=== PATIENT | female | born 1990 | race Caucasian/White ===

== ENCOUNTER 2018-01-24 22:45 | Emergency (ER) | payer MEDICAID, OTHER ==
[2018-01-24 23:55] LABS: HCG UR QUAL NEGATIVE
--- NOTE | 2018-01-25 00:51 | XRAY Report ---
Procedure Date: 01/25/2018 Accession Number: [id number] / [id number] Procedure: XR - Ankle 3 View RT CPT Code: FULL RESULT: EXAM: RIGHT ANKLE RADIOGRAPHY EXAM DATE: 01/25/2018 12:37 AM. CLINICAL HISTORY: Right ankle injury. COMPARISON: None. TECHNIQUE: 3 views. FINDINGS: Bones: Unremarkable appearing surgical hardware in the distal tibia and fibula. Fracture lines visible but in anatomic alignment. No new fracture seen. Joints: Normal. No effusion. No subluxations. The ankle mortise is normally aligned. Soft Tissues: Normal. No soft tissue swelling. IMPRESSION: Unremarkable appearing surgical hardware in the distal tibia and fibula. Fracture lines visible but in anatomic alignment. No new fracture seen. RADIA
--- NOTE | 2018-01-25 00:52 | XRAY Report ---
Procedure Date: 01/25/2018 Accession Number: [id number] / [id number] Procedure: XR - Chest 2 View X-Ray CPT Code: 88671 FULL RESULT: EXAM: CHEST RADIOGRAPHY EXAM DATE: 01/25/2018 12:38 AM. CLINICAL HISTORY: Injury to right chest. COMPARISON: None. TECHNIQUE: 2 views. FINDINGS: Lungs/Pleura: No focal opacities evident. No pleural effusion. No pneumothorax. Normal volumes. Mediastinum: Heart and mediastinal contours are unremarkable. Other: No definite acute osseous abnormality. IMPRESSION: Negative 2-view chest radiography. RADIA
[2018-01-25 01:05] VITALS: BP 125/77
--- NOTE | 2018-01-25 01:11 | ED Physician Documentation ---
History of Present Illness - Stated complaint Stated Complaint: RIB PX - Chief complaint Chief Complaint: General - History obtained from History obtained from: Patient - History of Present Illness Timing: How many weeks ago (1) Pain level now: 7 Improved by: rest Worsened by: movement, weight-bearing, deep inspiration - Additonal information Additional information: c/o left anterolateral rib pain and right ankle pain x 1 week, sudden onset when rough-housing with s.o. Patient says this was accidental and denies feeling unsafe at home. presents tonight because pain no longer responding to OTC (tylenol, ibuprofen, aspirin). Review of Systems Cardiac: reports: Chest pain / pressure (left chest wall pain) Respiratory: reports: Reviewed and negative GI: reports: Reviewed and negative Musculoskeletal: reports: Joint pain (right ankle). denies: Neck pain, Back pain Neurologic: denies: Focal weakness, Numbness, Headache, Head injury PD PAST MEDICAL HISTORY - Past Medical History Past Medical History: Yes Endocrine/Autoimmune: HyPERthyroidism - Past Surgical History Past Surgical History: Yes Ortho: Other HEENT: Tonsil/Adenoidectomy - Present Medications Home Medications: Ambulatory Orders Medication Instructions Recorded Confirmed Atenolol 25 mg PO DAILY #30 tablet 03/26/15 Methimazole [Tapazole] 10 mg PO DAILY 03/26/15 03/26/15 Metoprolol Tartrate 25 mg PO 03/26/15 03/26/15 oxyCODONE/ACET 5/325 [Percocet 5 1 - 2 each PO Q6H PRN #10 tablet 01/25/18 mg/325 mg] - Allergies Allergies/Adverse Reactions: Allergies Allergy/AdvReac Type Severity Reaction Status Date / Time acetaminophen [From Vicodin] Allergy Unknown Unknown Verified 08/01/14 12:47 hydrocodone bitartrate * Allergy Unknown Unknown Verified 08/01/14 12:47 [From Vicodin] - Social History Does the pt smoke?: Yes Smoking Status: Current every day smoker Does the pt drink ETOH?: No Does the pt have substance abuse?: No - Immunizations Immunizations are current?: Yes Immunizations: TDAP >10years/unknown - POLST Patient has POLST: No PD ED PE NORMAL - Vitals Vital signs reviewed: Yes - General General: Alert and oriented X 3, No acute distress, Well developed/nourished - Neck Neck: Thyroid normal (nontender, symmetric anterior neck fullness) - Cardiac Cardiac: No murmur - Respiratory Respiratory: No respiratory distress, Clear bilaterally, Other (left anterolateral rib tenderness to palpation) - Abdomen Abdomen: Soft, Non tender - Back Back: No spinal TTP - Extremities Extremities: No edema, Other (mild swelling, tenderness medial aspect of right ankle) - Neuro Neuro: Alert and oriented X 3, No motor deficit, No sensory deficit PD ED PE EXPANDED - Cardiac Cardiac: Tachy, Regular Rhythm Results - Vitals Vitals: Oxygen O2 Source Room air - Labs Labs: Laboratory Tests 01/24/18 23:30 Ur Specific [place] 1.010 Urine HCG, Qual NEGATIVE - Rads (name of study) right ankle xrays Radiology: Prelim report reviewed, See rad report chest xray Radiology: Prelim report reviewed, See rad report PD MEDICAL DECISION MAKING - ED course Complexity details: reviewed results, re-evaluated patient, considered differential, d/w patient ED course: no acute findings on chest xray, ankle xrays. tachycardic during ED stay; pain might be contributing factor, although when I ask her about her medications, she says she has not been taking them for a couple of years. she says there were problems in continuing to see her previous doctor, and she has not established with a new one, and she thus eventually ran out of her medications. despite tachycardia, she does not have other overt signs of hyperthyroidism ( such as diaphoresis, proptosis, lid lag). she has fullness in anterior neck. I advised her to seek immediate follow-up through her insurance provider (to be assigned a PMD) or to contact [facility] or [facility] (if she had no insurance). - Sepsis Event Vital Signs: Oxygen O2 Source Room air Departure - Departure Disposition: Home, Self Care Clinical Impression: Chest wall contusion, Right ankle sprain Condition: Good Instructions: ED Sprain Ankle W X Ray, ED Contusion Rib Follow-Up: [facility] [Provider Group] [facility] [Provider Group] Prescriptions: oxyCODONE/ACET 5/325 [Percocet 5 mg/325 mg] 1 - 2 each PO Q6H PRN #10 tablet PRN Reason: Pain Forms: Activity restrictions Discharge Date/Time: 01/25/18 02:00
[2018-01-25] MEDS ORDERED: oxyCOD/ACETAMIN 5 MG/325 MG TABLET PO STA (01:23)
== END 2018-01-25 02:00 | disposition home or self-care (01) ==
LOC: ED 22:45
DX: S20.219A Contusion of unspecified front wall of thorax, initial encounter (principal); S93.401A Sprain of unspecified ligament of right ankle, initial encounter; Y93.83 Activity, rough housing and horseplay; E05.90 Thyrotoxicosis, unspecified without thyrotoxic crisis or storm; R00.0 Tachycardia, unspecified; T50.906A Underdosing of unspecified drugs, medicaments and biological substances, initial encounter; Z91.138 Patient's unintentional underdosing of medication regimen for other reason
CPT/HCPCS: 71046; 73610; 81025; 99283; A9270

== ENCOUNTER 2019-11-11 16:52 | Emergency (ER) | payer MEDICAID ==
[2019-11-11] MEDS: SODIUM CHLORIDE 0.9% 1,000 ML IV STA (17:27)
--- NOTE | 2019-11-11 17:48 | ED Physician Documentation ---
History of Present Illness - Stated complaint Stated Complaint: WEAKNESS, N/V - Chief complaint Chief Complaint: General - History obtained from History obtained from: Patient - History of Present Illness Timing: Yesterday Pain level max: 5 Pain level now: 4 - Additonal information Additional information: 29-year-old female states that she had teeth pulled yesterday. States has had nausea and vomiting since that time. Is supposed to be taking Augmentin, but cannot keep it down. Nothing makes it better or worse. No fevers. She does states she has a chronically elevated heart rate. She states she has hyperthyroidism, but does not take her medication. Review of Systems Constitutional: denies: Fever Respiratory: denies: Cough GI: reports: Nausea, Vomiting. denies: Abdominal Pain, Diarrhea : denies: Dysuria, Frequency, Hesitancy, Now EGA Skin: denies: Rash PD PAST MEDICAL HISTORY - Past Medical History Past Medical History: Yes Endocrine/Autoimmune: HyPERthyroidism - Past Surgical History Past Surgical History: Yes Ortho: Other HEENT: Tonsil/Adenoidectomy - Present Medications Home Medications: Ambulatory Orders Medication Instructions Recorded Confirmed Methimazole [Tapazole] 10 mg PO DAILY 03/26/15 03/26/15 Metoprolol Tartrate 25 mg PO 03/26/15 03/26/15 atenoloL [Atenolol] 25 mg PO DAILY #30 tablet 03/26/15 oxyCODONE/ACET 5/325 [Percocet 5 1 - 2 each PO Q6H PRN #10 tablet 01/25/18 mg/325 mg] Clindamycin HCl [Clindamycin 300MG 300 mg PO Q6H #40 capsule 11/11/19 CAP] Ondansetron Odt [Zofran] 4 mg TL Q6H PRN #10 tablet 11/11/19 - Allergies Allergies/Adverse Reactions: Allergies Allergy/AdvReac Type Severity Reaction Status Date / Time acetaminophen [From Vicodin] Allergy Unknown Unknown Verified 11/11/19 17:13 hydrocodone bitartrate * Allergy Unknown Unknown Verified 11/11/19 17:13 [From Vicodin] - Social History Does the pt smoke?: Yes Smoking Status: Current every day smoker Does the pt drink ETOH?: No Does the pt have substance abuse?: No - Immunizations Immunizations are current?: Yes Immunizations: TDAP >10years/unknown - POLST Patient has POLST: No PD ED PE NORMAL - Vitals Vital signs reviewed: Yes - General General: Alert and oriented X 3, No acute distress - HEENT HEENT: Moist mucous membranes, Other (Poor dentition throughout. No abscesses. No signs of infection.) - Neck Neck: Supple, no meningeal sign - Cardiac Cardiac: Other (Tachycardic) - Respiratory Respiratory: No respiratory distress, Clear bilaterally - Derm Derm: Warm and dry - Neuro Neuro: Alert and oriented X 3 - Psych Psych: Normal mood, Normal affect Results - Vitals Vitals: Vital Signs - 24 hr 11/11/19 11/11/19 11/11/19 17:10 17:28 18:30 Temperature 36.8 C Heart Rate 149 H 134 H 147 H Respiratory 20 17 20 Rate Blood Pressure 137/80 H 137/88 H 128/74 O2 Saturation 100 100 99 11/11/19 19:00 Temperature Heart Rate 146 H Respiratory 16 Rate Blood Pressure 126/77 O2 Saturation 100 Oxygen O2 Source Room air - Labs Labs: Laboratory Tests 11/11/19 11/11/19 11/11/19 17:38 17:38 17:57 WBC 6.7 RBC 4.82 Hgb 11.9 L Hct 37.0 MCV 76.8 L MCH 24.7 L MCHC 32.2 RDW 14.8 Plt Count TNP MPV TNP Neut # (Auto) 5.3 Lymph # (Auto) 1.1 L [place] # (Auto) 0.4 Eos # (Auto) 0.0 Baso # (Auto) 0.0 Absolute Nucleated RBC 0.00 Nucleated RBC % 0.0 Manual Slide Review Indicated Platelet Estimate NORMAL (130-450,000) Platelet Morphology PLATELET CLUMPING Sodium Potassium Chloride Carbon Dioxide Anion Gap BUN Creatinine Estimated GFR (MDRD) Glucose Calcium Total Bilirubin AST ALT Alkaline Phosphatase Total Protein Albumin Globulin Albumin/Globulin Ratio Lipase Urine Color YELLOW Urine Clarity CLEAR Urine pH 5.5 Ur Specific [place] >=1.030 H Urine Protein NEGATIVE Urine Glucose (UA) NEGATIVE Urine Ketones >=80 H Urine Occult Blood MODERATE H Urine Nitrite NEGATIVE Urine Bilirubin NEGATIVE Urine Urobilinogen 0.2 (NORMAL) Ur Leukocyte Esterase NEGATIVE Urine RBC 0-5 Urine WBC 0-3 Ur Squamous Epith Cells NONE SEEN Urine Bacteria None Seen Ur Microscopic Review INDICATED Urine Culture Comments NOT INDICATED Urine HCG, Qual NEGATIVE Urine Opiates Screen NEGATIVE Ur Oxycodone Screen NEGATIVE Urine Methadone Screen NEGATIVE Ur Propoxyphene Screen NEGATIVE Ur Barbiturates Screen NEGATIVE Ur Tricyclics Screen NEGATIVE Ur Phencyclidine Scrn NEGATIVE Ur Amphetamine Screen NEGATIVE U Methamphetamines Scrn NEGATIVE U Benzodiazepines Scrn NEGATIVE Urine Cocaine Screen NEGATIVE U Cannabinoids Screen POSITIVE H 11/11/19 17:57 WBC RBC Hgb Hct MCV MCH MCHC RDW Plt Count MPV Neut # (Auto) Lymph # (Auto) [place] # (Auto) Eos # (Auto) Baso # (Auto) Absolute Nucleated RBC Nucleated RBC % Manual Slide Review Platelet Estimate Platelet Morphology Sodium 135 Potassium 3.9 Chloride 104 Carbon Dioxide 15 L Anion Gap 16.0 H BUN 10 Creatinine 0.4 Estimated GFR (MDRD) 190 Glucose 73 Calcium 8.8 Total Bilirubin 1.0 AST 18 ALT 15 Alkaline Phosphatase 120 Total Protein 7.3 Albumin 3.9 Globulin 3.4 Albumin/Globulin Ratio 1.1 Lipase 26 Urine Color Urine Clarity Urine pH Ur Specific [place] Urine Protein Urine Glucose (UA) Urine Ketones Urine Occult Blood Urine Nitrite Urine Bilirubin Urine Urobilinogen Ur Leukocyte Esterase Urine RBC Urine WBC Ur Squamous Epith Cells Urine Bacteria Ur Microscopic Review Urine Culture Comments Urine HCG, Qual Urine Opiates Screen Ur Oxycodone Screen Urine Methadone Screen Ur Propoxyphene Screen Ur Barbiturates Screen Ur Tricyclics Screen Ur Phencyclidine Scrn Ur Amphetamine Screen U Methamphetamines Scrn U Benzodiazepines Scrn Urine Cocaine Screen U Cannabinoids Screen PD MEDICAL DECISION MAKING - ED course Complexity details: considered differential, d/w patient ED course: 29-year-old female feels much better after IV fluids and Zofran. Also given a dose of Rocephin. Will change her from Augmentin to clindamycin. She is tolerating p.o. without difficulty now. Her tachycardia is chronic and confirmed on prior visits. Patient is well-appearing, nontoxic. Afebrile. Patient counseled regarding signs and symptoms for which I believe and urgent re-evaluation would be necessary. Patient with good understanding of and agreement to plan and is comfortable going home at this time This document was made in part using voice recognition software. While efforts are made to proofread this document, sound alike and grammatical errors may occur. Departure - Departure Disposition: 01 Home, Self Care Clinical Impression: Vomiting Qualifiers: Vomiting type: unspecified Vomiting Intractability: non-intractable Nausea presence: with nausea Qualified Code(s): R11.2 - Nausea with vomiting, unspe cified Condition: Good Instructions: ED Nausea Vomiting Follow-Up: your,doctor in 3 days [Other] - Within 1 week Prescriptions: Clindamycin HCl [Clindamycin 300MG CAP] 300 mg PO Q6H #40 capsule Ondansetron Odt [Zofran] 4 mg TL Q6H PRN #10 tablet PRN Reason: Nausea / Vomiting Comments: Return if you worsen. Drink plenty of fluids and rest Follow up with your doctor for further care. We will change your antibiotics as well. Discharge Date/Time: 11/11/19 19:43
[2019-11-11 17:55] LABS: GLUCOSE, URINE (UA) NEGATIVE (NEGATIVE); KETONES,URINE (UA) >=80 mg/dL (NEGATIVE); LEUKOCYTE ESTERASE, URINE NEGATIVE (NEGATIVE); NITRITE,URINE NEGATIVE (NEGATIVE); OCCULT BLOOD,URINE MODERATE (NEGATIVE); PH,URINE 5.5 PH (5.0-7.5); PROTEIN,URINE NEGATIVE (NEGATIVE); UROBILINOGEN,URINE 0.2 (NORMAL) E.U./dL (NORMAL)
[2019-11-11] MEDS: MORPHINE 10 MG/ML VIAL IVP STA (17:55)
[2019-11-11] MEDS: ONDANSETRON 4 MG/2 ML VIAL IVP STA (17:55)
[2019-11-11 17:57] LABS: BILIRUBIN,URINE NEGATIVE (NEGATIVE); CLARITY,URINE CLEAR (CLEAR); HCG UR QUAL NEGATIVE; ICTOTEST,URINE NEGATIVE
[2019-11-11 18:03] LABS: BACTERIA,URINE None Seen /HPF (None Seen); RBC,URINE 0-5 /HPF (0-5); SQUAMOUS EPITHELIAL CELL,UR NONE SEEN (<= Few)
[2019-11-11 18:06] LABS: BASOPHILS % (AUTO) 0.1 %; EOSINOPHILS % (AUTO) 0.3 %; HGB - HEMOGLOBIN 11.9 g/dL (12.0-16.0); LYMPHOCYTES # (AUTO) 1.1 10^3/uL (1.5-3.5); LYMPHOCYTES % (AUTO) 15.6 %; MEAN CORPUSCULAR HEMOGLOBIN 24.7 pg (27.0-31.0); MEAN CORPUSCULAR HGB CONC 32.2 g/dL (32.0-36.0); MEAN CORPUSCULAR VOLUME 76.8 fL (81.0-99.0); MONOCYTES # (AUTO) 0.4 10^3/uL (0.0-1.0); MONOCYTES % (AUTO) 5.8 %; NEUTROPHILS # (AUTO) 5.3 10^3/uL (1.5-6.6); NEUTROPHILS % (AUTO) 77.9 %; RED BLOOD COUNT 4.82 10^6/uL (4.20-5.40); RED CELL DISTRIBUTION WIDTH 14.8 % (12.0-15.0); WHITE BLOOD COUNT 6.7 x10^3/uL (4.8-10.8)
[2019-11-11 18:14] LABS: ALBUMIN 3.9 g/dL (3.2-5.5); ALBUMIN/GLOBULIN RATIO 1.1 (1.0-2.2); CALCIUM 8.8 mg/dL (8.5-10.3); CREATININE 0.4 mg/dL (0.4-1.0); TOTAL PROTEIN 7.3 g/dL (6.7-8.2)
[2019-11-11] MEDS: cefTRIAXone 1 GM VIAL IVP STA (18:20)
[2019-11-11] MEDS: SODIUM CHLORIDE 0.9% 1,000 ML IV ONE (18:31)
[2019-11-11 18:47] LABS: PLATELET ESTIMATE, MANUAL NORMAL (130-450,000) (NORMAL); PLATELET MORPHOLOGY PLATELET CLUMPING (NORMAL)
[2019-11-11 18:53] LABS: MUDS CUTOFF CONCENTRATIONS CUTOFF CONC BELOW:
[2019-11-11 19:07] LABS: AMPHETAMINE SCREEN,URINE NEGATIVE (NEGATIVE); BENZODIAZEPINES SCREEN, URINE NEGATIVE (NEGATIVE); COCAINE SCREEN URINE NEGATIVE (NEGATIVE); METHADONE SCREEN, URINE NEGATIVE (NEGATIVE); METHAMPHETAMINES SCREEN, URINE NEGATIVE (NEGATIVE); OPIATE SCREEN, URINE NEGATIVE (NEGATIVE); OXYCODONE SCREEN, URINE NEGATIVE (NEGATIVE); PROPOXYPHENE SCREEN, URINE NEGATIVE (NEGATIVE); TRICYCLIC ANTIDEPRESSANT,URINE NEGATIVE (NEGATIVE)
[2019-11-11 19:22] VITALS: BP 126/77
== END 2019-11-11 19:43 | disposition home or self-care (01) ==
LOC: ED 16:52
DX: R11.2 Nausea with vomiting, unspecified (principal); F17.200 Nicotine dependence, unspecified, uncomplicated
CPT/HCPCS: 36415; 80053; 80306; 81001; 81003; 81025; 83690; 85025; 87086; 96361; 96374; 96375; 99284

== ENCOUNTER 2020-03-09 22:06 | Emergency (ER) | payer MEDICAID ==
--- NOTE | 2020-03-09 22:32 | ED Physician Documentation ---
PD HPI HEADACHE - Stated complaint Stated Complaint: HEADACHE - Chief complaint Chief Complaint: Neuro - History obtained from History obtained from: Patient - History of Present Illness Timing - onset: Today (this morning) Timing - onset during: Rest Timing - duration: Hours (all day since this morning) Timing - details: Gradual onset Pain level now: 6 Location: Front, Right, Left, Other (bifrontal radiating to neck (posterior aspect of neck)) Quality: Throbbing, Aching Associated symptoms: Nausea. No: Fever, Stiff neck, Vomiting, Weakness, Numbness, Vision changes Improved by: Rest, Dark room Worsened by: Light, Noise Similar symptoms before: Has not had sx before Recently seen: Not recently seen - Additional information Additional information: c/o headache. she woke this morning with this headache, mild at that time but gradually worsening all day. Worse with light, noise. Review of Systems Constitutional: denies: Fever, Chills, Sweats Eyes: reports: Photophobia. denies: Loss of vision, Decreased vision Nose: denies: Congestion, Sinus pressure / pain Cardiac: reports: Reviewed and negative Respiratory: reports: Reviewed and negative GI: reports: Nausea. denies: Abdominal Pain, Vomiting Skin: denies: Rash Neurologic: reports: Headache. denies: Generalized weakness, Focal weakness, Numbness, Head injury PD PAST MEDICAL HISTORY - Past Medical History Past Medical History: Yes Endocrine/Autoimmune: HyPERthyroidism - Past Surgical History Past Surgical History: Yes Ortho: Other HEENT: Tonsil/Adenoidectomy - Present Medications Home Medications: Ambulatory Orders Medication Instructions Recorded Confirmed Ondansetron Odt [Zofran] 4 mg TL Q6H PRN #10 tablet 03/10/20 oxyCODONE [Roxicodone] 5 - 10 mg PO Q6H PRN #14 tablet 03/10/20 - Allergies Allergies/Adverse Reactions: Allergies Allergy/AdvReac Type Severity Reaction Status Date / Time acetaminophen [From Vicodin] Allergy Unknown Unknown Verified 03/09/20 22:15 hydrocodone bitartrate * Allergy Unknown Unknown Verified 03/09/20 22:15 [From Vicodin] paper tape Allergy Rash Uncoded 03/09/20 22:15 - Social History Does the pt smoke?: Yes Smoking Status: Current every day smoker Does the pt drink ETOH?: No Does the pt have substance abuse?: No - Immunizations Immunizations are current?: Yes Immunizations: TDAP >10years/unknown - POLST Patient has POLST: No PD ED PE NORMAL - Vitals Vital signs reviewed: Yes - General General: Alert and oriented X 3, No acute distress, Well developed/nourished - HEENT HEENT: Atraumatic, PERRL, EOMI, Moist mucous membranes - Neck Neck: Supple, no meningeal sign - Cardiac Cardiac: No murmur - Respiratory Respiratory: No respiratory distress - Abdomen Abdomen: Soft, Non tender - Derm Derm: Normal color, Warm and dry - Neuro Neuro: Alert and oriented X 3, 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-12 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, No motor deficit, No sensory deficit, Normal speech Eye Opening: Spontaneous Motor: Obeys Commands Verbal: Oriented GCS Score: 15 PD ED PE EXPANDED - Cardiac Cardiac: Tachy, Regular Rhythm Results - Vitals Vitals: Vital Signs - 24 hr 03/09/20 03/10/20 22:12 00:43 Temperature 36.5 C Heart Rate 132 H 119 H Respiratory 18 16 Rate Blood Pressure 127/81 H 119/79 O2 Saturation 98 99 Oxygen O2 Source Room air PD MEDICAL DECISION MAKING - ED course Complexity details: reviewed old records, reviewed results, re-evaluated patient, considered differential, d/w patient ED course: patient reported improvement after IM toradol, SQ imitrex, and TL zofran, although she c/o feeling flushed after these meds; possibly due to side effect of imitrex and thus this was not prescribed. She has high heart rate which she has had on several previous visits. She tells me she has h/o hyperthyroidism but that the last time her PMD checked her blood tests for thyroid problems, the results were normal (off of medications). I instructed her to f/u with PMD, as her persistent tachycardia is not normal and might benefit from further testing (no emergent testing indicated at this time). Departure - Departure Disposition: 01 Home, Self Care Clinical Impression: Headache Condition: Good Instructions: ED Cephalgia Unspecified Prescriptions: oxyCODONE [Roxicodone] 5 - 10 mg PO Q6H PRN #14 tablet PRN Reason: Headache Ondansetron Odt [Zofran] 4 mg TL Q6H PRN #10 tablet PRN Reason: Nausea / Vomiting Discharge Date/Time: 03/10/20 00:45
[2020-03-09] MEDS ORDERED: KETOROLAC 60 MG/2 ML VIAL IM STA (22:51)
[2020-03-09] MEDS ORDERED: SUMAtriptan 6 MG/0.5 ML VIAL SUBQ STA (22:51)
[2020-03-09] MEDS ORDERED: ONDANSETRON ODT 4 MG TABLET TL STA (22:51)
[2020-03-10] MEDS ORDERED: oxyCODONE/ACET 5/325 Prepack 4 PO STA (00:18)
[2020-03-10 00:44] VITALS: BP 119/79
== END 2020-03-10 00:45 | disposition home or self-care (01) ==
LOC: ED 22:06
DX: R51 Headache (principal); R11.0 Nausea; R00.0 Tachycardia, unspecified; F17.200 Nicotine dependence, unspecified, uncomplicated
CPT/HCPCS: 96372; 99283; 99284; Q0162

== ENCOUNTER 2020-03-12 23:09 | Emergency (ER) | payer MEDICAID ==
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
[2020-03-13] MEDS ORDERED: BACITRACIN ZINC OINT 1 PACKET TOP STA (00:27)
[2020-03-13 01:30] LABS: BILIRUBIN,URINE NEGATIVE (NEGATIVE); GLUCOSE, URINE (UA) NEGATIVE (NEGATIVE); KETONES,URINE (UA) TRACE mg/dL (NEGATIVE); LEUKOCYTE ESTERASE, URINE NEGATIVE (NEGATIVE); MUDS CUTOFF CONCENTRATIONS CUTOFF CONC BELOW:; NITRITE,URINE NEGATIVE (NEGATIVE); OCCULT BLOOD,URINE NEGATIVE (NEGATIVE); PROTEIN,URINE NEGATIVE (NEGATIVE); UROBILINOGEN,URINE 0.2 (NORMAL) E.U./dL (NORMAL)
[2020-03-13] MEDS ORDERED: SODIUM CHLORIDE 0.9% 1,000 ML IV STA (01:31)
[2020-03-13 01:33] LABS: CLARITY,URINE CLEAR (CLEAR)
[2020-03-13 01:41] LABS: AMPHETAMINE SCREEN,URINE NEGATIVE (NEGATIVE); BENZODIAZEPINES SCREEN, URINE NEGATIVE (NEGATIVE); COCAINE SCREEN URINE NEGATIVE (NEGATIVE); METHADONE SCREEN, URINE NEGATIVE (NEGATIVE); METHAMPHETAMINES SCREEN, URINE NEGATIVE (NEGATIVE); OPIATE SCREEN, URINE NEGATIVE (NEGATIVE); OXYCODONE SCREEN, URINE NEGATIVE (NEGATIVE); PROPOXYPHENE SCREEN, URINE NEGATIVE (NEGATIVE); TRICYCLIC ANTIDEPRESSANT,URINE NEGATIVE (NEGATIVE)
[2020-03-13 01:42] LABS: BASOPHILS % (AUTO) 0.3 %; EOSINOPHILS # (AUTO) 0.2 10^3/uL (0.0-0.7); EOSINOPHILS % (AUTO) 2.6 %; HGB - HEMOGLOBIN 10.5 g/dL (12.0-16.0); LYMPHOCYTES # (AUTO) 2.5 10^3/uL (1.5-3.5); LYMPHOCYTES % (AUTO) 32.5 %; MEAN CORPUSCULAR HEMOGLOBIN 23.4 pg (27.0-31.0); MEAN CORPUSCULAR HGB CONC 31.3 g/dL (32.0-36.0); MEAN PLATELET VOLUME 9.9 fL (7.9-10.8); MONOCYTES # (AUTO) 0.5 10^3/uL (0.0-1.0); MONOCYTES % (AUTO) 6.3 %; NEUTROPHILS # (AUTO) 4.4 10^3/uL (1.5-6.6); PLT - PLATELET COUNT 303 10^3/uL (130-450); RED BLOOD COUNT 4.48 10^6/uL (4.20-5.40); RED CELL DISTRIBUTION WIDTH 15.1 % (12.0-15.0); WHITE BLOOD COUNT 7.6 x10^3/uL (4.8-10.8)
[2020-03-13] MEDS ORDERED: IOVERSOL 320 100 ML VIAL IVP ONE ×2 (01:48→03:19)
[2020-03-13 01:54] LABS: ALBUMIN 3.8 g/dL (3.2-5.5); ALBUMIN/GLOBULIN RATIO 1.3 (1.0-2.2); ALKALINE PHOSPHATASE 95 IU/L (42-121); ALT ALANINE AMINOTRANSFERASE 14 IU/L (10-60); AST ASPARTATE AMINOTRANSFERASE 17 IU/L (10-42); BILIRUBIN,TOTAL 0.3 mg/dL (0.2-1.0); BUN - BLOOD UREA NITROGEN 12 mg/dL (6-20); CALCIUM 9.2 mg/dL (8.5-10.3); CARBON DIOXIDE - CO2 24 mmol/L (21-32); CHLORIDE 104 mmol/L (101-111); CK- CREATINE KINASE 35 IU/L (22-269); CREATININE 0.3 mg/dL (0.4-1.0); GLUCOSE 108 mg/dL (70-100); LIPASE 48 U/L (22-51); SODIUM 136 mmol/L (135-145); TOTAL PROTEIN 6.8 g/dL (6.7-8.2)
[2020-03-13 02:08] LABS: HCG,QUALITATIVE BLOOD NEGATIVE
[2020-03-13 03:54] VITALS: BP 124/86
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
== END 2020-03-13 04:13 | disposition home or self-care (01) ==
LOC: ED 23:09
DX: S42.114A Nondisplaced fracture of body of scapula, right shoulder, initial encounter for closed fracture (principal); S06.0X9A Concussion with loss of consciousness of unspecified duration, initial encounter; S01.112A Laceration without foreign body of left eyelid and periocular area, initial encounter; S03.2XXA Dislocation of tooth, initial encounter; V40.5XXA Car driver injured in collision with pedestrian or animal in traffic accident, initial encounter; Y92.410 Unspecified street and highway as the place of occurrence of the external cause; F17.200 Nicotine dependence, unspecified, uncomplicated; F19.11 Other psychoactive substance abuse, in remission; R16.1 Splenomegaly, not elsewhere classified; R00.0 Tachycardia, unspecified
CPT/HCPCS: 36415; 70450; 70486; 71045; 71260; 72125; 74177; 80053; 80306; 80320; 81003; 82550; 83690; 84484; 84703; 85025; 93005; 96360; 99283; 99284; Q9967; 81001; 87086

== ENCOUNTER 2020-04-29 23:23 | Emergency (ER) | payer MEDICAID ==
[2020-04-29 23:49] VITALS: BP 133/83
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
[2020-04-30] MEDS ORDERED: predniSONE 20 MG TABLET PO STA (00:15)
[2020-04-30] MEDS ORDERED: diphenhydrAMINE 25 MG CAPSULE PO STA (00:15)
== END 2020-04-30 00:34 | disposition home or self-care (01) ==
LOC: ED 23:23
DX: T78.3XXA Angioneurotic edema, initial encounter (principal); F17.200 Nicotine dependence, unspecified, uncomplicated
CPT/HCPCS: 99282; 99283; A9270; J7512

== ENCOUNTER 2020-05-25 18:30 | Outpatient (CLI) | payer MEDICAID | END 2020-05-25 18:31 | disposition home or self-care (01) | LOC: COV 18:30 | PROVIDERS: ATTEND Family Medicine | DX: R05 Cough (principal); M79.10 Myalgia, unspecified site; R53.83 Other fatigue; R68.83 Chills (without fever); J02.9 Acute pharyngitis, unspecified; R19.7 Diarrhea, unspecified; R09.81 Nasal congestion; Z20.828 Contact with and (suspected) exposure to other viral communicable diseases ==

== ENCOUNTER 2020-07-29 01:01 | Emergency (ER) | payer MEDICAID ==
--- NOTE | 2020-07-29 02:13 | ED Physician Documentation ---
PD HPI HEADACHE - Stated complaint Stated Complaint: SWOLLEN LT EYE - Chief complaint Chief Complaint: Neuro - History obtained from History obtained from: Patient - History of Present Illness Timing - onset: How many hours ago (10), Today (about 2 this afternoon) Timing - onset during: Light activity Timing - details: Gradual onset, Still present Worst headache ever?: No: Worst headache ever? (similar to headache 3 months ago that was treated well with migriane meds. This is just second headache of similar character.) Quality: Throbbing, Aching Associated symptoms: Nausea, Eye pain (light sensitive left eye and feels that there is pressure feeling around the eye.). No: Fever, Stiff neck, Vomiting, Weakness Worsened by: Light, Noise Contributing factors: No: Anticoagulated, Recent illness, Trauma Similar symptoms before: Diagnosis (one prior similar headache Dx as likely migraine) Review of Systems Constitutional: denies: Fever, Chills Eyes: reports: Photophobia Nose: denies: Rhinorrhea / runny nose, Congestion Throat: denies: Sore throat Respiratory: denies: Cough GI: reports: Nausea. denies: Abdominal Pain, Vomiting, Diarrhea Skin: denies: Rash, Lesions Neurologic: reports: Headache. denies: Focal weakness, Numbness, Altered mental status PD PAST MEDICAL HISTORY - Past Medical History Cardiovascular: Other Endocrine/Autoimmune: HyPERthyroidism - Past Surgical History Past Surgical History: Yes Ortho: Other HEENT: Tonsil/Adenoidectomy - Present Medications Home Medications: Ambulatory Orders Medication Instructions Recorded Confirmed Ondansetron Odt [Zofran] 4 mg TL Q6H PRN #10 tablet 03/10/20 oxyCODONE [Roxicodone] 5 - 10 mg PO Q6H PRN #14 tablet 03/10/20 predniSONE [Prednisone] 40 mg PO DAILY 3 Days #6 tablet 04/30/20 Butalb/Acetaminophen/Caffeine 1 each PO Q6H PRN #10 capsule 07/29/20 [Fioricet 50-300-40 mg Capsule] Ondansetron Odt [Zofran] 4 mg TL Q6H PRN #10 tablet 07/29/20 - Allergies Allergies/Adverse Reactions: Allergies Allergy/AdvReac Type Severity Reaction Status Date / Time acetaminophen [From Vicodin] Allergy Unknown Unknown Verified 04/29/20 23:30 hydrocodone bitartrate * Allergy Unknown Unknown Verified 04/29/20 23:30 [From Vicodin] paper tape Allergy Rash Uncoded 04/29/20 23:30 - Social History Does the pt smoke?: Yes Smoking Status: Current every day smoker Does the pt drink ETOH?: No Does the pt have substance abuse?: No - Immunizations Immunizations are current?: Yes Immunizations: TDAP >10years/unknown - POLST Patient has POLST: No PD ED PE NORMAL - Vitals Vital signs reviewed: Yes - General General: Alert and oriented X 3, Well developed/nourished - HEENT HEENT: Moist mucous membranes, Pharynx benign - Neck Neck: Supple, no meningeal sign, No adenopathy - Cardiac Cardiac: No murmur. No: RRR (regular but tachycardic) - Respiratory Respiratory: Clear bilaterally - Abdomen Abdomen: Soft, Non tender - Derm Derm: Normal color, Warm and dry - Extremities Extremities: No tenderness to palpate, Normal ROM s pain - Neuro Neuro: Alert and oriented X 3, soap maker 2-12 intact, No motor deficit, No sensory deficit, Normal speech - Psych Psych: Normal mood, Normal affect Results - Vitals Vitals: Vital Signs - 24 hr 07/29/20 07/29/20 07/29/20 01:16 02:15 03:31 Temperature 36.8 C 36.8 C 36.8 C Heart Rate 127 H 120 H 115 H Respiratory 18 16 18 Rate Blood Pressure 130/79 131/79 H 130/75 O2 Saturation 98 99 99 Oxygen O2 Source Room air PD MEDICAL DECISION MAKING - ED course Complexity details: reviewed old records, re-evaluated patient (improved nearly completely with fluids, toradol and compazine. Has tachycardia from thyroid process, so will avoid Imitrex. ), considered differential (sounds likely migraine), d/w patient Departure - Departure Disposition: 01 Home, Self Care Clinical Impression: Migraine headache Qualifiers: Migraine type: without aura Status migrainosus presence: without status migrainosus Intractability: not intractable Qualified Code(s): G43.009 - Migraine without aura, not intractable, without status migrainosus Condition: Stable Record reviewed to determine appropriate education?: Yes Instructions: ED Headache Migraine Follow-Up: [facility] [Provider Group[facility] Prescriptions: Butalb/Acetaminophen/Caffeine [Fioricet 50-300-40 mg Capsule] 1 each PO Q6H PRN #10 capsule PRN Reason: Migraine Ondansetron Odt [Zofran] 4 mg TL Q6H PRN #10 tablet PRN Reason: Nausea / Vomiting Comments: This sounds likely to be a migraine headache similar to the one a few months ago. Your headache improved with medications targeted towards migraine. 4 future episodes, you could try combination of ondansetron for nausea and Fioricet for migraine along with an ibuprofen tablet. See if that combination would help with the headache. Return if significant headache again despite the above medicines. Obtain local primary care for further evaluation and treatments. Discharge Date/Time: 07/29/20 03:44
[2020-07-29] MEDS ORDERED: PROCHLORPERAZINE 10 MG/2 ML VIAL IVP STA (02:29)
[2020-07-29] MEDS ORDERED: KETOROLAC 30 MG/ML VIAL IVP STA (02:29)
[2020-07-29] MEDS ORDERED: SODIUM CHLORIDE 0.9% 1,000 ML IV STA (02:29)
[2020-07-29] MEDS ORDERED: DEXAMETHASONE 10 MG/ML VIAL IVP STA (03:25)
[2020-07-29 03:32] VITALS: BP 130/75
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
== END 2020-07-29 03:44 | disposition home or self-care (01) ==
LOC: ED 01:01
DX: G43.009 Migraine without aura, not intractable, without status migrainosus (principal); F17.200 Nicotine dependence, unspecified, uncomplicated
CPT/HCPCS: 96374; 96375; 99284

== ENCOUNTER 2021-03-28 12:46 | Emergency (ER) | payer MEDICAID ==
[2021-03-28 12:54] VITALS: BP 160/85
[2021-03-28] MEDS ORDERED: oxyCODONE 5 MG TABLET PO STA (13:58)
[2021-03-28] MEDS ORDERED: CLINDAMYCIN 150 MG CAPSULE PO STA (13:59)
--- NOTE | 2021-03-28 14:04 | ED Physician Documentation ---
History of Present Illness - Stated complaint Stated Complaint: MOUTH PX - Chief complaint Chief Complaint: Heent - History obtained from History obtained from: Patient - History of Present Illness Pain level max: 9 Pain level now: 9 - Additonal information Additional information: Patient is a 30-year-old female who presents to the emergency department left upper tooth pain. She states is been ongoing for several weeks, she did finish a course of Amoxicillin and states that it did improve but now has returned and there is swelling at her gingiva. No fevers. No chills. She is still trying to see her dentist without success. Denies any possibility of . no facial swelling. Review of Systems Constitutional: denies: Fever, Chills GI: denies: Vomiting, Diarrhea Skin: denies: Rash Musculoskeletal: denies: Neck pain, Back pain Neurologic: denies: Headache PD PAST MEDICAL HISTORY - Past Medical History Cardiovascular: Other Endocrine/Autoimmune: HyPERthyroidism - Past Surgical History Past Surgical History: Yes Ortho: Other HEENT: Tonsil/Adenoidectomy - Present Medications Home Medications: Ambulatory Orders Medication Instructions Recorded Confirmed Ondansetron Odt [Zofran] 4 mg TL Q6H PRN #10 tablet 03/10/20 oxyCODONE [Roxicodone] 5 - 10 mg PO Q6H PRN #14 tablet 03/10/20 predniSONE [Prednisone] 40 mg PO DAILY 3 Days #6 tablet 04/30/20 Butalb/Acetaminophen/Caffeine 1 each PO Q6H PRN #10 capsule 07/29/20 [Fioricet 50-300-40 mg Capsule] Ondansetron Odt [Zofran] 4 mg TL Q6H PRN #10 tablet 07/29/20 Oxycodone HCl/Acetaminophen 1 - 2 each PO Q6H PRN #14 tablet 03/28/21 [Percocet 5-325 mg Tablet] clindamycin HCL [Cleocin HCl] 300 mg PO Q6H #40 cap 03/28/21 - Allergies Allergies/Adverse Reactions: Allergies Allergy/AdvReac Type Severity Reaction Status Date / Time acetaminophen [From Vicodin] Allergy Unknown Unknown Verified 03/28/21 12:49 hydrocodone bitartrate * Allergy Unknown Unknown Verified 03/28/21 12:49 [From Vicodin] paper tape Allergy Rash Uncoded 03/28/21 12:49 - Social History Does the pt smoke?: Yes Smoking Status: Current every day smoker Does the pt drink ETOH?: No Does the pt have substance abuse?: No - Immunizations Immunizations are current?: Yes Immunizations: TDAP >10years/unknown - POLST Patient has POLST: No PD ED PE NORMAL - Vitals Vital signs reviewed: Yes - General General: Alert and oriented X 3, No acute distress - HEENT HEENT: Moist mucous membranes, Other (Very poor dentition throughout, many broken, rotting teeth. There is a visible gingival abscess near the L upper canine. No trismus. No facial swelling.) - Neck Neck: Supple, no meningeal sign - Cardiac Cardiac: Other (tachycardic) - Respiratory Respiratory: No respiratory distress, Clear bilaterally - Derm Derm: Warm and dry - Neuro Neuro: Alert and oriented X 3 Results - Vitals Vitals: Vital Signs - 24 hr 03/28/21 12:49 Temperature 36.5 C Heart Rate 190 H Respiratory 16 Rate Blood Pressure 160/85 H O2 Saturation 100 Oxygen O2 Source Room air Procedures - Abscess I&D (location) L upper molar Incision: Needle aspiration, Purulent drainage Other: Pt tolerated well, Antibiotic prescribed PD MEDICAL DECISION MAKING - ED course Complexity details: reviewed results, re-evaluated patient, considered differential, d/w patient ED course: Patient with a small gingival abscess. An 18-gauge needle was used to drain the abscess. Patient states that lidocaine and anesthetics do not work for her. We will place the patient on antibiotics and pain medication for home. We recommend very close follow-up this week with her dentist for further care. I am prescribing a short course of short-acting opioid pain medication for this patient. I have reviewed the patients DISTRIBUTION SUPERINTENDENT and no concerning findings were noted. I have discussed that the opioids are for short term therapy only, and will not be refilled from the ED. patient counseled regarding signs and symptoms for which I believe and urgent re-evaluation would be necessary. Patient with good understanding of and agreement to plan and is comfortable going home at this time This document was made in part using voice recognition software. While efforts are made to proofread this document, sound alike and grammatical errors may occur. Patient has chronic tachycardia as well, she states her normal heart rate is anywhere from 130-190. Heart rate recheck with me prior to discharge is 122. Departure - Departure Disposition: Home, Self Care Clinical Impression: Dental abscess Condition: Good Instructions: ED Abscess Dental Follow-Up: your,dentist this week [Other] Prescriptions: clindamycin HCL [Cleocin HCl] 300 mg PO Q6H #40 cap Oxycodone HCl/Acetaminophen [Percocet 5-325 mg Tablet] 1 - 2 each PO Q6H PRN #14 tablet PRN Reason: pain Comments: Take all antibiotics until gone. Your [facility] were sent to [facility] in [place]. Please make sure you follow-up with your dentist as soon as possible. Warm salt water rinses will also help. You can do this 4-5 times per day. I am prescribing a short course of narcotic pain medication for you. These are potentially dangerous and addictive medications that should be used carefully. These medications may constipate you. Take an lcyu-xab-hqnsnwq stool softener (docusate) twice daily with plenty of water while taking these medications. If you go 24 hours without a bowel movement, take [id number]-[id number] miralax, per package instructions. Do not drink or drive while taking these medications. If you received narcotic or sedating medications while in the emergency department, do not drive for 24 hours. Store this medication in a safe, secure place and out of reach of children. It is a violation of federal law to give or sell this medication to another person or to use in a manner other than prescribed. The ED will not refill narcotic prescriptions, including prescriptions lost or stolen. To dispose of unwanted medications: 1. [facility] at [address] in [place] has a medication drop box. They accept prescription medications (in pill form) Monday through Monday 9:00 a.m. to 5:00 p.m. 2. The [facility] [employer] accepts prescription medications (in pill form only) for disposal year round. Call for more information. 3. Contact the [facility] for the next [facility] sponsored prescription drug collection event. , [phone], or [phone]; Discharge Date/Time: 03/28/21 14:26
== END 2021-03-28 14:26 | disposition home or self-care (01) ==
LOC: ED 12:46
DX: K05.319 Chronic periodontitis, localized, unspecified severity (principal); F17.200 Nicotine dependence, unspecified, uncomplicated
CPT/HCPCS: 41800; 99282; 99283; A9270

== ENCOUNTER 2021-06-11 23:06 | Emergency (ER) | payer MEDICAID ==
--- NOTE | 2021-06-12 00:23 | ED Physician Documentation ---
PD HPI HEENT - Stated complaint Stated Complaint: MOUTH PX - Chief complaint Chief Complaint: Heent - History obtained from History obtained from: Patient - History of Present Illness Timing - onset: Yesterday Timing - details: Gradual onset Pain level now: 6 Location: Tooth, Other (gums) Associated symptoms: No: Fever Recently seen: Not recently seen - Additional information Additional information: c/o toothache since yesterday steadily worsening Review of Systems Constitutional: denies: Fever Throat: reports: Dental pain / toothache. denies: Sore throat PD PAST MEDICAL HISTORY - Past Medical History Cardiovascular: Other Endocrine/Autoimmune: HyPERthyroidism - Past Surgical History Past Surgical History: Yes Ortho: Other HEENT: Tonsil/Adenoidectomy - Present Medications Home Medications: Ambulatory Orders Medication Instructions Recorded Confirmed Ondansetron Odt [Zofran] 4 mg TL Q6H PRN #10 tablet 03/10/20 oxyCODONE [Roxicodone] 5 - 10 mg PO Q6H PRN #14 tablet 03/10/20 predniSONE [Prednisone] 40 mg PO DAILY 3 Days #6 tablet 04/30/20 Butalb/Acetaminophen/Caffeine 1 each PO Q6H PRN #10 capsule 07/29/20 [Fioricet 50-300-40 mg Capsule] Ondansetron Odt [Zofran] 4 mg TL Q6H PRN #10 tablet 07/29/20 Oxycodone HCl/Acetaminophen 1 - 2 each PO Q6H PRN #14 tablet 03/28/21 [Percocet 5-325 mg Tablet] clindamycin HCL [Cleocin HCl] 300 mg PO Q6H #40 cap 03/28/21 Metoprolol Tartrate [Lopressor] 25 mg PO DAILY #20 tablet 06/12/21 clindamycin HCL [Clindamycin HCl] 300 mg PO TID #20 cap 06/12/21 oxyCODONE [Roxicodone] 5 - 10 mg PO Q6H PRN #14 tablet 06/12/21 - Allergies Allergies/Adverse Reactions: Allergies Allergy/AdvReac Type Severity Reaction Status Date / Time acetaminophen [From Vicodin] Allergy Unknown Unknown Verified 06/11/21 23:14 hydrocodone bitartrate * Allergy Unknown Unknown Verified 06/11/21 23:14 [From Vicodin] paper tape Allergy Rash Uncoded 06/11/21 23:14 - Social History Does the pt smoke?: Yes Smoking Status: Current every day smoker Does the pt drink ETOH?: No Does the pt have substance abuse?: No - Immunizations Immunizations are current?: Yes Immunizations: TDAP >10years/unknown - POLST Patient has POLST: No PD ED PE NORMAL - Vitals Vital signs reviewed: Yes - General General: Alert and oriented X 3, No acute distress, Well developed/nourished - Neck Neck: Supple, no meningeal sign PD ED PE EXPANDED - HEENT HEENT: Other (extensive , severe dental wear and attrition. there is mild/moderate tenderness to palpation of the gingiva adjacent to lower mid/lateral incisors without fluctuance but mild erythema and swelling.) Results - Vitals Vitals: Oxygen O2 Source Room air PD MEDICAL DECISION MAKING - ED course Complexity details: considered differential, d/w patient ED course: toothache lower incisors with mild swelling and erythema of gingiva, very sensitive to any manipulation such as with cotton swab. Given her overall poor dentition and h/o gingival abscess requiring I+D, will rx antibiotic to treat early infection. also provided opioid analgesia. She is noted to be very tachycardic, which she typically has on previous visits. She says she has hyperthyroidism and she ran out of her metoprolol. She does not know dose , I offered to rx 25mg metoprolol xr QD which she agrees with (as a means of rate control, as her heart rate in ED is mostly 110s-120s) Departure - Departure Disposition: 01 Home, Self Care Clinical Impression: Pain due to dental caries, Tachycardia Condition: Good Instructions: ED Tooth Pain Prescriptions: clindamycin HCL [Clindamycin HCl] 300 mg PO TID #20 cap Metoprolol Tartrate [Lopressor] 25 mg PO DAILY #20 tablet oxyCODONE [Roxicodone] 5 - 10 mg PO Q6H PRN #14 tablet PRN Reason: Pain Comments: Follow up with your primary care provider regarding prescriptions for your thyroid medications. I have provided a limited prescription for metoprolol to help with your heart rate until you can follow up, as you have indicated you have been on this medication but run out. Prescriptions for metoprolol, an antibiotic (clindamycin) and pain medication (oxycodone) have been electronically submitted to [facility] pharmacy in [place]. Follow up with a dentist for your recurrent dental problems. I am prescribing a short course of narcotic pain medication for you. These are potentially dangerous and addictive medications that should be used carefully. These medications may constipate you. Take an lfgx-lrd-ryleabl stool softener (docusate) twice daily with plenty of water while taking these medications. If you go 24 hours without a bowel movement, take [id number] miralax, per package instructions. Do not drink or drive while taking these medications. If you received narcotic or sedating medications while in the emergency department, do not drive for 24 hours. Store this medication in a safe, secure place and out of reach of children. It is a violation of federal law to give or sell this medication to another person or to use in a manner other than prescribed. The ED will not refill narcotic prescriptions, including prescriptions lost or stolen. To dispose of unwanted medications: 1. [facility] [address] in [place] has a medication drop box. They accept prescription medications (in pill form) Monday through Monday 9:00 a.m. to 5:00 p.m. 2. The [facility] [employer] accepts prescription medications (in pill form only) for disposal year round. Call for more information. 3. Contact the [facility] for the next [facility] sponsored prescription drug collection event. , [phone], or [phone]; Discharge Date/Time: 06/12/21 01:18
[2021-06-12] MEDS ORDERED: CLINDAMYCIN 150 MG CAPSULE PO STA (00:41)
[2021-06-12] MEDS ORDERED: oxyCODONE 5 MG TABLET PO STA (00:42)
[2021-06-12 01:18] VITALS: BP 130/84
== END 2021-06-12 01:18 | disposition home or self-care (01) ==
LOC: ED 23:06
DX: K02.9 Dental caries, unspecified (principal); R00.0 Tachycardia, unspecified; F17.200 Nicotine dependence, unspecified, uncomplicated
CPT/HCPCS: 99283; A9270

== ENCOUNTER 2021-07-27 16:56 | Emergency (ER) | payer MEDICAID ==
[2021-07-27 18:22] LABS: BASOPHILS % (AUTO) 0.4 %; EOSINOPHILS # (AUTO) 0.1 10^3/uL (0.0-0.7); EOSINOPHILS % (AUTO) 1.9 %; HCT - HEMATOCRIT 38.9 % (37.0-47.0); HGB - HEMOGLOBIN 12.4 g/dL (12.0-16.0); LYMPHOCYTES # (AUTO) 0.6 10^3/uL (1.5-3.5); LYMPHOCYTES % (AUTO) 20.6 %; MEAN CORPUSCULAR HEMOGLOBIN 22.8 pg (27.0-31.0); MEAN CORPUSCULAR HGB CONC 31.9 g/dL (32.0-36.0); MEAN CORPUSCULAR VOLUME 71.6 fL (81.0-99.0); MEAN PLATELET VOLUME 9.9 fL (7.9-10.8); MONOCYTES # (AUTO) 0.4 10^3/uL (0.0-1.0); MONOCYTES % (AUTO) 14.6 %; NEUTROPHILS # (AUTO) 1.7 10^3/uL (1.5-6.6); NEUTROPHILS % (AUTO) 62.1 %; PLT - PLATELET COUNT 250 10^3/uL (130-450); RED BLOOD COUNT 5.43 10^6/uL (4.20-5.40); WHITE BLOOD COUNT 2.7 x10^3/uL (4.8-10.8)
[2021-07-27 18:32] LABS: ALBUMIN 4.2 g/dL (3.2-5.5); ALBUMIN/GLOBULIN RATIO 1.2 (1.0-2.2); BILIRUBIN,TOTAL 0.4 mg/dL (0.2-1.0); CALCIUM 9.1 mg/dL (8.5-10.3); CREATININE 0.4 mg/dL (0.4-1.0); TOTAL PROTEIN 7.7 g/dL (6.7-8.2)
[2021-07-27 18:33] LABS: SLIDE REVIEW? Indicated
[2021-07-27] MEDS ORDERED: SODIUM CHLORIDE 0.9% 1,000 ML IV STA (19:01)
--- NOTE | 2021-07-27 19:03 | ED Physician Documentation ---
History of Present Illness - Stated complaint Stated Complaint: DIZZY/SHAKY/VOM/CHILLS/FEVER - Chief complaint Chief Complaint: General - Additonal information Additional information: 30-year-old female who has a history of hyperthyroidism as well as tobacco use presents to the emergency department with 24 hours of myalgias subjective fevers, headaches and dizziness. She has not yet vaccinated for COVID-19 she does not trust the vaccine. She denies any abdominal pain but endorses vomiting and diarrhea. No dysuria urgency or frequency. States she has not taken her methimazole or propanalol for a few years as the prescription ran out as well as her insurance. Denies chest pain or shortness of air. No altered mentation. Review of Systems Constitutional: denies: Fever, Chills Eyes: reports: Reviewed and negative Ears: reports: Reviewed and negative Nose: reports: Reviewed and negative Throat: reports: Reviewed and negative Cardiac: reports: Reviewed and negative GI: reports: Nausea, Vomiting, Diarrhea : denies: Dysuria, Frequency, Hesitancy Skin: reports: Reviewed and negative Musculoskeletal: reports: Reviewed and negative PD PAST MEDICAL HISTORY - Past Medical History Cardiovascular: Other Endocrine/Autoimmune: HyPERthyroidism - Past Surgical History Past Surgical History: Yes Ortho: Other HEENT: Tonsil/Adenoidectomy - Present Medications Home Medications: Ambulatory Orders Medication Instructions Recorded Confirmed Propranolol HCl 60 mg PO TID #270 tablet 07/27/21 methIMAzole [Methimazole] 10 mg PO DAILY #30 tablet 07/27/21 - Allergies Allergies/Adverse Reactions: Allergies Allergy/AdvReac Type Severity Reaction Status Date / Time acetaminophen [From Vicodin] Allergy Unknown Unknown Verified 07/27/21 16:59 hydrocodone bitartrate * Allergy Unknown Unknown Verified 07/27/21 16:59 [From Vicodin] paper tape Allergy Rash Uncoded 07/27/21 16:59 - Social History Does the pt smoke?: Yes Smoking Status: Current every day smoker Does the pt drink ETOH?: No Does the pt have substance abuse?: No - Immunizations Immunizations are current?: Yes Immunizations: TDAP >10years/unknown - POLST Patient has POLST: No PD ED PE NORMAL - General General: Alert and oriented X 3, Well developed/nourished - HEENT HEENT: Atraumatic, Moist mucous membranes - Neck Neck: Supple, no meningeal sign, No adenopathy - Cardiac Cardiac: RRR (Tachycardic), No murmur, Strong equal pulses - Respiratory Respiratory: No respiratory distress, Clear bilaterally - Abdomen Abdomen: Normal bowel sounds, Soft, Non tender - Back Back: No CVA TTP, No spinal TTP - Derm Derm: Normal color, Warm and dry, No rash - Extremities Extremities: No deformity - Neuro Neuro: Alert and oriented X 3, leverman 2-12 intact Eye Opening: Spontaneous Motor: Obeys Commands Verbal: Oriented GCS Score: 15 Results - Vitals Vitals: Vital Signs - 24 hr 07/27/21 07/27/21 07/27/21 16:59 19:13 20:15 Temperature 37.5 C 36.6 C 38.1 C H Heart Rate 142 H 128 H Respiratory 16 18 Rate Blood Pressure 140/91 H 138/87 H O2 Saturation 97 100 Oxygen O2 Source Room air - Labs Labs: Laboratory Tests 07/27/21 07/27/21 07/27/21 18:17 18:17 18:17 WBC 2.7 L RBC 5.43 H Hgb 12.4 Hct 38.9 MCV 71.6 L MCH 22.8 L MCHC 31.9 L RDW 15.0 Plt Count 250 MPV 9.9 Neut # (Auto) 1.7 Lymph # (Auto) 0.6 L [place] # (Auto) 0.4 Eos # (Auto) 0.1 Baso # (Auto) 0.0 Absolute Nucleated RBC 0.00 Nucleated RBC % 0.0 Manual Slide Review Indicated WBC Morphology NORMAL APPEARANCE Platelet Estimate NORMAL (130-450,000) Platelet Morphology NORMAL APPEARANCE RBC Morph Micro Appear NORMAL APPEARANCE Sodium 134 L Potassium 4.0 Chloride 102 Carbon Dioxide 23 Anion Gap 9.0 BUN 7 Creatinine 0.4 Estimated GFR (MDRD) 189 Glucose 103 H Calcium 9.1 Total Bilirubin 0.4 AST 18 ALT 14 Alkaline Phosphatase 86 Total Protein 7.7 Albumin 4.2 Globulin 3.5 Albumin/Globulin Ratio 1.2 Lipase 33 TSH < 0.08 L Thyroxine (T4) 22.39 H* Urine Color Urine Clarity Urine pH Ur Specific [place] Urine Protein Urine Glucose (UA) Urine Ketones Urine Occult Blood Urine Nitrite Urine Bilirubin Urine Urobilinogen Ur Leukocyte Esterase Ur Microscopic Review Urine Culture Comments Urine HCG, Qual Nasal Adenovirus (PCR) Nasal B. parapertussis DNA (PCR) Nasal Coronavir 229E PCR Nasal Coronavir HKU1 PCR Nasal Coronavir NL63 PCR Nasal Coronavir OC43 PCR Nasal Enterovir/Rhinovir PCR Nasal Influenza B PCR Nasal Influenza A PCR Nasal Parainfluen 1 PCR Nasal Parainfluen 2 PCR Nasal Parainfluen 3 PCR Nasal Parainfluen 4 PCR Nasal RSV (PCR) Nasal B.pertussis DNA PCR Nasal C.pneumoniae (PCR) Vinay Human Metapneumo PCR Nasal M.pneumoniae (PCR) Nasal SARS-CoV-2 (PCR) 07/27/21 07/27/21 19:00 19:10 WBC RBC Hgb Hct MCV MCH MCHC RDW Plt Count MPV Neut # (Auto) Lymph # (Auto) [place] # (Auto) Eos # (Auto) Baso # (Auto) Absolute Nucleated RBC Nucleated RBC % Manual Slide Review WBC Morphology Platelet Estimate Platelet Morphology RBC Morph Micro Appear Sodium Potassium Chloride Carbon Dioxide Anion Gap BUN Creatinine Estimated GFR (MDRD) Glucose Calcium Total Bilirubin AST ALT Alkaline Phosphatase Total Protein Albumin Globulin Albumin/Globulin Ratio Lipase TSH Thyroxine (T4) Urine Color YELLOW Urine Clarity CLEAR Urine pH 5.5 Ur Specific [place] >=1.030 H Urine Protein NEGATIVE Urine Glucose (UA) NEGATIVE Urine Ketones TRACE Urine Occult Blood NEGATIVE Urine Nitrite NEGATIVE Urine Bilirubin NEGATIVE Urine Urobilinogen 0.2 (NORMAL) Ur Leukocyte Esterase NEGATIVE Ur Microscopic Review NOT INDICATED Urine Culture Comments NOT INDICATED Urine HCG, Qual NEGATIVE Nasal Adenovirus (PCR) NOT DETECTED Nasal B. parapertussis DNA (PCR) NOT DETECTED Nasal Coronavir 229E PCR NOT DETECTED Nasal Coronavir HKU1 PCR NOT DETECTED Nasal Coronavir NL63 PCR NOT DETECTED Nasal Coronavir OC43 PCR NOT DETECTED Nasal Enterovir/Rhinovir PCR NOT DETECTED Nasal Influenza B PCR NOT DETECTED Nasal Influenza A PCR NOT DETECTED Nasal Parainfluen 1 PCR NOT DETECTED Nasal Parainfluen 2 PCR NOT DETECTED Nasal Parainfluen 3 PCR NOT DETECTED Nasal Parainfluen 4 PCR NOT DETECTED Nasal RSV (PCR) NOT DETECTED Nasal B.pertussis DNA PCR NOT DETECTED Nasal C.pneumoniae (PCR) NOT DETECTED Vinay Human Metapneumo PCR NOT DETECTED Nasal M.pneumoniae (PCR) NOT DETECTED Nasal SARS-CoV-2 (PCR) DETECTED A - Rads (name of study) CXR Radiology: Final report received (no acute cardiopulmonary pathology) PD MEDICAL DECISION MAKING - ED course Complexity details: reviewed results, re-evaluated patient, considered differential, d/w patient ED course: 30-year-old female who reports a history of unmedicated hyperthyroidism presents to the emergency department with about 24 hours of headaches body aches myalgias and reported fevers at home. She is afebrile here. She does present with an initial tachycardia heart rate in the 140s. It is sinus without ectopy. She does not have any altered mentation. She is not vaccinated for COVID-19. Unfortunately respiratory PCR is positive. However she has no findings of pneumonia on chest x-ray or hypoxia. She is unlabored with respirations. We did obtain screening labs that showed a mild leukocytosis which is often seen with COVID infection. No worrisome electrolyte abnormalities. Given the history of untreated hyperthyroidism her TSH and T4 were checked. TSH is subclinical and nondetectable however her T4 is 22. Just shy of 2 times the upper limits of normal. Patient does not require admission to the hospital for treatment of her COVID-19 infection. Given her hyperthyroidism and tachycardia it merits discussion of whether this could be early thyroid storm. However in review of her vital signs including previous ER visits she is noted to always be fairly tachycardic even with heart rates as high as 190. She is afebrile here and has no altered mentation. Clinically I do not think that she is in thyroid storm. I did discuss this case briefly with our hospitalist Dr. Shaver. Patient appears clinically stable. Therefore I will initiate outpatient treatment of her hyperthyroidism with 60 mg of propranolol 3 times daily. She will also be started on methimazole 10 mg once daily. Patient is encouraged to follow-up closely with her primary care doctor and establish care. Advised that if unable to schedule with a primary care for 1 to 2 months she may benefit from being seen at an outpatient walk-in clinic for reevaluation of her labs. Emergent return precautions were discussed for concerns of symptoms that might mimic thyroid storm and/or concerns of respiratory distress getting COVID-19 infection. Departure - Departure Disposition: 01 Home, Self Care Clinical Impression: Hyperthyroidism, Tachycardia, COVID-19 Condition: Stable Record reviewed to determine appropriate education?: Yes Instructions: Hyperthyroidism Dc Follow-Up: [facility] [Provider Group] Prescriptions: methIMAzole [Methimazole] 10 mg PO DAILY #30 tablet Propranolol HCl 60 mg PO TID #270 tablet Comments: Lashaun you are seen in the emergency department today for subjective fevers, chills headache and dizziness. You are found to be COVID-19 positive. I do strongly recommend that you obtain a COVID-19 vaccine which can occur about 90 days after an initial infection. You do need to remain in quarantine for approximately the next 10 days. Anybody you live with should also consider themselves infected and quarantine with you as well. In general there is no specific treatment for patients that have COVID-19 unless they require hospitalization. Your chest x-ray is normal. There is no pneumonia. We do recommend that you take Tylenol or ibuprofen for body aches. It is important that you stay very well-hydrated. If at any point you develop d ifficulty breathing or have oxygen levels less than 92% return immediately to the ER for a second evaluation. The second finding of concern today is that your hyperthyroidism is not controlled at all. This would be the reason you have persistently elevated heart rates when you come to the ER. We do need to start you on treatment for that today. I would like you to fill the prescription for the methimazole and begin taking once daily. This is the antithyroid medicine. I would also like you to begin taking the propanolol 60 mg 3 times daily with food. This is a medication that will help reduce your heart rate over the long-term. Control of thyroid does not occur overnight and typically takes months to improve. It is important that you establish with a primary care doctor as soon as possible. I have given you the phone number for [facility]. Please call them to schedule follow-up. If you are not able to establish with a primary care doctor in the next few weeks I do recommend that you go to one of our outpatient walk-in clinics to have your labs reevaluated in about 2 to 3 weeks time and determine if a dose adjustment is necessary for the methimazole and/or the propanolol. You do have 1 refill of each of these medications left. Long-term untreated hyperthyroidism can cause serious and disability. In addition to that long-term untreated severe high heart rates can result in heart failure so it is important that you treat this moving forward. If at any point you have fainting episodes, develop chest pain, have severe shortness of breath, are not acting normally then you are to return immediately to the ER for second evaluation. Your prescriptions have been sent electronically to the [facility] in [place].
[2021-07-27 19:11] LABS: BILIRUBIN,URINE NEGATIVE (NEGATIVE); GLUCOSE, URINE (UA) NEGATIVE (NEGATIVE); KETONES,URINE (UA) TRACE mg/dL (NEGATIVE); LEUKOCYTE ESTERASE, URINE NEGATIVE (NEGATIVE); NITRITE,URINE NEGATIVE (NEGATIVE); OCCULT BLOOD,URINE NEGATIVE (NEGATIVE); PH,URINE 5.5 PH (5.0-7.5); PROTEIN,URINE NEGATIVE (NEGATIVE); UROBILINOGEN,URINE 0.2 (NORMAL) E.U./dL (NORMAL)
[2021-07-27 19:15] LABS: CLARITY,URINE CLEAR (CLEAR); HCG UR QUAL NEGATIVE
[2021-07-27 19:40] LABS: THYROID STIMULATING HORMONE < 0.08 uIU/mL (0.34-5.60)
[2021-07-27 19:43] LABS: T4 (THYROXINE) 22.39 ug/dL (6.09-12.23)
[2021-07-27 19:46] LABS: PLATELET ESTIMATE, MANUAL NORMAL (130-450,000) (NORMAL); PLATELET MORPHOLOGY NORMAL APPEARANCE (NORMAL); RBC MORPHOLOGY (MULTIPLE) NORMAL APPEARANCE (NORMAL)
[2021-07-27 19:47] LABS: WBC MORPHOLOGY (MULTIPLE) NORMAL APPEARANCE (NORMAL)
[2021-07-27] MEDS ORDERED: methIMAzole 5 MG TABLET PO STA (19:52)
--- NOTE | 2021-07-27 19:55 | XRAY Report ---
PROCEDURE: Chest 1 View X-Ray INDICATIONS: chest pain TECHNIQUE: One view of the chest was acquired. COMPARISON: Chest x-ray 03/05/2020 FINDINGS: Surgical changes and devices: None. Lungs and pleura: No pleural effusions or pneumothorax. Lungs are clear. Mediastinum: Mediastinal contours appear normal. Heart size is normal. Bones and chest wall: No suspicious bony lesions. Overlying soft tissues appear unremarkable. IMPRESSION: No acute pulmonary process. Reviewed by: Esther Chance MD on 07/27/2021 7:54 PM PST Approved by: Esther Chance MD on 07/27/2021 7:54 PM [facility] Station ID: [id number]
[2021-07-27 20:15] LABS: CORONAVIRUS 229E-RESP PCR NOT DETECTED; CORONAVIRUS HKU1-RESP PCR NOT DETECTED; CORONAVIRUS NL63-RESP PCR NOT DETECTED; CORONAVIRUS OC43-RESP PCR NOT DETECTED
[2021-07-27 20:16] LABS: SARS-CoV-2 -RESP PCR PANEL DETECTED
[2021-07-27 20:17] LABS: B. PARAPERTUSSIS- RESP PCR PAN NOT DETECTED; B. PERTUSSIS- RESP PCR PANEL NOT DETECTED; C. PNEUMONIAE- RESP PCR PANEL NOT DETECTED; HUMAN METAPNEUMOVIRUS NOT DETECTED; INFLUENZA A- RESP PCR PANEL NOT DETECTED; INFLUENZA B - RESP PCR PANEL NOT DETECTED; M. PNEUMONIAE- RESP PCR PANEL NOT DETECTED; PARAINFLUENZA VIRUS 1 NOT DETECTED; PARAINFLUENZA VIRUS 2 NOT DETECTED; PARAINFLUENZA VIRUS 3 NOT DETECTED; PARAINFLUENZA VIRUS 4 NOT DETECTED; RHINOVIRUS/ENTEROVIRUS NOT DETECTED; RSV- RESP PCR PANEL NOT DETECTED
[2021-07-27 20:55] VITALS: BP 127/87
[2021-07-27] MEDS ORDERED: PROPRANOLOL 10 MG TABLET PO SCH ×2 (21:00)
== END 2021-07-27 21:13 | disposition home or self-care (01) ==
LOC: ED 16:56
DX: U07.1 COVID-19 (principal); E05.90 Thyrotoxicosis, unspecified without thyrotoxic crisis or storm; R00.0 Tachycardia, unspecified; Z72.0 Tobacco use; R07.89 Other chest pain
CPT/HCPCS: 0202U; 36415; 71045; 80053; 81003; 81025; 83690; 84436; 84443; 85025; 96360; 99283; 99284; A9270; 81001; 87086

== ENCOUNTER 2021-08-29 16:15 | Emergency (ER) | payer MEDICAID ==
[2021-08-29] MEDS ORDERED: KETOROLAC 15 MG/ML VIAL IVP STA (16:32)
[2021-08-29] MEDS ORDERED: SODIUM CHLORIDE 0.9% 1,000 ML IV STA (16:32)
[2021-08-29] MEDS ORDERED: ONDANSETRON 4 MG/2 ML VIAL IVP STA (16:34)
--- NOTE | 2021-08-29 16:34 | ED Physician Documentation ---
History of Present Illness - Stated complaint Stated Complaint: VOMIT/SORE THROAT/WEAK - Chief complaint Chief Complaint: Cardiac - History obtained from History obtained from: Patient - Additonal information Additional information: 30-year-old woman with history of hyperthyroidism, tonsillectomy and tobacco abuse ran out of her hypothyroid medications which include methimazole and propranolol about 3 days ago. She was drinking on Monday night which is atypical for her but since yesterday has had a severe sore throat and vomiting. She thought she might just be hung over yesterday but when symptoms persisted to today they started to become worried about it. Pain is basically in the mid anterior neck and much worse with swallowing. She does have a cough but states it is not any worse than her usual smoker's cough. She denies chest pain or trouble breathing. No fevers. No sick contacts. She had COVID a little over a month ago and recovered. 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 : None HEENT: None Psych: None Musculoskeletal: None Derm: None - Past Surgical History Past Surgical History: Yes Ortho: Other HEENT: Tonsil/Adenoidectomy - Present Medications Home Medications: Ambulatory Orders Medication Instructions Recorded Confirmed Propranolol HCl 60 mg PO TID #270 tablet 07/27/21 methIMAzole [Methimazole] 10 mg PO DAILY #30 tablet 07/27/21 Propranolol [Inderal] 20 mg PO BID #120 tablet 08/29/21 methIMAzole [Methimazole] 2 tab PO BID #120 tablet 08/29/21 - Allergies Allergies/Adverse Reactions: Allergies Allergy/AdvReac Type Severity Reaction Status Date / Time acetaminophen [From Vicodin] Allergy Unknown Unknown Verified 08/29/21 16:25 hydrocodone bitartrate * Allergy Unknown Unknown Verified 08/29/21 16:25 [From Vicodin] paper tape Allergy Rash Uncoded 08/29/21 16:25 - Social History Does the pt smoke?: Yes Smoking Status: Current every day smoker Does the pt drink ETOH?: No Does the pt have substance abuse?: No - Immunizations Immunizations are current?: Yes Immunizations: TDAP >10years/unknown - POLST Patient has POLST: No PD ED PE NORMAL - Vitals Vital signs reviewed: Yes - General General: Alert and oriented X 3, No acute distress - HEENT HEENT: PERRL, EOMI - Neck Neck: Other (Visualized portions of the oropharynx show cobblestoning on the retropharynx, but otherwise wide open oropharynx without swelling. She does have pain with manipulation of the thyroid and palpation of the anterior neck without adenopathy. Neck is supple. No obvious swelling.) - Cardiac Cardiac: Other (Tachycardic but regular without murmur) - Respiratory Respiratory: No respiratory distress, Clear bilaterally - Abdomen Abdomen: Non tender - Back Back: No CVA TTP, No spinal TTP - Derm Derm: Normal color, Warm and dry - Extremities Extremities: No edema, No calf tenderness / cord - Neuro Neuro: Alert and oriented X 3, Normal speech Eye Opening: Spontaneous Motor: Obeys Commands Verbal: Oriented GCS Score: 15 Results - Vitals Vitals: Vital Signs - 24 hr 08/29/21 08/29/21 16:19 16:25 Temperature 36.6 C 36.6 C Heart Rate 129 H 129 H Respiratory 16 16 Rate Blood Pressure 133/94 H 133/94 H O2 Saturation 99 99 Oxygen O2 Source Room air - EKG (time done) 1635 Rate: Rate (enter#) (121) Rhythm: Sinus tachycardia [place]: Normal Intervals: Normal AL QRS: Normal Ischemia: Non specific changes Computer interpretation: Agree with computer - Labs Labs: Laboratory Tests 08/29/21 08/29/21 08/29/21 16:59 16:59 16:59 WBC 8.3 RBC 5.13 Hgb 11.6 L Hct 36.6 L MCV 71.3 L MCH 22.6 L MCHC 31.7 L RDW 16.1 H Plt Count 356 MPV 9.5 Neut # (Auto) 5.4 Lymph # (Auto) 2.2 [place] # (Auto) 0.4 Eos # (Auto) 0.2 Baso # (Auto) 0.0 Absolute Nucleated RBC 0.00 Nucleated RBC % 0.0 Sodium 132 L Potassium 3.9 Chloride 100 L Carbon Dioxide 22 Anion Gap 10.0 BUN 7 Creatinine 0.3 L Estimated GFR (MDRD) 263 Glucose 113 H Calcium 9.0 TSH < 0.08 L Free T4 4.81 H Free T3 pg/mL 20.93 H PD MEDICAL DECISION MAKING - ED course ED course: 30-year-old woman presents with severe sore throat of a couple days duration with unremarkable oropharyngeal examination except for cobblestoning and status post tonsillectomy. She is quite tachycardic and differential diagnosis at this point would include referred pain although that is less likely without chest pain or trouble breathing, retropharyngeal infection or or abscess, or thyroid pain. 30-year-old woman with recent diagnosis of hypothyroidism presents with vomiting, sore throat and neck pain. Visualized portion of the oropharynx is unremarkable but the exam is concerning for anterior neck infection versus thyroiditis and given the work-up with CT imaging and labs she has thyroiditis. Methimazole was started at the dose suggested for a free T4 greater than 3 times the upper limit of normal. She has not followed up since her primary diagnosis and the importance of this was discussed. Departure - Departure Disposition: 01 Home, Self Care Clinical Impression: Hyperthyroidism, Tachycardia, Neck pain Condition: Good Record reviewed to determine appropriate education?: Yes Instructions: Hyperthyroidism Dc Follow-Up: Leigh Brumfield ARNP [Credentialed Staff Provider] - Prescriptions: Propranolol [Inderal] 20 mg PO BID #120 tablet methIMAzole [Methimazole] 2 tab PO BID #120 tablet Comments: You were seen today for the vomiting and sore throat, and your thyroid levels again are quite overactive which is causing you to feel anxious and your thyroid is inflamed causing the sore throat. I sent the prescription electronically to [facility] pharmacy in [place] It is imperative to follow-up with a primary care physician, you will need to get ongoing medications and a referral to an executive kitchen manager for consideration of thyroid ablation. The primary care physician oncology navigator for ED follow-up today is nurse practitioner Sherice Brumfield, her phone number is on this form, call her office tomorrow morning for an appointment.
[2021-08-29] MEDS ORDERED: IOVERSOL 320 100 ML VIAL IVP ONE ×2 (16:46→19:00)
[2021-08-29 17:01] LABS: BASOPHILS % (AUTO) 0.4 %; EOSINOPHILS # (AUTO) 0.2 10^3/uL (0.0-0.7); EOSINOPHILS % (AUTO) 2.4 %; HCT - HEMATOCRIT 36.6 % (37.0-47.0); HGB - HEMOGLOBIN 11.6 g/dL (12.0-16.0); LYMPHOCYTES # (AUTO) 2.2 10^3/uL (1.5-3.5); LYMPHOCYTES % (AUTO) 26.7 %; MEAN CORPUSCULAR HEMOGLOBIN 22.6 pg (27.0-31.0); MEAN CORPUSCULAR HGB CONC 31.7 g/dL (32.0-36.0); MEAN CORPUSCULAR VOLUME 71.3 fL (81.0-99.0); MEAN PLATELET VOLUME 9.5 fL (7.9-10.8); MONOCYTES # (AUTO) 0.4 10^3/uL (0.0-1.0); MONOCYTES % (AUTO) 5.2 %; NEUTROPHILS # (AUTO) 5.4 10^3/uL (1.5-6.6); NEUTROPHILS % (AUTO) 65.1 %; PLT - PLATELET COUNT 356 10^3/uL (130-450); RED BLOOD COUNT 5.13 10^6/uL (4.20-5.40); RED CELL DISTRIBUTION WIDTH 16.1 % (12.0-15.0); WHITE BLOOD COUNT 8.3 x10^3/uL (4.8-10.8)
[2021-08-29 17:11] LABS: CREATININE 0.3 mg/dL (0.4-1.0); POTASSIUM 3.9 mmol/L (3.5-5.0)
[2021-08-29 17:32] LABS: THYROID STIMULATING HORMONE < 0.08 uIU/mL (0.34-5.60)
[2021-08-29 17:33] LABS: FREE T3 20.93 pg/mL (2.5-3.9)
[2021-08-29 17:34] LABS: FREE T4 (FREE THYROXINE) 4.81 ng/dL (0.58-1.64)
--- NOTE | 2021-08-29 18:38 | CT Report ---
PROCEDURE: SOFT TISSUE NECK W INDICATIONS: neck pain CONTRAST: IV CONTRAST: Optiray 320 ml: 100 PO CONTRAST: *NO PO CONTRAST TECHNIQUE: After the administration of intravenous contrast, 3.0 mm axial sections acquired from the sella to th e aortic arch. Additional oblique axial 3.0 mm sections acquired through the pharynx. 3 mm thick co daylin reformats were generated. For radiation dose reduction, the following was used: automated exp osure control, adjustment of mA and/or kV according to patient size. COMPARISON: None. FINDINGS: Image quality: Excellent. Lymph nodes: No enlarged lymph nodes seen throughout the neck. Vessels: Visualized vasculature appears patent. Neck spaces: The oropharynx, nasopharynx, and pharynx demonstrate no mucosal lesions. The vocal cor ds, false vocal cords, pyriform sinuses, epiglottis, vallecula, and tongue base all appear normal. E xtramucosal spaces appear unremarkable. Glands: The parotid and submandibular glands appear normal. The thyroid is enlarged diffusely. No f ocal mass. Miscellaneous: Visualized brain and orbits appear normal. Lung apices appear clear. Sup erficial soft tissues appear normal. Bones: No suspicious bony lesions. Visualized sinuses and mastoids appear unremarkable. IMPRESSION: 1. Diffuse thyroid enlargement. 2. No evidence of abscess. CLINICAL RECOMMENDATION STATEMENTS: In patients <35 years with an ITN detected on CT, MRI, or extrathyroidal ultrasound, the Committee re commends further evaluation with dedicated thyroid ultrasound if the nodule is "e1 cm and has no susp icious imaging features, and if the patient has normal life expectancy. In patients "e35 years with an ITN detected on CT, MRI, or extrathyroidal ultrasound, the Committee r ecommends further evaluation with dedicated thyroid ultrasound if the nodule is "e1.5 cm and has no s uspicious imaging features, and if the patient has normal life expectancy. (ACR, 2014) Reviewed by: Ana Laura Montenegro MD on 08/29/2021 6:37 PM PST Approved by: Ana Laura Montenegro MD on 08/29/2021 6:37 PM PST Station ID: [id number]
[2021-08-29] MEDS ORDERED: DEXAMETHASONE 10 MG/ML VIAL IVP STA (18:49)
[2021-08-29] MEDS ORDERED: methIMAzole 5 MG TABLET PO STA (18:50)
[2021-08-29] MEDS ORDERED: PROPRANOLOL 10 MG TABLET PO STA ×2 (18:51→18:54)
[2021-08-29] MEDS ORDERED: CHERRY SYRUP 10 ML UDC PO ONE (19:42)
[2021-08-29 19:53] VITALS: BP 127/80
== END 2021-08-29 19:53 | disposition home or self-care (01) ==
LOC: ED 16:15
DX: E05.90 Thyrotoxicosis, unspecified without thyrotoxic crisis or storm (principal); R00.0 Tachycardia, unspecified; M54.2 Cervicalgia; F17.200 Nicotine dependence, unspecified, uncomplicated
CPT/HCPCS: 36415; 70491; 80048; 84439; 84443; 84481; 85025; 93005; 96374; 96375; 99284; A9270; Q9967

== ENCOUNTER 2022-10-13 06:44 | Emergency (ER) | payer MEDICAID ==
[2022-10-13 06:53] VITALS: BP 124/80
--- NOTE | 2022-10-13 07:11 | ED Physician Documentation ---
PD HPI OPHTHO - Stated complaint Stated Complaint: BOTH EYE PX - Chief complaint Chief Complaint: Heent - History obtained from History obtained from: Patient - History of Present Illness Timing - onset: Last night (awoke few hours ago with feeling of "sand in her eyes" type pain diffusely. Some redness around eyes too. Tried to flush eyes with water to no avail. Continues with bilateral eye pain and light sensitive. Some runny nose but no recent URI. No noted environmental irritants (smoke, FB, chemicals, etc)) Timing - duration: Hours Timing - details: Abrupt onset, Still present, Other (she states her awoke with similar symptoms during the night as well. No noted smoke, odor, etc in the trailer. Pt states her father developed same symptoms during the night, and he lives 2 trailers away. They had been together for dinner in evening, but not use grill/BBQ nor peppered foods.) Location: Both Quality / character: Burning, Throbbing Associated symptoms: Redness, Tearing, Photophobia. No: Discharge, Matting, Decreased vision Contributing factors: No: Exposed to conjunctivitis, Recent URI, FB, Wears contacts Similar symptoms before: Has not had sx before Review of Systems Constitutional: denies: Fever Eyes: reports: Photophobia, Irritation. denies: Loss of vision, Discharge Nose: reports: Rhinorrhea / runny nose (just with the eye irritation during night.). denies: Congestion, Sinus pressure / pain Throat: denies: Sore throat Respiratory: denies: Cough Skin: denies: Rash, Lesions PD PAST MEDICAL HISTORY - Past Medical History Cardiovascular: Other Respiratory: None Neuro: None Endocrine/Autoimmune: HyPERthyroidism GI: None CLINICAL IMPLEMENTATION SPECIALIST: None : None HEENT: None Psych: None Musculoskeletal: None Derm: None - Past Surgical History Past Surgical History: Yes Ortho: Other HEENT: Tonsil/Adenoidectomy - Present Medications Home Medications: Ambulatory Orders Medication Instructions Recorded Confirmed methIMAzole [Methimazole] 10 mg PO DAILY #30 tablet 07/27/21 10/13/22 Ketorolac Tromethamine 2 drops EACHEYE TID PRN #10 ml 10/13/22 Ketotifen Fumarate [Eye Itch 2 drops EACHEYE QID PRN #5 ml 10/13/22 Relief] Sertraline [Zoloft] 25 mg PO DAILY 10/13/22 10/13/22 Tetracaine 0.5% Ophth Drops 1 drops EACHEYE Q2H PRN 1 Days #4 10/13/22 [Tetracaine] ml atenoloL [Tenormin] 25 mg PO DAILY 10/13/22 10/13/22 - Allergies Allergies/Adverse Reactions: Allergies Allergy/AdvReac Type Severity Reaction Status Date / Time acetaminophen [From Vicodin] Allergy Unknown Unknown Verified 10/13/22 06:53 hydrocodone bitartrate * Allergy Unknown Unknown Verified 10/13/22 06:53 [From Vicodin] paper tape Allergy Rash Uncoded 10/13/22 06:53 - Social History Does the pt smoke?: Yes Smoking Status: Current every day smoker Does the pt drink ETOH?: No Does the pt have substance abuse?: No - Immunizations Immunizations are current?: Yes Immunizations: TDAP >10years/unknown - POLST Patient has POLST: No PD ED PE NORMAL - Vitals Vital signs reviewed: Yes - General General: Alert and oriented X 3, Well developed/nourished, Other (appears very uncomfortable. Improved a lot with Alcaine eye drops. Fluorescein dye without uptake. ) - HEENT HEENT: PERRL, EOMI, Other (redness of conjunctivae. No discharge. Some redness and swelling of tissue periorbital bilaterally. No oral swelling/redness. ) - Neck Neck: Supple, no meningeal sign, No adenopathy - Respiratory Respiratory: Clear bilaterally Results - Vitals Vitals: Vital Signs - 24 hr 10/13/22 06:50 Temperature 37.0 C Heart Rate 102 H Respiratory 15 Rate Blood Pressure 124/80 O2 Saturation 98 Oxygen O2 Source Room air PD Medical Decision Making - ED course Complexity details: re-evaluated patient (feels much better with Alcaine drops in eyes. ), considered differential (abrupt bilateral eye irritation with redness and eve feeling. Flourescien without uptake. Pupils reactive without pain to light. Consider allergic/contact conjunctivitis vs viral. No URI symptoms generally. However and father also with onset during night as noted above.), d/w patient Departure - Departure Disposition: 01 Home, Self Care Clinical Impression: Acute conjunctivitis, bilateral Qualifiers: Acute conjunctivitis type: atopic Qualified Code(s): H10.13 - Acute atopic conjunctivitis, bilateral Condition: Stable Record reviewed to determine appropriate education?: Yes Instructions: ED Conjunctivitis Nonspecific Follow-Up: BRYN QUIÑONEZ DO [Primary Care Provider] - Prescriptions: Ketotifen Fumarate [Eye Itch Relief] 2 drops EACHEYE QID PRN #5 ml PRN Reason: Itching Ketorolac Tromethamine 2 drops EACHEYE TID PRN #10 ml PRN Reason: Pain 1-4 Tetracaine 0.5% Ophth Drops [Tetracaine] 1 drops EACHEYE Q2H PRN 1 Days #4 ml PRN Reason: Pain 5-7 Comments: Given the abrupt irritation of both eyes with some redness around them and in combination with your and father having the same symptoms, but some most likely an environmental irritant or other consideration would be a viral conjunctivitis. At this point it does not have the look of bacterial pinkeye so I do not believe an antibiotic is warranted at this point. I would treat this with antihistamine and anti-inflammatory eyedrops 4 times daily for the next couple of days. This would be appropriate for both allergic conjunctivitis as well as viral conjunctivitis. I wrote prescriptions for the ketotifen and ketorolac eyedrops. You can also use the numbing medication tetracaine eyedrops periodically if needed for pain in the short-term. You should not need it beyond the first day. Recheck if not improving well over the next 1 to 2 days and return if increasing symptoms or developing purulent discharge etc. If this is a viral cause, then your kids may end up with that in a couple of days as well. Similar treatment for them. I sent your prescriptions to the [facility] pharmacy. Discharge Date/Time: 10/13/22 08:02
[2022-10-13] MEDS: PROPARACAINE 0.5% OPHTH DROPS 15 ML EACHEYE STA (07:30)
--- OUTSIDE RECORDS SUMMARY | 2022-10-13 07:36 | EXTERNAL MEDICAL SUMMARY RPT | Continuity of Care Document ---
:1990 Author Organization [place] Address [address] [place] [address] Phone Care Team Providers Name Role Phone Lizz Cannon Unavailable Unavailable Allergies and Intolerances date description facility type (no date) adhesive tape [facility] (unknown) (no date) hydrocodone [facility] (unknown) Encounters No information. Functional Status No information. Immunizations No information. Medications date description facility 2022-08-10 00:00 [facility] 2022-08-16 00:00 [facility] 2022-09-01 00[facility]00 [facility] 2022-08-10 00:00 [facility] 2022-08-16 00:00 [facility] 2022-09-19 00:00 [facility] 2022-09-06 00:00 [facility] 2022-10-07 00:00 [facility] Problems date description facility 2022-07-20 00:00 Hyperthyroidism [facility] 2022-07-20 00:00 [facility] 2022-07-21 07:03 Thyrotoxicosis, unspecified without thy rotoxic [facility] crisis or sto 2022-07-21 07:03 Ulcerative blepharitis left upper eyeli d [facility] 2022-09-04 00:00 Depression [facility] 2022-09-04 00:00 Anxiety [facility] 2022-09-04 00:00 Ankle pain [facility] 2022-09-04 00:00 Menorrhagia [facility] 2022-09-04 00:00 Irregular menstrual cycle [facility] 2022-09-04 00:00 Dysmenorrhea [facility] 2022-09-04 00:00 Chronic cough [facility] 2022-09-04 00:00 Absence of sensation [facility] 2022-09-04 00:00 Allergy [facility] 2022-09-14 08:17 Thyrotoxicosis, unspecified without thy rotoxic [facility] 2022-09-14 08:31 Thyrotoxicosis, unspecified without thy rotoxic [facility] sto 2022-10-10 17:13 Thyrotoxicosis, unspecified without thy rotoxic [facility] Procedures date description facility 2022-09-14 00:00 Thyroid [facility] with [facility] Results/Labs test date author facility value unit interpret ation Result panel 1 (unknown) (no date[facility]) Result panel 2 (unknown) (no date) ([facility] Result panel 3 (unknown) (no date) (unknown[facility] Result panel 4 (unknown) (no date) (unknown[facility] Result panel 5 (unknown) (no date) (unknown[facility] Result panel 6 (unknown) (no date) (unknown[facility]) Result panel 7 (unknown) (no date) (unknown[facility]) Result panel 8 (unknown) (no date) (unknown[facility] Result panel 9 (unknown) (no date) (unknown[facility]) Result panel 10 (unknown) (no date) (unknown[facility] Result panel 11 (unknown) (no date) (unknown[facility]) Result panel 12 (unknown) (no date) (unknown[facility]) Result panel 13 (unknown) (no date) (unknown[facility]) Result panel 14 (unknown) (no date) (unknown[facility]) Result panel 15 (unknown) (no date) (unknown[facility]) Result panel 16 (unknown) (no date) (unknown[facility]) Result panel 17 (unknown) (no date) (unknown[facility]) Result panel 18 (unknown) (no date) (unknown[facility]) Result panel 19 (unknown) (no date) (unknown[facility]) Result panel 20 (unknown) (no date) (unknown[facility]) Result panel 21 (unknown) (no date) (unknown[facility]) Result panel 22 (unknown) (no date) (unknown[facility]) Result panel 23 (unknown) (no date) (unknown[facility]) Result panel 24 (unknown) (no date) (unknown[facility]) Result panel 25 (unknown) (no date) (unknown[facility]) Result panel 26 (unknown) (no date) (unknown[facility]) Result panel 27 (unknown) (no date) (unknown[facility]) Result panel 28 (unknown) (no date) (unknown[facility]) Result panel 29 (unknown) (no date) (unknown[facility]) Result panel 30 (unknown) (no date) (unknown[facility]) Result panel 31 (unknown) (no date) (unknown[facility]) Result panel 32 (unknown) (no date) (unknown[facility]) Result panel 33 (unknown) (no date) (unknown[facility]) Result panel 34 (unknown) (no date) (unknown[facility]) Result panel 35 (unknown) (no date) (unknown[facility]) Result panel 36 (unknown) (no date) (unknown[facility]) Result panel 37 (unknown) (no date) (unknown[facility]) Result panel 38 (unknown) (no date) (unknown[facility]) Result panel 39 (unknown) (no date) (unknown[facility]) Result panel 40 (unknown) (no date) (unknown[facility]) Result panel 41 (unknown) (no date) (unknown[facility]) Result panel 42 (unknown) (no date) (unknown[facility]) Result panel 43 (unknown) (no date) (unknown[facility]) Result panel 44 (unknown) (no date) (unknown[facility]) Result panel 45 (unknown) (no date) (unknown[facility]) Result panel 46 (unknown) (no date) (unknown[facility]) Result panel 47 (unknown) (no date) (unknown[facility]) Result panel 48 (unknown) (no date) (unknown[facility]) Result panel 49 (unknown) (no date) (unknown[facility]) Result panel 50 (unknown) (no date) (unknown[facility] Result panel 51 (unknown) (no date) (unknown[facility]) Result panel 52 (unknown) (no date) (unknown[facility]) Result panel 53 (unknown) (no date) (unknown[facility]) Result panel 54 (unknown) (no date) (unknown[facility]) Result panel 55 (unknown) (no date) (unknown[facility]) Result panel 56 (unknown) (no date) (unknown[facility]) Result panel 57 (unknown) (no date) (unknown[facility]) Result panel 58 (unknown) (no date) (unknown[facility]) Result panel 59 (unknown) (no date) (unknown[facility]) Result panel 60 (unknown) (no date) (unknown[facility]) Result panel 61 (unknown) (no date) (unknown[facility]) Result panel 62 (unknown) (no date) (unknown[facility]) Result panel 63 (unknown) (no date) (unknown[facility]) Result panel 64 (unknown) (no date) (unknown[facility]) Result panel 65 (unknown) (no date) (unknown[facility]) Result panel 66 (unknown) (no date) (unknown[facility]) Result panel 67 (unknown) (no date) (unknown[facility]) Result panel 68 (unknown) (no date) (unknown[facility]) Result panel 69 (unknown) (no date) (unknown[facility]) Result panel 70 (unknown) (no date) (unknown[facility]) Result panel 71 (unknown) (no date) (unknown[facility]) Result panel 72 (unknown) (no date) (unknown[facility]) Result panel 73 (unknown) (no date) (unknown[facility]) Result panel 74 (unknown) (no date) (unknown[facility]) Result panel 75 (unknown) (no date) (unknown[facility]) Result panel 76 (unknown) (no date) (unknown[facility]) Result panel 77 (unknown) (no date) (unknown[facility]) Result panel 78 (unknown) (no date) (unknown[facility]) Result panel 79 (unknown) (no date) (unknown[facility]) Result panel 80 (unknown) (no date) (unknown[facility]) Result panel 81 (unknown) (no date) (unknown[facility]) Result panel 82 (unknown) (no date) (unknown[facility]) Result panel 83 (unknown) (no date) (unknown[facility]) Result panel 84 (unknown) (no date) (unknown[facility]) Result panel 85 (unknown) (no date) (unknown[facility]) Result panel 86 (unknown) (no date) (unknown[facility]) Result panel 87 (unknown) (no date) (unknown[facility]) Result panel 88 (unknown) (no date) (unknown[facility]) Result panel 89 (unknown) (no date) (unknown[facility]) Result panel 90 (unknown) (no date) (unknown[facility]) Result panel 91 (unknown) (no date) (unknown[facility]) Result panel 92 (unknown) (no date) (unknown[facility]) Result panel 93 (unknown) (no date) (unknown[facility]) Result panel 94 (unknown) (no date) (unknown[facility]) Result panel 95 (unknown) (no date) (unknown[facility]) Result panel 96 (unknown) (no date) (unknown[facility]) Result panel 97 (unknown) (no date) (unknown[facility]) Result panel 98 (unknown) (no date) (unknown[facility]) Result panel 99 (unknown) (no date) (unknown[facility]) Result panel 100 (unknown) (no date) (unknown[facility]) Result panel 101 (unknown) (no date) (unknown[facility]) Result panel 102 (unknown) (no date) (unknown[facility]) Result panel 103 (unknown) (no date) (unknown[facility]) Result panel 104 (unknown) (no date) (unknown[facility]) Result panel 105 (unknown) (no date) (unknown[facility]) Result panel 106 (unknown) (no date) (unknown[facility]) Result panel 107 (unknown) (no date) (unknown[facility]) Result panel 108 (unknown) (no date) (unknown[facility]) Result panel 109 (unknown) (no date) (unknown[facility]) Result panel 110 (unknown) (no date) (unknown[facility]) Result panel 111 (unknown) (no date) (unknown[facility]) Result panel 112 (unknown) (no date) (unknown[facility]) Result panel 113 (unknown) (no date) (unknown[facility]) Result panel 114 (unknown) (no date) (unknown[facility]) Result panel 115 (unknown) (no date) (unknown[facility]) Result panel 116 (unknown) (no date) (unknown[facility]) Result panel 117 (unknown) (no date) (unknown[facility]) Result panel 118 (unknown) (no date) (unknown[facility]) Result panel 119 (unknown) (no date) (unknown[facility]) Result panel 120 (unknown) (no date) (unknown[facility]) Result panel 121 (unknown) (no date) (unknown[facility]) Result panel 122 (unknown) (no date) (unknown[facility]) Result panel 123 (unknown) (no date) (unknown[facility]) Result panel 124 (unknown) (no date) (unknown[facility]) Result panel 125 (unknown) (no date) (unknown[facility]) Result panel 126 (unknown) (no date) (unknown[facility]) Result panel 127 (unknown) (no date) (unknown[facility]) Result panel 128 (unknown) (no date) (unknown[facility]) Result panel 129 (unknown) (no date) (unknown[facility]) Result panel 130 (unknown) (no date) (unknown[facility]) Result panel 131 (unknown) (no date) (unknown[facility]) Result panel 132 (unknown) (no date) (unknown[facility]) Result panel 133 (unknown) (no date) (unknown[facility]) Result panel 134 (unknown) (no date) (unknown[facility]) Result panel 135 (unknown) (no date) (unknown[facility]) Result panel 136 (unknown) (no date) (unknown[facility]) Result panel 137 (unknown) (no date) (unknown[facility]) Result panel 138 (unknown) (no date) (unknown[facility]) Result panel 139 (unknown) (no date) (unknown[facility]) Result panel 140 (unknown) (no date) (unknown[facility]) Result panel 141 (unknown) (no date) (unknown[facility]) Result panel 142 (unknown) (no date) (unknown[facility]) Result panel 143 (unknown) (no date) (unknown[facility]) Result panel 144 (unknown) (no date) (unknown[facility]) Result panel 145 (unknown) (no date) (unknown[facility]) Result panel 146 (unknown) (no date) (unknown[facility]) Result panel 147 (unknown) (no date) (unknown) [facility]) Result panel 148 (unknown) (no date) (unknown) [facility]) Result panel 149 (unknown) (no date) (unknown) [facility]) Result panel 150 (unknown) (no date) (unknown) [facility]) Result panel 151 (unknown) (no date) (unknown) [facility]) Result panel 152 (unknown) (no date) (unknown) [facility]) Result panel 153 (unknown) (no date) (unknown) [facility]) Result panel 154 (unknown) (no date) (unknown) [facility]) Result panel 155 (unknown) (no date) (unknown) [facility]) Result panel 156 (unknown) (no date) (unknown) [facility]) Result panel 157 (unknown) (no date) (unknown) [facility]) Result panel 158 (unknown) (no date) (unknown) [facility]) Result panel 159 (unknown) (no date) (unknown) [facility]) Result panel 160 (unknown) (no date) (unknown) [facility]) Result panel 161 (unknown) (no date) (unknown) [facility]) Result panel 162 (unknown) (no date) (unknown) [facility]) Result panel 163 (unknown) (no date) (unknown) [facility]) Result panel 164 (unknown) (no date) (unknown) [facility]) Result panel 165 (unknown) (no date) (unknown) [facility]) Result panel 166 (unknown) (no date) (unknown) [facility]) Result panel 167 (unknown) (no date) (unknown) [facility]) Result panel 168 (unknown) (no date) (unknown) [facility]) Result panel 169 (unknown) (no date) (unknown) [facility]) Result panel 170 (unknown) (no date) (unknown) [facility]) Result panel 171 (unknown) (no date) (unknown) [facility]) Result panel 172 (unknown) (no date) (unknown) [facility]) Result panel 173 (unknown) (no date) (unknown) [facility]) Result panel 174 (unknown) (no date) (unknown) [facility]) Result panel 175 (unknown) (no date) (unknown) [facility]) Result panel 176 (unknown) (no date) (unknown) [facility]) Result panel 177 (unknown) (no date) (unknown) [facility]) Result panel 178 (unknown) (no date) (unknown) [facility]) Result panel 179 (unknown) (no date) (unknown) [facility]) Result panel 180 (unknown) (no (unknown) (unknown) (no value) (units (unk nown) date) unknown) (unknown) (no (unknown) (unknown) 07/20/22 (units (unkno wn) date) unknown) (unknown) (no (unknown) (unknown) 07/20/22] (units (unkn own) date) unknown) (unknown) (no (unknown) (unknown) [id number] (units (unkno wn) date) unknown) (unknown) (no (unknown) (unknown) 16:30 (units (unkno wn) date) unknown) (unknown) (no (unknown) (unknown) 630 (units (unkno wn) date) unknown) (unknown) (no (unknown) (unknown) Age/Sex: 31 / F (units (unknown) date) Date of Service: unknown) (unknown) (no (unknown) (unknown) Allergies (units (unkn own) date) unknown) (unknown) (no (unknown) (unknown) [facility] (units (unknown) date) Medicine unknown) (unknown) (no (unknown) (unknown) [place], [place] (units ( unknown) date) [id number] unknown) (unknown) (no (unknown) (unknown) Attending Dr: (units ( unknown) date) Lizz Cannon unknown) [facility] (unknown) (no (unknown) (unknown) BP 102/70 (units (unkn own) date) unknown) (unknown) (no (unknown) (unknown) Blood Pressure (units (unknown) date) Location Lt radial unknown) (unknown) (no (unknown) (unknown) Confirmed (units (unkn own) date) 07/20/22] unknown) (unknown) (no (unknown) (unknown) : 1990 (units (unknown) date) Acct:[id number] unknown) (unknown) (no (unknown) (unknown) Dept at (units (unkno wn) date) . unknown) (unknown) (no (unknown) (unknown) Documented By: (units (unknown) date) Lizz Cannon unknown) [facility] 07/20/22 1 (unknown) (no (unknown) (unknown) Draft (units (unkno wn) date) unknown) (unknown) (no (unknown) (unknown) Family [facility] (units (unknown) date) Office Visit unknown) (unknown) (no (unknown) (unknown) Hyperthyroidism (units (unknown) date) affecting unknown) in second trimester (08/04/15) (unknown) (no (unknown) (unknown) Intake Note: (units (u nknown) date) unknown) (unknown) (no (unknown) (unknown) Intake performed (units (unknown) date) by: Nadia Talamantes unknown) (unknown) (no (unknown) (unknown) Intake (units (unkno wn) date) unknown) (unknown) (no (unknown) (unknown) Intake- Clincial (units (unknown) date) Staff unknown) (unknown) (no (unknown) (unknown) Karyotype 45, X (units (unknown) date) (09/10/15) unknown) (unknown) (no (unknown) (unknown) Loc: [facility] (units (unkno wn) date) unknown) (unknown) (no (unknown) (unknown) Medical History (units (unknown) date) (Updated 01/03/21 unknown) @ 00:00 by ) (unknown) (no (unknown) (unknown) Medications (units (un known) date) unknown) (unknown) (no (unknown) (unknown) No home tx. (units (un known) date) Patient is unknown) tachycardic at intake. She reports she has a dx of hyper (unknown) (no (unknown) (unknown) Oxygen Delivery (units (unknown) date) Method room air unknown) (unknown) (no (unknown) (unknown) PFSH (units (unkno wn) date) unknown) (unknown) (no (unknown) (unknown) Patient presents (units (unknown) date) to [facility] with unknown) concerns for left eye irritation x several weeks. (unknown) (no (unknown) (unknown) Patient: (units (unkno wn) date) Lashaun Hooker M unknown) MR#: [id number] (unknown) (no (unknown) (unknown) Position Sitting (units (unknown) date) unknown) (unknown) (no (unknown) (unknown) Pulse 148 H (units (un known) date) unknown) (unknown) (no (unknown) (unknown) Pulse Oximetry (units (unknown) date) (%) 98 unknown) (unknown) (no (unknown) (unknown) Pulse Source (units (u nknown) date) Monitor unknown) (unknown) (no (unknown) (unknown) Rash (units (unkno wn) date) unknown) (unknown) (no (unknown) (unknown) Rash/nausea (units (un known) date) unknown) (unknown) (no (unknown) (unknown) Reason For Visit (units (unknown) date) unknown) (unknown) (no (unknown) (unknown) Respiration 16 (units (unknown) date) unknown) (unknown) (no (unknown) (unknown) Signed By: (units (unk nown) date) unknown) (unknown) (no (unknown) (unknown) Smoking Status: (units (unknown) date) Current every day unknown) smoker (unknown) (no (unknown) (unknown) Spontaneous (units (un known) date) vaginal delivery unknown) (unknown) (no (unknown) (unknown) Status post (units (un known) date) tonsillectomy and unknown) adenoidectomy (unknown) (no (unknown) (unknown) Surgical History (units (unknown) date) (Updated 11/14/17 unknown) @ 06:09 by Conversion Provider) (unknown) (no (unknown) (unknown) Temp 97.8 F (units (un known) date) unknown) (unknown) (no (unknown) (unknown) Temp Source (units (un known) date) Temporal Artery unknown) Scan (unknown) (no (unknown) (unknown) This note may (units ( unknown) date) have been all or unknown) partially generated using voice recognition (unknown) (no (unknown) (unknown) Tobacco + (units (unkn own) date) Substance Use unknown) (unknown) (no (unknown) (unknown) Tobacco Status (units (unknown) date) unknown) (unknown) (no (unknown) (unknown) Visit Reasons: (units (unknown) date) feels like unknown) somthing is moving in L eye (unknown) (no (unknown) (unknown) Vitals (units (unkno wn) date) unknown) (unknown) (no (unknown) (unknown) adhesive tape (units ( unknown) date) [ADHESIVE TAPE] unknown) Allergy (Unknown, Verified 07/20/22 16:38) (unknown) (no (unknown) (unknown) atenolol 25 mg (units (unknown) date) tablet 25 mg PO unknown) DAILY #30 tabs 12/19/20 [Rx Confirmed 07/20/22] (unknown) (no (unknown) (unknown) azithromycin 250 (units (unknown) date) mg tablet See Rx unknown) Instructions PO .COMPLEX #6 tabs 12/19/20 [Rx (unknown) (no (unknown) (unknown) have occurred. If (units (unknown) date) there are any unknown) questions, please contact the Medical Records (unknown) (no (unknown) (unknown) hydrocodone [From (units (unknown) date) VICODIN] Allergy unknown) (Unknown, Verified 07/20/22 16:38) (unknown) (no (unknown) (unknown) may occur. (units (unk nown) date) Occasional unknown) wrong-word or 'sound-alike' substitutions may have (unknown) (no (unknown) (unknown) methimazole 10 mg (units (unknown) date) tablet 10 mg PO unknown) DAILY #30 tabs 12/19/20 [Rx Confirmed (unknown) (no (unknown) (unknown) occurred due to (units (unknown) date) the inherent unknown) limitations of voice recognition software. Please (unknown) (no (unknown) (unknown) read the note (units ( unknown) date) carefully and unknown) recognize, using context, where these substitutions (unknown) (no (unknown) (unknown) software. 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 Provider notified. Result panel 181 (unknown) (no (unknown) (unknown) (no value) (units (unk nown) date) unknown) (unknown) (no (unknown) (unknown) (1) Ulcerative (units (unknown) date) blepharitis left unknown) eye, unspecified eyelid: (unknown) (no (unknown) (unknown) (2) (units (unkno wn) date) Hyperthyroidism: unknown) (unknown) (no (unknown) (unknown) 07/20/22 1647 (units ( unknown) date) unknown) (unknown) (no (unknown) (unknown) 07/20/22 (units (unkno wn) date) unknown) (unknown) (no (unknown) (unknown) 07/20/22] (units (unkn own) date) unknown) (unknown) (no (unknown) (unknown) [id number] (units (unkno wn) date) unknown) (unknown) (no (unknown) (unknown) 16:30 (units (unkno wn) date) unknown) (unknown) (no (unknown) (unknown) 630 (units (unkno wn) date) unknown) (unknown) (no (unknown) (unknown) Advised to (units (unk nown) date) abstain from unknown) irritating left eye. Concerning her hyperthyroidism, (unknown) (no (unknown) (unknown) Age/Sex: 31 / F (units (unknown) date) Date of Service: unknown) (unknown) (no (unknown) (unknown) All systems (units (un known) date) reviewed + are unknown) unremarkable except as noted in HPI and below (unknown) (no (unknown) (unknown) Allergies (units (unkn own) date) unknown) (unknown) (no (unknown) (unknown) [facility] (units (unknown) date) Medicine unknown) (unknown) (no (unknown) (unknown) [place] (units ( unknown) date) [id number] unknown) (unknown) (no (unknown) (unknown) Assessment + Plan (units (unknown) date) unknown) (unknown) (no (unknown) (unknown) Attending Dr: (units ( unknown) date) Lizz Cannon unknown) P.A-C (unknown) (no (unknown) (unknown) BACK: Nontender (units (unknown) date) without deformity unknown) or crepitance. No flank tenderness. (unknown) (no (unknown) (unknown) BP 102/70 (units (unkn own) date) unknown) (unknown) (no (unknown) (unknown) Blood Pressure (units (unknown) date) Location Lt radial unknown) (unknown) (no (unknown) (unknown) CARDIOVASCULAR: (units (unknown) date) Rapid rate and unknown) regular rhythm without murmurs, gallops, or (unknown) (no (unknown) (unknown) Chief Complaint (units (unknown) date) unknown) (unknown) (no (unknown) (unknown) Chief Complaint: (units (unknown) date) Sensation of unknown) foreign body left eye (unknown) (no (unknown) (unknown) Confirmed (units (unkn own) date) 07/20/22] unknown) (unknown) (no (unknown) (unknown) Const (units (unkno wn) date) unknown) (unknown) (no (unknown) (unknown) : 1990 (units (unknown) date) Acct:[id number] unknown) (unknown) (no (unknown) (unknown) Dept at (units (unkno wn) date) . unknown) (unknown) (no (unknown) (unknown) Details: (units (unkno wn) date) unknown) (unknown) (no (unknown) (unknown) Discussed with (units (unknown) date) patient diagnosis unknown) and treatment. Advised on using eyedrops. (unknown) (no (unknown) (unknown) Documented By: (units (unknown) date) Lizz Cannon unknown) Emanuel 07/20/22 1 (unknown) (no (unknown) (unknown) Duration: 5 day (units (unknown) date) unknown) (unknown) (no (unknown) (unknown) ENT: Nose without (units (unknown) date) bleeding, purulent unknown) drainage. Throat without erythema, (unknown) (no (unknown) (unknown) EXTREMITIES: No (units (unknown) date) edema or joint unknown) tenderness. (unknown) (no (unknown) (unknown) EYES: Pupils (units (u nknown) date) equal round and unknown) reactive. Extraocular motions intact. 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 (unknown) (no (unknown) (unknown) GENERAL: 31 year (units (unknown) date) old patient unknown) appears stated age. Well-developed patient, in (unknown) (no (unknown) (unknown) HEAD: Atraumatic. (units (unknown) date) Normocephalic. unknown) (unknown) (no (unknown) (unknown) HPI (units (unkno wn) date) unknown) (unknown) (no (unknown) (unknown) Hyperthyroidism (units (unknown) date) affecting unknown) in second trimester (08/04/15) (unknown) (no (unknown) (unknown) Intake Note: (units (u nknown) date) unknown) (unknown) (no (unknown) (unknown) Intake performed (units (unknown) date) by: Nadia Talamantes unknown) (unknown) (no (unknown) (unknown) Intake (units (unkno wn) date) unknown) (unknown) (no (unknown) (unknown) Intake- Clincial (units (unknown) date) Staff unknown) (unknown) (no (unknown) (unknown) Karyotype 45, X (units (unknown) date) (09/10/15) unknown) (unknown) (no (unknown) (unknown) LEFT BID 7 days (units (unknown) date) #5 mL 07/20/22 [Rx unknown) Confirmed 07/20/22] (unknown) (no (unknown) (unknown) Loc: [facility] (units (unkno wn) date) unknown) (unknown) (no (unknown) (unknown) Location: Left (units (unknown) date) eye unknown) (unknown) (no (unknown) (unknown) Medical History (units (unknown) date) (Reviewed 07/20/22 unknown) @ 16:40 by Lizz Cannon PA-C) (unknown) (no (unknown) (unknown) Medications (units (un known) date) unknown) (unknown) (no (unknown) (unknown) Medications: (units (u nknown) date) unknown) (unknown) (no (unknown) (unknown) NECK: Trachea (units ( unknown) date) midline. Prominent unknown) enlarged thyroid no hoarseness (unknown) (no (unknown) (unknown) NEURO: AOx3. (units (u nknown) date) unknown) (unknown) (no (unknown) (unknown) New (units (unkno wn) date) unknown) (unknown) (no (unknown) (unknown) No home tx. (units (un known) date) Patient is unknown) tachycardic at intake. She reports she has a dx of hyper (unknown) (no (unknown) (unknown) Onset: 07/15/22 (units (unknown) date) unknown) (unknown) (no (unknown) (unknown) Oxygen Delivery (units (unknown) date) Method room air unknown) (unknown) (no (unknown) (unknown) PFSH (units (unkno wn) date) unknown) (unknown) (no (unknown) (unknown) Patient is (units (unk nown) date) pleasant 31 years unknown) old female, which by her own account ?not taking (unknown) (no (unknown) (unknown) Patient presents (units (unknown) date) to [facility] with unknown) concerns for left eye irritation x several weeks. (unknown) (no (unknown) (unknown) Patient: (units (unkno wn) date) Lashaun Hooker M unknown) MR#: [id number] (unknown) (no (unknown) (unknown) Plan (units (unkno wn) date) unknown) (unknown) (no (unknown) (unknown) Position Sitting (units (unknown) date) unknown) (unknown) (no (unknown) (unknown) Pulse 148 H (units (un known) date) unknown) (unknown) (no (unknown) (unknown) Pulse Oximetry (units (unknown) date) (%) 98 unknown) (unknown) (no (unknown) (unknown) Pulse Source (units (u nknown) date) Monitor unknown) (unknown) (no (unknown) (unknown) Qualifiers: (units (un known) date) unknown) (unknown) (no (unknown) (unknown) RESPIRATORY: Clear (units (unknown) date) to auscultation. unknown) Breath sounds equal bilaterally. No wheezes, (unknown) (no (unknown) (unknown) ROS (units (unkno wn) date) unknown) (unknown) (no (unknown) (unknown) Rash (units (unkno wn) date) unknown) (unknown) (no (unknown) (unknown) Rash/nausea (units (un known) date) unknown) (unknown) (no (unknown) (unknown) Reason For Visit (units (unknown) date) unknown) (unknown) (no (unknown) (unknown) Respiration 16 (units (unknown) date) unknown) (unknown) (no (unknown) (unknown) SKIN: No rash or (units (unknown) date) erythema of unknown) visible areas (unknown) (no (unknown) (unknown) Signed By: (units (unk nown) date) <Electronically unknown) signed by Lizz Cannon> (unknown) (no (unknown) (unknown) Signed (units (unkno wn) date) unknown) (unknown) (no (unknown) (unknown) Smoking Status: (units (unknown) date) Current every day unknown) smoker (unknown) (no (unknown) (unknown) Spontaneous (units (un known) date) vaginal delivery unknown) (unknown) (no (unknown) (unknown) Status post (units (un known) date) tonsillectomy and unknown) adenoidectomy (unknown) (no (unknown) (unknown) Status: Acute (units ( unknown) date) unknown) (unknown) (no (unknown) (unknown) Surgical History (units (unknown) date) (Reviewed 07/20/22 unknown) @ 16:40 by Lizz Cannon PA-C) (unknown) (no (unknown) (unknown) Temp 97.8 F (units (un known) date) unknown) (unknown) (no (unknown) (unknown) Temp Source (units (un known) date) Temporal Artery unknown) Scan (unknown) (no (unknown) (unknown) This note may (units ( unknown) date) have been all or unknown) partially generated using voice recognition (unknown) (no (unknown) (unknown) Tobacco + (units (unkn own) date) Substance Use unknown) (unknown) (no (unknown) (unknown) Tobacco Status (units (unknown) date) unknown) (unknown) (no (unknown) (unknown) Visit Reasons: (units (unknown) date) feels like unknown) somthing is moving in L eye (unknown) (no (unknown) (unknown) Vitals (units (unkno wn) date) unknown) (unknown) (no (unknown) (unknown) adhesive tape (units ( unknown) date) [ADHESIVE TAPE] unknown) Allergy (Unknown, Verified 07/20/22 16:38) (unknown) (no (unknown) (unknown) advised to (units (unkn own) date) obtained PCP, or unknown) seek attention in ER, urgent care or obtain referral (unknown) (no (unknown) (unknown) atenolol 25 mg (units (unknown) date) tablet 25 mg PO unknown) DAILY #30 tabs 12/19/20 [Rx Confirmed 07/20/22] (unknown) (no (unknown) (unknown) azithromycin 250 (units (unknown) date) mg tablet See Rx unknown) Instructions PO .COMPLEX #6 tabs 12/19/20 [Rx (unknown) (no (unknown) (unknown) care of myself?, (units (unknown) date) with history of unknown) hyperthyroid, not currently taking her (unknown) (no (unknown) (unknown) days (units (unkno wn) date) unknown) (unknown) (no (unknown) (unknown) have occurred. If (units (unknown) date) there are any unknown) questions, please contact the Medical Records (unknown) (no (unknown) (unknown) hydrocodone [From (units (unknown) date) VICODIN] Allergy unknown) (Unknown, Verified 07/20/22 16:38) (unknown) (no (unknown) (unknown) hyperthyroid, (units ( unknown) date) presents today unknown) with complaint of sensation of something crawling (unknown) (no (unknown) (unknown) icterus. Left eye (units (unknown) date) inspection unknown) revealed inner upper lid with minor abrasion which (unknown) (no (unknown) (unknown) irritation to the (units (unknown) date) left eye. These unknown) symptoms persist for almost 5 days (unknown) (no (unknown) (unknown) may occur. (units (unk nown) date) Occasional unknown) wrong-word or 'sound-alike' substitutions may have (unknown) (no (unknown) (unknown) medication (PTU, (units (unknown) date) atenolol) does not unknown) have primary care physician to monitor her (unknown) (no (unknown) (unknown) methimazole 10 mg (units (unknown) date) tablet 10 mg PO unknown) DAILY #30 tabs 12/19/20 [Rx Confirmed (unknown) (no (unknown) (unknown) mild emotional (units (unknown) date) distress. Appears unknown) nervous (unknown) (no (unknown) (unknown) occurred due to (units (unknown) date) the inherent unknown) limitations of voice recognition software. Please (unknown) (no (unknown) (unknown) on the top my (units ( unknown) date) left eye. She unknown) denies any purulent discharge, does not recall (unknown) (no (unknown) (unknown) perhaps (units (unkno wn) date) responsible for unknown) patient's symptoms. No injection or drainage. (unknown) (no (unknown) (unknown) rales, or (units (unkn own) date) rhonchi. unknown) (unknown) (no (unknown) (unknown) read the note (units ( unknown) date) carefully and unknown) recognize, using context, where these substitutions (unknown) (no (unknown) (unknown) rubs. (units (unkno wn) date) unknown) (unknown) (no (unknown) (unknown) software. 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 Provider notified. 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 unknown) (unknown) (no (unknown) (unknown) tobramycin 0.3 (units (unknown) date) %-dexamethasone unknown) 0.1 % eye drops,suspension (TobraDex) 2 drp EYE (unknown) (no (unknown) (unknown) tobramycin-dexame (units (unknown) date) thasone 0.3-0.1 % unknown) (TobraDex) 2 drps EYE-LEFT BID 5 mL 0RF 7 (unknown) (no (unknown) (unknown) tonsillar (units (unkn own) date) hypertrophy or unknown) exudate. Airway patent. (unknown) (no (unknown) (unknown) upper eyelid (units (u nknown) date) unknown) Result panel 182 (unknown) (no date) (unknown) (unknown) 0 /ul (unkn own) (unknown) (no date) (unknown) (unknown) 0.5 % (unkn own) (unknown) (no date) (unknown) (unknown) 11.6 g/dl (unkn own) (unknown) (no date) (unknown) (unknown) 15.7 % (unkn own) (unknown) (no date) (unknown) (unknown) 2200 /ul (unkn own) (unknown) (no date) (unknown) (unknown) 23.2 pg (unkn own) (unknown) (no date) (unknown) (unknown) 2600 /ul (unkn own) (unknown) (no date) (unknown) (unknown) 293 x10 3/ul (unkn own) (unknown) (no date) (unknown) (unknown) 33.1 % (unkn own) (unknown) (no date) (unknown) (unknown) 34.9 % (unkn own) (unknown) (no date) (unknown) (unknown) 38.8 % (unkn own) (unknown) (no date) (unknown) (unknown) 4.98 x10 6/ul (unkn own) (unknown) (no date) (unknown) (unknown) 400 /ul (unkn own) (unknown) (no date) (unknown) (unknown) 400 /ul (unkn own) (unknown) (no date) (unknown) (unknown) 45.4 % (unkn own) (unknown) (no date) (unknown) (unknown) 5.6 x10 3/ul (unkn own) (unknown) (no date) (unknown) (unknown) 7.4 % (unkn own) (unknown) (no date) (unknown) (unknown) 7.9 % (unkn own) (unknown) (no date) (unknown) (unknown) 70.0 fl (unkn own) Result panel 183 (unknown) (no date) (unknown) (unknown) > 60 ml/min (unkn own) (unknown) (no date) (unknown) (unknown) > 60 ml/min (unkn own) (unknown) (no date) (unknown) (unknown) 0.28 mg/dl (unkn own) (unknown) (no date) (unknown) (unknown) 0.4 mg/dl (unkn own) (unknown) (no date) (unknown) (unknown) 0.8 mmol/l (unkn own) (unknown) (no date) (unknown) (unknown) 1.2 (units unknown) (unknown) (unknown) (no date) (unknown) (unknown) 1.7 mg/dl (unkn own) (unknown) (no date) (unknown) (unknown) 105 mg/dl (unkn own) (unknown) (no date) (unknown) (unknown) 105 mg/dl (unkn own) (unknown) (no date) (unknown) (unknown) 106 mmol/l (unkn own) (unknown) (no date) (unknown) (unknown) 109 u/l (unkn own) (unknown) (no date) (unknown) (unknown) 138 mmol/l (unkn own) (unknown) (no date) (unknown) (unknown) 19 iu/l (unkn own) (unknown) (no date) (unknown) (unknown) 22 iu/l (unkn own) (unknown) (no date) (unknown) (unknown) 23 mmol/l (unkn own) (unknown) (no date) (unknown) (unknown) 3.3 g/dl (unkn own) (unknown) (no date) (unknown) (unknown) 3.9 mmol/l (unkn own) (unknown) (no date) (unknown) (unknown) 32.1 (units unknown) (unknown) (unknown) (no date) (unknown) (unknown) 4.0 g/dl (unkn own) (unknown) (no date) (unknown) (unknown) 7.3 g/dl (unkn own) (unknown) (no date) (unknown) (unknown) 8.7 mg/dl (unkn own) (unknown) (no date) (unknown) (unknown) 9 mg/dl (unkn own) Result panel 184 (unknown) (no date) (unknown) (unknown) > 22.80 pg/ml (unkn own) (unknown) (no date) (unknown) (unknown) 6.37 ng/dl (unkn own) Result panel 185 (unknown) (no date) (unknown) (unknown) > 22.80 pg/ml (unkn own) (unknown) (no date) (unknown) (unknown) < 0.015 uiu/ml (unkn own) (unknown) (no date) (unknown) (unknown) 6.37 ng/dl (unkn own) Result panel 186 (unknown) (no (unknown) (unknown) (no value) (units (unk nown) date) unknown) (unknown) (no (unknown) (unknown) 08/10/22 08/10/22 (units (unknown) date) 08/10/22 unknown) Range/Units (unknown) (no (unknown) (unknown) 08/10/22 17:51 (units (unknown) date) unknown) (unknown) (no (unknown) (unknown) 08/10/22 18:05 (units (unknown) date) unknown) (unknown) (no (unknown) (unknown) 08/10/22 19:14 (units (unknown) date) unknown) (unknown) (no (unknown) (unknown) 08/10/22 (units (unkno wn) date) Range/Units unknown) (unknown) (no (unknown) (unknown) 08/10/22 (units (unkno wn) date) unknown) (unknown) (no (unknown) (unknown) [id number] (units (unkno wn) date) unknown) (unknown) (no (unknown) (unknown) 10 mg PO DAILY (units (unknown) date) Qty: 30 2RF unknown) (unknown) (no (unknown) (unknown) 17:39 08/10/22 (units (unknown) date) unknown) (unknown) (no (unknown) (unknown) 18:05 18:05 18:05 (units (unknown) date) unknown) (unknown) (no (unknown) (unknown) 18:05 (units (unkno wn) date) unknown) (unknown) (no (unknown) (unknown) 18:27 08/10/22 (units (unknown) date) unknown) (unknown) (no (unknown) (unknown) 18:27 (units (unkno wn) date) unknown) (unknown) (no (unknown) (unknown) 18:30 08/10/22 (units (unknown) date) unknown) (unknown) (no (unknown) (unknown) 18:30 (units (unkno wn) date) unknown) (unknown) (no (unknown) (unknown) 25 mg PO DAILY (units (unknown) date) Qty: 30 2RF unknown) (unknown) (no (unknown) (unknown) ALT (<35) IU/L (units (unknown) date) unknown) (unknown) (no (unknown) (unknown) ALT 19 (<35) IU/L (units (unknown) date) unknown) (unknown) (no (unknown) (unknown) AST (14-36) IU/L (units (unknown) date) unknown) (unknown) (no (unknown) (unknown) AST 22 (14-36) (units (unknown) date) IU/L unknown) (unknown) (no (unknown) (unknown) Admin: 08/10/22 (units (unknown) date) 18:42 Dose: 1,000 unknown) mls/hr (unknown) (no (unknown) (unknown) Age/Sex: 31 / F (units (unknown) date) unknown) (unknown) (no (unknown) (unknown) Albumin (3.5-5.0) (units (unknown) date) g/dL unknown) (unknown) (no (unknown) (unknown) Albumin 4.0 (units (un known) date) (3.5-5.0) g/dL unknown) (unknown) (no (unknown) (unknown) Albumin/Globulin (units (unknown) date) Ratio (1.0-2.8) unknown) (unknown) (no (unknown) (unknown) Albumin/Globulin (units (unknown) date) Ratio 1.2 (1.0-2.8) unknown) (unknown) (no (unknown) (unknown) Alkaline (units (unkno wn) date) Phosphatase unknown) (38-126) U/L (unknown) (no (unknown) (unknown) Alkaline (units (unkno wn) date) Phosphatase 109 unknown) (38-126) U/L (unknown) (no (unknown) (unknown) Allergies (units (unkn own) date) unknown) (unknown) (no (unknown) (unknown) Allergy/AdvReac (units (unknown) date) Type Severity unknown) Reaction Status Date / Time (unknown) (no (unknown) (unknown) BUN (7-17) mg/dL (units (unknown) date) unknown) (unknown) (no (unknown) (unknown) BUN 9 (7-17) mg/dL (units (unknown) date) unknown) (unknown) (no (unknown) (unknown) BUN/Creatinine (units (unknown) date) Ratio (6-22) unknown) (unknown) (no (unknown) (unknown) BUN/Creatinine (units (unknown) date) Ratio 32.1 H (6-22) unknown) (unknown) (no (unknown) (unknown) Baso # (Auto) (units ( unknown) date) (0-100) /uL unknown) (unknown) (no (unknown) (unknown) Baso # (Auto) 0 (units (unknown) date) (0-100) /uL unknown) (unknown) (no (unknown) (unknown) Baso % (Auto) (units ( unknown) date) (0-2) % unknown) (unknown) (no (unknown) (unknown) Baso % (Auto) 0.5 (units (unknown) date) (0-2) % unknown) (unknown) (no (unknown) (unknown) Blood Pressure (units (unknown) date) 122/82 unknown) (unknown) (no (unknown) (unknown) Blood Pressure (units (unknown) date) 134/99 H 08/10/22 unknown) 17:39 (unknown) (no (unknown) (unknown) Blood Pressure (units (unknown) date) 134/99 H 139/77 unknown) (unknown) (no (unknown) (unknown) Calcium (8.4-10.2) (units (unknown) date) mg/dL unknown) (unknown) (no (unknown) (unknown) Calcium 8.7 (units (un known) date) (8.4-10.2) mg/dL unknown) (unknown) (no (unknown) (unknown) Carbon Dioxide (units (unknown) date) (22-32) mmol/L unknown) (unknown) (no (unknown) (unknown) Carbon Dioxide 23 (units (unknown) date) (22-32) mmol/L unknown) (unknown) (no (unknown) (unknown) Chief Complaint: (units (unknown) date) Arrhythmia/Palpitat unknown) ions (unknown) (no (unknown) (unknown) Chloride (98-107) (units (unknown) date) mmol/L unknown) (unknown) (no (unknown) (unknown) Chloride 106 (units (u nknown) date) (98-107) mmol/L unknown) (unknown) (no (unknown) (unknown) Complete Blood (units (unknown) date) Count AUTO DIFF unknown) Stat (unknown) (no (unknown) (unknown) Comprehensive (units ( unknown) date) Metabolic Panel unknown) Stat (unknown) (no (unknown) (unknown) Consult to [facility] [place] (units (unknown) date) Lead Atg Developer unknown) Stat (unknown) (no (unknown) (unknown) Course (units (unkno wn) date) unknown) (unknown) (no (unknown) (unknown) Creatinine (units (unk nown) date) (0.52-1.04) mg/dL unknown) (unknown) (no (unknown) (unknown) Creatinine 0.28 L (units (unknown) date) (0.52-1.04) mg/dL unknown) (unknown) (no (unknown) (unknown) : 1990 (units (unknown) date) Acct:[id number] unknown) (unknown) (no (unknown) (unknown) Date of Service: (units (unknown) date) 08/10/22 unknown) (unknown) (no (unknown) (unknown) Departure (units (unkn own) date) unknown) (unknown) (no (unknown) (unknown) Discharge Plan (units (unknown) date) unknown) (unknown) (no (unknown) (unknown) Discontinued (units (u nknown) date) Medications unknown) (unknown) (no (unknown) (unknown) Documented By: HNG (units (unknown) date) unknown) (unknown) (no (unknown) (unknown) Documented By: KB (units (unknown) date) unknown) (unknown) (no (unknown) (unknown) Documented By: (units (unknown) date) KB(2) unknown) (unknown) (no (unknown) (unknown) ED Orders (units (unkn own) date) unknown) (unknown) (no (unknown) (unknown) EKG-12 Lead Stat (units (unknown) date) unknown) (unknown) (no (unknown) (unknown) ER Physician: (units ( unknown) date) Paris Burrell D.O. unknown) (unknown) (no (unknown) (unknown) Emergency Report (units (unknown) date) unknown) (unknown) (no (unknown) (unknown) Eos # (Auto) (units (u nknown) date) (0-450) /uL unknown) (unknown) (no (unknown) (unknown) Eos # (Auto) 400 (units (unknown) date) (0-450) /uL unknown) (unknown) (no (unknown) (unknown) Eos % (Auto) (2-4) (units (unknown) date) % unknown) (unknown) (no (unknown) (unknown) Eos % (Auto) 7.9 H (units (unknown) date) (2-4) % unknown) (unknown) (no (unknown) (unknown) Estimated GFR > 60 (units (unknown) date) (>60) mL/min unknown) (unknown) (no (unknown) (unknown) Estimated GFR (units ( unknown) date) (>60) mL/min unknown) (unknown) (no (unknown) (unknown) Exam (units (unkno wn) date) unknown) (unknown) (no (unknown) (unknown) Free T3 > 22.80 H (units (unknown) date) (2.77-5.27) pg/mL unknown) (unknown) (no (unknown) (unknown) Free T3 (units (unkno wn) date) (2.77-5.27) pg/mL unknown) (unknown) (no (unknown) (unknown) Free T3, (units (o wn) date) Triiodothyronine unknown) Free Stat (unknown) (no (unknown) (unknown) Free T4 (units (o wn) date) (0.78-2.19) ng/dL unknown) (unknown) (no (unknown) (unknown) Free T4 6.37 H (units (unknown) date) (0.78-2.19) ng/dL unknown) (unknown) (no (unknown) (unknown) Free T4, Direct (units (unknown) date) Thyroxine Stat unknown) (unknown) (no (unknown) (unknown) General (units (unkno wn) date) unknown) (unknown) (no (unknown) (unknown) Globulin (1.7-4.1) (units (unknown) date) g/dL unknown) (unknown) (no (unknown) (unknown) Globulin 3.3 (units (u nknown) date) (1.7-4.1) g/dL unknown) (unknown) (no (unknown) (unknown) Glucose (70-100) (units (unknown) date) mg/dL unknown) (unknown) (no (unknown) (unknown) Glucose 105 H (units ( unknown) date) (70-100) mg/dL unknown) (unknown) (no (unknown) (unknown) HPI - (units (unkno wn) date) Arrhythmia/Palpitat unknown) ions (unknown) (no (unknown) (unknown) Hct (36-46) % (units ( unknown) date) unknown) (unknown) (no (unknown) (unknown) Hct 34.9 L (36-46) (units (unknown) date) % unknown) (unknown) (no (unknown) (unknown) Hgb (12.0-16.0) (units (unknown) date) g/dL unknown) (unknown) (no (unknown) (unknown) Hgb 11.6 L (units (unk nown) date) (12.0-16.0) g/dL unknown) (unknown) (no (unknown) (unknown) Hyperthyroidism (units (unknown) date) affecting unknown) in second trimester (08/04/15) (unknown) (no (unknown) (unknown) Initial Vital (units ( unknown) date) Signs unknown) (unknown) (no (unknown) (unknown) Initial Vital (units ( unknown) date) Signs: unknown) (unknown) (no (unknown) (unknown) [facility] (units (unknown) date) [address] unknown) [place] [address] (unknown) (no (unknown) (unknown) Karyotype 45, X (units (unknown) date) (09/10/15) unknown) (unknown) (no (unknown) (unknown) Lab Data (units (unkno wn) date) unknown) (unknown) (no (unknown) (unknown) Lab Results (units (un known) date) unknown) (unknown) (no (unknown) (unknown) Labs: (units (unkno wn) date) unknown) (unknown) (no (unknown) (unknown) Lactate (0.7-2.1) (units (unknown) date) mmol/L unknown) (unknown) (no (unknown) (unknown) Lactate (Lactic (units (unknown) date) Acid) Stat unknown) (unknown) (no (unknown) (unknown) Lactate 0.8 (units (un known) date) (0.7-2.1) mmol/L unknown) (unknown) (no (unknown) (unknown) Last Admin: (units (un known) date) 08/10/22 20:34 unknown) Dose: 15 mg (unknown) (no (unknown) (unknown) Last Admin: (units (un known) date) 08/10/22 20:34 unknown) Dose: 150 mls/hr (unknown) (no (unknown) (unknown) Last Admin: (units (un known) date) 08/10/22 20:34 unknown) Dose: 40 mg (unknown) (no (unknown) (unknown) Last Admin: (units (un known) date) 08/10/22 20:35 unknown) Dose: Not Given (unknown) (no (unknown) (unknown) Last Infusion: (units (unknown) date) 08/10/22 19:54 unknown) Dose: 0 mls/hr (unknown) (no (unknown) (unknown) Lymph # (Auto) (units (unknown) date) (2226-2964) /uL unknown) (unknown) (no (unknown) (unknown) Lymph # (Auto) (units (unknown) date) 2200 (0374-6503) unknown) /uL (unknown) (no (unknown) (unknown) Lymph % (Auto) (units (unknown) date) (25-40) % unknown) (unknown) (no (unknown) (unknown) Lymph % (Auto) (units (unknown) date) 38.8 (25-40) % unknown) (unknown) (no (unknown) (unknown) MAG [Magnesium] (units (unknown) date) Stat unknown) (unknown) (no (unknown) (unknown) MCH (26-34) PG (units (unknown) date) unknown) (unknown) (no (unknown) (unknown) MCH 23.2 L (26-34) (units (unknown) date) PG unknown) (unknown) (no (unknown) (unknown) MCHC (30-36) % (units (unknown) date) unknown) (unknown) (no (unknown) (unknown) MCHC 33.1 (30-36) (units (unknown) date) % unknown) (unknown) (no (unknown) (unknown) MCV (80-100) fL (units (unknown) date) unknown) (unknown) (no (unknown) (unknown) MCV 70.0 L (units (unk nown) date) (80-100) fL unknown) (unknown) (no (unknown) (unknown) MDM - (units (unkno wn) date) Arrhythmia/Palpitat unknown) ions (unknown) (no (unknown) (unknown) Magnesium (units (unkn own) date) (1.6-2.3) mg/dL unknown) (unknown) (no (unknown) (unknown) Magnesium 1.7 (units ( unknown) date) (1.6-2.3) mg/dL unknown) (unknown) (no (unknown) (unknown) Medical History (units (unknown) date) (Reviewed 07/20/22 unknown) @ 16:40 by Lizz Cannon PA-C) (unknown) (no (unknown) (unknown) Medication (units (unk nown) date) Instructions unknown) Recorded (unknown) (no (unknown) (unknown) Methimazole (units (un known) date) (Methimazole 5 Mg unknown) Tablet) 15 mg PO NOW ONE (unknown) (no (unknown) (unknown) Mode of arrival: (units (unknown) date) Ambulatory unknown) (unknown) (no (unknown) (unknown) Crisp # (Auto) (units ( unknown) date) (0-900) /uL unknown) (unknown) (no (unknown) (unknown) Crisp # (Auto) 400 (units (unknown) date) (0-900) /uL unknown) (unknown) (no (unknown) (unknown) Crisp % (Auto) (units ( unknown) date) (3-14) % unknown) (unknown) (no (unknown) (unknown) Crisp % (Auto) 7.4 (units (unknown) date) (3-14) % unknown) (unknown) (no (unknown) (unknown) Neut # (Auto) (units ( unknown) date) (1606-2857) /uL unknown) (unknown) (no (unknown) (unknown) Neut # (Auto) 2600 (units (unknown) date) (6799-1741) /uL unknown) (unknown) (no (unknown) (unknown) Neut % (Auto) (units ( unknown) date) (50-75) % unknown) (unknown) (no (unknown) (unknown) Neut % (Auto) 45.4 (units (unknown) date) L (50-75) % unknown) (unknown) (no (unknown) (unknown) No Action (units (unkn own) date) unknown) (unknown) (no (unknown) (unknown) Ordered: (units (unkno wn) date) unknown) (unknown) (no (unknown) (unknown) Orders (units (unkno wn) date) unknown) (unknown) (no (unknown) (unknown) Oxygen Delivery (units (unknown) date) Method 08/10/22 unknown) 17:39 (unknown) (no (unknown) (unknown) Oxygen Delivery (units (unknown) date) Method Room Air unknown) (unknown) (no (unknown) (unknown) Oxygen Delivery (units (unknown) date) Method unknown) (unknown) (no (unknown) (unknown) Patient History (units (unknown) date) unknown) (unknown) (no (unknown) (unknown) Patient: (units (unkno wn) date) Lashaun Hooker M unknown) MR#: [id number] (unknown) (no (unknown) (unknown) Plt Count (units (unkn own) date) (150-400) X103/uL unknown) (unknown) (no (unknown) (unknown) Plt Count 293 (units ( unknown) date) (150-400) X103/uL unknown) (unknown) (no (unknown) (unknown) Potassium (units (unkn own) date) (3.4-5.1) mmol/L unknown) (unknown) (no (unknown) (unknown) Potassium 3.9 (units ( unknown) date) (3.4-5.1) mmol/L unknown) (unknown) (no (unknown) (unknown) Prescriptions: (units (unknown) date) unknown) (unknown) (no (unknown) (unknown) Previous Rx's (units ( unknown) date) unknown) (unknown) (no (unknown) (unknown) Propranolol HCl (units (unknown) date) (Propranolol 10 Mg unknown) Tablet) 40 mg PO NOW ONE (unknown) (no (unknown) (unknown) Propranolol HCl (units (unknown) date) (Propranolol 40 Mg unknown) Tablet) 40 mg PO NOW ONE (unknown) (no (unknown) (unknown) Pulse Oximetry 100 (units (unknown) date) 08/10/22 17:39 unknown) (unknown) (no (unknown) (unknown) Pulse Oximetry 100 (units (unknown) date) 99 unknown) (unknown) (no (unknown) (unknown) Pulse Oximetry 98 (units (unknown) date) unknown) (unknown) (no (unknown) (unknown) Pulse Rate 124 H (units (unknown) date) unknown) (unknown) (no (unknown) (unknown) Pulse Rate 145 H (units (unknown) date) 08/10/22 17:39 unknown) (unknown) (no (unknown) (unknown) Pulse Rate 145 H (units (unknown) date) 127 H unknown) (unknown) (no (unknown) (unknown) RBC (4.0-5.2) (units ( unknown) date) X106/uL unknown) (unknown) (no (unknown) (unknown) RBC 4.98 (4.0-5.2) (units (unknown) date) X106/uL unknown) (unknown) (no (unknown) (unknown) RDW (11.6-14.8) % (units (unknown) date) unknown) (unknown) (no (unknown) (unknown) RDW 15.7 H (units (unk nown) date) (11.6-14.8) % unknown) (unknown) (no (unknown) (unknown) Related Data (units (u nknown) date) unknown) (unknown) (no (unknown) (unknown) Respiratory Rate (units (unknown) date) 20 unknown) (unknown) (no (unknown) (unknown) Respiratory Rate (units (unknown) date) 22 08/10/22 17:39 unknown) (unknown) (no (unknown) (unknown) Respiratory Rate (units (unknown) date) 22 unknown) (unknown) (no (unknown) (unknown) Result diagrams: (units (unknown) date) unknown) (unknown) (no (unknown) (unknown) Rx Instructions: (units (unknown) date) unknown) (unknown) (no (unknown) (unknown) See Rx (units (unkno wn) date) Instructions .ROUTE unknown) .COMPLEX Qty: 6 0RF (unknown) (no (unknown) (unknown) Signed By: (units (unk nown) date) unknown) (unknown) (no (unknown) (unknown) Smoking Status: (units (unknown) date) Current every day unknown) smoker (unknown) (no (unknown) (unknown) Social History (units (unknown) date) unknown) (unknown) (no (unknown) (unknown) Sodium (137-145) (units (unknown) date) mmol/L unknown) (unknown) (no (unknown) (unknown) Sodium 138 (units (unk nown) date) (137-145) mmol/L unknown) (unknown) (no (unknown) (unknown) Sodium Chloride (units (unknown) date) (Normal Saline unknown) 0.9%) 1,000 mls @ 1,000 mls/hr IV BOLUS ONE (unknown) (no (unknown) (unknown) Sodium Chloride (units (unknown) date) (Normal Saline unknown) 0.9%) 1,000 mls @ 150 mls/hr IV CONT JENNIFER (unknown) (no (unknown) (unknown) Source: patient (units (unknown) date) unknown) (unknown) (no (unknown) (unknown) Spontaneous (units (un known) date) vaginal delivery unknown) (unknown) (no (unknown) (unknown) Stated Complaint: (units (unknown) date) racing heart, unknown) shakey (unknown) (no (unknown) (unknown) Status post (units (un known) date) tonsillectomy and unknown) adenoidectomy (unknown) (no (unknown) (unknown) Stop: 08/10/22 (units (unknown) date) 19:03 unknown) (unknown) (no (unknown) (unknown) Stop: 08/10/22 (units (unknown) date) 19:12 unknown) (unknown) (no (unknown) (unknown) Stop: 08/10/22 (units (unknown) date) 19:15 unknown) (unknown) (no (unknown) (unknown) Stop: 08/10/22 (units (unknown) date) 20:31 unknown) (unknown) (no (unknown) (unknown) Substance Use (units ( unknown) date) Type: marijuana unknown) (unknown) (no (unknown) (unknown) Surgical History (units (unknown) date) (Reviewed 07/20/22 unknown) @ 16:40 by Lizz Cannon PA-C) (unknown) (no (unknown) (unknown) TSH < 0.015 L (units ( unknown) date) (0.47-4.68) uIU/mL unknown) (unknown) (no (unknown) (unknown) TSH (0.47-4.68) (units (unknown) date) uIU/mL unknown) (unknown) (no (unknown) (unknown) Temperature 98.3 F (units (unknown) date) 08/10/22 17:39 unknown) (unknown) (no (unknown) (unknown) Temperature 98.3 F (units (unknown) date) unknown) (unknown) (no (unknown) (unknown) Temperature (units (un known) date) unknown) (unknown) (no (unknown) (unknown) Thyroid (units (unkno wn) date) Stimulating Hormone unknown) Stat (unknown) (no (unknown) (unknown) Time Seen by (units (u nknown) date) Provider: 08/10/22 unknown) 17:55 (unknown) (no (unknown) (unknown) Total Bilirubin (units (unknown) date) (0.2-1.3) mg/dL unknown) (unknown) (no (unknown) (unknown) Total Bilirubin (units (unknown) date) 0.4 (0.2-1.3) mg/dL unknown) (unknown) (no (unknown) (unknown) Total Protein (units ( unknown) date) (6.3-8.2) g/dL unknown) (unknown) (no (unknown) (unknown) Total Protein 7.3 (units (unknown) date) (6.3-8.2) g/dL unknown) (unknown) (no (unknown) (unknown) Vital Signs - 8 hr (units (unknown) date) unknown) (unknown) (no (unknown) (unknown) Vital Signs (units (un known) date) unknown) (unknown) (no (unknown) (unknown) Vital signs: (units (u nknown) date) unknown) (unknown) (no (unknown) (unknown) WBC (4.5-11.0) (units (unknown) date) X103/uL unknown) (unknown) (no (unknown) (unknown) WBC 5.6 (4.5-11.0) (units (unknown) date) X103/uL unknown) (unknown) (no (unknown) (unknown) [Embedded Image (units (unknown) date) Not Available] unknown) (unknown) (no (unknown) (unknown) adhesive tape (units ( unknown) date) [ADHESIVE TAPE] unknown) Allergy Unknown Rash Verified 07/20/22 16:38 (unknown) (no (unknown) (unknown) alcohol intake (units (unknown) date) frequency: unknown) holidays/special occasions only (unknown) (no (unknown) (unknown) atenolol 25 mg (units (unknown) date) tablet 25 mg PO unknown) DAILY #30 tabs 12/19/20 (unknown) (no (unknown) (unknown) atenolol 25 mg (units (unknown) date) tablet unknown) (unknown) (no (unknown) (unknown) azithromycin 250 (units (unknown) date) mg tablet See Rx unknown) Instructions PO .COMPLEX #6 12/19/20 (unknown) (no (unknown) (unknown) azithromycin 250 (units (unknown) date) mg tablet unknown) (unknown) (no (unknown) (unknown) hydrocodone [From (units (unknown) date) VICODIN] Allergy unknown) Unknown Rash/nausea Verified 07/20/22 16:38 (unknown) (no (unknown) (unknown) methimazole 10 mg (units (unknown) date) tablet 10 mg PO unknown) DAILY #30 tabs 12/19/20 (unknown) (no (unknown) (unknown) methimazole 10 mg (units (unknown) date) tablet unknown) (unknown) (no (unknown) (unknown) tabs (units (unkno wn) date) unknown) (unknown) (no (unknown) (unknown) take 500 mg today (units (unknown) date) (day 1), then 250 unknown) mg for 4 days (days 2-5) (unknown) (no (unknown) (unknown) tobacco type: (units ( unknown) date) cigarettes unknown) Result panel 187 (unknown) (no (unknown) (unknown) (no value) (units (unk nown) date) unknown) (unknown) (no (unknown) (unknown) *Continue to take (units (unknown) date) medications as unknown) directed (unknown) (no (unknown) (unknown) *Follow up with (units (unknown) date) your primary care unknown) provider in 2-3 days or call [phone] (unknown) (no (unknown) (unknown) *Return to ER if (units (unknown) date) you should have unknown) increasing neck pain inability to swallow fever (unknown) (no (unknown) (unknown) *What to do: At (units (unknown) date) this time you must unknown) take her medications. Social work should (unknown) (no (unknown) (unknown) *You have been (units (unknown) date) diagnosed with unknown) hyperthyroid (unknown) (no (unknown) (unknown) 08/10/22 08/10/22 (units (unknown) date) 08/10/22 unknown) Range/Units (unknown) (no (unknown) (unknown) 08/10/22 17:51 (units (unknown) date) unknown) (unknown) (no (unknown) (unknown) 08/10/22 18:05 (units (unknown) date) unknown) (unknown) (no (unknown) (unknown) 08/10/22 19:14 (units (unknown) date) unknown) (unknown) (no (unknown) (unknown) 08/10/22 (units (unkno wn) date) Range/Units unknown) (unknown) (no (unknown) (unknown) 08/10/22 (units (unkno wn) date) unknown) (unknown) (no (unknown) (unknown) [id number] (units (unkno wn) date) unknown) (unknown) (no (unknown) (unknown) 10 mg PO DAILY (units (unknown) date) Qty: 30 2RF unknown) (unknown) (no (unknown) (unknown) 17:39 08/10/22 (units (unknown) date) unknown) (unknown) (no (unknown) (unknown) 18:05 18:05 18:05 (units (unknown) date) unknown) (unknown) (no (unknown) (unknown) 18:05 (units (unkno wn) date) unknown) (unknown) (no (unknown) (unknown) 18:27 08/10/22 (units (unknown) date) unknown) (unknown) (no (unknown) (unknown) 18:27 (units (unkno wn) date) unknown) (unknown) (no (unknown) (unknown) 18:30 08/10/22 (units (unknown) date) unknown) (unknown) (no (unknown) (unknown) 18:30 (units (unkno wn) date) unknown) (unknown) (no (unknown) (unknown) 25 mg PO DAILY (units (unknown) date) Qty: 30 2RF unknown) (unknown) (no (unknown) (unknown) ABDOMEN: Soft, (units (unknown) date) nontender. unknown) Normoactive bowel sounds all 4 quadrants. No (unknown) (no (unknown) (unknown) ALT (<35) IU/L (units (unknown) date) unknown) (unknown) (no (unknown) (unknown) ALT 19 (<35) IU/L (units (unknown) date) unknown) (unknown) (no (unknown) (unknown) AST (14-36) IU/L (units (unknown) date) unknown) (unknown) (no (unknown) (unknown) AST 22 (14-36) (units (unknown) date) IU/L unknown) (unknown) (no (unknown) (unknown) Activity (units (unkno wn) date) Restrictions/Additi unknown) onal Instructions: (unknown) (no (unknown) (unknown) Admin: 08/10/22 (units (unknown) date) 18:42 Dose: 1,000 unknown) mls/hr (unknown) (no (unknown) (unknown) Age/Sex: 31 / F (units (unknown) date) unknown) (unknown) (no (unknown) (unknown) Albumin (3.5-5.0) (units (unknown) date) g/dL unknown) (unknown) (no (unknown) (unknown) Albumin 4.0 (units (un known) date) (3.5-5.0) g/dL unknown) (unknown) (no (unknown) (unknown) Albumin/Globulin (units (unknown) date) Ratio (1.0-2.8) unknown) (unknown) (no (unknown) (unknown) Albumin/Globulin (units (unknown) date) Ratio 1.2 (1.0-2.8) unknown) (unknown) (no (unknown) (unknown) Alkaline (units (unkno wn) date) Phosphatase unknown) (38-126) U/L (unknown) (no (unknown) (unknown) Alkaline (units (unkno wn) date) Phosphatase 109 unknown) (38-126) U/L (unknown) (no (unknown) (unknown) Allergies (units (unkn own) date) unknown) (unknown) (no (unknown) (unknown) Allergy/AdvReac (units (unknown) date) Type Severity unknown) Reaction Status Date / Time (unknown) (no (unknown) (unknown) Atenolol 25 mg (units (unknown) date) once daily unknown) (unknown) (no (unknown) (unknown) BUN (7-17) mg/dL (units (unknown) date) unknown) (unknown) (no (unknown) (unknown) BUN 9 (7-17) mg/dL (units (unknown) date) unknown) (unknown) (no (unknown) (unknown) BUN/Creatinine (units (unknown) date) Ratio (6-22) unknown) (unknown) (no (unknown) (unknown) BUN/Creatinine (units (unknown) date) Ratio 32.1 H (6-22) unknown) (unknown) (no (unknown) (unknown) Baso # (Auto) (units ( unknown) date) (0-100) /uL unknown) (unknown) (no (unknown) (unknown) Baso # (Auto) 0 (units (unknown) date) (0-100) /uL unknown) (unknown) (no (unknown) (unknown) Baso % (Auto) (units ( unknown) date) (0-2) % unknown) (unknown) (no (unknown) (unknown) Baso % (Auto) 0.5 (units (unknown) date) (0-2) % unknown) (unknown) (no (unknown) (unknown) Blood Pressure (units (unknown) date) 122/82 unknown) (unknown) (no (unknown) (unknown) Blood Pressure (units (unknown) date) 134/99 H 08/10/22 unknown) 17:39 (unknown) (no (unknown) (unknown) Blood Pressure (units (unknown) date) 134/99 H 139/77 unknown) (unknown) (no (unknown) (unknown) CARDIOVASCULAR: (units (unknown) date) Tachycardic regular unknown) no murmurs (unknown) (no (unknown) (unknown) Calcium (8.4-10.2) (units (unknown) date) mg/dL unknown) (unknown) (no (unknown) (unknown) Calcium 8.7 (units (un known) date) (8.4-10.2) mg/dL unknown) (unknown) (no (unknown) (unknown) Carbon Dioxide (units (unknown) date) (22-32) mmol/L unknown) (unknown) (no (unknown) (unknown) Carbon Dioxide 23 (units (unknown) date) (22-32) mmol/L unknown) (unknown) (no (unknown) (unknown) Chief Complaint: (units (unknown) date) Arrhythmia/Palpitat unknown) ions (unknown) (no (unknown) (unknown) Chloride (98-107) (units (unknown) date) mmol/L unknown) (unknown) (no (unknown) (unknown) Chloride 106 (units (u nknown) date) (98-107) mmol/L unknown) (unknown) (no (unknown) (unknown) Clinical (units (unkno wn) date) Impression: unknown) (unknown) (no (unknown) (unknown) Complete Blood (units (unknown) date) Count AUTO DIFF unknown) Stat (unknown) (no (unknown) (unknown) Comprehensive (units ( unknown) date) Metabolic Panel unknown) Stat (unknown) (no (unknown) (unknown) Consult to [employer] - (units (unknown) date) Lead Atg Developer unknown) Stat (unknown) (no (unknown) (unknown) Course (units (unkno wn) date) unknown) (unknown) (no (unknown) (unknown) Creatinine (units (unk nown) date) (0.52-1.04) mg/dL unknown) (unknown) (no (unknown) (unknown) Creatinine 0.28 L (units (unknown) date) (0.52-1.04) mg/dL unknown) (unknown) (no (unknown) (unknown) : 1990 (units (unknown) date) Acct:[id number] unknown) (unknown) (no (unknown) (unknown) Date of Service: (units (unknown) date) 08/10/22 unknown) (unknown) (no (unknown) (unknown) Departure (units (unkn own) date) unknown) (unknown) (no (unknown) (unknown) Discharge Plan (units (unknown) date) unknown) (unknown) (no (unknown) (unknown) Discontinued (units (u nknown) date) Medications unknown) (unknown) (no (unknown) (unknown) Documented By: HNG (units (unknown) date) unknown) (unknown) (no (unknown) (unknown) Documented By: KB (units (unknown) date) unknown) (unknown) (no (unknown) (unknown) Documented By: (units (unknown) date) KB(2) unknown) (unknown) (no (unknown) (unknown) ECG Data (units (unkno wn) date) unknown) (unknown) (no (unknown) (unknown) ED Orders (units (unkn own) date) unknown) (unknown) (no (unknown) (unknown) EKG-12 Lead Stat (units (unknown) date) unknown) (unknown) (no (unknown) (unknown) ER Physician: (units ( unknown) date) Paris Burrell D.O. unknown) (unknown) (no (unknown) (unknown) EXTREMITIES: (units (u nknown) date) Normal range of unknown) motion, no clubbing or edema. Neurovascularly (unknown) (no (unknown) (unknown) Emergency Report (units (unknown) date) unknown) (unknown) (no (unknown) (unknown) Eos # (Auto) (units (u nknown) date) (0-450) /uL unknown) (unknown) (no (unknown) (unknown) Eos # (Auto) 400 (units (unknown) date) (0-450) /uL unknown) (unknown) (no (unknown) (unknown) Eos % (Auto) (2-4) (units (unknown) date) % unknown) (unknown) (no (unknown) (unknown) Eos % (Auto) 7.9 H (units (unknown) date) (2-4) % unknown) (unknown) (no (unknown) (unknown) Estimated GFR > 60 (units (unknown) date) (>60) mL/min unknown) (unknown) (no (unknown) (unknown) Estimated GFR (units ( unknown) date) (>60) mL/min unknown) (unknown) (no (unknown) (unknown) Exam (units (unkno wn) date) unknown) (unknown) (no (unknown) (unknown) Free T3 > 22.80 H (units (unknown) date) (2.77-5.27) pg/mL unknown) (unknown) (no (unknown) (unknown) Free T3 (units (unkno wn) date) (2.77-5.27) pg/mL unknown) (unknown) (no (unknown) (unknown) Free T3, (units (unkno wn) date) Triiodothyronine unknown) Free Stat (unknown) (no (unknown) (unknown) Free T4 (units (unkno wn) date) (0.78-2.19) ng/dL unknown) (unknown) (no (unknown) (unknown) Free T4 6.37 H (units (unknown) date) (0.78-2.19) ng/dL unknown) (unknown) (no (unknown) (unknown) Free T4, Direct (units (unknown) date) Thyroxine Stat unknown) (unknown) (no (unknown) (unknown) GENERAL: Alert (units (unknown) date) well-appearing unknown) 31-year-old female (unknown) (no (unknown) (unknown) General (units (unkno wn) date) unknown) (unknown) (no (unknown) (unknown) Globulin (1.7-4.1) (units (unknown) date) g/dL unknown) (unknown) (no (unknown) (unknown) Globulin 3.3 (units (u nknown) date) (1.7-4.1) g/dL unknown) (unknown) (no (unknown) (unknown) Glucose (70-100) (units (unknown) date) mg/dL unknown) (unknown) (no (unknown) (unknown) Glucose 105 H (units ( unknown) date) (70-100) mg/dL unknown) (unknown) (no (unknown) (unknown) HEENT: Head (units (un known) date) atraumatic,EOMI, unknown) pupils reactive, face symmetric, moist mucous (unknown) (no (unknown) (unknown) HPI - (units (unkno wn) date) Arrhythmia/Palpitat unknown) ions (unknown) (no (unknown) (unknown) HPI narrative: (units (unknown) date) unknown) (unknown) (no (unknown) (unknown) Hct (36-46) % (units ( unknown) date) unknown) (unknown) (no (unknown) (unknown) Hct 34.9 L (36-46) (units (unknown) date) % unknown) (unknown) (no (unknown) (unknown) Hgb (12.0-16.0) (units (unknown) date) g/dL unknown) (unknown) (no (unknown) (unknown) Hgb 11.6 L (units (unk nown) date) (12.0-16.0) g/dL unknown) (unknown) (no (unknown) (unknown) History of Present (units (unknown) date) Illness unknown) (unknown) (no (unknown) (unknown) Hyperthyroidism (units (unknown) date) affecting unknown) in second trimester (08/04/15) (unknown) (no (unknown) (unknown) Hyperthyroidism (units (unknown) date) unknown) (unknown) (no (unknown) (unknown) Initial Vital (units ( unknown) date) Signs unknown) (unknown) (no (unknown) (unknown) Initial Vital (units ( unknown) date) Signs: unknown) (unknown) (no (unknown) (unknown) Instructions: (units ( unknown) date) Hyperthyroidism unknown) (unknown) (no (unknown) (unknown) Interpretation: (units (unknown) date) unknown) (unknown) (no (unknown) (unknown) [facility] (units (unknown) date) [address] unknown) [place] [address] (unknown) (no (unknown) (unknown) Karyotype 45, X (units (unknown) date) (09/10/15) unknown) (unknown) (no (unknown) (unknown) Lab Data (units (unkno wn) date) unknown) (unknown) (no (unknown) (unknown) Lab Results (units (un known) date) unknown) (unknown) (no (unknown) (unknown) Labs: (units (unkno wn) date) unknown) (unknown) (no (unknown) (unknown) Lactate (0.7-2.1) (units (unknown) date) mmol/L unknown) (unknown) (no (unknown) (unknown) Lactate (Lactic (units (unknown) date) Acid) Stat unknown) (unknown) (no (unknown) (unknown) Lactate 0.8 (units (un known) date) (0.7-2.1) mmol/L unknown) (unknown) (no (unknown) (unknown) Last Admin: (units (un known) date) 08/10/22 20:34 unknown) Dose: 15 mg (unknown) (no (unknown) (unknown) Last Admin: (units (un known) date) 08/10/22 20:34 unknown) Dose: 150 mls/hr (unknown) (no (unknown) (unknown) Last Admin: (units (un known) date) 08/10/22 20:34 unknown) Dose: 40 mg (unknown) (no (unknown) (unknown) Last Admin: (units (un known) date) 08/10/22 20:35 unknown) Dose: Not Given (unknown) (no (unknown) (unknown) Last Infusion: (units (unknown) date) 08/10/22 19:54 unknown) Dose: 0 mls/hr (unknown) (no (unknown) (unknown) Lymph # (Auto) (units (unknown) date) (4577-1451) /uL unknown) (unknown) (no (unknown) (unknown) Lymph # (Auto) (units (unknown) date) 2200 (4838-9568) unknown) /uL (unknown) (no (unknown) (unknown) Lymph % (Auto) (units (unknown) date) (25-40) % unknown) (unknown) (no (unknown) (unknown) Lymph % (Auto) (units (unknown) date) 38.8 (25-40) % unknown) (unknown) (no (unknown) (unknown) MAG [Magnesium] (units (unknown) date) Stat unknown) (unknown) (no (unknown) (unknown) MCH (26-34) PG (units (unknown) date) unknown) (unknown) (no (unknown) (unknown) MCH 23.2 L (26-34) (units (unknown) date) PG unknown) (unknown) (no (unknown) (unknown) MCHC (30-36) % (units (unknown) date) unknown) (unknown) (no (unknown) (unknown) MCHC 33.1 (30-36) (units (unknown) date) % unknown) (unknown) (no (unknown) (unknown) MCV (80-100) fL (units (unknown) date) unknown) (unknown) (no (unknown) (unknown) MCV 70.0 L (units (unk nown) date) (80-100) fL unknown) (unknown) (no (unknown) (unknown) MDM - (units (unkno wn) date) Arrhythmia/Palpitat unknown) ions (unknown) (no (unknown) (unknown) MDM Narrative (units ( unknown) date) unknown) (unknown) (no (unknown) (unknown) Magnesium (units (unkn own) date) (1.6-2.3) mg/dL unknown) (unknown) (no (unknown) (unknown) Magnesium 1.7 (units ( unknown) date) (1.6-2.3) mg/dL unknown) (unknown) (no (unknown) (unknown) Medical History (units (unknown) date) (Reviewed 08/10/22 unknown) @ 22:00 by Paris Burrell DO) (unknown) (no (unknown) (unknown) Medical decision (units (unknown) date) making narrative: unknown) (unknown) (no (unknown) (unknown) Medication (units (unk nown) date) Instructions unknown) Recorded (unknown) (no (unknown) (unknown) Methimazole (units (un known) date) (Methimazole 5 Mg unknown) Tablet) 15 mg PO NOW ONE (unknown) (no (unknown) (unknown) Methimazole 10 mg (units (unknown) date) twice a day unknown) (unknown) (no (unknown) (unknown) Mode of arrival: (units (unknown) date) Ambulatory unknown) (unknown) (no (unknown) (unknown) Crisp # (Auto) (units ( unknown) date) (0-900) /uL unknown) (unknown) (no (unknown) (unknown) Crisp # (Auto) 400 (units (unknown) date) (0-900) /uL unknown) (unknown) (no (unknown) (unknown) Crisp % (Auto) (units ( unknown) date) (3-14) % unknown) (unknown) (no (unknown) (unknown) Crisp % (Auto) 7.4 (units (unknown) date) (3-14) % unknown) (unknown) (no (unknown) (unknown) NECK: Goiter noted (units (unknown) date) unknown) (unknown) (no (unknown) (unknown) NEUROLOGICAL: (units ( unknown) date) Alert and oriented unknown) x4 (unknown) (no (unknown) (unknown) Neut # (Auto) (units ( unknown) date) (0740-1785) /uL unknown) (unknown) (no (unknown) (unknown) Neut # (Auto) 2600 (units (unknown) date) (8336-5858) /uL unknown) (unknown) (no (unknown) (unknown) Neut % (Auto) (units ( unknown) date) (50-75) % unknown) (unknown) (no (unknown) (unknown) Neut % (Auto) 45.4 (units (unknown) date) L (50-75) % unknown) (unknown) (no (unknown) (unknown) No Action (units (unkn own) date) unknown) (unknown) (no (unknown) (unknown) Normal sinus (units (u nknown) date) rhythm rate 137 MT unknown) interval 130 QRS 70 QTC 4 [address] (unknown) (no (unknown) (unknown) Ordered: (units (unkno wn) date) unknown) (unknown) (no (unknown) (unknown) Orders (units (unkno wn) date) unknown) (unknown) (no (unknown) (unknown) Oxygen Delivery (units (unknown) date) Method 08/10/22 unknown) 17:39 (unknown) (no (unknown) (unknown) Oxygen Delivery (units (unknown) date) Method Room Air unknown) (unknown) (no (unknown) (unknown) Oxygen Delivery (units (unknown) date) Method unknown) (unknown) (no (unknown) (unknown) Patient (units (unkno wn) date) 31-year-old female unknown) history of hyperthyroidism noncompliant with (unknown) (no (unknown) (unknown) Patient (units (unkno wn) date) Disposition: Home unknown) (unknown) (no (unknown) (unknown) Patient History (units (unknown) date) unknown) (unknown) (no (unknown) (unknown) Patient is a (units (u nknown) date) 31-year-old female unknown) who has a history of hyperthyroidism presents (unknown) (no (unknown) (unknown) Patient: (units (unkno wn) date) Lashaun Hooker M unknown) MR#: [id number] (unknown) (no (unknown) (unknown) Plt Count (units (unkn own) date) (150-400) X103/uL unknown) (unknown) (no (unknown) (unknown) Plt Count 293 (units ( unknown) date) (150-400) X103/uL unknown) (unknown) (no (unknown) (unknown) Potassium (units (unkn own) date) (3.4-5.1) mmol/L unknown) (unknown) (no (unknown) (unknown) Potassium 3.9 (units ( unknown) date) (3.4-5.1) mmol/L unknown) (unknown) (no (unknown) (unknown) Prescriptions: (units (unknown) date) unknown) (unknown) (no (unknown) (unknown) Previous Rx's (units ( unknown) date) unknown) (unknown) (no (unknown) (unknown) Propranolol HCl (units (unknown) date) (Propranolol 10 Mg unknown) Tablet) 40 mg PO NOW ONE (unknown) (no (unknown) (unknown) Propranolol HCl (units (unknown) date) (Propranolol 40 Mg unknown) Tablet) 40 mg PO NOW ONE (unknown) (no (unknown) (unknown) Pulse Oximetry 100 (units (unknown) date) 08/10/22 17:39 unknown) (unknown) (no (unknown) (unknown) Pulse Oximetry 100 (units (unknown) date) 99 unknown) (unknown) (no (unknown) (unknown) Pulse Oximetry 98 (units (unknown) date) unknown) (unknown) (no (unknown) (unknown) Pulse Rate 124 H (units (unknown) date) unknown) (unknown) (no (unknown) (unknown) Pulse Rate 145 H (units (unknown) date) 08/10/22 17:39 unknown) (unknown) (no (unknown) (unknown) Pulse Rate 145 H (units (unknown) date) 127 H unknown) (unknown) (no (unknown) (unknown) RBC (4.0-5.2) (units ( unknown) date) X106/uL unknown) (unknown) (no (unknown) (unknown) RBC 4.98 (4.0-5.2) (units (unknown) date) X106/uL unknown) (unknown) (no (unknown) (unknown) RDW (11.6-14.8) % (units (unknown) date) unknown) (unknown) (no (unknown) (unknown) RDW 15.7 H (units (unk nown) date) (11.6-14.8) % unknown) (unknown) (no (unknown) (unknown) RESPIRATORY: (units (u nknown) date) Breath sounds equal unknown) bilaterally, no wheezes rales or rhonchi. (unknown) (no (unknown) (unknown) ROS Unobtainable: (units (unknown) date) All systems unknown) reviewed + are unremarkable except as noted in HPI (unknown) (no (unknown) (unknown) Related Data (units (u nknown) date) unknown) (unknown) (no (unknown) (unknown) Respiratory Rate (units (unknown) date) 20 unknown) (unknown) (no (unknown) (unknown) Respiratory Rate (units (unknown) date) 22 08/10/22 17:39 unknown) (unknown) (no (unknown) (unknown) Respiratory Rate (units (unknown) date) 22 unknown) (unknown) (no (unknown) (unknown) Result diagrams: (units (unknown) date) unknown) (unknown) (no (unknown) (unknown) Review of Systems (units (unknown) date) unknown) (unknown) (no (unknown) (unknown) Rx Instructions: (units (unknown) date) unknown) (unknown) (no (unknown) (unknown) SKIN: Warm, dry, (units (unknown) date) no laceration, no unknown) petechiae, no rashes or lesions. (unknown) (no (unknown) (unknown) See Rx (units (unkno wn) date) Instructions .ROUTE unknown) .COMPLEX Qty: 6 0RF (unknown) (no (unknown) (unknown) Signed By: (units (unk nown) date) unknown) (unknown) (no (unknown) (unknown) Smoking Status: (units (unknown) date) Current every day unknown) smoker (unknown) (no (unknown) (unknown) Social History (units (unknown) date) (Reviewed 08/10/22 unknown) @ 22:00 by Paris Burrell DO) (unknown) (no (unknown) (unknown) Sodium (137-145) (units (unknown) date) mmol/L unknown) (unknown) (no (unknown) (unknown) Sodium 138 (units (unk nown) date) (137-145) mmol/L unknown) (unknown) (no (unknown) (unknown) Sodium Chloride (units (unknown) date) (Normal Saline unknown) 0.9%) 1,000 mls @ 1,000 mls/hr IV BOLUS ONE (unknown) (no (unknown) (unknown) Sodium Chloride (units (unknown) date) (Normal Saline unknown) 0.9%) 1,000 mls @ 150 mls/hr IV CONT JENNIFER (unknown) (no (unknown) (unknown) Source: patient (units (unknown) date) unknown) (unknown) (no (unknown) (unknown) Spontaneous (units (un known) date) vaginal delivery unknown) (unknown) (no (unknown) (unknown) Stand Alone Forms: (units (unknown) date) Patient Portal/API unknown) (unknown) (no (unknown) (unknown) Stated Complaint: (units (unknown) date) racing heart, unknown) shakey (unknown) (no (unknown) (unknown) Status post (units (un known) date) tonsillectomy and unknown) adenoidectomy (unknown) (no (unknown) (unknown) Stop: 08/10/22 (units (unknown) date) 19:03 unknown) (unknown) (no (unknown) (unknown) Stop: 08/10/22 (units (unknown) date) 19:12 unknown) (unknown) (no (unknown) (unknown) Stop: 08/10/22 (units (unknown) date) 19:15 unknown) (unknown) (no (unknown) (unknown) Stop: 08/10/22 (units (unknown) date) 20:31 unknown) (unknown) (no (unknown) (unknown) Substance Use (units ( unknown) date) Type: marijuana unknown) (unknown) (no (unknown) (unknown) Surgical History (units (unknown) date) (Reviewed 08/10/22 unknown) @ 22:00 by Paris Burrell DO) (unknown) (no (unknown) (unknown) TSH < 0.015 L (units ( unknown) date) (0.47-4.68) uIU/mL unknown) (unknown) (no (unknown) (unknown) TSH (0.47-4.68) (units (unknown) date) uIU/mL unknown) (unknown) (no (unknown) (unknown) Temperature 98.3 F (units (unknown) date) 08/10/22 17:39 unknown) (unknown) (no (unknown) (unknown) Temperature 98.3 F (units (unknown) date) unknown) (unknown) (no (unknown) (unknown) Temperature (units (un known) date) unknown) (unknown) (no (unknown) (unknown) Thyroid (units (unkno wn) date) Stimulating Hormone unknown) Stat (unknown) (no (unknown) (unknown) Time Seen by (units (u nknown) date) Provider: 08/10/22 unknown) 17:55 (unknown) (no (unknown) (unknown) Total Bilirubin (units (unknown) date) (0.2-1.3) mg/dL unknown) (unknown) (no (unknown) (unknown) Total Bilirubin (units (unknown) date) 0.4 (0.2-1.3) mg/dL unknown) (unknown) (no (unknown) (unknown) Total Protein (units ( unknown) date) (6.3-8.2) g/dL unknown) (unknown) (no (unknown) (unknown) Total Protein 7.3 (units (unknown) date) (6.3-8.2) g/dL unknown) (unknown) (no (unknown) (unknown) Vital Signs - 8 hr (units (unknown) date) unknown) (unknown) (no (unknown) (unknown) Vital Signs (units (un known) date) unknown) (unknown) (no (unknown) (unknown) Vital signs: (units (u nknown) date) unknown) (unknown) (no (unknown) (unknown) WBC (4.5-11.0) (units (unknown) date) X103/uL unknown) (unknown) (no (unknown) (unknown) WBC 5.6 (4.5-11.0) (units (unknown) date) X103/uL unknown) (unknown) (no (unknown) (unknown) [Embedded Image (units (unknown) date) Not Available] unknown) (unknown) (no (unknown) (unknown) adhesive tape (units ( unknown) date) [ADHESIVE TAPE] unknown) Allergy Unknown Rash Verified 07/20/22 16:38 (unknown) (no (unknown) (unknown) alcohol intake (units (unknown) date) frequency: unknown) holidays/special occasions only (unknown) (no (unknown) (unknown) along with (units (unk nown) date) methimazole. Her unknown) heart rate improves to 110. At this time I do not (unknown) (no (unknown) (unknown) and below (units (unkn own) date) unknown) (unknown) (no (unknown) (unknown) and follow-up with (units (unknown) date) PCP. She is unknown) previously had transportation issues. I have (unknown) (no (unknown) (unknown) atenolol 25 mg (units (unknown) date) tablet 25 mg PO unknown) DAILY #30 tabs 12/19/20 (unknown) (no (unknown) (unknown) atenolol 25 mg (units (unknown) date) tablet unknown) (unknown) (no (unknown) (unknown) azithromycin 250 (units (unknown) date) mg tablet See Rx unknown) Instructions PO .COMPLEX #6 12/19/20 (unknown) (no (unknown) (unknown) azithromycin 250 (units (unknown) date) mg tablet unknown) (unknown) (no (unknown) (unknown) call you tomorrow (units (unknown) date) to help set up a unknown) primary care provider. (unknown) (no (unknown) (unknown) changes no T-wave (units (unknown) date) inversions mild unknown) artifact noted (unknown) (no (unknown) (unknown) consulted social (units (unknown) date) work who help her unknown) get a primary tomorrow, seeing as though it (unknown) (no (unknown) (unknown) doctor's (units (unkno wn) date) appointments. She unknown) denies abdominal pain nausea vomiting or other (unknown) (no (unknown) (unknown) greater than 100.4 (units (unknown) date) increasing heart unknown) rate greater than 115 or any new, worsening (unknown) (no (unknown) (unknown) guarding or (units (un known) date) rebound. unknown) (unknown) (no (unknown) (unknown) hydrocodone [From (units (unknown) date) VICODIN] Allergy unknown) Unknown Rash/nausea Verified 07/20/22 16:38 (unknown) (no (unknown) (unknown) hyperthyroid. She (units (unknown) date) does have some unknown) hyperthyroid storm. She is afebrile normal (unknown) (no (unknown) (unknown) intact (units (unkno wn) date) unknown) (unknown) (no (unknown) (unknown) is too late. (units (u nknown) date) unknown) (unknown) (no (unknown) (unknown) lactate. Unlikely (units (unknown) date) to be thyroiditis. unknown) She is given propranolol here in the ED (unknown) (no (unknown) (unknown) liquids and eat a (units (unknown) date) little. unknown) (unknown) (no (unknown) (unknown) medication (units (unk nown) date) longstanding unknown) presents today with tachycardia and symptoms of (unknown) (no (unknown) (unknown) membranes (units (unkn own) date) unknown) (unknown) (no (unknown) (unknown) methimazole 10 mg (units (unknown) date) tablet 10 mg PO unknown) DAILY #30 tabs 12/19/20 (unknown) (no (unknown) (unknown) methimazole 10 mg (units (unknown) date) tablet unknown) (unknown) (no (unknown) (unknown) noted to be quite (units (unknown) date) tachycardic with a unknown) heart rate in the 140s. She is not passed (unknown) (no (unknown) (unknown) or concerning (units ( unknown) date) symptoms unknown) (unknown) (no (unknown) (unknown) out. She says that (units (unknown) date) she is had unknown) transportation issues and hard time getting to (unknown) (no (unknown) (unknown) see need for (units (u nknown) date) admitting her to unknown) the hospital. She needs to restart her medication (unknown) (no (unknown) (unknown) symptoms. She (units ( unknown) date) reports it is unknown) difficult to swallow but she is able to swallow (unknown) (no (unknown) (unknown) tabs (units (unkno wn) date) unknown) (unknown) (no (unknown) (unknown) take 500 mg today (units (unknown) date) (day 1), then 250 unknown) mg for 4 days (days 2-5) (unknown) (no (unknown) (unknown) taken medication (units (unknown) date) in years. She unknown) denies any dizziness or lightheadedness she is (unknown) (no (unknown) (unknown) tobacco type: (units ( unknown) date) cigarettes unknown) (unknown) (no (unknown) (unknown) today with hot (units (unknown) date) flashes and heart unknown) palpitations. She reports that she is not Result panel 188 (unknown) (no (unknown) (unknown) (no value) (units (unk nown) date) unknown) (unknown) (no (unknown) (unknown) *Continue to take (units (unknown) date) medications as unknown) directed--> sent to [facility] in [place] (unknown) (no (unknown) (unknown) *Follow up with (units (unknown) date) your primary care unknown) provider in 2-3 days or call [phone] (unknown) (no (unknown) (unknown) *Return to ER if (units (unknown) date) you should have unknown) increasing neck pain inability to swallow fever (unknown) (no (unknown) (unknown) *What to do: At (units (unknown) date) this time you must unknown) take her medications. Social work should (unknown) (no (unknown) (unknown) *You have been (units (unknown) date) diagnosed with unknown) hyperthyroid (unknown) (no (unknown) (unknown) 08/10/22 08/10/22 (units (unknown) date) 08/10/22 unknown) Range/Units (unknown) (no (unknown) (unknown) 08/10/22 17:51 (units (unknown) date) unknown) (unknown) (no (unknown) (unknown) 08/10/22 18:05 (units (unknown) date) unknown) (unknown) (no (unknown) (unknown) 08/10/22 19:14 (units (unknown) date) unknown) (unknown) (no (unknown) (unknown) 08/10/22 (units (unkno wn) date) Range/Units unknown) (unknown) (no (unknown) (unknown) 08/10/22 (units (unkno wn) date) unknown) (unknown) (no (unknown) (unknown) [id number] (units (unkno wn) date) unknown) (unknown) (no (unknown) (unknown) 10 mg PO BID Qty: (units (unknown) date) 60 0RF unknown) (unknown) (no (unknown) (unknown) 10 mg PO DAILY (units (unknown) date) Qty: 30 2RF unknown) (unknown) (no (unknown) (unknown) 17:39 08/10/22 (units (unknown) date) unknown) (unknown) (no (unknown) (unknown) 18:05 18:05 18:05 (units (unknown) date) unknown) (unknown) (no (unknown) (unknown) 18:05 (units (unkno wn) date) unknown) (unknown) (no (unknown) (unknown) 18:27 08/10/22 (units (unknown) date) unknown) (unknown) (no (unknown) (unknown) 18:27 (units (unkno wn) date) unknown) (unknown) (no (unknown) (unknown) 18:30 08/10/22 (units (unknown) date) unknown) (unknown) (no (unknown) (unknown) 18:30 (units (unkno wn) date) unknown) (unknown) (no (unknown) (unknown) 25 mg PO DAILY (units (unknown) date) Qty: 30 2RF unknown) (unknown) (no (unknown) (unknown) 25 mg PO DAILY (units (unknown) date) Qty: 60 0RF unknown) (unknown) (no (unknown) (unknown) ABDOMEN: Soft, (units (unknown) date) nontender. unknown) Normoactive bowel sounds all 4 quadrants. No (unknown) (no (unknown) (unknown) ALT (<35) IU/L (units (unknown) date) unknown) (unknown) (no (unknown) (unknown) ALT 19 (<35) IU/L (units (unknown) date) unknown) (unknown) (no (unknown) (unknown) AST (14-36) IU/L (units (unknown) date) unknown) (unknown) (no (unknown) (unknown) AST 22 (14-36) (units (unknown) date) IU/L unknown) (unknown) (no (unknown) (unknown) Activity (units (unkno wn) date) Restrictions/Additi unknown) onal Instructions: (unknown) (no (unknown) (unknown) Admin: 08/10/22 (units (unknown) date) 18:42 Dose: 1,000 unknown) mls/hr (unknown) (no (unknown) (unknown) Age/Sex: 31 / F (units (unknown) date) unknown) (unknown) (no (unknown) (unknown) Albumin (3.5-5.0) (units (unknown) date) g/dL unknown) (unknown) (no (unknown) (unknown) Albumin 4.0 (units (un known) date) (3.5-5.0) g/dL unknown) (unknown) (no (unknown) (unknown) Albumin/Globulin (units (unknown) date) Ratio (1.0-2.8) unknown) (unknown) (no (unknown) (unknown) Albumin/Globulin (units (unknown) date) Ratio 1.2 (1.0-2.8) unknown) (unknown) (no (unknown) (unknown) Alkaline (units (unkno wn) date) Phosphatase unknown) (38-126) U/L (unknown) (no (unknown) (unknown) Alkaline (units (unkno wn) date) Phosphatase 109 unknown) (38-126) U/L (unknown) (no (unknown) (unknown) Allergies (units (unkn own) date) unknown) (unknown) (no (unknown) (unknown) Allergy/AdvReac (units (unknown) date) Type Severity unknown) Reaction Status Date / Time (unknown) (no (unknown) (unknown) Atenolol 25 mg (units (unknown) date) once daily unknown) (unknown) (no (unknown) (unknown) BUN (7-17) mg/dL (units (unknown) date) unknown) (unknown) (no (unknown) (unknown) BUN 9 (7-17) mg/dL (units (unknown) date) unknown) (unknown) (no (unknown) (unknown) BUN/Creatinine (units (unknown) date) Ratio (6-22) unknown) (unknown) (no (unknown) (unknown) BUN/Creatinine (units (unknown) date) Ratio 32.1 H (6-22) unknown) (unknown) (no (unknown) (unknown) Baso # (Auto) (units ( unknown) date) (0-100) /uL unknown) (unknown) (no (unknown) (unknown) Baso # (Auto) 0 (units (unknown) date) (0-100) /uL unknown) (unknown) (no (unknown) (unknown) Baso % (Auto) (units ( unknown) date) (0-2) % unknown) (unknown) (no (unknown) (unknown) Baso % (Auto) 0.5 (units (unknown) date) (0-2) % unknown) (unknown) (no (unknown) (unknown) Blood Pressure (units (unknown) date) 122/82 unknown) (unknown) (no (unknown) (unknown) Blood Pressure (units (unknown) date) 134/99 H 08/10/22 unknown) 17:39 (unknown) (no (unknown) (unknown) Blood Pressure (units (unknown) date) 134/99 H 139/77 unknown) (unknown) (no (unknown) (unknown) CARDIOVASCULAR: (units (unknown) date) Tachycardic regular unknown) no murmurs (unknown) (no (unknown) (unknown) Calcium (8.4-10.2) (units (unknown) date) mg/dL unknown) (unknown) (no (unknown) (unknown) Calcium 8.7 (units (un known) date) (8.4-10.2) mg/dL unknown) (unknown) (no (unknown) (unknown) Carbon Dioxide (units (unknown) date) (22-32) mmol/L unknown) (unknown) (no (unknown) (unknown) Carbon Dioxide 23 (units (unknown) date) (22-32) mmol/L unknown) (unknown) (no (unknown) (unknown) Chief Complaint: (units (unknown) date) Arrhythmia/Palpitat unknown) ions (unknown) (no (unknown) (unknown) Chloride (98-107) (units (unknown) date) mmol/L unknown) (unknown) (no (unknown) (unknown) Chloride 106 (units (u nknown) date) (98-107) mmol/L unknown) (unknown) (no (unknown) (unknown) Clinical (units (unkno wn) date) Impression: unknown) (unknown) (no (unknown) (unknown) Complete Blood (units (unknown) date) Count AUTO DIFF unknown) Stat (unknown) (no (unknown) (unknown) Comprehensive (units ( unknown) date) Metabolic Panel unknown) Stat (unknown) (no (unknown) (unknown) Consult to [employer] - (units (unknown) date) Lead Atg Developer unknown) Stat (unknown) (no (unknown) (unknown) Course (units (unkno wn) date) unknown) (unknown) (no (unknown) (unknown) Creatinine (units (unk nown) date) (0.52-1.04) mg/dL unknown) (unknown) (no (unknown) (unknown) Creatinine 0.28 L (units (unknown) date) (0.52-1.04) mg/dL unknown) (unknown) (no (unknown) (unknown) : 1990 (units (unknown) date) Acct:[id number] unknown) (unknown) (no (unknown) (unknown) Date of Service: (units (unknown) date) 08/10/22 unknown) (unknown) (no (unknown) (unknown) Departure (units (unkn own) date) unknown) (unknown) (no (unknown) (unknown) Discharge Plan (units (unknown) date) unknown) (unknown) (no (unknown) (unknown) Discontinued (units (u nknown) date) Medications unknown) (unknown) (no (unknown) (unknown) Documented By: HNG (units (unknown) date) unknown) (unknown) (no (unknown) (unknown) Documented By: KB (units (unknown) date) unknown) (unknown) (no (unknown) (unknown) Documented By: (units (unknown) date) KB(2) unknown) (unknown) (no (unknown) (unknown) ECG Data (units (unkno wn) date) unknown) (unknown) (no (unknown) (unknown) ED Orders (units (unkn own) date) unknown) (unknown) (no (unknown) (unknown) EKG-12 Lead Stat (units (unknown) date) unknown) (unknown) (no (unknown) (unknown) ER Physician: (units ( unknown) date) Paris Burrell D.O. unknown) (unknown) (no (unknown) (unknown) EXTREMITIES: (units (u nknown) date) Normal range of unknown) motion, no clubbing or edema. Neurovascularly (unknown) (no (unknown) (unknown) Emergency Report (units (unknown) date) unknown) (unknown) (no (unknown) (unknown) Eos # (Auto) (units (u nknown) date) (0-450) /uL unknown) (unknown) (no (unknown) (unknown) Eos # (Auto) 400 (units (unknown) date) (0-450) /uL unknown) (unknown) (no (unknown) (unknown) Eos % (Auto) (2-4) (units (unknown) date) % unknown) (unknown) (no (unknown) (unknown) Eos % (Auto) 7.9 H (units (unknown) date) (2-4) % unknown) (unknown) (no (unknown) (unknown) Estimated GFR > 60 (units (unknown) date) (>60) mL/min unknown) (unknown) (no (unknown) (unknown) Estimated GFR (units ( unknown) date) (>60) mL/min unknown) (unknown) (no (unknown) (unknown) Exam (units (unkno wn) date) unknown) (unknown) (no (unknown) (unknown) Free T3 > 22.80 H (units (unknown) date) (2.77-5.27) pg/mL unknown) (unknown) (no (unknown) (unknown) Free T3 (units (unkno wn) date) (2.77-5.27) pg/mL unknown) (unknown) (no (unknown) (unknown) Free T3, (units (unkno wn) date) Triiodothyronine unknown) Free Stat (unknown) (no (unknown) (unknown) Free T4 (units (unkno wn) date) (0.78-2.19) ng/dL unknown) (unknown) (no (unknown) (unknown) Free T4 6.37 H (units (unknown) date) (0.78-2.19) ng/dL unknown) (unknown) (no (unknown) (unknown) Free T4, Direct (units (unknown) date) Thyroxine Stat unknown) (unknown) (no (unknown) (unknown) GENERAL: Alert (units (unknown) date) well-appearing unknown) 31-year-old female (unknown) (no (unknown) (unknown) General (units (unkno wn) date) unknown) (unknown) (no (unknown) (unknown) Globulin (1.7-4.1) (units (unknown) date) g/dL unknown) (unknown) (no (unknown) (unknown) Globulin 3.3 (units (u nknown) date) (1.7-4.1) g/dL unknown) (unknown) (no (unknown) (unknown) Glucose (70-100) (units (unknown) date) mg/dL unknown) (unknown) (no (unknown) (unknown) Glucose 105 H (units ( unknown) date) (70-100) mg/dL unknown) (unknown) (no (unknown) (unknown) HEENT: Head (units (un known) date) atraumatic,EOMI, unknown) pupils reactive, face symmetric, moist mucous (unknown) (no (unknown) (unknown) HPI - (units (unkno wn) date) Arrhythmia/Palpitat unknown) ions (unknown) (no (unknown) (unknown) HPI narrative: (units (unknown) date) unknown) (unknown) (no (unknown) (unknown) Hct (36-46) % (units ( unknown) date) unknown) (unknown) (no (unknown) (unknown) Hct 34.9 L (36-46) (units (unknown) date) % unknown) (unknown) (no (unknown) (unknown) Hgb (12.0-16.0) (units (unknown) date) g/dL unknown) (unknown) (no (unknown) (unknown) Hgb 11.6 L (units (unk nown) date) (12.0-16.0) g/dL unknown) (unknown) (no (unknown) (unknown) History of Present (units (unknown) date) Illness unknown) (unknown) (no (unknown) (unknown) Hyperthyroidism (units (unknown) date) affecting unknown) in second trimester (08/04/15) (unknown) (no (unknown) (unknown) Hyperthyroidism (units (unknown) date) unknown) (unknown) (no (unknown) (unknown) Initial Vital (units ( unknown) date) Signs unknown) (unknown) (no (unknown) (unknown) Initial Vital (units ( unknown) date) Signs: unknown) (unknown) (no (unknown) (unknown) Instructions: (units ( unknown) date) Hyperthyroidism unknown) (unknown) (no (unknown) (unknown) Interpretation: (units (unknown) date) unknown) (unknown) (no (unknown) (unknown) [facility] (units (unknown) date) [address] unknown) [place] [address] (unknown) (no (unknown) (unknown) Karyotype 45, X (units (unknown) date) (09/10/15) unknown) (unknown) (no (unknown) (unknown) Lab Data (units (unkno wn) date) unknown) (unknown) (no (unknown) (unknown) Lab Results (units (un known) date) unknown) (unknown) (no (unknown) (unknown) Labs: (units (unkno wn) date) unknown) (unknown) (no (unknown) (unknown) Lactate (0.7-2.1) (units (unknown) date) mmol/L unknown) (unknown) (no (unknown) (unknown) Lactate (Lactic (units (unknown) date) Acid) Stat unknown) (unknown) (no (unknown) (unknown) Lactate 0.8 (units (un known) date) (0.7-2.1) mmol/L unknown) (unknown) (no (unknown) (unknown) Last Admin: (units (un known) date) 08/10/22 20:34 unknown) Dose: 15 mg (unknown) (no (unknown) (unknown) Last Admin: (units (un known) date) 08/10/22 20:34 unknown) Dose: 150 mls/hr (unknown) (no (unknown) (unknown) Last Admin: (units (un known) date) 08/10/22 20:34 unknown) Dose: 40 mg (unknown) (no (unknown) (unknown) Last Admin: (units (un known) date) 08/10/22 20:35 unknown) Dose: Not Given (unknown) (no (unknown) (unknown) Last Infusion: (units (unknown) date) 08/10/22 19:54 unknown) Dose: 0 mls/hr (unknown) (no (unknown) (unknown) Lymph # (Auto) (units (unknown) date) (3751-8478) /uL unknown) (unknown) (no (unknown) (unknown) Lymph # (Auto) (units (unknown) date) 2200 ([id number]) unknown) /uL (unknown) (no (unknown) (unknown) Lymph % (Auto) (units (unknown) date) (25-40) % unknown) (unknown) (no (unknown) (unknown) Lymph % (Auto) (units (unknown) date) 38.8 (25-40) % unknown) (unknown) (no (unknown) (unknown) MAG [Magnesium] (units (unknown) date) Stat unknown) (unknown) (no (unknown) (unknown) MCH (26-34) PG (units (unknown) date) unknown) (unknown) (no (unknown) (unknown) MCH 23.2 L (26-34) (units (unknown) date) PG unknown) (unknown) (no (unknown) (unknown) MCHC (30-36) % (units (unknown) date) unknown) (unknown) (no (unknown) (unknown) MCHC 33.1 (30-36) (units (unknown) date) % unknown) (unknown) (no (unknown) (unknown) MCV (80-100) fL (units (unknown) date) unknown) (unknown) (no (unknown) (unknown) MCV 70.0 L (units (unk nown) date) (80-100) fL unknown) (unknown) (no (unknown) (unknown) MDM - (units (unkno wn) date) Arrhythmia/Palpitat unknown) ions (unknown) (no (unknown) (unknown) MDM Narrative (units ( unknown) date) unknown) (unknown) (no (unknown) (unknown) Magnesium (units (unkn own) date) (1.6-2.3) mg/dL unknown) (unknown) (no (unknown) (unknown) Magnesium 1.7 (units ( unknown) date) (1.6-2.3) mg/dL unknown) (unknown) (no (unknown) (unknown) Medical History (units (unknown) date) (Reviewed 08/10/22 unknown) @ 22:00 by Paris Burrell DO) (unknown) (no (unknown) (unknown) Medical decision (units (unknown) date) making narrative: unknown) (unknown) (no (unknown) (unknown) Medication (units (unk nown) date) Instructions unknown) Recorded (unknown) (no (unknown) (unknown) Methimazole (units (un known) date) (Methimazole 5 Mg unknown) Tablet) 15 mg PO NOW ONE (unknown) (no (unknown) (unknown) Methimazole 10 mg (units (unknown) date) twice a day unknown) (unknown) (no (unknown) (unknown) Mode of arrival: (units (unknown) date) Ambulatory unknown) (unknown) (no (unknown) (unknown) Crisp # (Auto) (units ( unknown) date) (0-900) /uL unknown) (unknown) (no (unknown) (unknown) Crisp # (Auto) 400 (units (unknown) date) (0-900) /uL unknown) (unknown) (no (unknown) (unknown) Crisp % (Auto) (units ( unknown) date) (3-14) % unknown) (unknown) (no (unknown) (unknown) Crisp % (Auto) 7.4 (units (unknown) date) (3-14) % unknown) (unknown) (no (unknown) (unknown) NECK: Goiter noted (units (unknown) date) unknown) (unknown) (no (unknown) (unknown) NEUROLOGICAL: (units ( unknown) date) Alert and oriented unknown) x4 (unknown) (no (unknown) (unknown) Neut # (Auto) (units ( unknown) date) (1991-0450) /uL unknown) (unknown) (no (unknown) (unknown) Neut # (Auto) 2600 (units (unknown) date) (0079-1865) /uL unknown) (unknown) (no (unknown) (unknown) Neut % (Auto) (units ( unknown) date) (50-75) % unknown) (unknown) (no (unknown) (unknown) Neut % (Auto) 45.4 (units (unknown) date) L (50-75) % unknown) (unknown) (no (unknown) (unknown) New (units (unkno wn) date) unknown) (unknown) (no (unknown) (unknown) No Action (units (unkn own) date) unknown) (unknown) (no (unknown) (unknown) Normal sinus (units (u nknown) date) rhythm rate 137 MT unknown) interval 130 QRS 70 QTC 4 heard [address] (unknown) (no (unknown) (unknown) Ordered: (units (unkno wn) date) unknown) (unknown) (no (unknown) (unknown) Orders (units (unkno wn) date) unknown) (unknown) (no (unknown) (unknown) Oxygen Delivery (units (unknown) date) Method 08/10/22 unknown) 17:39 (unknown) (no (unknown) (unknown) Oxygen Delivery (units (unknown) date) Method Room Air unknown) (unknown) (no (unknown) (unknown) Oxygen Delivery (units (unknown) date) Method unknown) (unknown) (no (unknown) (unknown) Patient (units (unkno wn) date) 31-year-old female unknown) history of hyperthyroidism noncompliant with (unknown) (no (unknown) (unknown) Patient (units (unkno wn) date) Disposition: Home unknown) (unknown) (no (unknown) (unknown) Patient History (units (unknown) date) unknown) (unknown) (no (unknown) (unknown) Patient is a (units (u nknown) date) 31-year-old female unknown) who has a history of hyperthyroidism presents (unknown) (no (unknown) (unknown) Patient: (units (unkno wn) date) Lashaun Hooker unknown) MR#: [id number] (unknown) (no (unknown) (unknown) Plt Count (units (unkn own) date) (150-400) X103/uL unknown) (unknown) (no (unknown) (unknown) Plt Count 293 (units ( unknown) date) (150-400) X103/uL unknown) (unknown) (no (unknown) (unknown) Potassium (units (unkn own) date) (3.4-5.1) mmol/L unknown) (unknown) (no (unknown) (unknown) Potassium 3.9 (units ( unknown) date) (3.4-5.1) mmol/L unknown) (unknown) (no (unknown) (unknown) Prescriptions: (units (unknown) date) unknown) (unknown) (no (unknown) (unknown) Previous Rx's (units ( unknown) date) unknown) (unknown) (no (unknown) (unknown) Propranolol HCl (units (unknown) date) (Propranolol 10 Mg unknown) Tablet) 40 mg PO NOW ONE (unknown) (no (unknown) (unknown) Propranolol HCl (units (unknown) date) (Propranolol 40 Mg unknown) Tablet) 40 mg PO NOW ONE (unknown) (no (unknown) (unknown) Pulse Oximetry 100 (units (unknown) date) 08/10/22 17:39 unknown) (unknown) (no (unknown) (unknown) Pulse Oximetry 100 (units (unknown) date) 99 unknown) (unknown) (no (unknown) (unknown) Pulse Oximetry 98 (units (unknown) date) unknown) (unknown) (no (unknown) (unknown) Pulse Rate 124 H (units (unknown) date) unknown) (unknown) (no (unknown) (unknown) Pulse Rate 145 H (units (unknown) date) 08/10/22 17:39 unknown) (unknown) (no (unknown) (unknown) Pulse Rate 145 H (units (unknown) date) 127 H unknown) (unknown) (no (unknown) (unknown) RBC (4.0-5.2) (units ( unknown) date) X106/uL unknown) (unknown) (no (unknown) (unknown) RBC 4.98 (4.0-5.2) (units (unknown) date) X106/uL unknown) (unknown) (no (unknown) (unknown) RDW (11.6-14.8) % (units (unknown) date) unknown) (unknown) (no (unknown) (unknown) RDW 15.7 H (units (unk nown) date) (11.6-14.8) % unknown) (unknown) (no (unknown) (unknown) RESPIRATORY: (units (u nknown) date) Breath sounds equal unknown) bilaterally, no wheezes rales or rhonchi. (unknown) (no (unknown) (unknown) ROS Unobtainable: (units (unknown) date) All systems unknown) reviewed + are unremarkable except as noted in HPI (unknown) (no (unknown) (unknown) Related Data (units (u nknown) date) unknown) (unknown) (no (unknown) (unknown) Respiratory Rate (units (unknown) date) 20 unknown) (unknown) (no (unknown) (unknown) Respiratory Rate (units (unknown) date) 22 08/10/22 17:39 unknown) (unknown) (no (unknown) (unknown) Respiratory Rate (units (unknown) date) 22 unknown) (unknown) (no (unknown) (unknown) Result diagrams: (units (unknown) date) unknown) (unknown) (no (unknown) (unknown) Review of Systems (units (unknown) date) unknown) (unknown) (no (unknown) (unknown) Rx Instructions: (units (unknown) date) unknown) (unknown) (no (unknown) (unknown) SKIN: Warm, dry, (units (unknown) date) no laceration, no unknown) petechiae, no rashes or lesions. (unknown) (no (unknown) (unknown) See Rx (units (unkno wn) date) Instructions .ROUTE unknown) .COMPLEX Qty: 6 0RF (unknown) (no (unknown) (unknown) Signed By: (units (unk nown) date) unknown) (unknown) (no (unknown) (unknown) Smoking Status: (units (unknown) date) Current every day unknown) smoker (unknown) (no (unknown) (unknown) Social History (units (unknown) date) (Reviewed 08/10/22 unknown) @ 22:00 by Paris Burrell DO) (unknown) (no (unknown) (unknown) Sodium (137-145) (units (unknown) date) mmol/L unknown) (unknown) (no (unknown) (unknown) Sodium 138 (units (unk nown) date) (137-145) mmol/L unknown) (unknown) (no (unknown) (unknown) Sodium Chloride (units (unknown) date) (Normal Saline unknown) 0.9%) 1,000 mls @ 1,000 mls/hr IV BOLUS ONE (unknown) (no (unknown) (unknown) Sodium Chloride (units (unknown) date) (Normal Saline unknown) 0.9%) 1,000 mls @ 150 mls/hr IV CONT JENNIFER (unknown) (no (unknown) (unknown) Source: patient (units (unknown) date) unknown) (unknown) (no (unknown) (unknown) Spontaneous (units (un known) date) vaginal delivery unknown) (unknown) (no (unknown) (unknown) Stand Alone Forms: (units (unknown) date) Patient Portal/API unknown) (unknown) (no (unknown) (unknown) Stated Complaint: (units (unknown) date) racing heart, unknown) shakey (unknown) (no (unknown) (unknown) Status post (units (un known) date) tonsillectomy and unknown) adenoidectomy (unknown) (no (unknown) (unknown) Stop: 08/10/22 (units (unknown) date) 19:03 unknown) (unknown) (no (unknown) (unknown) Stop: 08/10/22 (units (unknown) date) 19:12 unknown) (unknown) (no (unknown) (unknown) Stop: 08/10/22 (units (unknown) date) 19:15 unknown) (unknown) (no (unknown) (unknown) Stop: 08/10/22 (units (unknown) date) 20:31 unknown) (unknown) (no (unknown) (unknown) Substance Use (units ( unknown) date) Type: marijuana unknown) (unknown) (no (unknown) (unknown) Surgical History (units (unknown) date) (Reviewed 08/10/22 unknown) @ 22:00 by Paris Burrell DO) (unknown) (no (unknown) (unknown) TSH < 0.015 L (units ( unknown) date) (0.47-4.68) uIU/mL unknown) (unknown) (no (unknown) (unknown) TSH (0.47-4.68) (units (unknown) date) uIU/mL unknown) (unknown) (no (unknown) (unknown) Temperature 98.3 F (units (unknown) date) 08/10/22 17:39 unknown) (unknown) (no (unknown) (unknown) Temperature 98.3 F (units (unknown) date) unknown) (unknown) (no (unknown) (unknown) Temperature (units (un known) date) unknown) (unknown) (no (unknown) (unknown) Thyroid (units (unkno wn) date) Stimulating Hormone unknown) Stat (unknown) (no (unknown) (unknown) Time Seen by (units (u nknown) date) Provider: 08/10/22 unknown) 17:55 (unknown) (no (unknown) (unknown) Total Bilirubin (units (unknown) date) (0.2-1.3) mg/dL unknown) (unknown) (no (unknown) (unknown) Total Bilirubin (units (unknown) date) 0.4 (0.2-1.3) mg/dL unknown) (unknown) (no (unknown) (unknown) Total Protein (units ( unknown) date) (6.3-8.2) g/dL unknown) (unknown) (no (unknown) (unknown) Total Protein 7.3 (units (unknown) date) (6.3-8.2) g/dL unknown) (unknown) (no (unknown) (unknown) Vital Signs - 8 hr (units (unknown) date) unknown) (unknown) (no (unknown) (unknown) Vital Signs (units (un known) date) unknown) (unknown) (no (unknown) (unknown) Vital signs: (units (u nknown) date) unknown) (unknown) (no (unknown) (unknown) WBC (4.5-11.0) (units (unknown) date) X103/uL unknown) (unknown) (no (unknown) (unknown) WBC 5.6 (4.5-11.0) (units (unknown) date) X103/uL unknown) (unknown) (no (unknown) (unknown) [Embedded Image (units (unknown) date) Not Available] unknown) (unknown) (no (unknown) (unknown) adhesive tape (units ( unknown) date) [ADHESIVE TAPE] unknown) Allergy Unknown Rash Verified 07/20/22 16:38 (unknown) (no (unknown) (unknown) alcohol intake (units (unknown) date) frequency: unknown) holidays/special occasions only (unknown) (no (unknown) (unknown) along with (units (unk nown) date) methimazole. Her unknown) heart rate improves to 110. At this time I do not (unknown) (no (unknown) (unknown) and below (units (unkn own) date) unknown) (unknown) (no (unknown) (unknown) and follow-up with (units (unknown) date) PCP. She is unknown) previously had transportation issues. I have (unknown) (no (unknown) (unknown) atenolol 25 mg (units (unknown) date) tablet 25 mg PO unknown) DAILY #30 tabs 12/19/20 (unknown) (no (unknown) (unknown) atenolol 25 mg (units (unknown) date) tablet 25 mg PO unknown) DAILY #60 tabs 08/10/22 (unknown) (no (unknown) (unknown) atenolol 25 mg (units (unknown) date) tablet unknown) (unknown) (no (unknown) (unknown) azithromycin 250 (units (unknown) date) mg tablet See Rx unknown) Instructions PO .COMPLEX #6 12/19/20 (unknown) (no (unknown) (unknown) azithromycin 250 (units (unknown) date) mg tablet unknown) (unknown) (no (unknown) (unknown) call you tomorrow (units (unknown) date) to help set up a unknown) primary care provider. (unknown) (no (unknown) (unknown) changes no T-wave (units (unknown) date) inversions mild unknown) artifact noted (unknown) (no (unknown) (unknown) consulted social (units (unknown) date) work who help her unknown) get a primary tomorrow, seeing as though it (unknown) (no (unknown) (unknown) doctor's (units (unkno wn) date) appointments. She unknown) denies abdominal pain nausea vomiting or other (unknown) (no (unknown) (unknown) greater than 100.4 (units (unknown) date) increasing heart unknown) rate greater than 115 or any new, worsening (unknown) (no (unknown) (unknown) guarding or (units (un known) date) rebound. unknown) (unknown) (no (unknown) (unknown) hydrocodone [From (units (unknown) date) VICODIN] Allergy unknown) Unknown Rash/nausea Verified 07/20/22 16:38 (unknown) (no (unknown) (unknown) hyperthyroid. She (units (unknown) date) does have some unknown) hyperthyroid storm. She is afebrile normal (unknown) (no (unknown) (unknown) intact (units (unkno wn) date) unknown) (unknown) (no (unknown) (unknown) is too late. (units (u nknown) date) unknown) (unknown) (no (unknown) (unknown) lactate. Unlikely (units (unknown) date) to be thyroiditis. unknown) She is given propranolol here in the ED (unknown) (no (unknown) (unknown) liquids and eat a (units (unknown) date) little. unknown) (unknown) (no (unknown) (unknown) medication (units (unk nown) date) longstanding unknown) presents today with tachycardia and symptoms of (unknown) (no (unknown) (unknown) membranes (units (unkn own) date) unknown) (unknown) (no (unknown) (unknown) methimazole 10 mg (units (unknown) date) tablet 10 mg PO BID unknown) #60 tabs 08/10/22 (unknown) (no (unknown) (unknown) methimazole 10 mg (units (unknown) date) tablet 10 mg PO unknown) DAILY #30 tabs 12/19/20 (unknown) (no (unknown) (unknown) methimazole 10 mg (units (unknown) date) tablet unknown) (unknown) (no (unknown) (unknown) noted to be quite (units (unknown) date) tachycardic with a unknown) heart rate in the 140s. She is not passed (unknown) (no (unknown) (unknown) or concerning (units ( unknown) date) symptoms unknown) (unknown) (no (unknown) (unknown) out. She says that (units (unknown) date) she is had unknown) transportation issues and hard time getting to (unknown) (no (unknown) (unknown) see need for (units (u nknown) date) admitting her to unknown) the hospital. She needs to restart her medication (unknown) (no (unknown) (unknown) symptoms. She (units ( unknown) date) reports it is unknown) difficult to swallow but she is able to swallow (unknown) (no (unknown) (unknown) tabs (units (unkno wn) date) unknown) (unknown) (no (unknown) (unknown) take 500 mg today (units (unknown) date) (day 1), then 250 unknown) mg for 4 days (days 2-5) (unknown) (no (unknown) (unknown) taken medication (units (unknown) date) in years. She unknown) denies any dizziness or lightheadedness she is (unknown) (no (unknown) (unknown) tobacco type: (units ( unknown) date) cigarettes unknown) (unknown) (no (unknown) (unknown) today with hot (units (unknown) date) flashes and heart unknown) palpitations. She reports that she is not Result panel 189 (unknown) (no (unknown) (unknown) (no value) (units (unk nown) date) unknown) (unknown) (no (unknown) (unknown) <Electronically (units (unknown) date) signed by Paris Burrell D.O.> (unknown) (no (unknown) (unknown) *Continue to take (units (unknown) date) medications as unknown) directed--> sent to [facility] in [place] (unknown) (no (unknown) (unknown) *Follow up with (units (unknown) date) your primary care unknown) provider in 2-3 days or call [phone] (unknown) (no (unknown) (unknown) *Return to ER if (units (unknown) date) you should have unknown) increasing neck pain inability to swallow fever (unknown) (no (unknown) (unknown) *What to do: At (units (unknown) date) this time you must unknown) take her medications. Social work should (unknown) (no (unknown) (unknown) *You have been (units (unknown) date) diagnosed with unknown) hyperthyroid (unknown) (no (unknown) (unknown) 08/10/22 08/10/22 (units (unknown) date) 08/10/22 unknown) Range/Units (unknown) (no (unknown) (unknown) 08/10/22 18:05 (units (unknown) date) unknown) (unknown) (no (unknown) (unknown) 08/10/22 19:14 (units (unknown) date) unknown) (unknown) (no (unknown) (unknown) 08/10/22 (units (unkno wn) date) Range/Units unknown) (unknown) (no (unknown) (unknown) 08/10/22 (units (unkno wn) date) unknown) (unknown) (no (unknown) (unknown) 08/11/22 0359 (units ( unknown) date) unknown) (unknown) (no (unknown) (unknown) [id number] (units (unkno wn) date) unknown) (unknown) (no (unknown) (unknown) 10 mg PO BID Qty: (units (unknown) date) 60 0RF unknown) (unknown) (no (unknown) (unknown) 10 mg PO DAILY (units (unknown) date) Qty: 30 2RF unknown) (unknown) (no (unknown) (unknown) 18:05 18:05 18:05 (units (unknown) date) unknown) (unknown) (no (unknown) (unknown) 18:05 (units (unkno wn) date) unknown) (unknown) (no (unknown) (unknown) 22:25 (units (unkno wn) date) unknown) (unknown) (no (unknown) (unknown) 25 mg PO DAILY (units (unknown) date) Qty: 30 2RF unknown) (unknown) (no (unknown) (unknown) 25 mg PO DAILY (units (unknown) date) Qty: 60 0RF unknown) (unknown) (no (unknown) (unknown) ABDOMEN: Soft, (units (unknown) date) nontender. unknown) Normoactive bowel sounds all 4 quadrants. No (unknown) (no (unknown) (unknown) ALT (<35) IU/L (units (unknown) date) unknown) (unknown) (no (unknown) (unknown) ALT 19 (<35) IU/L (units (unknown) date) unknown) (unknown) (no (unknown) (unknown) AST (14-36) IU/L (units (unknown) date) unknown) (unknown) (no (unknown) (unknown) AST 22 (14-36) (units (unknown) date) IU/L unknown) (unknown) (no (unknown) (unknown) Activity (units (unkno wn) date) Restrictions/Addit unknown) ional Instructions: (unknown) (no (unknown) (unknown) Admin: 08/10/22 (units (unknown) date) 18:42 Dose: 1,000 unknown) mls/hr (unknown) (no (unknown) (unknown) Age/Sex: 31 / F (units (unknown) date) unknown) (unknown) (no (unknown) (unknown) Albumin (3.5-5.0) (units (unknown) date) g/dL unknown) (unknown) (no (unknown) (unknown) Albumin 4.0 (units (un known) date) (3.5-5.0) g/dL unknown) (unknown) (no (unknown) (unknown) Albumin/Globulin (units (unknown) date) Ratio (1.0-2.8) unknown) (unknown) (no (unknown) (unknown) Albumin/Globulin (units (unknown) date) Ratio 1.2 unknown) (1.0-2.8) (unknown) (no (unknown) (unknown) Alkaline (units (unkno wn) date) Phosphatase unknown) (38-126) U/L (unknown) (no (unknown) (unknown) Alkaline (units (unkno wn) date) Phosphatase 109 unknown) (38-126) U/L (unknown) (no (unknown) (unknown) Allergies (units (unkn own) date) unknown) (unknown) (no (unknown) (unknown) Allergy/AdvReac (units (unknown) date) Type Severity unknown) Reaction Status Date / Time (unknown) (no (unknown) (unknown) Atenolol 25 mg (units (unknown) date) once daily unknown) (unknown) (no (unknown) (unknown) BUN (7-17) mg/dL (units (unknown) date) unknown) (unknown) (no (unknown) (unknown) BUN 9 (7-17) (units (u nknown) date) mg/dL unknown) (unknown) (no (unknown) (unknown) BUN/Creatinine (units (unknown) date) Ratio (6-22) unknown) (unknown) (no (unknown) (unknown) BUN/Creatinine (units (unknown) date) Ratio 32.1 H unknown) (6-22) (unknown) (no (unknown) (unknown) Baso # (Auto) (units ( unknown) date) (0-100) /uL unknown) (unknown) (no (unknown) (unknown) Baso # (Auto) 0 (units (unknown) date) (0-100) /uL unknown) (unknown) (no (unknown) (unknown) Baso % (Auto) (units ( unknown) date) (0-2) % unknown) (unknown) (no (unknown) (unknown) Baso % (Auto) 0.5 (units (unknown) date) (0-2) % unknown) (unknown) (no (unknown) (unknown) Blood Pressure (units (unknown) date) 122/83 unknown) (unknown) (no (unknown) (unknown) Blood Pressure (units (unknown) date) 134/99 H 08/10/22 unknown) 17:39 (unknown) (no (unknown) (unknown) CARDIOVASCULAR: (units (unknown) date) Tachycardic unknown) regular no murmurs (unknown) (no (unknown) (unknown) Calcium (units (unkno wn) date) (8.4-10.2) mg/dL unknown) (unknown) (no (unknown) (unknown) Calcium 8.7 (units (un known) date) (8.4-10.2) mg/dL unknown) (unknown) (no (unknown) (unknown) Carbon Dioxide (units (unknown) date) (22-32) mmol/L unknown) (unknown) (no (unknown) (unknown) Carbon Dioxide 23 (units (unknown) date) (22-32) mmol/L unknown) (unknown) (no (unknown) (unknown) Chief Complaint: (units (unknown) date) Arrhythmia/Palpita unknown) tions (unknown) (no (unknown) (unknown) Chloride (98-107) (units (unknown) date) mmol/L unknown) (unknown) (no (unknown) (unknown) Chloride 106 (units (u nknown) date) (98-107) mmol/L unknown) (unknown) (no (unknown) (unknown) Clinical (units (unkno wn) date) Impression: unknown) (unknown) (no (unknown) (unknown) Consult to [facility] [place] (units (unknown) date) Lead Atg Developer unknown) Stat (unknown) (no (unknown) (unknown) Course (units (unkno wn) date) unknown) (unknown) (no (unknown) (unknown) Creatinine (units (unk nown) date) (0.52-1.04) mg/dL unknown) (unknown) (no (unknown) (unknown) Creatinine 0.28 L (units (unknown) date) (0.52-1.04) mg/dL unknown) (unknown) (no (unknown) (unknown) : 1990 (units (unknown) date) Acct:[id number] unknown) (unknown) (no (unknown) (unknown) Date of Service: (units (unknown) date) 08/10/22 unknown) (unknown) (no (unknown) (unknown) Departure (units (unkn own) date) unknown) (unknown) (no (unknown) (unknown) Discharge Plan (units (unknown) date) unknown) (unknown) (no (unknown) (unknown) Discontinued (units (u nknown) date) Medications unknown) (unknown) (no (unknown) (unknown) Documented By: (units (unknown) date) HNG unknown) (unknown) (no (unknown) (unknown) Documented By: KB (units (unknown) date) unknown) (unknown) (no (unknown) (unknown) Documented By: (units (unknown) date) KB(2) unknown) (unknown) (no (unknown) (unknown) ECG Data (units (unkno wn) date) unknown) (unknown) (no (unknown) (unknown) ED Orders (units (unkn own) date) unknown) (unknown) (no (unknown) (unknown) ER Physician: (units ( unknown) date) Paris Burrell unknown) D.O. (unknown) (no (unknown) (unknown) EXTREMITIES: (units (u nknown) date) Normal range of unknown) motion, no clubbing or edema. Neurovascularly (unknown) (no (unknown) (unknown) Emergency Report (units (unknown) date) unknown) (unknown) (no (unknown) (unknown) Eos # (Auto) (units (u nknown) date) (0-450) /uL unknown) (unknown) (no (unknown) (unknown) Eos # (Auto) 400 (units (unknown) date) (0-450) /uL unknown) (unknown) (no (unknown) (unknown) Eos % (Auto) (units (u nknown) date) (2-4) % unknown) (unknown) (no (unknown) (unknown) Eos % (Auto) 7.9 (units (unknown) date) H (2-4) % unknown) (unknown) (no (unknown) (unknown) Estimated GFR > (units (unknown) date) 60 (>60) mL/min unknown) (unknown) (no (unknown) (unknown) Estimated GFR (units ( unknown) date) (>60) mL/min unknown) (unknown) (no (unknown) (unknown) Exam (units (unkno wn) date) unknown) (unknown) (no (unknown) (unknown) Free T3 > 22.80 H (units (unknown) date) (2.77-5.27) pg/mL unknown) (unknown) (no (unknown) (unknown) Free T3 (units (unkno wn) date) (2.77-5.27) pg/mL unknown) (unknown) (no (unknown) (unknown) Free T4 (units (unkno wn) date) (0.78-2.19) ng/dL unknown) (unknown) (no (unknown) (unknown) Free T4 6.37 H (units (unknown) date) (0.78-2.19) ng/dL unknown) (unknown) (no (unknown) (unknown) GENERAL: Alert (units (unknown) date) well-appearing unknown) 31-year-old female (unknown) (no (unknown) (unknown) General (units (unkno wn) date) unknown) (unknown) (no (unknown) (unknown) Globulin (units (unkno wn) date) (1.7-4.1) g/dL unknown) (unknown) (no (unknown) (unknown) Globulin 3.3 (units (u nknown) date) (1.7-4.1) g/dL unknown) (unknown) (no (unknown) (unknown) Glucose (70-100) (units (unknown) date) mg/dL unknown) (unknown) (no (unknown) (unknown) Glucose 105 H (units ( unknown) date) (70-100) mg/dL unknown) (unknown) (no (unknown) (unknown) HEENT: Head (units (un known) date) atraumatic,EOMI, unknown) pupils reactive, face symmetric, moist mucous (unknown) (no (unknown) (unknown) HPI - (units (unkno wn) date) Arrhythmia/Palpita unknown) tions (unknown) (no (unknown) (unknown) HPI narrative: (units (unknown) date) unknown) (unknown) (no (unknown) (unknown) Hct (36-46) % (units ( unknown) date) unknown) (unknown) (no (unknown) (unknown) Hct 34.9 L (units (unk nown) date) (36-46) % unknown) (unknown) (no (unknown) (unknown) Hgb (12.0-16.0) (units (unknown) date) g/dL unknown) (unknown) (no (unknown) (unknown) Hgb 11.6 L (units (unk nown) date) (12.0-16.0) g/dL unknown) (unknown) (no (unknown) (unknown) History of (units (unk nown) date) Present Illness unknown) (unknown) (no (unknown) (unknown) Hyperthyroidism (units (unknown) date) affecting unknown) in second trimester (08/04/15) (unknown) (no (unknown) (unknown) Hyperthyroidism (units (unknown) date) unknown) (unknown) (no (unknown) (unknown) Initial Vital (units ( unknown) date) Signs unknown) (unknown) (no (unknown) (unknown) Initial Vital (units ( unknown) date) Signs: unknown) (unknown) (no (unknown) (unknown) Interpretation: (units (unknown) date) unknown) (unknown) (no (unknown) (unknown) [facility] (units (unknown) date) [address] unknown) [place] [address] (unknown) (no (unknown) (unknown) Karyotype 45, X (units (unknown) date) (09/10/15) unknown) (unknown) (no (unknown) (unknown) Lab Data (units (unkno wn) date) unknown) (unknown) (no (unknown) (unknown) Lab Results (units (un known) date) unknown) (unknown) (no (unknown) (unknown) Labs: (units (unkno wn) date) unknown) (unknown) (no (unknown) (unknown) Lactate (0.7-2.1) (units (unknown) date) mmol/L unknown) (unknown) (no (unknown) (unknown) Lactate 0.8 (units (un known) date) (0.7-2.1) mmol/L unknown) (unknown) (no (unknown) (unknown) Last Admin: (units (un known) date) 08/10/22 20:34 unknown) Dose: 15 mg (unknown) (no (unknown) (unknown) Last Admin: (units (un known) date) 08/10/22 20:34 unknown) Dose: 150 mls/hr (unknown) (no (unknown) (unknown) Last Admin: (units (un known) date) 08/10/22 20:34 unknown) Dose: 40 mg (unknown) (no (unknown) (unknown) Last Admin: (units (un known) date) 08/10/22 20:35 unknown) Dose: Not Given (unknown) (no (unknown) (unknown) Last Infusion: (units (unknown) date) 08/10/22 19:54 unknown) Dose: 0 mls/hr (unknown) (no (unknown) (unknown) Lymph # (Auto) (units (unknown) date) (6346-9280) /uL unknown) (unknown) (no (unknown) (unknown) Lymph # (Auto) (units (unknown) date) 2200 (6419-0201) unknown) /uL (unknown) (no (unknown) (unknown) Lymph % (Auto) (units (unknown) date) (25-40) % unknown) (unknown) (no (unknown) (unknown) Lymph % (Auto) (units (unknown) date) 38.8 (25-40) % unknown) (unknown) (no (unknown) (unknown) MCH (26-34) PG (units (unknown) date) unknown) (unknown) (no (unknown) (unknown) MCH 23.2 L (units (unk nown) date) (26-34) PG unknown) (unknown) (no (unknown) (unknown) MCHC (30-36) % (units (unknown) date) unknown) (unknown) (no (unknown) (unknown) MCHC 33.1 (30-36) (units (unknown) date) % unknown) (unknown) (no (unknown) (unknown) MCV (80-100) fL (units (unknown) date) unknown) (unknown) (no (unknown) (unknown) MCV 70.0 L (units (unk nown) date) (80-100) fL unknown) (unknown) (no (unknown) (unknown) MDM - (units (unkno wn) date) Arrhythmia/Palpita unknown) tions (unknown) (no (unknown) (unknown) MDM Narrative (units ( unknown) date) unknown) (unknown) (no (unknown) (unknown) Magnesium (units (unkn own) date) (1.6-2.3) mg/dL unknown) (unknown) (no (unknown) (unknown) Magnesium 1.7 (units ( unknown) date) (1.6-2.3) mg/dL unknown) (unknown) (no (unknown) (unknown) Medical History (units (unknown) date) (Reviewed 08/10/22 unknown) @ 22:00 by Paris Burrell DO) (unknown) (no (unknown) (unknown) Medical decision (units (unknown) date) making narrative: unknown) (unknown) (no (unknown) (unknown) Medication (units (unk nown) date) Instructions unknown) Recorded (unknown) (no (unknown) (unknown) Methimazole (units (un known) date) (Methimazole 5 Mg unknown) Tablet) 15 mg PO NOW ONE (unknown) (no (unknown) (unknown) Methimazole 10 mg (units (unknown) date) twice a day unknown) (unknown) (no (unknown) (unknown) Mode of arrival: (units (unknown) date) Ambulatory unknown) (unknown) (no (unknown) (unknown) Crisp # (Auto) (units ( unknown) date) (0-900) /uL unknown) (unknown) (no (unknown) (unknown) Crisp # (Auto) 400 (units (unknown) date) (0-900) /uL unknown) (unknown) (no (unknown) (unknown) Crisp % (Auto) (units ( unknown) date) (3-14) % unknown) (unknown) (no (unknown) (unknown) Crisp % (Auto) 7.4 (units (unknown) date) (3-14) % unknown) (unknown) (no (unknown) (unknown) NECK: Goiter (units (u nknown) date) noted unknown) (unknown) (no (unknown) (unknown) NEUROLOGICAL: (units ( unknown) date) Alert and oriented unknown) x4 (unknown) (no (unknown) (unknown) Neut # (Auto) (units ( unknown) date) (2912-3539) /uL unknown) (unknown) (no (unknown) (unknown) Neut # (Auto) (units ( unknown) date) 2600 (9229-5905) unknown) /uL (unknown) (no (unknown) (unknown) Neut % (Auto) (units ( unknown) date) (50-75) % unknown) (unknown) (no (unknown) (unknown) Neut % (Auto) (units ( unknown) date) 45.4 L (50-75) % unknown) (unknown) (no (unknown) (unknown) New (units (unkno wn) date) unknown) (unknown) (no (unknown) (unknown) No Action (units (unkn own) date) unknown) (unknown) (no (unknown) (unknown) Normal sinus (units (u nknown) date) rhythm rate 137 MT unknown) interval 130 QRS 70 QTC 4 heard [address] (unknown) (no (unknown) (unknown) Ordered: (units (unkno wn) date) unknown) (unknown) (no (unknown) (unknown) Orders (units (unkno wn) date) unknown) (unknown) (no (unknown) (unknown) Oxygen Delivery (units (unknown) date) Method 08/10/22 unknown) 17:39 (unknown) (no (unknown) (unknown) Oxygen Delivery (units (unknown) date) Method Room Air unknown) (unknown) (no (unknown) (unknown) Patient (units (unkno wn) date) 31-year-old female unknown) history of hyperthyroidism noncompliant with (unknown) (no (unknown) (unknown) Patient (units (unkno wn) date) Disposition: Home unknown) (unknown) (no (unknown) (unknown) Patient History (units (unknown) date) unknown) (unknown) (no (unknown) (unknown) Patient is a (units (u nknown) date) 31-year-old female unknown) who has a history of hyperthyroidism presents (unknown) (no (unknown) (unknown) Patient: (units (unkno wn) date) Lashaun Hooker unknown) MR#: [id number] (unknown) (no (unknown) (unknown) Plt Count (units (unkn own) date) (150-400) X103/uL unknown) (unknown) (no (unknown) (unknown) Plt Count 293 (units ( unknown) date) (150-400) X103/uL unknown) (unknown) (no (unknown) (unknown) Potassium (units (unkn own) date) (3.4-5.1) mmol/L unknown) (unknown) (no (unknown) (unknown) Potassium 3.9 (units ( unknown) date) (3.4-5.1) mmol/L unknown) (unknown) (no (unknown) (unknown) Prescriptions: (units (unknown) date) unknown) (unknown) (no (unknown) (unknown) Previous Rx's (units ( unknown) date) unknown) (unknown) (no (unknown) (unknown) Propranolol HCl (units (unknown) date) (Propranolol 10 Mg unknown) Tablet) 40 mg PO NOW ONE (unknown) (no (unknown) (unknown) Propranolol HCl (units (unknown) date) (Propranolol 40 Mg unknown) Tablet) 40 mg PO NOW ONE (unknown) (no (unknown) (unknown) Pulse Oximetry (units (unknown) date) 100 08/10/22 17:39 unknown) (unknown) (no (unknown) (unknown) Pulse Oximetry 99 (units (unknown) date) unknown) (unknown) (no (unknown) (unknown) Pulse Rate 117 H (units (unknown) date) unknown) (unknown) (no (unknown) (unknown) Pulse Rate 145 H (units (unknown) date) 08/10/22 17:39 unknown) (unknown) (no (unknown) (unknown) RBC (4.0-5.2) (units ( unknown) date) X106/uL unknown) (unknown) (no (unknown) (unknown) RBC 4.98 (units (unkno wn) date) (4.0-5.2) X106/uL unknown) (unknown) (no (unknown) (unknown) RDW (11.6-14.8) % (units (unknown) date) unknown) (unknown) (no (unknown) (unknown) RDW 15.7 H (units (unk nown) date) (11.6-14.8) % unknown) (unknown) (no (unknown) (unknown) RESPIRATORY: (units (u nknown) date) Breath sounds unknown) equal bilaterally, no wheezes rales or rhonchi. (unknown) (no (unknown) (unknown) ROS Unobtainable: (units (unknown) date) All systems unknown) reviewed + are unremarkable except as noted in HPI (unknown) (no (unknown) (unknown) Related Data (units (u nknown) date) unknown) (unknown) (no (unknown) (unknown) Respiratory Rate (units (unknown) date) 20 unknown) (unknown) (no (unknown) (unknown) Respiratory Rate (units (unknown) date) 22 08/10/22 17:39 unknown) (unknown) (no (unknown) (unknown) Review of Systems (units (unknown) date) unknown) (unknown) (no (unknown) (unknown) Rx Instructions: (units (unknown) date) unknown) (unknown) (no (unknown) (unknown) SKIN: Warm, dry, (units (unknown) date) no laceration, no unknown) petechiae, no rashes or lesions. (unknown) (no (unknown) (unknown) See Rx (units (unkno wn) date) Instructions unknown) .ROUTE .COMPLEX Qty: 6 0RF (unknown) (no (unknown) (unknown) Signed By: (units (unk nown) date) unknown) (unknown) (no (unknown) (unknown) Smoking Status: (units (unknown) date) Current every day unknown) smoker (unknown) (no (unknown) (unknown) Social History (units (unknown) date) (Reviewed 08/10/22 unknown) @ 22:00 by Paris Burrell DO) (unknown) (no (unknown) (unknown) Sodium (137-145) (units (unknown) date) mmol/L unknown) (unknown) (no (unknown) (unknown) Sodium 138 (units (unk nown) date) (137-145) mmol/L unknown) (unknown) (no (unknown) (unknown) Sodium Chloride (units (unknown) date) (Normal Saline unknown) 0.9%) 1,000 mls @ 1,000 mls/hr IV BOLUS ONE (unknown) (no (unknown) (unknown) Sodium Chloride (units (unknown) date) (Normal Saline unknown) 0.9%) 1,000 mls @ 150 mls/hr IV CONT JENNIFER (unknown) (no (unknown) (unknown) Source: patient (units (unknown) date) unknown) (unknown) (no (unknown) (unknown) Spontaneous (units (un known) date) vaginal delivery unknown) (unknown) (no (unknown) (unknown) Stand Alone (units (un known) date) Forms: Patient unknown) Portal/API (unknown) (no (unknown) (unknown) Stated Complaint: (units (unknown) date) racing heart, unknown) shakey (unknown) (no (unknown) (unknown) Status post (units (un known) date) tonsillectomy and unknown) adenoidectomy (unknown) (no (unknown) (unknown) Stop: 08/10/22 (units (unknown) date) 19:03 unknown) (unknown) (no (unknown) (unknown) Stop: 08/10/22 (units (unknown) date) 19:12 unknown) (unknown) (no (unknown) (unknown) Stop: 08/10/22 (units (unknown) date) 19:15 unknown) (unknown) (no (unknown) (unknown) Stop: 08/10/22 (units (unknown) date) 20:31 unknown) (unknown) (no (unknown) (unknown) Substance Use (units ( unknown) date) Type: marijuana unknown) (unknown) (no (unknown) (unknown) Surgical History (units (unknown) date) (Reviewed 08/10/22 unknown) @ 22:00 by Paris Burrell DO) (unknown) (no (unknown) (unknown) TSH < 0.015 L (units ( unknown) date) (0.47-4.68) uIU/mL unknown) (unknown) (no (unknown) (unknown) TSH (0.47-4.68) (units (unknown) date) uIU/mL unknown) (unknown) (no (unknown) (unknown) Temperature 98.3 (units (unknown) date) F 08/10/22 17:39 unknown) (unknown) (no (unknown) (unknown) Time Seen by (units (u nknown) date) Provider: 08/10/22 unknown) 17:55 (unknown) (no (unknown) (unknown) Total Bilirubin (units (unknown) date) (0.2-1.3) mg/dL unknown) (unknown) (no (unknown) (unknown) Total Bilirubin (units (unknown) date) 0.4 (0.2-1.3) unknown) mg/dL (unknown) (no (unknown) (unknown) Total Protein (units ( unknown) date) (6.3-8.2) g/dL unknown) (unknown) (no (unknown) (unknown) Total Protein 7.3 (units (unknown) date) (6.3-8.2) g/dL unknown) (unknown) (no (unknown) (unknown) Vital Signs - 8 (units (unknown) date) hr unknown) (unknown) (no (unknown) (unknown) Vital Signs (units (un known) date) unknown) (unknown) (no (unknown) (unknown) Vital signs: (units (u nknown) date) unknown) (unknown) (no (unknown) (unknown) WBC (4.5-11.0) (units (unknown) date) X103/uL unknown) (unknown) (no (unknown) (unknown) WBC 5.6 (units (unkno wn) date) (4.5-11.0) X103/uL unknown) (unknown) (no (unknown) (unknown) [Embedded Image (units (unknown) date) Not Available] unknown) (unknown) (no (unknown) (unknown) adhesive tape (units ( unknown) date) [ADHESIVE TAPE] unknown) Allergy Unknown Rash Verified 07/20/22 16:38 (unknown) (no (unknown) (unknown) alcohol intake (units (unknown) date) frequency: unknown) holidays/special occasions only (unknown) (no (unknown) (unknown) along with (units (unk nown) date) methimazole. Her unknown) heart rate improves to 117. At this time I do not (unknown) (no (unknown) (unknown) and below (units (unkn own) date) unknown) (unknown) (no (unknown) (unknown) and follow-up (units ( unknown) date) with PCP. She is unknown) previously had transportation issues. I have (unknown) (no (unknown) (unknown) atenolol 25 mg (units (unknown) date) tablet 25 mg PO unknown) DAILY #30 tabs 12/19/20 (unknown) (no (unknown) (unknown) atenolol 25 mg (units (unknown) date) tablet 25 mg PO unknown) DAILY #60 tabs 08/10/22 (unknown) (no (unknown) (unknown) atenolol 25 mg (units (unknown) date) tablet unknown) (unknown) (no (unknown) (unknown) azithromycin 250 (units (unknown) date) mg tablet See Rx unknown) Instructions PO .COMPLEX #6 12/19/20 (unknown) (no (unknown) (unknown) azithromycin 250 (units (unknown) date) mg tablet unknown) (unknown) (no (unknown) (unknown) call you tomorrow (units (unknown) date) to help set up a unknown) primary care provider. (unknown) (no (unknown) (unknown) changes no T-wave (units (unknown) date) inversions mild unknown) artifact noted (unknown) (no (unknown) (unknown) consulted social (units (unknown) date) work who help her unknown) get a primary tomorrow, seeing as though it (unknown) (no (unknown) (unknown) doctor's (units (unkno wn) date) appointments. She unknown) denies abdominal pain nausea vomiting or other (unknown) (no (unknown) (unknown) greater than (units (u nknown) date) 100.4 increasing unknown) heart rate greater than 115 or any new, worsening (unknown) (no (unknown) (unknown) guarding or (units (un known) date) rebound. unknown) (unknown) (no (unknown) (unknown) hydrocodone [From (units (unknown) date) VICODIN] Allergy unknown) Unknown Rash/nausea Verified 07/20/22 16:38 (unknown) (no (unknown) (unknown) hyperthyroid. She (units (unknown) date) does have some unknown) hyperthyroid storm. She is afebrile normal (unknown) (no (unknown) (unknown) intact (units (unkno wn) date) unknown) (unknown) (no (unknown) (unknown) is too late. (units (u nknown) date) unknown) (unknown) (no (unknown) (unknown) lactate. Unlikely (units (unknown) date) to be thyroiditis. unknown) She is given propranolol here in the ED (unknown) (no (unknown) (unknown) liquids and eat a (units (unknown) date) little. She also unknown) reports that she is lost weight and hair (unknown) (no (unknown) (unknown) medication (units (unk nown) date) longstanding unknown) presents today with tachycardia and symptoms of (unknown) (no (unknown) (unknown) membranes (units (unkn own) date) unknown) (unknown) (no (unknown) (unknown) methimazole 10 mg (units (unknown) date) tablet 10 mg PO unknown) BID #60 tabs 08/10/22 (unknown) (no (unknown) (unknown) methimazole 10 mg (units (unknown) date) tablet 10 mg PO unknown) DAILY #30 tabs 12/19/20 (unknown) (no (unknown) (unknown) methimazole 10 mg (units (unknown) date) tablet unknown) (unknown) (no (unknown) (unknown) noted to be quite (units (unknown) date) tachycardic with a unknown) heart rate in the 140s. She is not passed (unknown) (no (unknown) (unknown) or concerning (units ( unknown) date) symptoms unknown) (unknown) (no (unknown) (unknown) out. She says (units ( unknown) date) that she is had unknown) transportation issues and hard time getting to (unknown) (no (unknown) (unknown) see need for (units (u nknown) date) admitting her to unknown) the hospital. She needs to restart her medication (unknown) (no (unknown) (unknown) symptoms. She (units ( unknown) date) reports it is unknown) difficult to swallow but she is able to swallow (unknown) (no (unknown) (unknown) tabs (units (unkno wn) date) unknown) (unknown) (no (unknown) (unknown) take 500 mg today (units (unknown) date) (day 1), then 250 unknown) mg for 4 days (days 2-5) (unknown) (no (unknown) (unknown) taken medication (units (unknown) date) in years. She unknown) denies any dizziness or lightheadedness she is (unknown) (no (unknown) (unknown) tobacco type: (units ( unknown) date) cigarettes unknown) (unknown) (no (unknown) (unknown) today with hot (units (unknown) date) flashes and heart unknown) palpitations. She reports that she is not Result panel 190 (unknown) (no (unknown) (unknown) (no value) (units (unk nown) date) unknown) (unknown) (no (unknown) (unknown) 08/16/22 (units (unkno wn) date) unknown) (unknown) (no (unknown) (unknown) [id number] (units (unkno wn) date) unknown) (unknown) (no (unknown) (unknown) Age/Sex: 31 / F (units (unknown) date) Date of Service: unknown) (unknown) (no (unknown) (unknown) Allergies (units (unkn own) date) unknown) (unknown) (no (unknown) (unknown) [place] (units ( unknown) date) [id number] unknown) (unknown) (no (unknown) (unknown) Attending Dr: (units ( unknown) date) Meng NEGRON unknown) (unknown) (no (unknown) (unknown) : 1990 (units (unknown) date) Acct:[id number] unknown) (unknown) (no (unknown) (unknown) Dept at (units (unkno wn) date) . unknown) (unknown) (no (unknown) (unknown) Documented By: (units (unknown) date) Meng Rendon unknown) 08/16/22 0957 (unknown) (no (unknown) (unknown) Draft (units (unkno wn) date) unknown) (unknown) (no (unknown) (unknown) [facility] (units (unknown) date) Office Visit unknown) (unknown) (no (unknown) (unknown) [facility]) (unknown) (no (unknown) (unknown) Hyperthyroidism (units (unknown) date) affecting unknown) in second trimester (08/04/15) (unknown) (no (unknown) (unknown) Intake Note: (units (u nknown) date) unknown) (unknown) (no (unknown) (unknown) Intake (units (unkno wn) date) unknown) (unknown) (no (unknown) (unknown) Karyotype 45, X (units (unknown) date) (09/10/15) unknown) (unknown) (no (unknown) (unknown) Loc: [facility] (units (unkno wn) date) unknown) (unknown) (no (unknown) (unknown) Medical History (units (unknown) date) (Reviewed 08/10/22 unknown) @ 22:00 by Paris Burrell DO) (unknown) (no (unknown) (unknown) PFSH (units (unkno wn) date) unknown) (unknown) (no (unknown) (unknown) Patient: (units (unkno wn) date) Lashaun Hooker unknown) MR#: [id number] (unknown) (no (unknown) (unknown) Rash (units (unkno wn) date) unknown) (unknown) (no (unknown) (unknown) Rash/nausea (units (un known) date) unknown) (unknown) (no (unknown) (unknown) Reason For Visit (units (unknown) date) unknown) (unknown) (no (unknown) (unknown) Signed By: (units (unk nown) date) unknown) (unknown) (no (unknown) (unknown) Smoking Status: (units (unknown) date) Current every day unknown) smoker (unknown) (no (unknown) (unknown) Spontaneous (units (un known) date) vaginal delivery unknown) (unknown) (no (unknown) (unknown) Status post (units (un known) date) tonsillectomy and unknown) adenoidectomy (unknown) (no (unknown) (unknown) Surgical History (units (unknown) date) (Reviewed 08/10/22 unknown) @ 22:00 by Paris Burrell DO) (unknown) (no (unknown) (unknown) This note may (units ( unknown) date) have been all or unknown) partially generated using voice recognition (unknown) (no (unknown) (unknown) Tobacco + (units (unkn own) date) Substance Use unknown) (unknown) (no (unknown) (unknown) Tobacco Status (units (unknown) date) unknown) (unknown) (no (unknown) (unknown) Visit Reasons: (units (unknown) date) establish care-d/c unknown) from admit*comment (unknown) (no (unknown) (unknown) adhesive tape (units ( unknown) date) [ADHESIVE TAPE] unknown) Allergy (Unknown, Verified 07/20/22 16:38) (unknown) (no (unknown) (unknown) have occurred. If (units (unknown) date) there are any unknown) questions, please contact the Medical Records (unknown) (no (unknown) (unknown) hydrocodone [From (units (unknown) date) VICODIN] Allergy unknown) (Unknown, Verified 07/20/22 16:38) (unknown) (no (unknown) (unknown) may occur. (units (unk nown) date) Occasional unknown) wrong-word or 'sound-alike' substitutions may have (unknown) (no (unknown) (unknown) occurred due to (units (unknown) date) the inherent unknown) limitations of voice recognition software. Please (unknown) (no (unknown) (unknown) read the note (units ( unknown) date) carefully and unknown) recognize, using context, where these substitutions (unknown) (no (unknown) (unknown) software. 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 with (units (unk nown) date) Nyasia* 31 Y F, unknown) patient here today to f/u on ED visit. (unknown) (no (unknown) (unknown) 08/16/22 (units (unkno wn) date) unknown) (unknown) (no (unknown) (unknown) [id number] (units (unkno wn) date) unknown) (unknown) (no (unknown) (unknown) 10:01 (units (unkno wn) date) unknown) (unknown) (no (unknown) (unknown) Age/Sex: 31 / F (units (unknown) date) Date of Service: unknown) (unknown) (no (unknown) (unknown) Allergies (units (unkn own) date) unknown) (unknown) (no (unknown) (unknown) [place] (units ( unknown) date) [id number] unknown) (unknown) (no (unknown) (unknown) Attending Dr: (units ( unknown) date) Meng NEGRON unknown) (unknown) (no (unknown) (unknown) BMI 19.8 (units (unkno wn) date) unknown) (unknown) (no (unknown) (unknown) BP 120/62 (units (unkn own) date) unknown) (unknown) (no (unknown) (unknown) Blood Pressure (units (unknown) date) Location Lt unknown) brachial (unknown) (no (unknown) (unknown) : 1990 (units (unknown) date) Acct:[id number] unknown) (unknown) (no (unknown) (unknown) Dept at (units (unkno wn) date) . unknown) (unknown) (no (unknown) (unknown) Documented By: (units (unknown) date) Meng Rendon unknown) 08/16/22 0957 (unknown) (no (unknown) (unknown) Draft (units (unkno wn) date) unknown) (unknown) (no (unknown) (unknown) Family Practice (units (unknown) date) Office Visit unknown) (unknown) (no (unknown) (unknown) [facility] ([facility] unknown) (unknown) (no (unknown) (unknown) Health Management (units (unknown) date) reviewed with unknown) patient: No (unknown) (no (unknown) (unknown) Health Management (units (unknown) date) unknown) (unknown) (no (unknown) (unknown) Height 5 ft 2 in (units (unknown) date) unknown) (unknown) (no (unknown) (unknown) Hyperthyroidism (units (unknown) date) affecting unknown) in second trimester (08/04/15) (unknown) (no (unknown) (unknown) Intake Note: (units (u nknown) date) unknown) (unknown) (no (unknown) (unknown) Intake (units (unkno wn) date) unknown) (unknown) (no (unknown) (unknown) Is last menstrual (units (unknown) date) period known: No unknown) (unknown) (no (unknown) (unknown) Karyotype 45, X (units (unknown) date) (09/10/15) unknown) (unknown) (no (unknown) (unknown) Last Menstural (units (unknown) date) Cycle + Details unknown) (unknown) (no (unknown) (unknown) Loc: [facility] (units (unkno wn) date) unknown) (unknown) (no (unknown) (unknown) Medical History (units (unknown) date) (Reviewed 08/10/22 unknown) @ 22:00 by Paris Burrell DO) (unknown) (no (unknown) (unknown) Medications (units (un known) date) unknown) (unknown) (no (unknown) (unknown) Other Menstrual (units (unknown) date) Period: Uncertain unknown) (unknown) (no (unknown) (unknown) Oxygen Delivery (units (unknown) date) Method room air unknown) (unknown) (no (unknown) (unknown) PFSH (units (unkno wn) date) unknown) (unknown) (no (unknown) (unknown) Patient: (units (unkno wn) date) Lashaun Hooker M unknown) MR#: [id number] (unknown) (no (unknown) (unknown) Position Sitting (units (unknown) date) unknown) (unknown) (no (unknown) (unknown) Pulse 116 H (units (un known) date) unknown) (unknown) (no (unknown) (unknown) Pulse Oximetry (units (unknown) date) (%) 97 unknown) (unknown) (no (unknown) (unknown) Pulse Source (units (u nknown) date) Monitor unknown) (unknown) (no (unknown) (unknown) Rash (units (unkno wn) date) unknown) (unknown) (no (unknown) (unknown) Rash/nausea (units (un known) date) unknown) (unknown) (no (unknown) (unknown) Reason For Visit (units (unknown) date) unknown) (unknown) (no (unknown) (unknown) Respiration 16 (units (unknown) date) unknown) (unknown) (no (unknown) (unknown) Signed By: (units (unk nown) date) unknown) (unknown) (no (unknown) (unknown) Smoking Status: (units (unknown) date) Current every day unknown) smoker (unknown) (no (unknown) (unknown) Spontaneous (units (un known) date) vaginal delivery unknown) (unknown) (no (unknown) (unknown) Status post (units (un known) date) tonsillectomy and unknown) adenoidectomy (unknown) (no (unknown) (unknown) Surgical History (units (unknown) date) (Reviewed 08/10/22 unknown) @ 22:00 by Paris Burrell DO) (unknown) (no (unknown) (unknown) Temp 98.2 F (units (un known) date) unknown) (unknown) (no (unknown) (unknown) Temp Source (units (un known) date) Temporal Artery unknown) Scan (unknown) (no (unknown) (unknown) This note may (units ( unknown) date) have been all or unknown) partially generated using voice recognition (unknown) (no (unknown) (unknown) Tobacco + (units (unkn own) date) Substance Use unknown) (unknown) (no (unknown) (unknown) Tobacco Status (units (unknown) date) unknown) (unknown) (no (unknown) (unknown) Visit Reasons: (units (unknown) date) establish care-d/c unknown) from admit*comment (unknown) (no (unknown) (unknown) Vitals (units (unkno wn) date) unknown) (unknown) (no (unknown) (unknown) Weight 108 lb 4 (units (unknown) date) oz unknown) (unknown) (no (unknown) (unknown) adhesive tape (units ( unknown) date) [ADHESIVE TAPE] unknown) Allergy (Unknown, Verified 08/16/22 09:59) (unknown) (no (unknown) (unknown) atenolol 25 mg (units (unknown) date) tablet 25 mg PO unknown) DAILY #60 tabs 08/10/22 [Rx Confirmed 08/16/22] (unknown) (no (unknown) (unknown) have occurred. If (units (unknown) date) there are any unknown) questions, please contact the Medical Records (unknown) (no (unknown) (unknown) hydrocodone [From (units (unknown) date) VICODIN] Allergy unknown) (Unknown, Verified 08/16/22 09:59) (unknown) (no (unknown) (unknown) may occur. (units (unk nown) date) Occasional unknown) wrong-word or 'sound-alike' substitutions may have (unknown) (no (unknown) (unknown) methimazole 10 mg (units (unknown) date) tablet 10 mg PO unknown) BID #60 tabs 08/10/22 [Rx Confirmed 08/16/22] (unknown) (no (unknown) (unknown) occurred due to (units (unknown) date) the inherent unknown) limitations of voice recognition software. Please (unknown) (no (unknown) (unknown) read the note (units ( unknown) date) carefully and unknown) recognize, using context, where these substitutions (unknown) (no (unknown) (unknown) software. 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 with (units (unk nown) date) Nyasia* 31 Y F, unknown) patient here today to f/u on ED visit. (unknown) (no (unknown) (unknown) 08/16/22 (units (unkno wn) date) unknown) (unknown) (no (unknown) (unknown) [id number] (units (unkno wn) date) unknown) (unknown) (no (unknown) (unknown) 10:01 (units (unkno wn) date) unknown) (unknown) (no (unknown) (unknown) Age/Sex: 31 / F (units (unknown) date) Date of Service: unknown) (unknown) (no (unknown) (unknown) Allergies (units (unkn own) date) unknown) (unknown) (no (unknown) (unknown) [place], [place] (units ( unknown) date) [id number] unknown) (unknown) (no (unknown) (unknown) Assessment + Plan (units (unknown) date) unknown) (unknown) (no (unknown) (unknown) Attending Dr: (units ( unknown) date) Meng NEGRON unknown) (unknown) (no (unknown) (unknown) BMI 19.8 (units (unkno wn) date) unknown) (unknown) (no (unknown) (unknown) BP 120/62 (units (unkn own) date) unknown) (unknown) (no (unknown) (unknown) Basic Metabolic (units (unknown) date) Panel 4 Weeks unknown) E05.90 - Thyrotoxicosis, unspecified without (unknown) (no (unknown) (unknown) Blood Pressure (units (unknown) date) Location Lt unknown) brachial (unknown) (no (unknown) (unknown) Complete Blood (units (unknown) date) Count NO DIFF 4 unknown) Weeks E05.90 - Thyrotoxicosis, unspecified (unknown) (no (unknown) (unknown) : 1990 (units (unknown) date) Acct:[id number] unknown) (unknown) (no (unknown) (unknown) Dept at (units (unkno wn) date) . unknown) (unknown) (no (unknown) (unknown) Documented By: (units (unknown) date) Meng Rendon unknown) 08/16/22 0957 (unknown) (no (unknown) (unknown) Draft (units (unkno wn) date) unknown) (unknown) (no (unknown) (unknown) Family Practice (units (unknown) date) Office Visit unknown) (unknown) (no (unknown) (unknown) [facility] ([facility] unknown) (unknown) (no (unknown) (unknown) Free T4, Direct (units (unknown) date) Thyroxine 4 Weeks unknown) E05.90 - Thyrotoxicosis, unspecified without (unknown) (no (unknown) (unknown) Health Management (units (unknown) date) reviewed with unknown) patient: No (unknown) (no (unknown) (unknown) Health Management (units (unknown) date) unknown) (unknown) (no (unknown) (unknown) Height 5 ft 2 in (units (unknown) date) unknown) (unknown) (no (unknown) (unknown) Hyperthyroidism (units (unknown) date) affecting unknown) in second trimester (08/04/15) (unknown) (no (unknown) (unknown) Intake Note: (units (u nknown) date) unknown) (unknown) (no (unknown) (unknown) Intake (units (unkno wn) date) unknown) (unknown) (no (unknown) (unknown) Is last menstrual (units (unknown) date) period known: No unknown) (unknown) (no (unknown) (unknown) Karyotype 45, X (units (unknown) date) (09/10/15) unknown) (unknown) (no (unknown) (unknown) Last Menstural (units (unknown) date) Cycle + Details unknown) (unknown) (no (unknown) (unknown) Loc: [facility] (units (unkno wn) date) unknown) (unknown) (no (unknown) (unknown) Medical History (units (unknown) date) (Reviewed 08/10/22 unknown) @ 22:00 by Paris Burrell DO) (unknown) (no (unknown) (unknown) Medications (units (un known) date) unknown) (unknown) (no (unknown) (unknown) Orders (units (unkno wn) date) unknown) (unknown) (no (unknown) (unknown) Orders: (units (unkno wn) date) unknown) (unknown) (no (unknown) (unknown) Other Menstrual (units (unknown) date) Period: Uncertain unknown) (unknown) (no (unknown) (unknown) Oxygen Delivery (units (unknown) date) Method room air unknown) (unknown) (no (unknown) (unknown) PFSH (units (unkno wn) date) unknown) (unknown) (no (unknown) (unknown) POC Urine (units (unkn own) date) Test unknown) Today E05.90 - Thyrotoxicosis, unspecified without (unknown) (no (unknown) (unknown) Patient: (units (unkno wn) date) Lashaun Hooker M unknown) MR#: [id number] (unknown) (no (unknown) (unknown) Position Sitting (units (unknown) date) unknown) (unknown) (no (unknown) (unknown) Pulse 116 H (units (un known) date) unknown) (unknown) (no (unknown) (unknown) Pulse Oximetry (units (unknown) date) (%) 97 unknown) (unknown) (no (unknown) (unknown) Pulse Source (units (u nknown) date) Monitor unknown) (unknown) (no (unknown) (unknown) Rash (units (unkno wn) date) unknown) (unknown) (no (unknown) (unknown) Rash/nausea (units (un known) date) unknown) (unknown) (no (unknown) (unknown) Reason For Visit (units (unknown) date) unknown) (unknown) (no (unknown) (unknown) Respiration 16 (units (unknown) date) unknown) (unknown) (no (unknown) (unknown) Signed By: (units (unk nown) date) unknown) (unknown) (no (unknown) (unknown) Smoking Status: (units (unknown) date) Current every day unknown) smoker (unknown) (no (unknown) (unknown) Spontaneous (units (un known) date) vaginal delivery unknown) (unknown) (no (unknown) (unknown) Status post (units (un known) date) tonsillectomy and unknown) adenoidectomy (unknown) (no (unknown) (unknown) Status: Acute (units ( unknown) date) unknown) (unknown) (no (unknown) (unknown) Surgical History (units (unknown) date) (Reviewed 08/10/22 unknown) @ 22:00 by Paris Burrell DO) (unknown) (no (unknown) (unknown) Temp 98.2 F (units (un known) date) unknown) (unknown) (no (unknown) (unknown) Temp Source (units (un known) date) Temporal Artery unknown) Scan (unknown) (no (unknown) (unknown) This note may (units ( unknown) date) have been all or unknown) partially generated using voice recognition (unknown) (no (unknown) (unknown) Thyroid (units (unkno wn) date) Stimulating unknown) Hormone 4 Weeks E05.90 - Thyrotoxicosis, unspecified without (unknown) (no (unknown) (unknown) Tobacco + (units (unkn own) date) Substance Use unknown) (unknown) (no (unknown) (unknown) Tobacco Status (units (unknown) date) unknown) (unknown) (no (unknown) (unknown) Visit Reasons: (units (unknown) date) establish care-d/c unknown) from admit*comment (unknown) (no (unknown) (unknown) Vitals (units (unkno wn) date) unknown) (unknown) (no (unknown) (unknown) Weight 108 lb 4 (units (unknown) date) oz unknown) (unknown) (no (unknown) (unknown) adhesive tape (units ( unknown) date) [ADHESIVE TAPE] unknown) Allergy (Unknown, Verified 08/16/22 09:59) (unknown) (no (unknown) (unknown) atenolol 25 mg (units (unknown) date) tablet 25 mg PO unknown) DAILY #60 tabs 08/10/22 [Rx Confirmed 08/16/22] (unknown) (no (unknown) (unknown) have occurred. If (units (unknown) date) there are any unknown) questions, please contact the Medical Records (unknown) (no (unknown) (unknown) hydrocodone [From (units (unknown) date) VICODIN] Allergy unknown) (Unknown, Verified 08/16/22 09:59) (unknown) (no (unknown) (unknown) may occur. (units (unk nown) date) Occasional unknown) wrong-word or 'sound-alike' substitutions may have (unknown) (no (unknown) (unknown) methimazole 10 mg (units (unknown) date) tablet 10 mg PO unknown) BID #60 tabs 08/10/22 [Rx Confirmed 08/16/22] (unknown) (no (unknown) (unknown) occurred due to (units (unknown) date) the inherent unknown) limitations of voice recognition software. Please (unknown) (no (unknown) (unknown) read the note (units ( unknown) date) carefully and unknown) recognize, using context, where these substitutions (unknown) (no (unknown) (unknown) software. 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 with (units (unk nown) date) Salari* 31 Y F, unknown) patient here today to f/u on ED visit. (unknown) (no (unknown) (unknown) 08/16/22 (units (unkno wn) date) unknown) (unknown) (no (unknown) (unknown) [id number] (units (unkno wn) date) unknown) (unknown) (no (unknown) (unknown) 1 (units (unkno wn) date) unknown) (unknown) (no (unknown) (unknown) 10:01 (units (unkno wn) date) unknown) (unknown) (no (unknown) (unknown) 10:21 (units (unkno wn) date) unknown) (unknown) (no (unknown) (unknown) Age/Sex: 31 / F (units (unknown) date) Date of Service: unknown) (unknown) (no (unknown) (unknown) Allergies (units (unkn own) date) unknown) (unknown) (no (unknown) (unknown) [place], [place] (units ( unknown) date) [id number] unknown) (unknown) (no (unknown) (unknown) Assessment + Plan (units (unknown) date) unknown) (unknown) (no (unknown) (unknown) Attending Dr: (units ( unknown) date) Meng NEGRON unknown) (unknown) (no (unknown) (unknown) BMI 19.8 (units (unkno wn) date) unknown) (unknown) (no (unknown) (unknown) BP 120/62 (units (unkn own) date) unknown) (unknown) (no (unknown) (unknown) Basic Metabolic (units (unknown) date) Panel 4 Weeks unknown) E05.90 - Thyrotoxicosis, unspecified without (unknown) (no (unknown) (unknown) Blood Pressure (units (unknown) date) Location Lt unknown) brachial (unknown) (no (unknown) (unknown) Chief Complaint (units (unknown) date) unknown) (unknown) (no (unknown) (unknown) Chief Complaint: (units (unknown) date) ED f/u unknown) hyperthyroidism (unknown) (no (unknown) (unknown) Complete Blood (units (unknown) date) Count NO DIFF 4 unknown) Weeks E05.90 - Thyrotoxicosis, unspecified (unknown) (no (unknown) (unknown) : 1990 (units (unknown) date) Acct:[id number] unknown) (unknown) (no (unknown) (unknown) Dept at (units (unkno wn) date) . unknown) (unknown) (no (unknown) (unknown) Details: (units (unkno wn) date) unknown) (unknown) (no (unknown) (unknown) Documented By: (units (unknown) date) Meng Rendon unknown) 08/16/22 0957 (unknown) (no (unknown) (unknown) Draft (units (unkno wn) date) unknown) (unknown) (no (unknown) (unknown) Family Practice (units (unknown) date) Office Visit unknown) (unknown) (no (unknown) (unknown) [facility] ([facility] unknown) (unknown) (no (unknown) (unknown) Free T4, Direct (units (unknown) date) Thyroxine 4 Weeks unknown) E05.90 - Thyrotoxicosis, unspecified without (unknown) (no (unknown) (unknown) HPI (units (unkno wn) date) unknown) (unknown) (no (unknown) (unknown) Health Management (units (unknown) date) reviewed with unknown) patient: No (unknown) (no (unknown) (unknown) Health Management (units (unknown) date) unknown) (unknown) (no (unknown) (unknown) Height 5 ft 2 in (units (unknown) date) unknown) (unknown) (no (unknown) (unknown) Hyperthyroidism (units (unknown) date) affecting unknown) in second trimester (08/04/15) (unknown) (no (unknown) (unknown) Intake Note: (units (u nknown) date) unknown) (unknown) (no (unknown) (unknown) Intake (units (unkno wn) date) unknown) (unknown) (no (unknown) (unknown) Is last menstrual (units (unknown) date) period known: No unknown) (unknown) (no (unknown) (unknown) July 2014, (units ( unknown) date) only took unknown) medication for a couple of months at most. Heart was (unknown) (no (unknown) (unknown) Karyotype 45, X (units (unknown) date) (09/10/15) unknown) (unknown) (no (unknown) (unknown) Last Menstural (units (unknown) date) Cycle + Details unknown) (unknown) (no (unknown) (unknown) Loc: [facility] (units (unkno wn) date) unknown) (unknown) (no (unknown) (unknown) Medical History (units (unknown) date) (Reviewed 08/10/22 unknown) @ 22:00 by Paris Burrell DO) (unknown) (no (unknown) (unknown) Medications (units (un known) date) unknown) (unknown) (no (unknown) (unknown) Orders (units (unkno wn) date) unknown) (unknown) (no (unknown) (unknown) Orders: (units (unkno wn) date) unknown) (unknown) (no (unknown) (unknown) Other Menstrual (units (unknown) date) Period: Uncertain unknown) (unknown) (no (unknown) (unknown) Oxygen Delivery (units (unknown) date) Method room air unknown) (unknown) (no (unknown) (unknown) PFSH (units (unkno wn) date) unknown) (unknown) (no (unknown) (unknown) POC PREG (units (unkno wn) date) unknown) (unknown) (no (unknown) (unknown) POC Preg Test (units ( unknown) date) Negative Last Edit unknown) by Richelle Rodriguez LPN on 08/16/22 10:21 (unknown) (no (unknown) (unknown) POC Urine (units (unkn own) date) Test unknown) Today E05.90 - Thyrotoxicosis, unspecified without (unknown) (no (unknown) (unknown) Patient: (units (unkno wn) date) Lashaun Hooker unknown) MR#: [id number] (unknown) (no (unknown) (unknown) Position Sitting (units (unknown) date) unknown) (unknown) (no (unknown) (unknown) Preg Expiration (units (unknown) date) 07-16-2023 Last unknown) Edit by Richelle Rodriguez LPN on 08/16/22 (unknown) (no (unknown) (unknown) Preg Lot # (units (unk nown) date) [id number] Last unknown) Edit by Richelle Rodriguez LPN on 08/16/22 10:21 (unknown) (no (unknown) (unknown) Preg QC (units (unkno wn) date) Acceptable? Yes unknown) Last Edit by Richelle Rodriguez LPN on 08/16/22 10:2 (unknown) (no (unknown) (unknown) Pulse 116 H (units (un known) date) unknown) (unknown) (no (unknown) (unknown) Pulse Oximetry (units (unknown) date) (%) 97 unknown) (unknown) (no (unknown) (unknown) Pulse Source (units (u nknown) date) Monitor unknown) (unknown) (no (unknown) (unknown) Rash (units (unkno wn) date) unknown) (unknown) (no (unknown) (unknown) Rash/nausea (units (un known) date) unknown) (unknown) (no (unknown) (unknown) Reason For Visit (units (unknown) date) unknown) (unknown) (no (unknown) (unknown) Referral (units (unkno wn) date) Endocrinology unknown) E05.90 - Thyrotoxicosis, unspecified without thyrotoxic (unknown) (no (unknown) (unknown) Referrals (units (unkn own) date) unknown) (unknown) (no (unknown) (unknown) Respiration 16 (units (unknown) date) unknown) (unknown) (no (unknown) (unknown) Results (units (unkno wn) date) unknown) (unknown) (no (unknown) (unknown) Signed By: (units (unk nown) date) unknown) (unknown) (no (unknown) (unknown) Smoking Status: (units (unknown) date) Current every day unknown) smoker (unknown) (no (unknown) (unknown) Spontaneous (units (un known) date) vaginal delivery unknown) (unknown) (no (unknown) (unknown) Status post (units (un known) date) tonsillectomy and unknown) adenoidectomy (unknown) (no (unknown) (unknown) Status: Acute (units ( unknown) date) unknown) (unknown) (no (unknown) (unknown) Surgical History (units (unknown) date) (Reviewed 08/10/22 unknown) @ 22:00 by Paris Burrell DO) (unknown) (no (unknown) (unknown) Temp 98.2 F (units (un known) date) unknown) (unknown) (no (unknown) (unknown) Temp Source (units (un known) date) Temporal Artery unknown) Scan (unknown) (no (unknown) (unknown) This note may (units ( unknown) date) have been all or unknown) partially generated using voice recognition (unknown) (no (unknown) (unknown) Thyroid (units (unkno wn) date) Stimulating unknown) Hormone 4 Weeks E05.90 - Thyrotoxicosis, unspecified without (unknown) (no (unknown) (unknown) Tobacco + (units (unkn own) date) Substance Use unknown) (unknown) (no (unknown) (unknown) Tobacco Status (units (unknown) date) unknown) (unknown) (no (unknown) (unknown) Visit Reasons: (units (unknown) date) establish care-d/c unknown) from admit*comment (unknown) (no (unknown) (unknown) Vitals (units (unkno wn) date) unknown) (unknown) (no (unknown) (unknown) Weight 108 lb 4 (units (unknown) date) oz unknown) (unknown) (no (unknown) (unknown) adhesive tape (units ( unknown) date) [ADHESIVE TAPE] unknown) Allergy (Unknown, Verified 08/16/22 09:59) (unknown) (no (unknown) (unknown) atenolol 25 mg (units (unknown) date) tablet 25 mg PO unknown) DAILY #60 tabs 08/10/22 [Rx Confirmed 08/16/22] (unknown) (no (unknown) (unknown) crisis or storm (units (unknown) date) unknown) (unknown) (no (unknown) (unknown) have occurred. If (units (unknown) date) there are any unknown) questions, please contact the Medical Records (unknown) (no (unknown) (unknown) hydrocodone [From (units (unknown) date) VICODIN] Allergy unknown) (Unknown, Verified 08/16/22 09:59) (unknown) (no (unknown) (unknown) may occur. (units (unk nown) date) Occasional unknown) wrong-word or 'sound-alike' substitutions may have (unknown) (no (unknown) (unknown) methimazole 10 mg (units (unknown) date) tablet 10 mg PO unknown) BID #60 tabs 08/10/22 [Rx Confirmed 08/16/22] (unknown) (no (unknown) (unknown) occurred due to (units (unknown) date) the inherent unknown) limitations of voice recognition software. Please (unknown) (no (unknown) (unknown) racing, throat (units (unknown) date) seemed more unknown) swollen than usual. Went to the ED (unknown) (no (unknown) (unknown) read the note (units ( unknown) date) carefully and unknown) recognize, using context, where these substitutions (unknown) (no (unknown) (unknown) software. 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 with (units (unk nown) date) Nyasia* 31 Y F, unknown) patient here today to f/u on ED visit. (unknown) (no (unknown) (unknown) 08/16/22 (units (unkno wn) date) unknown) (unknown) (no (unknown) (unknown) [id number] (units (unkno wn) date) unknown) (unknown) (no (unknown) (unknown) 1 (units (unkno wn) date) unknown) (unknown) (no (unknown) (unknown) 10:01 (units (unkno wn) date) unknown) (unknown) (no (unknown) (unknown) 10:21 (units (unkno wn) date) unknown) (unknown) (no (unknown) (unknown) Age/Sex: 31 / F (units (unknown) date) Date of Service: unknown) (unknown) (no (unknown) (unknown) Allergies (units (unkn own) date) unknown) (unknown) (no (unknown) (unknown) [place], [place] (units ( unknown) date) [id number] unknown) (unknown) (no (unknown) (unknown) Appointment to (units (unknown) date) establish care unknown) with Dr. Murrell 09/05/2022 (unknown) (no (unknown) (unknown) Assessment + Plan (units (unknown) date) unknown) (unknown) (no (unknown) (unknown) Attending Dr: (units ( unknown) date) Meng NEGRON unknown) (unknown) (no (unknown) (unknown) BMI 19.8 (units (unkno wn) date) unknown) (unknown) (no (unknown) (unknown) BP 120/62 (units (unkn own) date) unknown) (unknown) (no (unknown) (unknown) Basic Metabolic (units (unknown) date) Panel 4 Weeks unknown) E05.90 - Thyrotoxicosis, unspecified without (unknown) (no (unknown) (unknown) Blood Pressure (units (unknown) date) Location Lt unknown) brachial (unknown) (no (unknown) (unknown) Chief Complaint (units (unknown) date) unknown) (unknown) (no (unknown) (unknown) Chief Complaint: (units (unknown) date) ED f/u unknown) hyperthyroidism (unknown) (no (unknown) (unknown) Complete Blood (units (unknown) date) Count NO DIFF 4 unknown) Weeks E05.90 - Thyrotoxicosis, unspecified (unknown) (no (unknown) (unknown) : 1990 (units (unknown) date) Acct:[id number] unknown) (unknown) (no (unknown) (unknown) Dept at (units (unkno wn) date) . unknown) (unknown) (no (unknown) (unknown) Details: (units (unkno wn) date) unknown) (unknown) (no (unknown) (unknown) Documented By: (units (unknown) date) Meng Rendon unknown) 08/16/22 0957 (unknown) (no (unknown) (unknown) Draft (units (unkno wn) date) unknown) (unknown) (no (unknown) (unknown) Family Practice (units (unknown) date) Office Visit unknown) (unknown) (no (unknown) (unknown) [facility] ([facility]) (unknown) (no (unknown) (unknown) Free T4, Direct (units (unknown) date) Thyroxine 4 Weeks unknown) E05.90 - Thyrotoxicosis, unspecified without (unknown) (no (unknown) (unknown) HPI (units (unkno wn) date) unknown) (unknown) (no (unknown) (unknown) Health Management (units (unknown) date) reviewed with unknown) patient: No (unknown) (no (unknown) (unknown) Health Management (units (unknown) date) unknown) (unknown) (no (unknown) (unknown) Height 5 ft 2 in (units (unknown) date) unknown) (unknown) (no (unknown) (unknown) Hyperthyroidism (units (unknown) date) affecting unknown) in second trimester (08/04/15) (unknown) (no (unknown) (unknown) Intake Note: (units (u nknown) date) unknown) (unknown) (no (unknown) (unknown) Intake (units (unkno wn) date) unknown) (unknown) (no (unknown) (unknown) Is last menstrual (units (unknown) date) period known: No unknown) (unknown) (no (unknown) (unknown) July 2014, (units ( unknown) date) only took unknown) medication for a couple of months at most. Heart was (unknown) (no (unknown) (unknown) Karyotype 45, X (units (unknown) date) (09/10/15) unknown) (unknown) (no (unknown) (unknown) Last Menstural (units (unknown) date) Cycle + Details unknown) (unknown) (no (unknown) (unknown) Loc: [facility] (units (unkno wn) date) unknown) (unknown) (no (unknown) (unknown) Medical History (units (unknown) date) (Reviewed 08/10/22 unknown) @ 22:00 by Paris Burrell DO) (unknown) (no (unknown) (unknown) Medications (units (un known) date) unknown) (unknown) (no (unknown) (unknown) Orders (units (unkno wn) date) unknown) (unknown) (no (unknown) (unknown) Orders: (units (unkno wn) date) unknown) (unknown) (no (unknown) (unknown) Other Menstrual (units (unknown) date) Period: Uncertain unknown) (unknown) (no (unknown) (unknown) Oxygen Delivery (units (unknown) date) Method room air unknown) (unknown) (no (unknown) (unknown) PFSH (units (unkno wn) date) unknown) (unknown) (no (unknown) (unknown) POC PREG (units (unkno wn) date) unknown) (unknown) (no (unknown) (unknown) POC Preg Test (units ( unknown) date) Negative Last Edit unknown) by Richelle Rodriguez LPN on 08/16/22 10:21 (unknown) (no (unknown) (unknown) POC Urine (units (unkn own) date) Test unknown) Today E05.90 - Thyrotoxicosis, unspecified without (unknown) (no (unknown) (unknown) Patient: (units (unkno wn) date) Lashaun Hooker M unknown) MR#: [id number] (unknown) (no (unknown) (unknown) Position Sitting (units (unknown) date) unknown) (unknown) (no (unknown) (unknown) Preg Expiration (units (unknown) date) 07-16-2023 Last unknown) Edit by Richelle Rodriguez LPN on 08/16/22 (unknown) (no (unknown) (unknown) Preg Lot # (units (unk nown) date) [id number] Last unknown) Edit by Richelle Rodriguez LPN on 08/16/22 10:21 (unknown) (no (unknown) (unknown) Preg QC (units (unkno wn) date) Acceptable? Yes unknown) Last Edit by Richelle Rodriguez LPN on 08/16/22 10:2 (unknown) (no (unknown) (unknown) Pulse 116 H (units (un known) date) unknown) (unknown) (no (unknown) (unknown) Pulse Oximetry (units (unknown) date) (%) 97 unknown) (unknown) (no (unknown) (unknown) Pulse Source (units (u nknown) date) Monitor unknown) (unknown) (no (unknown) (unknown) Rash (units (unkno wn) date) unknown) (unknown) (no (unknown) (unknown) Rash/nausea (units (un known) date) unknown) (unknown) (no (unknown) (unknown) Reason For Visit (units (unknown) date) unknown) (unknown) (no (unknown) (unknown) Referral (units (unkno wn) date) Endocrinology unknown) E05.90 - Thyrotoxicosis, unspecified without thyrotoxic (unknown) (no (unknown) (unknown) Referrals (units (unkn own) date) unknown) (unknown) (no (unknown) (unknown) Respiration 16 (units (unknown) date) unknown) (unknown) (no (unknown) (unknown) Results (units (unkno wn) date) unknown) (unknown) (no (unknown) (unknown) Signed By: (units (unk nown) date) unknown) (unknown) (no (unknown) (unknown) Smoking Status: (units (unknown) date) Current every day unknown) smoker (unknown) (no (unknown) (unknown) Spontaneous (units (un known) date) vaginal delivery unknown) (unknown) (no (unknown) (unknown) Status post (units (un known) date) tonsillectomy and unknown) adenoidectomy (unknown) (no (unknown) (unknown) Status: Acute (units ( unknown) date) unknown) (unknown) (no (unknown) (unknown) Surgical History (units (unknown) date) (Reviewed 08/10/22 unknown) @ 22:00 by Paris Burrell DO) (unknown) (no (unknown) (unknown) Temp 98.2 F (units (un known) date) unknown) (unknown) (no (unknown) (unknown) Temp Source (units (un known) date) Temporal Artery unknown) Scan (unknown) (no (unknown) (unknown) This note may (units ( unknown) date) have been all or unknown) partially generated using voice recognition (unknown) (no (unknown) (unknown) Thyroid (units (unkno wn) date) Stimulating unknown) Hormone 4 Weeks E05.90 - Thyrotoxicosis, unspecified without (unknown) (no (unknown) (unknown) Tobacco + (units (unkn own) date) Substance Use unknown) (unknown) (no (unknown) (unknown) Tobacco Status (units (unknown) date) unknown) (unknown) (no (unknown) (unknown) Visit Reasons: (units (unknown) date) establish care-d/c unknown) from admit*comment (unknown) (no (unknown) (unknown) Vitals (units (unkno wn) date) unknown) (unknown) (no (unknown) (unknown) Weight 108 lb 4 (units (unknown) date) oz unknown) (unknown) (no (unknown) (unknown) adhesive tape (units ( unknown) date) [ADHESIVE TAPE] unknown) Allergy (Unknown, Verified 08/16/22 09:59) (unknown) (no (unknown) (unknown) atenolol 25 mg (units (unknown) date) tablet 25 mg PO unknown) DAILY #60 tabs 08/10/22 [Rx Confirmed 08/16/22] (unknown) (no (unknown) (unknown) crisis or storm (units (unknown) date) unknown) (unknown) (no (unknown) (unknown) have occurred. If (units (unknown) date) there are any unknown) questions, please contact the Medical Records (unknown) (no (unknown) (unknown) hydrocodone [From (units (unknown) date) VICODIN] Allergy unknown) (Unknown, Verified 08/16/22 09:59) (unknown) (no (unknown) (unknown) may occur. (units (unk nown) date) Occasional unknown) wrong-word or 'sound-alike' substitutions may have (unknown) (no (unknown) (unknown) methimazole 10 mg (units (unknown) date) tablet 10 mg PO unknown) BID #60 tabs 08/10/22 [Rx Confirmed 08/16/22] (unknown) (no (unknown) (unknown) occurred due to (units (unknown) date) the inherent unknown) limitations of voice recognition software. Please (unknown) (no (unknown) (unknown) past 2 months. (units (unknown) date) Went to the ED unknown) (unknown) (no (unknown) (unknown) racing, throat (units ( unknown) date) seemed more unknown) swollen than usual with 15 pound weight loss over the (unknown) (no (unknown) (unknown) read the note (units ( unknown) date) carefully and unknown) recognize, using context, where these substitutions (unknown) (no (unknown) (unknown) software. 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 with (units (unk nown) date) Salari* 31 Y F, unknown) patient here today to f/u on ED visit. (unknown) (no (unknown) (unknown) 08/16/22 (units (unkno wn) date) unknown) (unknown) (no (unknown) (unknown) [id number] (units (unkno wn) date) unknown) (unknown) (no (unknown) (unknown) 1 (units (unkno wn) date) unknown) (unknown) (no (unknown) (unknown) 10:01 (units (unkno wn) date) unknown) (unknown) (no (unknown) (unknown) 10:21 (units (unkno wn) date) unknown) (unknown) (no (unknown) (unknown) Age/Sex: 31 / F (units (unknown) date) Date of Service: unknown) (unknown) (no (unknown) (unknown) Allergies (units (unkn own) date) unknown) (unknown) (no (unknown) (unknown) [place] (units ( unknown) date) [id number] unknown) (unknown) (no (unknown) (unknown) Appointment to (units (unknown) date) establish care unknown) with Dr. Murrell 09/05/2022 (unknown) (no (unknown) (unknown) Assessment + Plan (units (unknown) date) unknown) (unknown) (no (unknown) (unknown) Attending Dr: (units ( unknown) date) Meng NEGRON unknown) (unknown) (no (unknown) (unknown) BID and atenolol (units (unknown) date) 25mg once daily. 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, unspecified without (unknown) (no (unknown) (unknown) Blood Pressure (units (unknown) date) Location Lt unknown) brachial (unknown) (no (unknown) (unknown) Chief Complaint (units (unknown) date) unknown) (unknown) (no (unknown) (unknown) Chief Complaint: (units (unknown) date) ED f/u unknown) hyperthyroidism (unknown) (no (unknown) (unknown) Complete Blood (units (unknown) date) Count NO DIFF 4 unknown) Weeks E05.90 - Thyrotoxicosis, unspecified (unknown) (no (unknown) (unknown) : 1990 (units (unknown) date) Acct:[id number] unknown) (unknown) (no (unknown) (unknown) Dept at (units (unkno wn) date) . unknown) (unknown) (no (unknown) (unknown) Details: (units (unkno wn) date) unknown) (unknown) (no (unknown) (unknown) Documented By: (units (unknown) date) Meng Rendon unknown) 08/16/22 0957 (unknown) (no (unknown) (unknown) Draft (units (unkno wn) date) unknown) (unknown) (no (unknown) (unknown) Family Practice (units (unknown) date) Office Visit unknown) (unknown) (no (unknown) (unknown) [facility]) (unknown) (no (unknown) (unknown) Free T4, Direct (units (unknown) date) Thyroxine 4 Weeks unknown) E05.90 - Thyrotoxicosis, unspecified without (unknown) (no (unknown) (unknown) HPI (units (unkno wn) date) unknown) (unknown) (no (unknown) (unknown) Health Management (units (unknown) date) reviewed with unknown) patient: No (unknown) (no (unknown) (unknown) Health Management (units (unknown) date) unknown) (unknown) (no (unknown) (unknown) Height 5 ft 2 in (units (unknown) date) unknown) (unknown) (no (unknown) (unknown) Hyperthyroidism (units (unknown) date) affecting unknown) in second trimester (08/04/15) (unknown) (no (unknown) (unknown) Intake Note: (units (u nknown) date) unknown) (unknown) (no (unknown) (unknown) Intake (units (unkno wn) date) unknown) (unknown) (no (unknown) (unknown) Is last menstrual (units (unknown) date) period known: No unknown) (unknown) (no (unknown) (unknown) July 2014, (units ( unknown) date) only took unknown) medication for a couple of months at most. Heart was (unknown) (no (unknown) (unknown) Karyotype 45, X (units (unknown) date) (09/10/15) unknown) (unknown) (no (unknown) (unknown) Last Menstural (units (unknown) date) Cycle + Details unknown) (unknown) (no (unknown) (unknown) Loc: [facility] (units (unkno wn) date) unknown) (unknown) (no (unknown) (unknown) Medical History (units (unknown) date) (Reviewed 08/10/22 unknown) @ 22:00 by Parsi Burrell DO) (unknown) (no (unknown) (unknown) Medications (units (un known) date) unknown) (unknown) (no (unknown) (unknown) Orders (units (unkno wn) date) unknown) (unknown) (no (unknown) (unknown) Orders: (units (unkno wn) date) unknown) (unknown) (no (unknown) (unknown) Other Menstrual (units (unknown) date) Period: Uncertain unknown) (unknown) (no (unknown) (unknown) Oxygen Delivery (units (unknown) date) Method room air unknown) (unknown) (no (unknown) (unknown) PFSH (units (unkno wn) date) unknown) (unknown) (no (unknown) (unknown) POC PREG (units (unkno wn) date) unknown) (unknown) (no (unknown) (unknown) POC Preg Test (units ( unknown) date) Negative Last Edit unknown) by Richelle Rodriguez LPN on 08/16/22 10:21 (unknown) (no (unknown) (unknown) POC Urine (units (unkn own) date) Test unknown) Today E05.90 - Thyrotoxicosis, unspecified without (unknown) (no (unknown) (unknown) Patient: (units (unkno wn) date) Lashaun Hooker M unknown) MR#: [id number] (unknown) (no (unknown) (unknown) Position Sitting (units (unknown) date) unknown) (unknown) (no (unknown) (unknown) Preg Expiration (units (unknown) date) 07-16-2023 Last unknown) Edit by Richelle Rodriguez LPN on 08/16/22 (unknown) (no (unknown) (unknown) Preg Lot # (units (unk nown) date) [id number] Last unknown) Edit by Richelle Rodriguez LPN on 08/16/22 10:21 (unknown) (no (unknown) (unknown) Preg QC (units (unkno wn) date) Acceptable? Yes unknown) Last Edit by Richelle Rodriguez LPN on 08/16/22 10:2 (unknown) (no (unknown) (unknown) Pulse 116 H (units (un known) date) unknown) (unknown) (no (unknown) (unknown) Pulse Oximetry (units (unknown) date) (%) 97 unknown) (unknown) (no (unknown) (unknown) Pulse Source (units (u nknown) date) Monitor unknown) (unknown) (no (unknown) (unknown) Rash (units (unkno wn) date) unknown) (unknown) (no (unknown) (unknown) Rash/nausea (units (un known) date) unknown) (unknown) (no (unknown) (unknown) Reason For Visit (units (unknown) date) unknown) (unknown) (no (unknown) (unknown) Referral (units (unkno wn) date) Endocrinology unknown) E05.90 - Thyrotoxicosis, unspecified without thyrotoxic (unknown) (no (unknown) (unknown) Referrals (units (unkn own) date) unknown) (unknown) (no (unknown) (unknown) Respiration 16 (units (unknown) date) unknown) (unknown) (no (unknown) (unknown) Results (units (unkno wn) date) unknown) (unknown) (no (unknown) (unknown) Signed By: (units (unk nown) date) unknown) (unknown) (no (unknown) (unknown) Smoking Status: (units (unknown) date) Current every day unknown) smoker (unknown) (no (unknown) (unknown) Spontaneous (units (un known) date) vaginal delivery unknown) (unknown) (no (unknown) (unknown) Status post (units (un known) date) tonsillectomy and unknown) adenoidectomy (unknown) (no (unknown) (unknown) Status: Acute (units ( unknown) date) unknown) (unknown) (no (unknown) (unknown) Surgical History (units (unknown) date) (Reviewed 08/10/22 unknown) @ 22:00 by Paris Burrell DO) (unknown) (no (unknown) (unknown) Temp 98.2 F (units (un known) date) unknown) (unknown) (no (unknown) (unknown) Temp Source (units (un known) date) Temporal Artery unknown) Scan (unknown) (no (unknown) (unknown) This note may (units ( unknown) date) have been all or unknown) partially generated using voice recognition (unknown) (no (unknown) (unknown) Thyroid (units (unkno wn) date) Stimulating unknown) Hormone 4 Weeks E05.90 - Thyrotoxicosis, unspecified without (unknown) (no (unknown) (unknown) Tobacco + (units (unkn own) date) Substance Use unknown) (unknown) (no (unknown) (unknown) Tobacco Status (units (unknown) date) unknown) (unknown) (no (unknown) (unknown) Visit Reasons: (units (unknown) date) establish care-d/c unknown) from admit*comment (unknown) (no (unknown) (unknown) Vitals (units (unkno wn) date) unknown) (unknown) (no (unknown) (unknown) Weight 108 lb 4 (units (unknown) date) oz unknown) (unknown) (no (unknown) (unknown) adhesive tape (units ( unknown) date) [ADHESIVE TAPE] unknown) Allergy (Unknown, Verified 08/16/22 09:59) (unknown) (no (unknown) (unknown) atenolol 25 mg (units (unknown) date) tablet 25 mg PO unknown) DAILY #60 tabs 08/10/22 [Rx Confirmed 08/16/22] (unknown) (no (unknown) (unknown) atenolol to twice (units (unknown) date) daily. unknown) (unknown) (no (unknown) (unknown) crisis or storm (units (unknown) date) unknown) (unknown) (no (unknown) (unknown) feels better (units (u nknown) date) however her heart unknown) is 'still beating fast'. Agrees to increase her (unknown) (no (unknown) (unknown) have occurred. If (units (unknown) date) there are any unknown) questions, please contact the Medical Records (unknown) (no (unknown) (unknown) hydrocodone [From (units (unknown) date) VICODIN] Allergy unknown) (Unknown, Verified 08/16/22 09:59) (unknown) (no (unknown) (unknown) may occur. (units (unk nown) date) Occasional unknown) wrong-word or 'sound-alike' substitutions may have (unknown) (no (unknown) (unknown) methimazole 10 mg (units (unknown) date) tablet 10 mg PO unknown) BID #60 tabs 08/10/22 [Rx Confirmed 08/16/22] (unknown) (no (unknown) (unknown) occurred due to (units (unknown) date) the inherent unknown) limitations of voice recognition software. Please (unknown) (no (unknown) (unknown) past 2 months. (units ( unknown) date) Went to the ED for unknown) evaluation and was prescribed methimazole 10mg (unknown) (no (unknown) (unknown) racing, throat (units ( unknown) date) seemed more unknown) swollen than usual with 15 pound weight loss over the (unknown) (no (unknown) (unknown) read the note (units ( unknown) date) carefully and unknown) recognize, using context, where these substitutions (unknown) (no (unknown) (unknown) software. 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 with Nyasia* (units (unknown) date) 31 Y F, patient unknown) here today to f/u on ED visit. (unknown) (no (unknown) (unknown) 08/16/22 (units (unkno wn) date) unknown) (unknown) (no (unknown) (unknown) [id number] (units (unkno wn) date) unknown) (unknown) (no (unknown) (unknown) 1 (units (unkno wn) date) unknown) (unknown) (no (unknown) (unknown) 10:01 (units (unkno wn) date) unknown) (unknown) (no (unknown) (unknown) 10:21 (units (unkno wn) date) unknown) (unknown) (no (unknown) (unknown) Age/Sex: 31 / F (units (unknown) date) Date of Service: unknown) (unknown) (no (unknown) (unknown) Allergies (units (unkn own) date) unknown) (unknown) (no (unknown) (unknown) [place], [place] (units ( unknown) date) [id number] unknown) (unknown) (no (unknown) (unknown) Appointment to (units (unknown) date) establish care with unknown) Dr. Murrell 09/05/2022 (unknown) (no (unknown) (unknown) Assessment + Plan (units (unknown) date) unknown) (unknown) (no (unknown) (unknown) Attending Dr: (units ( unknown) date) Meng NEGRON unknown) (unknown) (no (unknown) (unknown) BID and atenolol (units (unknown) date) 25mg once daily. 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, unspecified without (unknown) (no (unknown) (unknown) Blood Pressure (units (unknown) date) Location Lt unknown) brachial (unknown) (no (unknown) (unknown) Changed (units (unkno wn) date) unknown) (unknown) (no (unknown) (unknown) Chief Complaint (units (unknown) date) unknown) (unknown) (no (unknown) (unknown) Chief Complaint: (units (unknown) date) ED f/u unknown) hyperthyroidism (unknown) (no (unknown) (unknown) Complete Blood (units (unknown) date) Count NO DIFF 4 unknown) Weeks E05.90 - Thyrotoxicosis, unspecified (unknown) (no (unknown) (unknown) : 1990 (units (unknown) date) Acct:[id number] unknown) (unknown) (no (unknown) (unknown) Dept at (units (unkno wn) date) . unknown) (unknown) (no (unknown) (unknown) Details: (units (unkno wn) date) unknown) (unknown) (no (unknown) (unknown) Documented By: (units (unknown) date) Meng Rendon unknown) 08/16/22 0957 (unknown) (no (unknown) (unknown) Draft (units (unkno wn) date) unknown) (unknown) (no (unknown) (unknown) Family Practice (units (unknown) date) Office Visit unknown) (unknown) (no (unknown) (unknown) [facility] ([facility] date[facility]) (unknown) (no (unknown) (unknown) Free T3, (units (unkno wn) date) Triiodothyronine unknown) Free 4 Weeks E05.90 - Thyrotoxicosis, unspecified (unknown) (no (unknown) (unknown) Free T4, Direct (units (unknown) date) Thyroxine 4 Weeks unknown) E05.90 - Thyrotoxicosis, unspecified without (unknown) (no (unknown) (unknown) From atenolol 25 (units (unknown) date) mg PO DAILY 60 tabs unknown) 0RF (unknown) (no (unknown) (unknown) HPI (units (unkno wn) date) unknown) (unknown) (no (unknown) (unknown) Health Management (units (unknown) date) reviewed with unknown) patient: No (unknown) (no (unknown) (unknown) Health Management (units (unknown) date) unknown) (unknown) (no (unknown) (unknown) Height 5 ft 2 in (units (unknown) date) unknown) (unknown) (no (unknown) (unknown) Hyperthyroidism (units (unknown) date) affecting unknown) in second trimester (08/04/15) (unknown) (no (unknown) (unknown) Intake Note: (units (u nknown) date) unknown) (unknown) (no (unknown) (unknown) Intake (units (unkno wn) date) unknown) (unknown) (no (unknown) (unknown) Is last menstrual (units (unknown) date) period known: No unknown) (unknown) (no (unknown) (unknown) July 2014, only (units (unknown) date) took medication for unknown) a couple of months at most. Heart was (unknown) (no (unknown) (unknown) Karyotype 45, X (units (unknown) date) (09/10/15) unknown) (unknown) (no (unknown) (unknown) Last Menstural (units (unknown) date) Cycle + Details unknown) (unknown) (no (unknown) (unknown) Loc: [facility] (units (unkno wn) date) unknown) (unknown) (no (unknown) (unknown) Medical History (units (unknown) date) (Reviewed 08/10/22 unknown) @ 22:00 by Paris Burrell DO) (unknown) (no (unknown) (unknown) Medications (units (un known) date) unknown) (unknown) (no (unknown) (unknown) Medications: (units (u nknown) date) unknown) (unknown) (no (unknown) (unknown) NM uptake and scan (units (unknown) date) 4 Weeks E05.90 - unknown) Thyrotoxicosis, unspecified without (unknown) (no (unknown) (unknown) Orders (units (unkno wn) date) unknown) (unknown) (no (unknown) (unknown) Orders: (units (unkno wn) date) unknown) (unknown) (no (unknown) (unknown) Other Menstrual (units (unknown) date) Period: Uncertain unknown) (unknown) (no (unknown) (unknown) Oxygen Delivery (units (unknown) date) Method room air unknown) (unknown) (no (unknown) (unknown) PFSH (units (unkno wn) date) unknown) (unknown) (no (unknown) (unknown) POC PREG (units (unkno wn) date) unknown) (unknown) (no (unknown) (unknown) POC Preg Test (units ( unknown) date) Negative Last Edit unknown) by Richelle Rodriguez LPN on 08/16/22 10:21 (unknown) (no (unknown) (unknown) POC Urine (units (unkn own) date) Test unknown) Today E05.90 - Thyrotoxicosis, unspecified without (unknown) (no (unknown) (unknown) Patient: (units (unkno wn) date) Lashaun Hooker M unknown) MR#: [id number] (unknown) (no (unknown) (unknown) Position Sitting (units (unknown) date) unknown) (unknown) (no (unknown) (unknown) Preg Expiration (units (unknown) date) 07-16-2023 Last unknown) Edit by Rihcelle Rodriguez LPN on 08/16/22 (unknown) (no (unknown) (unknown) Preg Lot # (units (unk nown) date) [id number] Last unknown) Edit by Richelle Rodriguez LPN on 08/16/22 10:21 (unknown) (no (unknown) (unknown) Preg QC (units (unkno wn) date) Acceptable? Yes unknown) Last Edit by Richelle Rodriguez LPN on 08/16/22 10:2 (unknown) (no (unknown) (unknown) Pulse 116 H (units (un known) date) unknown) (unknown) (no (unknown) (unknown) Pulse Oximetry (%) (units (unknown) date) 97 unknown) (unknown) (no (unknown) (unknown) Pulse Source (units (u nknown) date) Monitor unknown) (unknown) (no (unknown) (unknown) Rash (units (unkno wn) date) unknown) (unknown) (no (unknown) (unknown) Rash/nausea (units (un known) date) unknown) (unknown) (no (unknown) (unknown) Reason For Visit (units (unknown) date) unknown) (unknown) (no (unknown) (unknown) Referral (units (unkno wn) date) Endocrinology unknown) E05.90 - Thyrotoxicosis, unspecified without thyrotoxic (unknown) (no (unknown) (unknown) Referrals (units (unkn own) date) unknown) (unknown) (no (unknown) (unknown) Refilled (units (unkno wn) date) unknown) (unknown) (no (unknown) (unknown) Respiration 16 (units (unknown) date) unknown) (unknown) (no (unknown) (unknown) Results (units (unkno wn) date) unknown) (unknown) (no (unknown) (unknown) Signed By: (units (unk nown) date) unknown) (unknown) (no (unknown) (unknown) Smoking Status: (units (unknown) date) Current every day unknown) smoker (unknown) (no (unknown) (unknown) Spontaneous (units (un known) date) vaginal delivery unknown) (unknown) (no (unknown) (unknown) Status post (units (un known) date) tonsillectomy and unknown) adenoidectomy (unknown) (no (unknown) (unknown) Status: Acute (units ( unknown) date) unknown) (unknown) (no (unknown) (unknown) Surgical History (units (unknown) date) (Reviewed 08/10/22 unknown) @ 22:00 by Paris Burrell DO) (unknown) (no (unknown) (unknown) Temp 98.2 F (units (un known) date) unknown) (unknown) (no (unknown) (unknown) Temp Source (units (un known) date) Temporal Artery unknown) Scan (unknown) (no (unknown) (unknown) This note may have (units (unknown) date) been all or unknown) partially generated using voice recognition (unknown) (no (unknown) (unknown) Thyroid Stimulating (units (unknown) date) Hormone 4 Weeks unknown) E05.90 - Thyrotoxicosis, unspecified without (unknown) (no (unknown) (unknown) To atenolol 25 mg (units (unknown) date) PO BID 120 tabs 0RF unknown) (unknown) (no (unknown) (unknown) Tobacco + (units (unkn own) date) Substance Use unknown) (unknown) (no (unknown) (unknown) Tobacco Status (units (unknown) date) unknown) (unknown) (no (unknown) (unknown) Visit Reasons: (units (unknown) date) establish care-d/c unknown) from admit*comment (unknown) (no (unknown) (unknown) Vitals (units (unkno wn) date) unknown) (unknown) (no (unknown) (unknown) Weight 108 lb 4 oz (units (unknown) date) unknown) (unknown) (no (unknown) (unknown) adhesive tape (units ( unknown) date) [ADHESIVE TAPE] unknown) Allergy (Unknown, Verified 08/16/22 09:59) (unknown) (no (unknown) (unknown) atenolol 25 mg (units (unknown) date) tablet 25 mg PO BID unknown) #120 tabs 08/16/22 [Rx Confirmed 08/16/22] (unknown) (no (unknown) (unknown) atenolol to twice (units (unknown) date) daily. unknown) (unknown) (no (unknown) (unknown) crisis or storm (units (unknown) date) unknown) (unknown) (no (unknown) (unknown) feels better (units (u nknown) date) however her heart unknown) is 'still beating fast'. Agrees to increase her (unknown) (no (unknown) (unknown) have occurred. If (units (unknown) date) there are any unknown) questions, please contact the Medical Records (unknown) (no (unknown) (unknown) hydrocodone [From (units (unknown) date) VICODIN] Allergy unknown) (Unknown, Verified 08/16/22 09:59) (unknown) (no (unknown) (unknown) may occur. (units (unk nown) date) Occasional unknown) wrong-word or 'sound-alike' substitutions may have (unknown) (no (unknown) (unknown) methimazole 10 mg (units (unknown) date) PO BID 120 tabs 0RF unknown) (unknown) (no (unknown) (unknown) methimazole 10 mg (units (unknown) date) tablet 10 mg PO BID unknown) #120 tabs 08/16/22 [Rx Confirmed 08/16/22] (unknown) (no (unknown) (unknown) occurred due to (units (unknown) date) the inherent unknown) limitations of voice recognition software. Please (unknown) (no (unknown) (unknown) past 2 months. Went (units (unknown) date) to the ED for unknown) evaluation and was prescribed methimazole 10mg (unknown) (no (unknown) (unknown) racing, throat (units ( unknown) date) seemed more swollen unknown) than usual with 15 pound weight loss over the (unknown) (no (unknown) (unknown) read the note (units ( unknown) date) carefully and unknown) recognize, using context, where these substitutions (unknown) (no (unknown) (unknown) software. 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 with Salari* (units (unknown) date) 31 Y F, patient unknown) here today to f/u on ED visit. (unknown) (no (unknown) (unknown) 08/16/22 (units (unkno wn) date) unknown) (unknown) (no (unknown) (unknown) [id number] (units (unkno wn) date) unknown) (unknown) (no (unknown) (unknown) 1 (units (unkno wn) date) unknown) (unknown) (no (unknown) (unknown) 10:01 (units (unkno wn) date) unknown) (unknown) (no (unknown) (unknown) 10:21 (units (unkno wn) date) unknown) (unknown) (no (unknown) (unknown) Age/Sex: 31 / F (units (unknown) date) Date of Service: unknown) (unknown) (no (unknown) (unknown) Allergies (units (unkn own) date) unknown) (unknown) (no (unknown) (unknown) [place], [place] (units ( unknown) date) [id number] unknown) (unknown) (no (unknown) (unknown) Appointment to (units (unknown) date) establish care with unknown) Dr. Murrell 09/05/2022 (unknown) (no (unknown) (unknown) Assessment + Plan (units (unknown) date) unknown) (unknown) (no (unknown) (unknown) Attending Dr: (units ( unknown) date) Meng NEGRON unknown) (unknown) (no (unknown) (unknown) BID and atenolol (units (unknown) date) 25mg once daily. 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, unspecified without (unknown) (no (unknown) (unknown) Blood Pressure (units (unknown) date) Location Lt unknown) brachial (unknown) (no (unknown) (unknown) Changed (units (unkno wn) date) unknown) (unknown) (no (unknown) (unknown) Chief Complaint (units (unknown) date) unknown) (unknown) (no (unknown) (unknown) Chief Complaint: (units (unknown) date) ED f/u unknown) hyperthyroidism (unknown) (no (unknown) (unknown) Complete Blood (units (unknown) date) Count NO DIFF 4 unknown) Weeks E05.90 - Thyrotoxicosis, unspecified (unknown) (no (unknown) (unknown) : 1990 (units (unknown) date) Acct:[id number] unknown) (unknown) (no (unknown) (unknown) Dept at (units (unkno wn) date) . unknown) (unknown) (no (unknown) (unknown) Details: (units (unkno wn) date) unknown) (unknown) (no (unknown) (unknown) Documented By: (units (unknown) date) Meng Rendon unknown) 08/16/22 0957 (unknown) (no (unknown) (unknown) Draft (units (unkno wn) date) unknown) (unknown) (no (unknown) (unknown) Family Practice (units (unknown) date) Office Visit unknown) (unknown) (no (unknown) (unknown) [facility]) (unknown) (no (unknown) (unknown) Free T3, (units (o wn) date) Triiodothyronine unknown) Free 4 Weeks E05.90 - Thyrotoxicosis, unspecified (unknown) (no (unknown) (unknown) Free T4, Direct (units (unknown) date) Thyroxine 4 Weeks unknown) E05.90 - Thyrotoxicosis, unspecified without (unknown) (no (unknown) (unknown) From atenolol 25 (units (unknown) date) mg PO DAILY 60 tabs unknown) 0RF (unknown) (no (unknown) (unknown) HPI (units (unkno wn) date) unknown) (unknown) (no (unknown) (unknown) Health Management (units (unknown) date) reviewed with unknown) patient: No (unknown) (no (unknown) (unknown) Health Management (units (unknown) date) unknown) (unknown) (no (unknown) (unknown) Height 5 ft 2 in (units (unknown) date) unknown) (unknown) (no (unknown) (unknown) Hyperthyroidism (units (unknown) date) affecting unknown) in second trimester (08/04/15) (unknown) (no (unknown) (unknown) Intake Note: (units (u nknown) date) unknown) (unknown) (no (unknown) (unknown) Intake (units (unkno wn) date) unknown) (unknown) (no (unknown) (unknown) Is last menstrual (units (unknown) date) period known: No unknown) (unknown) (no (unknown) (unknown) July 2014, only (units (unknown) date) took medication for unknown) a couple of months at most. Heart was (unknown) (no (unknown) (unknown) Karyotype 45, X (units (unknown) date) (09/10/15) unknown) (unknown) (no (unknown) (unknown) Last Menstural (units (unknown) date) Cycle + Details unknown) (unknown) (no (unknown) (unknown) Loc: [facility] (units (unkno wn) date) unknown) (unknown) (no (unknown) (unknown) Medical History (units (unknown) date) (Reviewed 08/10/22 unknown) @ 22:00 by Paris Burrell DO) (unknown) (no (unknown) (unknown) Medications (units (un known) date) unknown) (unknown) (no (unknown) (unknown) Medications: (units (u nknown) date) unknown) (unknown) (no (unknown) (unknown) NM uptake and scan (units (unknown) date) 4 Weeks E05.90 - unknown) Thyrotoxicosis, unspecified without (unknown) (no (unknown) (unknown) Orders (units (unkno wn) date) unknown) (unknown) (no (unknown) (unknown) Orders: (units (unkno wn) date) unknown) (unknown) (no (unknown) (unknown) Other Menstrual (units (unknown) date) Period: Uncertain unknown) (unknown) (no (unknown) (unknown) Oxygen Delivery (units (unknown) date) Method room air unknown) (unknown) (no (unknown) (unknown) PFSH (units (unkno wn) date) unknown) (unknown) (no (unknown) (unknown) POC PREG (units (unkno wn) date) unknown) (unknown) (no (unknown) (unknown) POC Preg Test (units ( unknown) date) Negative Last Edit unknown) by Richelle Rodriguez LPN on 08/16/22 10:21 (unknown) (no (unknown) (unknown) POC Urine (units (unkn own) date) Test unknown) 08/16/22 E05.90 - Thyrotoxicosis, unspecified without (unknown) (no (unknown) (unknown) Patient: (units (unkno wn) date) Lashaun Hooker M unknown) MR#: [id number] (unknown) (no (unknown) (unknown) Position Sitting (units (unknown) date) unknown) (unknown) (no (unknown) (unknown) Preg Expiration (units (unknown) date) 07-16-2023 Last unknown) Edit by Richelle Rodriguez LPN on 08/16/22 (unknown) (no (unknown) (unknown) Preg Lot # (units (unk nown) date) [id number] Last unknown) Edit by Richelle Rodriguez LPN on 08/16/22 10:21 (unknown) (no (unknown) (unknown) Preg QC (units (unkno wn) date) Acceptable? Yes unknown) Last Edit by Richelle Rodriguez LPN on 08/16/22 10:2 (unknown) (no (unknown) (unknown) Pulse 116 H (units (un known) date) unknown) (unknown) (no (unknown) (unknown) Pulse Oximetry (%) (units (unknown) date) 97 unknown) (unknown) (no (unknown) (unknown) Pulse Source (units (u nknown) date) Monitor unknown) (unknown) (no (unknown) (unknown) Rash (units (unkno wn) date) unknown) (unknown) (no (unknown) (unknown) Rash/nausea (units (un known) date) unknown) (unknown) (no (unknown) (unknown) Reason For Visit (units (unknown) date) unknown) (unknown) (no (unknown) (unknown) Referral (units (unkno wn) date) Endocrinology unknown) E05.90 - Thyrotoxicosis, unspecified without thyrotoxic (unknown) (no (unknown) (unknown) Referrals (units (unkn own) date) unknown) (unknown) (no (unknown) (unknown) Refilled (units (unkno wn) date) unknown) (unknown) (no (unknown) (unknown) Respiration 16 (units (unknown) date) unknown) (unknown) (no (unknown) (unknown) Results (units (unkno wn) date) unknown) (unknown) (no (unknown) (unknown) Signed By: (units (unk nown) date) unknown) (unknown) (no (unknown) (unknown) Smoking Status: (units (unknown) date) Current every day unknown) smoker (unknown) (no (unknown) (unknown) Spontaneous (units (un known) date) vaginal delivery unknown) (unknown) (no (unknown) (unknown) Status post (units (un known) date) tonsillectomy and unknown) adenoidectomy (unknown) (no (unknown) (unknown) Status: Acute (units ( unknown) date) unknown) (unknown) (no (unknown) (unknown) Surgical History (units (unknown) date) (Reviewed 08/10/22 unknown) @ 22:00 by Paris Burrell DO) (unknown) (no (unknown) (unknown) Temp 98.2 F (units (un known) date) unknown) (unknown) (no (unknown) (unknown) Temp Source (units (un known) date) Temporal Artery unknown) Scan (unknown) (no (unknown) (unknown) This note may have (units (unknown) date) been all or unknown) partially generated using voice recognition (unknown) (no (unknown) (unknown) Thyroid Stimulating (units (unknown) date) Hormone 4 Weeks unknown) E05.90 - Thyrotoxicosis, unspecified without (unknown) (no (unknown) (unknown) To atenolol 25 mg (units (unknown) date) PO BID 120 tabs 0RF unknown) (unknown) (no (unknown) (unknown) Tobacco + (units (unkn own) date) Substance Use unknown) (unknown) (no (unknown) (unknown) Tobacco Status (units (unknown) date) unknown) (unknown) (no (unknown) (unknown) Visit Reasons: (units (unknown) date) establish care-d/c unknown) from admit*comment (unknown) (no (unknown) (unknown) Vitals (units (unkno wn) date) unknown) (unknown) (no (unknown) (unknown) Weight 108 lb 4 oz (units (unknown) date) unknown) (unknown) (no (unknown) (unknown) adhesive tape (units ( unknown) date) [ADHESIVE TAPE] unknown) Allergy (Unknown, Verified 08/16/22 09:59) (unknown) (no (unknown) (unknown) atenolol 25 mg (units (unknown) date) tablet 25 mg PO BID unknown) #120 tabs 08/16/22 [Rx Confirmed 08/16/22] (unknown) (no (unknown) (unknown) atenolol to twice (units (unknown) date) daily. unknown) (unknown) (no (unknown) (unknown) crisis or storm (units (unknown) date) unknown) (unknown) (no (unknown) (unknown) feels better (units (u nknown) date) however her heart unknown) is 'still beating fast'. Agrees to increase her (unknown) (no (unknown) (unknown) have occurred. If (units (unknown) date) there are any unknown) questions, please contact the Medical Records (unknown) (no (unknown) (unknown) hydrocodone [From (units (unknown) date) VICODIN] Allergy unknown) (Unknown, Verified 08/16/22 09:59) (unknown) (no (unknown) (unknown) may occur. (units (unk nown) date) Occasional unknown) wrong-word or 'sound-alike' substitutions may have (unknown) (no (unknown) (unknown) methimazole 10 mg (units (unknown) date) PO BID 120 tabs 0RF unknown) (unknown) (no (unknown) (unknown) methimazole 10 mg (units (unknown) date) tablet 10 mg PO BID unknown) #120 tabs 08/16/22 [Rx Confirmed 08/16/22] (unknown) (no (unknown) (unknown) occurred due to (units (unknown) date) the inherent unknown) limitations of voice recognition software. Please (unknown) (no (unknown) (unknown) past 2 months. Went (units (unknown) date) to the ED for unknown) evaluation and was prescribed methimazole 10mg (unknown) (no (unknown) (unknown) racing, throat (units ( unknown) date) seemed more swollen unknown) than usual with 15 pound weight loss over the (unknown) (no (unknown) (unknown) read the note (units ( unknown) date) carefully and unknown) recognize, using context, where these substitutions (unknown) (no (unknown) (unknown) software. 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 with Nyasia* (units (unknown) date) 31 Y F, patient unknown) here today to f/u on ED visit. (unknown) (no (unknown) (unknown) 08/16/22 (units (unkno wn) date) unknown) (unknown) (no (unknown) (unknown) [id number] (units (unkno wn) date) unknown) (unknown) (no (unknown) (unknown) 1 (units (unkno wn) date) unknown) (unknown) (no (unknown) (unknown) 10 mg b.i.d. with (units (unknown) date) atenolol 25 mg unknown) daily in the emergency department. She is been (unknown) (no (unknown) (unknown) 10:01 (units (unkno wn) date) unknown) (unknown) (no (unknown) (unknown) 10:21 (units (unkno wn) date) unknown) (unknown) (no (unknown) (unknown) Affect: normal (units (unknown) date) affect unknown) (unknown) (no (unknown) (unknown) Age/Sex: 31 / F (units (unknown) date) Date of Service: unknown) (unknown) (no (unknown) (unknown) Allergies (units (unkn own) date) unknown) (unknown) (no (unknown) (unknown) [place] (units ( unknown) date) [id number] unknown) (unknown) (no (unknown) (unknown) Appointment to (units (unknown) date) establish care with unknown) Dr. Murrell 09/05/2022 (unknown) (no (unknown) (unknown) Assessment + Plan (units (unknown) date) unknown) (unknown) (no (unknown) (unknown) Assessment and (units (unknown) date) Plan: unknown) (unknown) (no (unknown) (unknown) Attending Dr: (units ( unknown) date) Meng NEGRON unknown) (unknown) (no (unknown) (unknown) Attitude: (units (unkn own) date) cooperative unknown) (unknown) (no (unknown) (unknown) Auscultation: (units ( unknown) date) clear to unknown) auscultation bilaterally (unknown) (no (unknown) (unknown) BMI 19.8 (units (unkno wn) date) unknown) (unknown) (no (unknown) (unknown) BP 120/62 (units (unkn own) date) unknown) (unknown) (no (unknown) (unknown) Basic Metabolic (units (unknown) date) Panel 4 Weeks unknown) E05.90 - Thyrotoxicosis, unspecified without (unknown) (no (unknown) (unknown) Blood Pressure (units (unknown) date) Location Lt unknown) brachial (unknown) (no (unknown) (unknown) Cardio (units (unkno wn) date) unknown) (unknown) (no (unknown) (unknown) Changed (units (unkno wn) date) unknown) (unknown) (no (unknown) (unknown) Chief Complaint (units (unknown) date) unknown) (unknown) (no (unknown) (unknown) Chief Complaint: (units (unknown) date) ED f/u unknown) hyperthyroidism (unknown) (no (unknown) (unknown) Cognition: normal (units (unknown) date) cognition unknown) (unknown) (no (unknown) (unknown) Complete Blood (units (unknown) date) Count NO DIFF 4 unknown) Weeks E05.90 - Thyrotoxicosis, unspecified (unknown) (no (unknown) (unknown) Const (units (unkno wn) date) unknown) (unknown) (no (unknown) (unknown) : 1990 (units (unknown) date) Acct:[id number] unknown) (unknown) (no (unknown) (unknown) Dept at (units (unkno wn) date) . unknown) (unknown) (no (unknown) (unknown) Details: (units (unkno wn) date) unknown) (unknown) (no (unknown) (unknown) Documented By: (units (unknown) date) Meng Rendon unknown) 08/16/22 0957 (unknown) (no (unknown) (unknown) Draft (units (unkno wn) date) unknown) (unknown) (no (unknown) (unknown) ED for any (units (unk nown) date) worsening symptoms unknown) and she agrees with this plan. (unknown) (no (unknown) (unknown) Effort + (units (o wn) date) Inspection: normal unknown) respiratory effort, able to speak in complete (unknown) (no (unknown) (unknown) Establish care (units (unknown) date) appointment made unknown) with Dr. Murrell 09/05/2022 for follow-up (unknown) (no (unknown) (unknown) Exam (units (o wn) date) unknown) (unknown) (no (unknown) (unknown) Extrem (units (unkno wn) date) unknown) (unknown) (no (unknown) (unknown) Family Practice (units (unknown) date) Office Visit unknown) (unknown) (no (unknown) (unknown) [facility]) (unknown) (no (unknown) (unknown) Free T3, (units (o wn) date) Triiodothyronine unknown) Free 4 Weeks E05.90 - Thyrotoxicosis, unspecified (unknown) (no (unknown) (unknown) Free T4, Direct (units (unknown) date) Thyroxine 4 Weeks unknown) E05.90 - Thyrotoxicosis, unspecified without (unknown) (no (unknown) (unknown) From atenolol 25 (units (unknown) date) mg PO DAILY 60 tabs unknown) 0RF (unknown) (no (unknown) (unknown) Gait: normal gait (units (unknown) date) unknown) (unknown) (no (unknown) (unknown) General: capillary (units (unknown) date) refill normal and unknown) no pedal edema (unknown) (no (unknown) (unknown) General: (units (o wn) date) cooperative, unknown) comfortable and no acute distress (unknown) (no (unknown) (unknown) General: patient (units (unknown) date) alert and gait unknown) normal (unknown) (no (unknown) (unknown) HPI (units (o wn) date) unknown) (unknown) (no (unknown) (unknown) Health Management (units (unknown) date) reviewed with unknown) patient: No (unknown) (no (unknown) (unknown) Health Management (units (unknown) date) unknown) (unknown) (no (unknown) (unknown) Heart Sounds: S1 (units (unknown) date) normal, S2 normal unknown) and no murmurs (unknown) (no (unknown) (unknown) Height 5 ft 2 in (units (unknown) date) unknown) (unknown) (no (unknown) (unknown) Hyperthyroidism (units (unknown) date) affecting unknown) in second trimester (08/04/15) (unknown) (no (unknown) (unknown) Intake Note: (units (u nknown) date) unknown) (unknown) (no (unknown) (unknown) Intake (units (unkno wn) date) unknown) (unknown) (no (unknown) (unknown) Is last menstrual (units (unknown) date) period known: No unknown) (unknown) (no (unknown) (unknown) Karyotype 45, X (units (unknown) date) (09/10/15) unknown) (unknown) (no (unknown) (unknown) Last Menstural (units (unknown) date) Cycle + Details unknown) (unknown) (no (unknown) (unknown) Loc: [facility] (units (unkno wn) date) unknown) (unknown) (no (unknown) (unknown) Medical History (units (unknown) date) (Reviewed 08/10/22 unknown) @ 22:00 by Paris Burrell DO) (unknown) (no (unknown) (unknown) Medications (units (un known) date) unknown) (unknown) (no (unknown) (unknown) Medications: (units (u nknown) date) unknown) (unknown) (no (unknown) (unknown) NM uptake and scan (units (unknown) date) 4 Weeks E05.90 - unknown) Thyrotoxicosis, unspecified without (unknown) (no (unknown) (unknown) Neck (units (unkno wn) date) unknown) (unknown) (no (unknown) (unknown) Neuro (units (unkno wn) date) unknown) (unknown) (no (unknown) (unknown) Orders (units (unkno wn) date) unknown) (unknown) (no (unknown) (unknown) Orders: (units (unkno wn) date) unknown) (unknown) (no (unknown) (unknown) Other Menstrual (units (unknown) date) Period: Uncertain unknown) (unknown) (no (unknown) (unknown) Oxygen Delivery (units (unknown) date) Method room air unknown) (unknown) (no (unknown) (unknown) PFSH (units (unkno wn) date) unknown) (unknown) (no (unknown) (unknown) POC PREG (units (unkno wn) date) unknown) (unknown) (no (unknown) (unknown) POC Preg Test (units ( unknown) date) Negative Last Edit unknown) by Richelle Rodriguez LPN on 08/16/22 10:21 (unknown) (no (unknown) (unknown) POC Urine (units (unkn own) date) Test unknown) 08/16/22 E05.90 - Thyrotoxicosis, unspecified without (unknown) (no (unknown) (unknown) Patient comes in (units (unknown) date) with history of unknown) hyperthyroidism, diagnosed July 2014, only (unknown) (no (unknown) (unknown) Patient with (units (u nknown) date) longstanding unknown) history of hyperthyroidism, noncompliant with (unknown) (no (unknown) (unknown) Patient: (units (unkno wn) date) Lashaun Hooker M unknown) MR#: [id number] (unknown) (no (unknown) (unknown) Position Sitting (units (unknown) date) unknown) (unknown) (no (unknown) (unknown) Preg Expiration (units (unknown) date) 07-16-2023 Last unknown) Edit by Richelle Rodriguez LPN on 08/16/22 (unknown) (no (unknown) (unknown) Preg Lot # (units (unk nown) date) [id number] Last unknown) Edit by Richelle Rodriguez LPN on 08/16/22 10:21 (unknown) (no (unknown) (unknown) Preg QC (units (unkno wn) date) Acceptable? Yes unknown) Last Edit by Richelle Rodriguez LPN on 08/16/22 10:2 (unknown) (no (unknown) (unknown) Psych (units (unkno wn) date) unknown) (unknown) (no (unknown) (unknown) Pulse 116 H (units (un known) date) unknown) (unknown) (no (unknown) (unknown) Pulse Oximetry (%) (units (unknown) date) 97 unknown) (unknown) (no (unknown) (unknown) Pulse Source (units (u nknown) date) Monitor unknown) (unknown) (no (unknown) (unknown) ROS (units (unkno wn) date) unknown) (unknown) (no (unknown) (unknown) Rash (units (unkno wn) date) unknown) (unknown) (no (unknown) (unknown) Rash/nausea (units (un known) date) unknown) (unknown) (no (unknown) (unknown) Rate: tachycardic (units (unknown) date) unknown) (unknown) (no (unknown) (unknown) Reason For Visit (units (unknown) date) unknown) (unknown) (no (unknown) (unknown) Referral (units (unkno wn) date) Endocrinology unknown) E05.90 - Thyrotoxicosis, unspecified without thyrotoxic (unknown) (no (unknown) (unknown) Referrals (units (unkn own) date) unknown) (unknown) (no (unknown) (unknown) Refilled (units (unkno wn) date) unknown) (unknown) (no (unknown) (unknown) Reports as per HPI (units (unknown) date) unknown) (unknown) (no (unknown) (unknown) Resp (units (unkno wn) date) unknown) (unknown) (no (unknown) (unknown) Respiration 16 (units (unknown) date) unknown) (unknown) (no (unknown) (unknown) Results (units (unkno wn) date) unknown) (unknown) (no (unknown) (unknown) Rhythm: regular (units (unknown) date) rhythm unknown) (unknown) (no (unknown) (unknown) She is able to (units (unknown) date) swallow and take in unknown) nutrition and hydration. Agrees to increase (unknown) (no (unknown) (unknown) Signed By: (units (unk nown) date) unknown) (unknown) (no (unknown) (unknown) Smoking Status: (units (unknown) date) Current every day unknown) smoker (unknown) (no (unknown) (unknown) Speech: speech (units (unknown) date) normal unknown) (unknown) (no (unknown) (unknown) Spontaneous (units (un known) date) vaginal delivery unknown) (unknown) (no (unknown) (unknown) Status post (units (un known) date) tonsillectomy and unknown) adenoidectomy (unknown) (no (unknown) (unknown) Status: Acute (units ( unknown) date) unknown) (unknown) (no (unknown) (unknown) Surgical History (units (unknown) date) (Reviewed 08/10/22 unknown) @ 22:00 by Paris Burrell DO) (unknown) (no (unknown) (unknown) Temp 98.2 F (units (un known) date) unknown) (unknown) (no (unknown) (unknown) Temp Source (units (un known) date) Temporal Artery unknown) Scan (unknown) (no (unknown) (unknown) This note may have (units (unknown) date) been all or unknown) partially generated using voice recognition (unknown) (no (unknown) (unknown) Thought Content: (units (unknown) date) normal unknown) (unknown) (no (unknown) (unknown) Thyroid Stimulating (units (unknown) date) Hormone 4 Weeks unknown) E05.90 - Thyrotoxicosis, unspecified without (unknown) (no (unknown) (unknown) Thyroid: diffusely (units (unknown) date) enlarged (tender unknown) with palpation) (unknown) (no (unknown) (unknown) To atenolol 25 mg (units (unknown) date) PO BID 120 tabs 0RF unknown) (unknown) (no (unknown) (unknown) Tobacco + (units (unkn own) date) Substance Use unknown) (unknown) (no (unknown) (unknown) Tobacco Status (units (unknown) date) unknown) (unknown) (no (unknown) (unknown) Visit Reasons: (units (unknown) date) establish care-d/c unknown) from admit*comment (unknown) (no (unknown) (unknown) Vitals (units (unkno wn) date) unknown) (unknown) (no (unknown) (unknown) Weight 108 lb 4 oz (units (unknown) date) unknown) (unknown) (no (unknown) (unknown) adhesive tape (units ( unknown) date) [ADHESIVE TAPE] unknown) Allergy (Unknown, Verified 08/16/22 09:59) (unknown) (no (unknown) (unknown) and further (units (un known) date) recommendation if unknown) these tests are completed prior to establishing (unknown) (no (unknown) (unknown) atenolol 25 mg (units (unknown) date) tablet 25 mg PO BID unknown) #120 tabs 08/16/22 [Rx Confirmed 08/16/22] (unknown) (no (unknown) (unknown) b.i.d., increase (units (unknown) date) two atenolol 25 mg unknown) b.i.d., refills provided. Have thyroid scan (unknown) (no (unknown) (unknown) care with (units ( unknown) date) Nyasia. Referral unknown) also placed to endocrinology. Urged to go to the (unknown) (no (unknown) (unknown) completed, have (units (unknown) date) lab work completed unknown) in four weeks, I will call you with results (unknown) (no (unknown) (unknown) crisis or storm (units (unknown) date) unknown) (unknown) (no (unknown) (unknown) directed and (units (u nknown) date) states she feels unknown) better however her heart is 'still beating fast'. (unknown) (no (unknown) (unknown) have occurred. If (units (unknown) date) there are any unknown) questions, please contact the Medical Records (unknown) (no (unknown) (unknown) heart started (units ( unknown) date) racing, throat unknown) seemed more swollen than usual and she had a 15 (unknown) (no (unknown) (unknown) her atenolol to (units (unknown) date) twice daily. unknown) Referral to endocrinology submitted. (unknown) (no (unknown) (unknown) hydrocodone [From (units (unknown) date) VICODIN] Allergy unknown) (Unknown, Verified 08/16/22 09:59) (unknown) (no (unknown) (unknown) may occur. (units (unk nown) date) Occasional unknown) wrong-word or 'sound-alike' substitutions may have (unknown) (no (unknown) (unknown) medication, has (units (unknown) date) not taken unknown) medication in years. Recently prescribed methimazole (unknown) (no (unknown) (unknown) methimazole 10 mg (units (unknown) date) PO BID 120 tabs 0RF unknown) (unknown) (no (unknown) (unknown) methimazole 10 mg (units (unknown) date) tablet 10 mg PO BID unknown) #120 tabs 08/16/22 [Rx Confirmed 08/16/22] (unknown) (no (unknown) (unknown) methimazole 10mg (units (unknown) date) BID and atenolol unknown) 25mg once daily. She has been taking as (unknown) (no (unknown) (unknown) occurred due to (units (unknown) date) the inherent unknown) limitations of voice recognition software. Please (unknown) (no (unknown) (unknown) pound weight loss. (units (unknown) date) Went to the ED for unknown) evaluation 08/10/2022, was prescribed (unknown) (no (unknown) (unknown) read the note (units ( unknown) date) carefully and unknown) recognize, using context, where these substitutions (unknown) (no (unknown) (unknown) sentences and no (units (unknown) date) use of accessory unknown) muscles (unknown) (no (unknown) (unknown) software. 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 Would like her to continue methimazole 10 mg (unknown) (no (unknown) (unknown) thyrotoxic crisis (units (unknown) date) or storm unknown) (unknown) (no (unknown) (unknown) took prescribed (units (unknown) date) medication for a unknown) couple of months at most. Two months ago, her (unknown) (no (unknown) (unknown) without thyrotoxic (units (unknown) date) crisis or storm unknown) Result panel 199 (unknown) (no (unknown) (unknown) (no value) (units (unk nown) date) unknown) (unknown) (no (unknown) (unknown) (1) (units (unkno wn) date) Hyperthyroidism: unknown) (unknown) (no (unknown) (unknown) *est. with Saljohanny* (units (unknown) date) 31 Y F, patient unknown) here today to f/u on ED visit. (unknown) (no (unknown) (unknown) 08/16/22 (units (unkno wn) date) unknown) (unknown) (no (unknown) (unknown) 08/17/22 1749 (units ( unknown) date) unknown) (unknown) (no (unknown) (unknown) [id number] (units (unkno wn) date) unknown) (unknown) (no (unknown) (unknown) 1 (units (unkno wn) date) unknown) (unknown) (no (unknown) (unknown) 10 mg b.i.d. with (units (unknown) date) atenolol 25 mg unknown) daily in the emergency department. She is been (unknown) (no (unknown) (unknown) 10:01 (units (unkno wn) date) unknown) (unknown) (no (unknown) (unknown) 10:21 (units (unkno wn) date) unknown) (unknown) (no (unknown) (unknown) Affect: normal (units (unknown) date) affect unknown) (unknown) (no (unknown) (unknown) Age/Sex: 31 / F (units (unknown) date) Date of Service: unknown) (unknown) (no (unknown) (unknown) Allergies (units (unkn own) date) unknown) (unknown) (no (unknown) (unknown) [place], [place] (units ( unknown) date) [id number] unknown) (unknown) (no (unknown) (unknown) Appointment to (units (unknown) date) establish care with unknown) Dr. Mrurell 09/05/2022 (unknown) (no (unknown) (unknown) Assessment + Plan (units (unknown) date) unknown) (unknown) (no (unknown) (unknown) Assessment and (units (unknown) date) Plan: unknown) (unknown) (no (unknown) (unknown) Attending Dr: (units ( unknown) date) Meng NEGRON unknown) (unknown) (no (unknown) (unknown) Attitude: (units (unkn own) date) cooperative unknown) (unknown) (no (unknown) (unknown) Auscultation: (units ( unknown) date) clear to unknown) auscultation bilaterally (unknown) (no (unknown) (unknown) BMI 19.8 (units (unkno wn) date) unknown) (unknown) (no (unknown) (unknown) BP 120/62 (units (unkn own) date) unknown) (unknown) (no (unknown) (unknown) Basic Metabolic (units (unknown) date) Panel 4 Weeks unknown) E05.90 - Thyrotoxicosis, unspecified without (unknown) (no (unknown) (unknown) Blood Pressure (units (unknown) date) Location Lt unknown) brachial (unknown) (no (unknown) (unknown) Cardio (units (unkno wn) date) unknown) (unknown) (no (unknown) (unknown) Changed (units (unkno wn) date) unknown) (unknown) (no (unknown) (unknown) Chief Complaint (units (unknown) date) unknown) (unknown) (no (unknown) (unknown) Chief Complaint: (units (unknown) date) ED f/u unknown) hyperthyroidism (unknown) (no (unknown) (unknown) Cognition: normal (units (unknown) date) cognition unknown) (unknown) (no (unknown) (unknown) Complete Blood (units (unknown) date) Count NO DIFF 4 unknown) Weeks E05.90 - Thyrotoxicosis, unspecified (unknown) (no (unknown) (unknown) Const (units (unkno wn) date) unknown) (unknown) (no (unknown) (unknown) : 1990 (units (unknown) date) Acct:[id number] unknown) (unknown) (no (unknown) (unknown) Details: (units (unkno wn) date) unknown) (unknown) (no (unknown) (unknown) Documented By: (units (unknown) date) Meng Rendon unknown) 08/16/22 0957 (unknown) (no (unknown) (unknown) ED for any (units (unk nown) date) worsening symptoms unknown) and she agrees with this plan. (unknown) (no (unknown) (unknown) Effort + (units (unkno wn) date) Inspection: normal unknown) respiratory effort, able to speak in complete (unknown) (no (unknown) (unknown) Establish care (units (unknown) date) appointment made unknown) with Dr. Murrell 09/05/2022 for follow-up (unknown) (no (unknown) (unknown) Exam (units (unkno wn) date) unknown) (unknown) (no (unknown) (unknown) Extrem (units (unkno wn) date) unknown) (unknown) (no (unknown) (unknown) Family Practice (units (unknown) date) Office Visit unknown) (unknown) (no (unknown) (unknown) [facility]) (unknown) (no (unknown) (unknown) Free T3, (units (unkno wn) date) Triiodothyronine unknown) Free 4 Weeks E05.90 - Thyrotoxicosis, unspecified (unknown) (no (unknown) (unknown) Free T4, Direct (units (unknown) date) Thyroxine 4 Weeks unknown) E05.90 - Thyrotoxicosis, unspecified without (unknown) (no (unknown) (unknown) From atenolol 25 (units (unknown) date) mg PO DAILY 60 tabs unknown) 0RF (unknown) (no (unknown) (unknown) Gait: normal gait (units (unknown) date) unknown) (unknown) (no (unknown) (unknown) General: capillary (units (unknown) date) refill normal and unknown) no pedal edema (unknown) (no (unknown) (unknown) General: (units (unkno wn) date) cooperative, unknown) comfortable and no acute distress (unknown) (no (unknown) (unknown) General: patient (units (unknown) date) alert and gait unknown) normal (unknown) (no (unknown) (unknown) HPI (units (unkno wn) date) unknown) (unknown) (no (unknown) (unknown) Health Management (units (unknown) date) reviewed with unknown) patient: No (unknown) (no (unknown) (unknown) Health Management (units (unknown) date) unknown) (unknown) (no (unknown) (unknown) Heart Sounds: S1 (units (unknown) date) normal, S2 normal unknown) and no murmurs (unknown) (no (unknown) (unknown) Height 5 ft 2 in (units (unknown) date) unknown) (unknown) (no (unknown) (unknown) Hyperthyroidism (units (unknown) date) affecting unknown) in second trimester (08/04/15) (unknown) (no (unknown) (unknown) Intake Note: (units (u nknown) date) unknown) (unknown) (no (unknown) (unknown) Intake (units (unkno wn) date) unknown) (unknown) (no (unknown) (unknown) Is last menstrual (units (unknown) date) period known: No unknown) (unknown) (no (unknown) (unknown) Karyotype 45, X (units (unknown) date) (09/10/15) unknown) (unknown) (no (unknown) (unknown) Last Menstural (units (unknown) date) Cycle + Details unknown) (unknown) (no (unknown) (unknown) Loc: [facility] (units (unkno wn) date) unknown) (unknown) (no (unknown) (unknown) Medical History (units (unknown) date) (Reviewed 08/10/22 unknown) @ 22:00 by Paris Burrell DO) (unknown) (no (unknown) (unknown) Medications (units (un known) date) unknown) (unknown) (no (unknown) (unknown) Medications: (units (u nknown) date) unknown) (unknown) (no (unknown) (unknown) NM uptake and scan (units (unknown) date) 4 Weeks E05.90 - unknown) Thyrotoxicosis, unspecified without (unknown) (no (unknown) (unknown) Neck (units (unkno wn) date) unknown) (unknown) (no (unknown) (unknown) Neuro (units (unkno wn) date) unknown) (unknown) (no (unknown) (unknown) Orders (units (unkno wn) date) unknown) (unknown) (no (unknown) (unknown) Orders: (units (unkno wn) date) unknown) (unknown) (no (unknown) (unknown) Other Menstrual (units (unknown) date) Period: Uncertain unknown) (unknown) (no (unknown) (unknown) Oxygen Delivery (units (unknown) date) Method room air unknown) (unknown) (no (unknown) (unknown) PFSH (units (unkno wn) date) unknown) (unknown) (no (unknown) (unknown) POC PREG (units (unkno wn) date) unknown) (unknown) (no (unknown) (unknown) POC Preg Test (units ( unknown) date) Negative Last Edit unknown) by Richelle Rodriguez LPN on 08/16/22 10:21 (unknown) (no (unknown) (unknown) POC Urine (units (unkn own) date) Test unknown) 08/16/22 E05.90 - Thyrotoxicosis, unspecified without (unknown) (no (unknown) (unknown) Patient comes in (units (unknown) date) with history of unknown) hyperthyroidism, diagnosed July 2014, only (unknown) (no (unknown) (unknown) Patient with (units (u nknown) date) longstanding unknown) history of hyperthyroidism, noncompliant with (unknown) (no (unknown) (unknown) Patient: (units (unkno wn) date) Lashaun Hooker unknown) MR#: [id number] (unknown) (no (unknown) (unknown) Position Sitting (units (unknown) date) unknown) (unknown) (no (unknown) (unknown) Preg Expiration (units (unknown) date) 07-16-2023 Last unknown) Edit by Richelle Rodriguez LPN on 08/16/22 (unknown) (no (unknown) (unknown) Preg Lot # (units (unk nown) date) [id number] Last unknown) Edit by Richelle Rodriguez LPN on 08/16/22 10:21 (unknown) (no (unknown) (unknown) Preg QC (units (unkno wn) date) Acceptable? Yes unknown) Last Edit by Richelle Rodriguez LPN on 08/16/22 10:2 (unknown) (no (unknown) (unknown) Psych (units (unkno wn) date) unknown) (unknown) (no (unknown) (unknown) Pulse 116 H (units (un known) date) unknown) (unknown) (no (unknown) (unknown) Pulse Oximetry (%) (units (unknown) date) 97 unknown) (unknown) (no (unknown) (unknown) Pulse Source (units (u nknown) date) Monitor unknown) (unknown) (no (unknown) (unknown) ROS (units (unkno wn) date) unknown) (unknown) (no (unknown) (unknown) Rash (units (unkno wn) date) unknown) (unknown) (no (unknown) (unknown) Rash/nausea (units (un known) date) unknown) (unknown) (no (unknown) (unknown) Rate: tachycardic (units (unknown) date) unknown) (unknown) (no (unknown) (unknown) Reason For Visit (units (unknown) date) unknown) (unknown) (no (unknown) (unknown) Referral (units (unkno wn) date) Endocrinology unknown) E05.90 - Thyrotoxicosis, unspecified without thyrotoxic (unknown) (no (unknown) (unknown) Referrals (units (unkn own) date) unknown) (unknown) (no (unknown) (unknown) Refilled (units (unkno wn) date) unknown) (unknown) (no (unknown) (unknown) Reports as per HPI (units (unknown) date) unknown) (unknown) (no (unknown) (unknown) Resp (units (unkno wn) date) unknown) (unknown) (no (unknown) (unknown) Respiration 16 (units (unknown) date) unknown) (unknown) (no (unknown) (unknown) Results (units (unkno wn) date) unknown) (unknown) (no (unknown) (unknown) Rhythm: regular (units (unknown) date) rhythm unknown) (unknown) (no (unknown) (unknown) She is able to (units (unknown) date) swallow and take in unknown) nutrition and hydration. Agrees to increase (unknown) (no (unknown) (unknown) Signed By: (units (unk nown) date) <Electronically unknown) signed by Meng Rendon> (unknown) (no (unknown) (unknown) Signed (units (unkno wn) date) unknown) (unknown) (no (unknown) (unknown) Smoking Status: (units (unknown) date) Current every day unknown) smoker (unknown) (no (unknown) (unknown) Speech: speech (units (unknown) date) normal unknown) (unknown) (no (unknown) (unknown) Spontaneous (units (un known) date) vaginal delivery unknown) (unknown) (no (unknown) (unknown) Status post (units (un known) date) tonsillectomy and unknown) adenoidectomy (unknown) (no (unknown) (unknown) Status: Acute (units ( unknown) date) unknown) (unknown) (no (unknown) (unknown) Surgical History (units (unknown) date) (Reviewed 08/10/22 unknown) @ 22:00 by Paris Burrell DO) (unknown) (no (unknown) (unknown) Temp 98.2 F (units (un known) date) unknown) (unknown) (no (unknown) (unknown) Temp Source (units (un known) date) Temporal Artery unknown) Scan (unknown) (no (unknown) (unknown) This note may have (units (unknown) date) been all or unknown) partially generated using voice recognition (unknown) (no (unknown) (unknown) Thought Content: (units (unknown) date) normal unknown) (unknown) (no (unknown) (unknown) Thyroid Stimulating (units (unknown) date) Hormone 4 Weeks unknown) E05.90 - Thyrotoxicosis, unspecified without (unknown) (no (unknown) (unknown) Thyroid: diffusely (units (unknown) date) enlarged (tender unknown) with palpation) (unknown) (no (unknown) (unknown) To atenolol 25 mg (units (unknown) date) PO BID 120 tabs 0RF unknown) (unknown) (no (unknown) (unknown) Tobacco + (units (unkn own) date) Substance Use unknown) (unknown) (no (unknown) (unknown) Tobacco Status (units (unknown) date) unknown) (unknown) (no (unknown) (unknown) Visit Reasons: (units (unknown) date) establish care-d/c unknown) from admit*comment (unknown) (no (unknown) (unknown) Vitals (units (unkno wn) date) unknown) (unknown) (no (unknown) (unknown) Weight 108 lb 4 oz (units (unknown) date) unknown) (unknown) (no (unknown) (unknown) adhesive tape (units ( unknown) date) [ADHESIVE TAPE] unknown) Allergy (Unknown, Verified 08/16/22 09:59) (unknown) (no (unknown) (unknown) and further (units (un known) date) recommendation if unknown) these tests are completed prior to establishing (unknown) (no (unknown) (unknown) at . (units (unknown) date) unknown) (unknown) (no (unknown) (unknown) atenolol 25 mg (units (unknown) date) tablet 25 mg PO BID unknown) #120 tabs 08/16/22 [Rx Confirmed 08/16/22] (unknown) (no (unknown) (unknown) b.i.d., increase (units (unknown) date) two atenolol 25 mg unknown) b.i.d., refills provided. Have thyroid scan (unknown) (no (unknown) (unknown) care with (units ( unknown) date) Nyasia. Referral unknown) also placed to endocrinology. Urged to go to the (unknown) (no (unknown) (unknown) completed, have (units (unknown) date) lab work completed unknown) in four weeks, I will call you with results (unknown) (no (unknown) (unknown) crisis or storm (units (unknown) date) unknown) (unknown) (no (unknown) (unknown) directed and (units (u nknown) date) states she feels unknown) better however her heart is 'still beating fast'. (unknown) (no (unknown) (unknown) due to the (units (unk nown) date) inherent unknown) limitations of voice recognition software. Please read the (unknown) (no (unknown) (unknown) heart started (units ( unknown) date) racing, throat unknown) seemed more swollen than usual and she had a 15 (unknown) (no (unknown) (unknown) her atenolol to (units (unknown) date) twice daily. unknown) Referral to endocrinology submitted. (unknown) (no (unknown) (unknown) hydrocodone [From (units (unknown) date) VICODIN] Allergy unknown) (Unknown, Verified 08/16/22 09:59) (unknown) (no (unknown) (unknown) medication, has (units (unknown) date) not taken unknown) medication in years. Recently prescribed methimazole (unknown) (no (unknown) (unknown) methimazole 10 mg (units (unknown) date) PO BID 120 tabs 0RF unknown) (unknown) (no (unknown) (unknown) methimazole 10 mg (units (unknown) date) tablet 10 mg PO BID unknown) #120 tabs 08/16/22 [Rx Confirmed 08/16/22] (unknown) (no (unknown) (unknown) methimazole 10mg (units (unknown) date) BID and atenolol unknown) 25mg once daily. She has been taking as (unknown) (no (unknown) (unknown) note carefully and (units (unknown) date) recognize, using unknown) context, where these substitutions have (unknown) (no (unknown) (unknown) occurred. If there (units (unknown) date) are any questions, unknown) please contact the Medical Records Dept (unknown) (no (unknown) (unknown) pound weight loss. (units (unknown) date) Went to the ED for unknown) evaluation 08/10/2022, was prescribed (unknown) (no (unknown) (unknown) sentences and no (units (unknown) date) use of accessory unknown) muscles (unknown) (no (unknown) (unknown) software. 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 Would like her to continue methimazole 10 mg (unknown) (no (unknown) (unknown) thyrotoxic crisis (units (unknown) date) or storm unknown) (unknown) (no (unknown) (unknown) took prescribed (units (unknown) date) medication for a unknown) couple of months at most. Two months ago, her (unknown) (no (unknown) (unknown) without thyrotoxic (units (unknown) date) crisis or storm unknown) (unknown) (no (unknown) (unknown) y occur. (units (unkno wn) date) Occasional unknown) wrong-word or 'sound-alike' substitutions may have occurred Result panel 200 (unknown) (no (unknown) (unknown) (no value) (units (unk nown) date) unknown) (unknown) (no (unknown) (unknown) 09/06/22 (units (unkno wn) date) unknown) (unknown) (no (unknown) (unknown) [id number] (units (unkno wn) date) unknown) (unknown) (no (unknown) (unknown) 31 year old (units (un known) date) female presents to unknown) clinic for establishing care. (unknown) (no (unknown) (unknown) Age/Sex: 31 / F (units (unknown) date) Date of Service: unknown) (unknown) (no (unknown) (unknown) Allergies (-1998) (units (unknown) date) unknown) (unknown) (no (unknown) (unknown) Allergies (units (unkn own) date) unknown) (unknown) (no (unknown) (unknown) [place], [place] (units ( unknown) date) [id number] unknown) (unknown) (no (unknown) (unknown) Anesthesia (units (unk nown) date) unknown) (unknown) (no (unknown) (unknown) Ankle pain (units (unk nown) date) unknown) (unknown) (no (unknown) (unknown) Anxiety (units (unkno wn) date) unknown) (unknown) (no (unknown) (unknown) Attending Dr: Milton (units (unknown) date) Nyasia Leos unknown) (unknown) (no (unknown) (unknown) Chronic cough (units ( unknown) date) () unknown) (unknown) (no (unknown) (unknown) : 1990 (units (unknown) date) Acct:[id number] unknown) (unknown) (no (unknown) (unknown) Depression (units (unk nown) date) unknown) (unknown) (no (unknown) (unknown) Dept at (units (unkno wn) date) . unknown) (unknown) (no (unknown) (unknown) Documented By: (units (unknown) date) Milton Murrell unknown) 09/06/22 1245 (unknown) (no (unknown) (unknown) Draft (units (unkno wn) date) unknown) (unknown) (no (unknown) (unknown) Family Practice (units (unknown) date) Office Visit unknown) (unknown) (no (unknown) (unknown) [facility]) (unknown) (no (unknown) (unknown) Health Management (units (unknown) date) reviewed with unknown) patient: Yes (unknown) (no (unknown) (unknown) Health Management (units (unknown) date) unknown) (unknown) (no (unknown) (unknown) Heavy menstrual (units (unknown) date) period (-2014) unknown) (unknown) (no (unknown) (unknown) History of ankle (units (unknown) date) surgery (-2008) unknown) (unknown) (no (unknown) (unknown) Hyperthyroidism (units (unknown) date) affecting unknown) in second trimester (08/04/15) (unknown) (no (unknown) (unknown) Intake Note: (units (u nknown) date) unknown) (unknown) (no (unknown) (unknown) Intake performed (units (unknown) date) by: Jo Mai unknown) (unknown) (no (unknown) (unknown) Intake (units (unkno wn) date) unknown) (unknown) (no (unknown) (unknown) Intake- Clincial (units (unknown) date) Staff unknown) (unknown) (no (unknown) (unknown) Irregular (units (unkn own) date) menstrual cycle unknown) () (unknown) (no (unknown) (unknown) Karyotype 45, X (units (unknown) date) (09/10/15) unknown) (unknown) (no (unknown) (unknown) Last Menstural (units (unknown) date) Cycle + Details unknown) (unknown) (no (unknown) (unknown) Loc: [facility] (units (unkno wn) date) unknown) (unknown) (no (unknown) (unknown) Medical History (units (unknown) date) (Updated 09/04/22 unknown) @ 20:13 by Megan Jackson) (unknown) (no (unknown) (unknown) Other Menstrual (units (unknown) date) Period: Uncertain unknown) (unknown) (no (unknown) (unknown) PFSH (units (unkno wn) date) unknown) (unknown) (no (unknown) (unknown) Painful menstrual (units (unknown) date) periods () unknown) (unknown) (no (unknown) (unknown) Patient: (units (unkno wn) date) Lashaun Hooker M unknown) MR#: [id number] (unknown) (no (unknown) (unknown) Rash (units (unkno wn) date) unknown) (unknown) (no (unknown) (unknown) Rash/nausea (units (un known) date) unknown) (unknown) (no (unknown) (unknown) Reason For Visit (units (unknown) date) unknown) (unknown) (no (unknown) (unknown) Signed By: (units (unk nown) date) unknown) (unknown) (no (unknown) (unknown) Smoking Status: (units (unknown) date) Current every day unknown) smoker (unknown) (no (unknown) (unknown) Spontaneous (units (un known) date) vaginal delivery unknown) (unknown) (no (unknown) (unknown) Status post (units (un known) date) tonsillectomy and unknown) adenoidectomy (-2002) (unknown) (no (unknown) (unknown) Surgical History (units (unknown) date) (Updated 09/04/22 unknown) @ 20:13 by Megan Jackson) (unknown) (no (unknown) (unknown) This note may (units ( unknown) date) have been all or unknown) partially generated using voice recognition (unknown) (no (unknown) (unknown) Tobacco + (units (unkn own) date) Substance Use unknown) (unknown) (no (unknown) (unknown) Tobacco Status (units (unknown) date) unknown) (unknown) (no (unknown) (unknown) Visit Reasons: (units (unknown) date) NTY: establish unknown) care-med review (unknown) (no (unknown) (unknown) adhesive tape (units ( unknown) date) [ADHESIVE TAPE] unknown) Allergy (Unknown, Verified 09/06/22 12:45) (unknown) (no (unknown) (unknown) have occurred. If (units (unknown) date) there are any unknown) questions, please contact the Medical Records (unknown) (no (unknown) (unknown) hydrocodone [From (units (unknown) date) VICODIN] Allergy unknown) (Unknown, Verified 09/06/22 12:45) (unknown) (no (unknown) (unknown) may occur. (units (unk nown) date) Occasional unknown) wrong-word or 'sound-alike' substitutions may have (unknown) (no (unknown) (unknown) occurred due to (units (unknown) date) the inherent unknown) limitations of voice recognition software. Please (unknown) (no (unknown) (unknown) read the note (units ( unknown) date) carefully and unknown) recognize, using context, where these substitutions (unknown) (no (unknown) (unknown) software. 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 (unknown) (no (unknown) (unknown) Age/Sex: 31 / F (units (unknown) date) Date of Service: unknown) (unknown) (no (unknown) (unknown) Allergies (-1998) (units (unknown) date) unknown) (unknown) (no (unknown) (unknown) Allergies (units (unkn own) date) unknown) (unknown) (no (unknown) (unknown) [place], [place] (units ( unknown) date) [id number] unknown) (unknown) (no (unknown) (unknown) Anesthesia (units (unk nown) date) unknown) (unknown) (no (unknown) (unknown) Ankle pain (units (unk nown) date) unknown) (unknown) (no (unknown) (unknown) Anxiety (units (unkno wn) date) unknown) (unknown) (no (unknown) (unknown) Attending Dr: Milton (units (unknown) date) Nyasia Leos unknown) (unknown) (no (unknown) (unknown) Chronic cough (units ( unknown) date) () unknown) (unknown) (no (unknown) (unknown) : 1990 (units (unknown) date) Acct:[id number] unknown) (unknown) (no (unknown) (unknown) Depression (units (unk nown) date) unknown) (unknown) (no (unknown) (unknown) Dept at (units (unkno wn) date) . unknown) (unknown) (no (unknown) (unknown) Documented By: (units (unknown) date) Milton Murrell unknown) 09/06/22 1245 (unknown) (no (unknown) (unknown) Draft (units (unkno wn) date) unknown) (unknown) (no (unknown) (unknown) Family Practice (units (unknown) date) Office Visit unknown) (unknown) (no (unknown) (unknown) [facility]) (unknown) (no (unknown) (unknown) Health Management (units (unknown) date) reviewed with unknown) patient: Yes (unknown) (no (unknown) (unknown) Health Management (units (unknown) date) unknown) (unknown) (no (unknown) (unknown) Heavy menstrual (units (unknown) date) period () unknown) (unknown) (no (unknown) (unknown) History of ankle (units (unknown) date) surgery () unknown) (unknown) (no (unknown) (unknown) Hyperthyroidism (units (unknown) date) affecting unknown) in second trimester (08/04/15) (unknown) (no (unknown) (unknown) Intake Note: (units (u nknown) date) unknown) (unknown) (no (unknown) (unknown) Intake performed (units (unknown) date) by: Jo Mai unknown) (unknown) (no (unknown) (unknown) Intake (units (unkno wn) date) unknown) (unknown) (no (unknown) (unknown) Intake- Clincial (units (unknown) date) Staff unknown) (unknown) (no (unknown) (unknown) Irregular (units (unkn own) date) menstrual cycle unknown) () (unknown) (no (unknown) (unknown) Karyotype 45, X (units (unknown) date) (09/10/15) unknown) (unknown) (no (unknown) (unknown) Last Menstural (units (unknown) date) Cycle + Details unknown) (unknown) (no (unknown) (unknown) Loc: [facility] (units (unkno wn) date) unknown) (unknown) (no (unknown) (unknown) Medical History (units (unknown) date) (Updated 09/04/22 unknown) @ 20:13 by Megan Jackson) (unknown) (no (unknown) (unknown) Medications (units (un known) date) unknown) (unknown) (no (unknown) (unknown) Other Menstrual (units (unknown) date) Period: Uncertain unknown) (unknown) (no (unknown) (unknown) PFSH (units (unkno wn) date) unknown) (unknown) (no (unknown) (unknown) Painful menstrual (units (unknown) date) periods () unknown) (unknown) (no (unknown) (unknown) Patient: (units (unkno wn) date) Lashaun Hooker M unknown) MR#: [id number] (unknown) (no (unknown) (unknown) Rash (units (unkno wn) date) unknown) (unknown) (no (unknown) (unknown) Rash/nausea (units (un known) date) unknown) (unknown) (no (unknown) (unknown) Reason For Visit (units (unknown) date) unknown) (unknown) (no (unknown) (unknown) Signed By: (units (unk nown) date) unknown) (unknown) (no (unknown) (unknown) Smoking Status: (units (unknown) date) Current every day unknown) smoker (unknown) (no (unknown) (unknown) Spontaneous (units (un known) date) vaginal delivery unknown) (unknown) (no (unknown) (unknown) Status post (units (un known) date) tonsillectomy and unknown) adenoidectomy (-2002) (unknown) (no (unknown) (unknown) Surgical History (units (unknown) date) (Updated 09/04/22 unknown) @ 20:13 by Megan Jackson) (unknown) (no (unknown) (unknown) This note may (units ( unknown) date) have been all or unknown) partially generated using voice recognition (unknown) (no (unknown) (unknown) Tobacco + (units (unkn own) date) Substance Use unknown) (unknown) (no (unknown) (unknown) Tobacco Status (units (unknown) date) unknown) (unknown) (no (unknown) (unknown) Visit Reasons: (units (unknown) date) NTY: establish unknown) care-med review (unknown) (no (unknown) (unknown) adhesive tape (units ( unknown) date) [ADHESIVE TAPE] unknown) Allergy (Unknown, Verified 09/06/22 12:45) (unknown) (no (unknown) (unknown) atenolol 25 mg (units (unknown) date) tablet 25 mg PO unknown) BID #[id number] tabs 09/01/22 [Rx Confirmed 09/06/22] (unknown) (no (unknown) (unknown) have occurred. If (units (unknown) date) there are any unknown) questions, please contact the Medical Records (unknown) (no (unknown) (unknown) hydrocodone [From (units (unknown) date) VICODIN] Allergy unknown) (Unknown, Verified 09/06/22 12:45) (unknown) (no (unknown) (unknown) may occur. (units (unk nown) date) Occasional unknown) wrong-word or 'sound-alike' substitutions may have (unknown) (no (unknown) (unknown) methimazole 10 mg (units (unknown) date) tablet 10 mg PO unknown) BID #[id number] tabs 08/16/22 [Rx Confirmed 09/06/22] (unknown) (no (unknown) (unknown) occurred due to (units (unknown) date) the inherent unknown) limitations of voice recognition software. Please (unknown) (no (unknown) (unknown) read the note (units ( unknown) date) carefully and unknown) recognize, using context, where these substitutions (unknown) (no (unknown) (unknown) software. 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 unknown) Result panel 202 (unknown) (no (unknown) (unknown) (no value) (units (unk nown) date) unknown) (unknown) (no (unknown) (unknown) 09/06/22 (units (unkno wn) date) unknown) (unknown) (no (unknown) (unknown) [id number] (units (unkno wn) date) unknown) (unknown) (no (unknown) (unknown) 12:55 (units (unkno wn) date) unknown) (unknown) (no (unknown) (unknown) 31 year old (units (un known) date) female presents to unknown) clinic for establishing care. (unknown) (no (unknown) (unknown) Age/Sex: 31 / F (units (unknown) date) Date of Service: unknown) (unknown) (no (unknown) (unknown) Allergies (-1998) (units (unknown) date) unknown) (unknown) (no (unknown) (unknown) Allergies (units (unkn own) date) unknown) (unknown) (no (unknown) (unknown) [place], [place] (units ( unknown) date) [id number] unknown) (unknown) (no (unknown) (unknown) Anesthesia (units (unk nown) date) unknown) (unknown) (no (unknown) (unknown) Ankle pain (units (unk nown) date) unknown) (unknown) (no (unknown) (unknown) Anxiety (units (unkno wn) date) unknown) (unknown) (no (unknown) (unknown) Attending Dr: Milton (units (unknown) date) Nyasia BarryOPearl unknown) (unknown) (no (unknown) (unknown) BMI 20.8 (units (unkno wn) date) unknown) (unknown) (no (unknown) (unknown) BP 130/78 (units (unkn own) date) unknown) (unknown) (no (unknown) (unknown) Blood Pressure (units (unknown) date) Location Lt unknown) brachial (unknown) (no (unknown) (unknown) Chronic cough (units ( unknown) date) () unknown) (unknown) (no (unknown) (unknown) : 1990 (units (unknown) date) Acct:[id number] unknown) (unknown) (no (unknown) (unknown) Depression (units (unk nown) date) unknown) (unknown) (no (unknown) (unknown) Dept at (units (unkno wn) date) . unknown) (unknown) (no (unknown) (unknown) Documented By: (units (unknown) date) Milton Murrell unknown) 09/06/22 1245 (unknown) (no (unknown) (unknown) Draft (units (unkno wn) date) unknown) (unknown) (no (unknown) (unknown) Family Practice (units (unknown) date) Office Visit unknown) (unknown) (no (unknown) (unknown) [facility]) (unknown) (no (unknown) (unknown) Health Management (units (unknown) date) reviewed with unknown) patient: Yes (unknown) (no (unknown) (unknown) Health Management (units (unknown) date) unknown) (unknown) (no (unknown) (unknown) Heavy menstrual (units (unknown) date) period (-2014) unknown) (unknown) (no (unknown) (unknown) Height 5 ft 2 in (units (unknown) date) unknown) (unknown) (no (unknown) (unknown) History of ankle (units (unknown) date) surgery (-2008) unknown) (unknown) (no (unknown) (unknown) Hyperthyroidism (units (unknown) date) affecting unknown) in second trimester (08/04/15) (unknown) (no (unknown) (unknown) Intake Note: (units (u nknown) date) unknown) (unknown) (no (unknown) (unknown) Intake performed (units (unknown) date) by: Jo Mai unknown) (unknown) (no (unknown) (unknown) Intake (units (unkno wn) date) unknown) (unknown) (no (unknown) (unknown) Intake- Clincial (units (unknown) date) Staff unknown) (unknown) (no (unknown) (unknown) Irregular (units (unkn own) date) menstrual cycle unknown) () (unknown) (no (unknown) (unknown) Karyotype 45, X (units (unknown) date) (09/10/15) unknown) (unknown) (no (unknown) (unknown) Last Menstural (units (unknown) date) Cycle + Details unknown) (unknown) (no (unknown) (unknown) Loc: [facility] (units (unkno wn) date) unknown) (unknown) (no (unknown) (unknown) Medical History (units (unknown) date) (Updated 09/04/22 unknown) @ 20:13 by Megan Jackson) (unknown) (no (unknown) (unknown) Medications (units (un known) date) unknown) (unknown) (no (unknown) (unknown) Other Menstrual (units (unknown) date) Period: Uncertain unknown) (unknown) (no (unknown) (unknown) Oxygen Delivery (units (unknown) date) Method room air unknown) (unknown) (no (unknown) (unknown) PFSH (units (unkno wn) date) unknown) (unknown) (no (unknown) (unknown) Painful menstrual (units (unknown) date) periods () unknown) (unknown) (no (unknown) (unknown) Patient: (units (unkno wn) date) Lashaun Hooker M unknown) MR#: [id number] (unknown) (no (unknown) (unknown) Position Sitting (units (unknown) date) unknown) (unknown) (no (unknown) (unknown) Pulse 135 H (units (un known) date) unknown) (unknown) (no (unknown) (unknown) Pulse Oximetry (units (unknown) date) (%) 97 unknown) (unknown) (no (unknown) (unknown) Pulse Source (units (u nknown) date) Monitor unknown) (unknown) (no (unknown) (unknown) Rash (units (unkno wn) date) unknown) (unknown) (no (unknown) (unknown) Rash/nausea (units (un known) date) unknown) (unknown) (no (unknown) (unknown) Reason For Visit (units (unknown) date) unknown) (unknown) (no (unknown) (unknown) Signed By: (units (unk nown) date) unknown) (unknown) (no (unknown) (unknown) Smoking Status: (units (unknown) date) Current every day unknown) smoker (unknown) (no (unknown) (unknown) Spontaneous (units (un known) date) vaginal delivery unknown) (unknown) (no (unknown) (unknown) Status post (units (un known) date) tonsillectomy and unknown) adenoidectomy (-2002) (unknown) (no (unknown) (unknown) Surgical History (units (unknown) date) (Updated 09/04/22 unknown) @ 20:13 by Megan Jackson) (unknown) (no (unknown) (unknown) Temp 97.9 F (units (un known) date) unknown) (unknown) (no (unknown) (unknown) Temp Source (units (un known) date) Temporal Artery unknown) Scan (unknown) (no (unknown) (unknown) This note may (units ( unknown) date) have been all or unknown) partially generated using voice recognition (unknown) (no (unknown) (unknown) Tobacco + (units (unkn own) date) Substance Use unknown) (unknown) (no (unknown) (unknown) Tobacco Status (units (unknown) date) unknown) (unknown) (no (unknown) (unknown) Visit Reasons: (units (unknown) date) NTY: establish unknown) care-med review (unknown) (no (unknown) (unknown) Vitals (units (unkno wn) date) unknown) (unknown) (no (unknown) (unknown) Weight 114 lb (units ( unknown) date) unknown) (unknown) (no (unknown) (unknown) adhesive tape (units ( unknown) date) [ADHESIVE TAPE] unknown) Allergy (Unknown, Verified 09/06/22 12:45) (unknown) (no (unknown) (unknown) atenolol 25 mg (units (unknown) date) tablet 25 mg PO unknown) BID #120 tabs 09/01/22 [Rx Confirmed 09/06/22] (unknown) (no (unknown) (unknown) have occurred. If (units (unknown) date) there are any unknown) questions, please contact the Medical Records (unknown) (no (unknown) (unknown) hydrocodone [From (units (unknown) date) VICODIN] Allergy unknown) (Unknown, Verified 09/06/22 12:45) (unknown) (no (unknown) (unknown) may occur. (units (unk nown) date) Occasional unknown) wrong-word or 'sound-alike' substitutions may have (unknown) (no (unknown) (unknown) methimazole 10 mg (units (unknown) date) tablet 10 mg PO unknown) BID #120 tabs 08/16/22 [Rx Confirmed 09/06/22] (unknown) (no (unknown) (unknown) occurred due to (units (unknown) date) the inherent unknown) limitations of voice recognition software. Please (unknown) (no (unknown) (unknown) read the note (units ( unknown) date) carefully and unknown) recognize, using context, where these substitutions (unknown) (no (unknown) (unknown) software. 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 unknown) Result panel 203 (unknown) (no (unknown) (unknown) (no value) (units (unk nown) date) unknown) (unknown) (no (unknown) (unknown) 09/06/22 (units (unkno wn) date) unknown) (unknown) (no (unknown) (unknown) [id number] (units (unkno wn) date) unknown) (unknown) (no (unknown) (unknown) 12:55 (units (unkno wn) date) unknown) (unknown) (no (unknown) (unknown) 31 year old (units (un known) date) female presents to unknown) clinic for establishing care. (unknown) (no (unknown) (unknown) Age/Sex: 31 / F (units (unknown) date) Date of Service: unknown) (unknown) (no (unknown) (unknown) Allergies (-1998) (units (unknown) date) unknown) (unknown) (no (unknown) (unknown) Allergies (units (unkn own) date) unknown) (unknown) (no (unknown) (unknown) [place], [place] (units ( unknown) date) [id number] unknown) (unknown) (no (unknown) (unknown) Anesthesia (units (unk nown) date) unknown) (unknown) (no (unknown) (unknown) Ankle pain (units (unk nown) date) unknown) (unknown) (no (unknown) (unknown) Anxiety (units (unkno wn) date) unknown) (unknown) (no (unknown) (unknown) Attending Dr: Milton (units (unknown) date) Nyasia D.OPearl unknown) (unknown) (no (unknown) (unknown) BMI 20.8 (units (unkno wn) date) unknown) (unknown) (no (unknown) (unknown) BP 130/78 (units (unkn own) date) unknown) (unknown) (no (unknown) (unknown) Blood Pressure (units (unknown) date) Location Lt unknown) brachial (unknown) (no (unknown) (unknown) Chronic cough (units ( unknown) date) () unknown) (unknown) (no (unknown) (unknown) : 1990 (units (unknown) date) Acct:[id number] unknown) (unknown) (no (unknown) (unknown) Depression (units (unk nown) date) unknown) (unknown) (no (unknown) (unknown) Dept at (units (unkno wn) date) . unknown) (unknown) (no (unknown) (unknown) Documented By: (units (unknown) date) Milton Murrell unknown) 09/06/22 1245 (unknown) (no (unknown) (unknown) Draft (units (unkno wn) date) unknown) (unknown) (no (unknown) (unknown) Family Practice (units (unknown) date) Office Visit unknown) (unknown) (no (unknown) (unknown) [facility] ([facility] date[facility]) (unknown) (no (unknown) (unknown) Health Management (units (unknown) date) reviewed with unknown) patient: Yes (unknown) (no (unknown) (unknown) Health Management (units (unknown) date) unknown) (unknown) (no (unknown) (unknown) Heavy menstrual (units (unknown) date) period () unknown) (unknown) (no (unknown) (unknown) Height 5 ft 2 in (units (unknown) date) unknown) (unknown) (no (unknown) (unknown) History of ankle (units (unknown) date) surgery () unknown) (unknown) (no (unknown) (unknown) Hyperthyroidism (units (unknown) date) affecting unknown) in second trimester (08/04/15) (unknown) (no (unknown) (unknown) Intake Note: (units (u nknown) date) unknown) (unknown) (no (unknown) (unknown) Intake performed (units (unknown) date) by: Jo Mai unknown) (unknown) (no (unknown) (unknown) Intake (units (unkno wn) date) unknown) (unknown) (no (unknown) (unknown) Intake- Clincial (units (unknown) date) Staff unknown) (unknown) (no (unknown) (unknown) Irregular (units (unkn own) date) menstrual cycle unknown) () (unknown) (no (unknown) (unknown) Karyotype 45, X (units (unknown) date) (09/10/15) unknown) (unknown) (no (unknown) (unknown) Last Menstural (units (unknown) date) Cycle + Details unknown) (unknown) (no (unknown) (unknown) Loc: [facility] (units (unkno wn) date) unknown) (unknown) (no (unknown) (unknown) Medical History (units (unknown) date) (Updated 09/04/22 unknown) @ 20:13 by Megan Jackson) (unknown) (no (unknown) (unknown) Medications (units (un known) date) unknown) (unknown) (no (unknown) (unknown) Other Menstrual (units (unknown) date) Period: Uncertain unknown) (unknown) (no (unknown) (unknown) Oxygen Delivery (units (unknown) date) Method room air unknown) (unknown) (no (unknown) (unknown) PFSH (units (unkno wn) date) unknown) (unknown) (no (unknown) (unknown) Painful menstrual (units (unknown) date) periods (-2013) unknown) (unknown) (no (unknown) (unknown) Patient: (units (unkno wn) date) Lashaun Hooker unknown) MR#: [id number] (unknown) (no (unknown) (unknown) Position Sitting (units (unknown) date) unknown) (unknown) (no (unknown) (unknown) Pulse 135 H (units (un known) date) unknown) (unknown) (no (unknown) (unknown) Pulse Oximetry (units (unknown) date) (%) 97 unknown) (unknown) (no (unknown) (unknown) Pulse Source (units (u nknown) date) Monitor unknown) (unknown) (no (unknown) (unknown) Rash (units (unkno wn) date) unknown) (unknown) (no (unknown) (unknown) Rash/nausea (units (un known) date) unknown) (unknown) (no (unknown) (unknown) Reason For Visit (units (unknown) date) unknown) (unknown) (no (unknown) (unknown) Signed By: (units (unk nown) date) unknown) (unknown) (no (unknown) (unknown) Smoking Status: (units (unknown) date) Current every day unknown) smoker (unknown) (no (unknown) (unknown) Spontaneous (units (un known) date) vaginal delivery unknown) (unknown) (no (unknown) (unknown) Status post (units (un known) date) tonsillectomy and unknown) adenoidectomy (-2002) (unknown) (no (unknown) (unknown) Surgical History (units (unknown) date) (Updated 09/04/22 unknown) @ 20:13 by Megan Jackson) (unknown) (no (unknown) (unknown) Temp 97.9 F (units (un known) date) unknown) (unknown) (no (unknown) (unknown) Temp Source (units (un known) date) Temporal Artery unknown) Scan (unknown) (no (unknown) (unknown) This note may (units ( unknown) date) have been all or unknown) partially generated using voice recognition (unknown) (no (unknown) (unknown) Tobacco + (units (unkn own) date) Substance Use unknown) (unknown) (no (unknown) (unknown) Tobacco Status (units (unknown) date) unknown) (unknown) (no (unknown) (unknown) Visit Reasons: (units (unknown) date) NTY: establish unknown) care-med review (unknown) (no (unknown) (unknown) Vitals (units (unkno wn) date) unknown) (unknown) (no (unknown) (unknown) Weight 114 lb (units ( unknown) date) unknown) (unknown) (no (unknown) (unknown) adhesive tape (units ( unknown) date) [ADHESIVE TAPE] unknown) Allergy (Unknown, Verified 09/06/22 12:45) (unknown) (no (unknown) (unknown) atenolol 25 mg (units (unknown) date) tablet 25 mg PO unknown) BID #120 tabs 09/01/22 [Rx Confirmed 09/06/22] (unknown) (no (unknown) (unknown) have occurred. If (units (unknown) date) there are any unknown) questions, please contact the Medical Records (unknown) (no (unknown) (unknown) hydrocodone [From (units (unknown) date) VICODIN] Allergy unknown) (Unknown, Verified 09/06/22 12:45) (unknown) (no (unknown) (unknown) may occur. (units (unk nown) date) Occasional unknown) wrong-word or 'sound-alike' substitutions may have (unknown) (no (unknown) (unknown) methimazole 10 mg (units (unknown) date) tablet 10 mg PO unknown) BID #120 tabs 08/16/22 [Rx Confirmed 09/06/22] (unknown) (no (unknown) (unknown) notified provider (units (unknown) date) of high pulse unknown) (unknown) (no (unknown) (unknown) occurred due to (units (unknown) date) the inherent unknown) limitations of voice recognition software. Please (unknown) (no (unknown) (unknown) read the note (units ( unknown) date) carefully and unknown) recognize, using context, where these substitutions (unknown) (no (unknown) (unknown) software. 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 unknown) Result panel 204 (unknown) (no (unknown) (unknown) (no value) (units (unk nown) date) unknown) (unknown) (no (unknown) (unknown) 09/06/22 (units (unkno wn) date) unknown) (unknown) (no (unknown) (unknown) [id number] (units (unkno wn) date) unknown) (unknown) (no (unknown) (unknown) 12:55 (units (unkno wn) date) unknown) (unknown) (no (unknown) (unknown) 31 year old (units (un known) date) female presents to unknown) clinic for establishing care. (unknown) (no (unknown) (unknown) Age/Sex: 31 / F (units (unknown) date) Date of Service: unknown) (unknown) (no (unknown) (unknown) Allergies (-1998) (units (unknown) date) unknown) (unknown) (no (unknown) (unknown) Allergies (units (unkn own) date) unknown) (unknown) (no (unknown) (unknown) [place] (units ( unknown) date) [id number] unknown) (unknown) (no (unknown) (unknown) Anesthesia (units (unk nown) date) unknown) (unknown) (no (unknown) (unknown) Ankle pain (units (unk nown) date) unknown) (unknown) (no (unknown) (unknown) Anxiety (units (unkno wn) date) unknown) (unknown) (no (unknown) (unknown) Assessment + Plan (units (unknown) date) unknown) (unknown) (no (unknown) (unknown) Attending Dr: Milton (units (unknown) date) Nyasia Leos unknown) (unknown) (no (unknown) (unknown) BMI 20.8 (units (unkno wn) date) unknown) (unknown) (no (unknown) (unknown) BP 130/78 (units (unkn own) date) unknown) (unknown) (no (unknown) (unknown) Blood Pressure (units (unknown) date) Location Lt unknown) brachial (unknown) (no (unknown) (unknown) Chronic cough (units ( unknown) date) () unknown) (unknown) (no (unknown) (unknown) Confirmed (units (unkn own) date) 09/06/22] unknown) (unknown) (no (unknown) (unknown) : 1990 (units (unknown) date) Acct:[id number] unknown) (unknown) (no (unknown) (unknown) Depression (units (unk nown) date) unknown) (unknown) (no (unknown) (unknown) Dept at (units (unkno wn) date) . unknown) (unknown) (no (unknown) (unknown) Documented By: (units (unknown) date) Milton Murrell unknown) 09/06/22 1245 (unknown) (no (unknown) (unknown) Draft (units (unkno wn) date) unknown) (unknown) (no (unknown) (unknown) Family Practice (units (unknown) date) Office Visit unknown) (unknown) (no (unknown) (unknown) [facility] ([facility] unknown) (unknown) (no (unknown) (unknown) Health Management (units (unknown) date) reviewed with unknown) patient: Yes (unknown) (no (unknown) (unknown) Health Management (units (unknown) date) unknown) (unknown) (no (unknown) (unknown) Heavy menstrual (units (unknown) date) period (-2013) unknown) (unknown) (no (unknown) (unknown) Height 5 ft 2 in (units (unknown) date) unknown) (unknown) (no (unknown) (unknown) History of ankle (units (unknown) date) surgery (-2008) unknown) (unknown) (no (unknown) (unknown) Hyperthyroidism (units (unknown) date) affecting unknown) in second trimester (08/04/15) (unknown) (no (unknown) (unknown) Intake Note: (units (u nknown) date) unknown) (unknown) (no (unknown) (unknown) Intake performed (units (unknown) date) by: Jo Mai unknown) (unknown) (no (unknown) (unknown) Intake (units (unkno wn) date) unknown) (unknown) (no (unknown) (unknown) Intake- Clincial (units (unknown) date) Staff unknown) (unknown) (no (unknown) (unknown) Irregular (units (unkn own) date) menstrual cycle unknown) () (unknown) (no (unknown) (unknown) Karyotype 45, X (units (unknown) date) (09/10/15) unknown) (unknown) (no (unknown) (unknown) Last Menstural (units (unknown) date) Cycle + Details unknown) (unknown) (no (unknown) (unknown) Loc: [facility] (units (unkno wn) date) unknown) (unknown) (no (unknown) (unknown) Medical History (units (unknown) date) (Updated 09/04/22 unknown) @ 20:13 by Megan Jackson) (unknown) (no (unknown) (unknown) Medications (units (un known) date) unknown) (unknown) (no (unknown) (unknown) Medications: (units (u nknown) date) unknown) (unknown) (no (unknown) (unknown) New (units (unkno wn) date) unknown) (unknown) (no (unknown) (unknown) Other Menstrual (units (unknown) date) Period: Uncertain unknown) (unknown) (no (unknown) (unknown) Oxygen Delivery (units (unknown) date) Method room air unknown) (unknown) (no (unknown) (unknown) PFSH (units (unkno wn) date) unknown) (unknown) (no (unknown) (unknown) Painful menstrual (units (unknown) date) periods () unknown) (unknown) (no (unknown) (unknown) Patient: (units (unkno wn) date) Lashaun Hooker M unknown) MR#: [id number] (unknown) (no (unknown) (unknown) Position Sitting (units (unknown) date) unknown) (unknown) (no (unknown) (unknown) Pulse 135 H (units (un known) date) unknown) (unknown) (no (unknown) (unknown) Pulse Oximetry (units (unknown) date) (%) 97 unknown) (unknown) (no (unknown) (unknown) Pulse Source (units (u nknown) date) Monitor unknown) (unknown) (no (unknown) (unknown) Rash (units (unkno wn) date) unknown) (unknown) (no (unknown) (unknown) Rash/nausea (units (un known) date) unknown) (unknown) (no (unknown) (unknown) Reason For Visit (units (unknown) date) unknown) (unknown) (no (unknown) (unknown) Signed By: (units (unk nown) date) unknown) (unknown) (no (unknown) (unknown) Smoking Status: (units (unknown) date) Current every day unknown) smoker (unknown) (no (unknown) (unknown) Spontaneous (units (un known) date) vaginal delivery unknown) (unknown) (no (unknown) (unknown) Status post (units (un known) date) tonsillectomy and unknown) adenoidectomy (-2002) (unknown) (no (unknown) (unknown) Surgical History (units (unknown) date) (Updated 09/04/22 unknown) @ 20:13 by Megan Jackson) (unknown) (no (unknown) (unknown) Temp 97.9 F (units (un known) date) unknown) (unknown) (no (unknown) (unknown) Temp Source (units (un known) date) Temporal Artery unknown) Scan (unknown) (no (unknown) (unknown) This note may (units ( unknown) date) have been all or unknown) partially generated using voice recognition (unknown) (no (unknown) (unknown) Tobacco + (units (unkn own) date) Substance Use unknown) (unknown) (no (unknown) (unknown) Tobacco Status (units (unknown) date) unknown) (unknown) (no (unknown) (unknown) Visit Reasons: (units (unknown) date) NTY: establish unknown) care-med review (unknown) (no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 date) (unknown) (unknown) 0.64 mg/dl (unkn own) (unknown) (no date) (unknown) (unknown) 1.15 ng/dl (unkn own) (unknown) (no date) (unknown) (unknown) 10.9 (units unknown) (unknown) (unknown) (no date) (unknown) (unknown) 105 mmol/l (unkn own) (unknown) (no date) (unknown) (unknown) 115 mg/dl (unkn own) (unknown) (no date) (unknown) (unknown) 115 mg/dl (unkn own) (unknown) (no date) (unknown) (unknown) 136 mmol/l (unkn own) (unknown) (no date) (unknown) (unknown) 24 mmol/l (unkn own) (unknown) (no date) (unknown) (unknown) 3.8 mmol/l (unkn own) (unknown) (no date) (unknown) (unknown) 6.33 pg/ml (unkn own) (unknown) (no date) (unknown) (unknown) 7 mg/dl (unkn own) (unknown) (no date) (unknown) (unknown) 8.4 mg/dl (unkn own) Result panel 213 (unknown) (no date) (unknown) (unknown) < 0.015 uiu/ml (unkn own) (unknown) (no date) (unknown) (unknown) 1.15 ng/dl (unkn own) (unknown) (no date) (unknown) (unknown) 6.33 pg/ml (unkn own) Social History date description facility 2022-07-20 00:00 Smokes tobacco daily (finding) [facility] 2022-08-10 00:00 Smokes tobacco daily (finding) [facility] 2022-08-16 00:00 Smokes tobacco daily (finding) [facility] 2022-09-06 00:00 Smokes tobacco daily (finding) [facility] Vital Signs date measurement value units 2022-07-20 00:00 BP_diastolic 70 mmHg 2022-07-20 00:00 BP_systolic 102 mmHg 2022-07-20 00:00 heart_rate 148 /min 2022-07-20 00:00 o2_saturation 98 % 2022-07-20 00:00 respiration_rate 16 /min 2022-07-20 00:00 temperature_metric 36.56 C 2022-07-20 00:00 temperature_standard 97.8 F 2022-08-10 00:00 BMI 19.2 kg/m2 2022-08-10 00:00 BP_diastolic 83 mmHg 2022-08-10 00:00 BP_systolic 122 mmHg 2022-08-10 00:00 heart_rate 117 /min 2022-08-10 00:00 height_metric 157.48 cm 2022-08-10 00:00 height_standard 62 in 2022-08-10 00:00 o2_saturation 99 % 2022-08-10 00:00 respiration_rate 20 /min 2022-08-10 00:00 temperature_metric 36.83 C 2022-08-10 00:00 temperature_standard 98.3 F 2022-08-10 00:00 weight_metric 47.62 kg 2022-08-10 00:00 weight_standard 104.98 lb 2022-08-16 00:00 BMI 19.8 kg/m2 2022-08-16 00:00 BP_diastolic 62 mmHg 2022-08-16 00:00 BP_systolic 120 mmHg 2022-08-16 00:00 heart_rate 116 /min 2022-08-16 00:00 height_metric 157.48 cm 2022-08-16 00:00 height_standard 62 in 2022-08-16 00:00 o2_saturation 97 % 2022-08-16 00:00 respiration_rate 16 /min 2022-08-16 00:00 temperature_metric 36.78 C 2022-08-16 00:00 temperature_standard 98.2 F 2022-08-16 00:00 weight_metric 49.1 kg 2022-08-16 00:00 weight_standard 108.25 lb 2022-09-06 00:00 BMI 20.8 kg/m2 2022-09-06 00:00 BP_diastolic 78 mmHg 2022-09-06 00:00 BP_systolic 130 mmHg 2022-09-06 00:00 heart_rate 135 /min 2022-09-06 00:00 height_metric 157.48 cm 2022-09-06 00:00 height_standard 62 in 2022-09-06 00:00 o2_saturation 97 % 2022-09-06 00:00 temperature_metric 36.61 C 2022-09-06 00:00 temperature_standard 97.9 F 2022-09-06 00:00 weight_metric 51.7 kg 2022-09-06 00:00 weight_standard 113.98 lb
== END 2022-10-13 08:02 | disposition home or self-care (01) ==
LOC: ED 06:44
DX: H10.13 Acute atopic conjunctivitis, bilateral (principal); F17.200 Nicotine dependence, unspecified, uncomplicated
CPT/HCPCS: 99282; 99283; J3490

== ENCOUNTER 2022-10-13 21:57 | Emergency (ER) | payer MEDICAID ==
[2022-10-13 22:05] VITALS: BP 133/70
--- OUTSIDE RECORDS SUMMARY | 2022-10-13 22:09 | EXTERNAL MEDICAL SUMMARY RPT | Continuity of Care Document ---
:1990 Author Organization [employer] Address [address] [place] [address] Phone Care Team Providers Name Role Phone Lizz Cannon Unavailable Unavailable Allergies and Intolerances date description facility type (no date) adhesive tape [facility] (unknown) (no date) hydrocodone [facility] (unknown) Encounters No information. Functional Status No information. Immunizations No information. Medications date description facility 2022-08-10 00:00 [facility] 2022-08-16 00:00 [facility] 2022-09-01 00:00 [facility] 2022-08-10 00:00 [facility] 2022-08-16 00:00 [facility] 2022-09-19 00[facility]00 [facility] 2022-09-06 00:00 [facility] 2022-10-07 00:00 [facility] Problems date description facility 2022-07-20 00:00 Hyperthyroidism [facility] 2022-07-20 00:00 [facility] Thyrotoxicosis, unspecified without thy rotoxic [facility] crisis or sto 2022-07-21 07:03 Ulcerative blepharitis left upper eyeli d [facility] 2022-09-04 00:00 Depression [facility] 2022-09-04 00:00 Anxiety [facility] 2022-09-04 00:00 Ankle pain [facility] 2022-09-04 00:00 Menorrhagia [facility] 2022-09-04 00:00 Irregular menstrual cycle [facility] 2022-09-04 00:00 Dysmenorrhea [facility] 2022-09-04 00:00 Chronic cough [facility] 2022-09-04 00:00 Absence of sensation [facility] 2022-09-04 00:00 Allergy [facility] 2022-09-14 08:17 Thyrotoxicosis, unspecified without thy rotoxic [facility] crisis or sto 2022-09-14 08:31 Thyrotoxicosis, unspecified without thy rotoxic [facility] crisis or sto 2022-10-10 17:13 Thyrotoxicosis, unspecified without thy rotoxic [facility] crisis or sto Procedures date description [...] own) date) unknown) (unknown) (no (unknown) (unknown) [id number] (units (unkno wn) date) unknown) (unknown) (no (unknown) (unknown) 16:30 (units (unkno wn) date) unknown) (unknown) (no (unknown) (unknown) 630 (units (unkno wn) date) unknown) (unknown) (no (unknown) (unknown) Age/Sex: 31 / F (units (unknown) date) Date of Service: unknown) (unknown) (no (unknown) (unknown) Allergies (units (unkn own) date) unknown) (unknown) (no (unknown) (unknown) [facility] (units (unknown) date) Medicine unknown) (unknown) (no (unknown) (unknown) [place], [place] (units ( unknown) date) [address] unknown) (unknown) (no (unknown) (unknown) Attending Dr: (units ( unknown) date) Lizz Cannon unknown) [place] (unknown) (no (unknown) (unknown) BP 102/70 (units (unkn own) date) unknown) (unknown) (no (unknown) (unknown) Blood Pressure (units (unknown) date) Location Lt radial unknown) (unknown) (no (unknown) (unknown) Confirmed (units (unkn own) date) 07/20/22] unknown) (unknown) (no (unknown) (unknown) : 1990 (units (unknown) date) Acct:[id number] unknown) (unknown) (no (unknown) (unknown) Dept at [...] (unknown) Patient presents (units (unknown) date) to [facility] with unknown) concerns for left [...] unknown) effort is made to edit content, airport ramp attendant errors (unknown) (no (unknown) (unknown) thyroidism which [...] own) date) unknown) (unknown) (no (unknown) (unknown) [id number] (units (unkno wn) date) unknown) (unknown) (no [...] own) date) unknown) (unknown) (no (unknown) (unknown) [facility] (units (unknown) date) Medicine unknown) (unknown) (no (unknown) (unknown) [place], [place] (units ( unknown) date) [address] unknown) (unknown) (no (unknown) (unknown) Assessment + [...] (unknown) (unknown) : 1990 (units (unknown) date) Acct:[id number] unknown) (unknown) (no (unknown) (unknown) Dept at [...] (unknown) Patient presents (units (unknown) date) to [facility] with unknown) concerns for left [...] unknown) effort is made to edit content, airport ramp attendant errors (unknown) (no (unknown) (unknown) thyroidism which (units (unknown) date) is not being unknown) medically managed. Provider notified. 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 unknown) (unknown) (no (unknown) (unknown) tobramycin 0.3 [...] wn) date) unknown) (unknown) (no (unknown) (unknown) [id number] (units (unkno wn) date) unknown) (unknown) (no [...] Stat (unknown) (no (unknown) (unknown) Consult to [facility] - (units (unknown) date) Flight Engineer Manager unknown) Stat (unknown) (no (unknown) (unknown) Course (units (unkno wn) date) unknown) (unknown) (no (unknown) (unknown) Creatinine (units (unk nown) date) (0.52-1.04) mg/dL unknown) (unknown) (no (unknown) (unknown) Creatinine 0.28 L (units (unknown) date) (0.52-1.04) mg/dL unknown) (unknown) (no (unknown) (unknown) : 1990 (units (unknown) date) Acct:[id number] unknown) (unknown) (no (unknown) (unknown) Date of [...] date) Signs: unknown) (unknown) (no (unknown) (unknown) [facility] (units (unknown) date) [address] unknown) [place] [address] (unknown) (no (unknown) (unknown) Karyotype 45, X [...] (unknown) Lymph # (Auto) (units (unknown) date) (9439-3152) /uL unknown) (unknown) (no (unknown) (unknown) Lymph # (Auto) (units (unknown) date) 2200 (2422-3149) unknown) /uL (unknown) (no (unknown) (unknown) Lymph [...] date) Ambulatory unknown) (unknown) (no (unknown) (unknown) Swain # (Auto) (units ( unknown) date) (0-900) /uL unknown) (unknown) (no (unknown) (unknown) Swain # (Auto) 400 (units (unknown) date) (0-900) /uL unknown) (unknown) (no (unknown) (unknown) Swain % (Auto) (units ( unknown) date) (3-14) % unknown) (unknown) (no (unknown) (unknown) Swain % (Auto) 7.4 (units (unknown) date) (3-14) % unknown) (unknown) (no (unknown) (unknown) Neut # (Auto) (units ( unknown) date) (4754-1896) /uL unknown) (unknown) (no (unknown) (unknown) Neut # (Auto) 2600 (units (unknown) date) (0275-5606) /uL unknown) (unknown) (no (unknown) (unknown) Neut [...] unknown) provider in 2-3 days or call [phone] (unknown) (no (unknown) (unknown) *Return to ER [...] wn) date) unknown) (unknown) (no (unknown) (unknown) [id number] (units (unkno wn) date) unknown) (unknown) (no [...] Stat (unknown) (no (unknown) (unknown) Consult to HIM ASSISTANT - (units (unknown) date) Flight Engineer Manager unknown) Stat (unknown) (no (unknown) (unknown) Course (units (unkno wn) date) unknown) (unknown) (no (unknown) (unknown) Creatinine (units (unk nown) date) (0.52-1.04) mg/dL unknown) (unknown) (no (unknown) (unknown) Creatinine 0.28 L (units (unknown) date) (0.52-1.04) mg/dL unknown) (unknown) (no (unknown) (unknown) : 1990 (units (unknown) date) Acct:[id number] unknown) (unknown) (no (unknown) (unknown) Date of [...] (unknown) date) unknown) (unknown) (no (unknown) (unknown) [facility] (units (unknown) date) [address] unknown) [place] [address] (unknown) (no (unknown) (unknown) Karyotype 45, X [...] (unknown) Lymph # (Auto) (units (unknown) date) (7201-9373) /uL unknown) (unknown) (no (unknown) (unknown) Lymph # (Auto) (units (unknown) date) 2200 (4508-7605) unknown) /uL (unknown) (no (unknown) (unknown) Lymph [...] date) Ambulatory unknown) (unknown) (no (unknown) (unknown) Swain # (Auto) (units ( unknown) date) (0-900) /uL unknown) (unknown) (no (unknown) (unknown) Swain # (Auto) 400 (units (unknown) date) (0-900) /uL unknown) (unknown) (no (unknown) (unknown) Swain % (Auto) (units ( unknown) date) (3-14) % unknown) (unknown) (no (unknown) (unknown) Swain % (Auto) 7.4 (units (unknown) date) (3-14) % unknown) (unknown) (no (unknown) (unknown) NECK: Goiter noted (units (unknown) date) unknown) (unknown) (no (unknown) (unknown) NEUROLOGICAL: (units ( unknown) date) Alert and oriented unknown) x4 (unknown) (no (unknown) (unknown) Neut # (Auto) (units ( unknown) date) (0847-8197) /uL unknown) (unknown) (no (unknown) (unknown) Neut # (Auto) 2600 (units (unknown) date) (7229-6516) /uL unknown) (unknown) (no (unknown) (unknown) Neut % (Auto) (units ( unknown) date) (50-75) % unknown) (unknown) (no (unknown) (unknown) Neut % (Auto) 45.4 (units (unknown) date) L (50-75) % unknown) (unknown) (no (unknown) (unknown) No Action (units (unkn own) date) unknown) (unknown) (no (unknown) (unknown) Normal sinus (units (u nknown) date) rhythm rate 137 GA unknown) interval 130 QRS 70 QTC 4 [...] date) medications as unknown) directed--> sent to [facility] in [place] (unknown) (no (unknown) (unknown) *Follow up with (units (unknown) date) your primary care unknown) provider in 2-3 days or call [phone] (unknown) (no (unknown) (unknown) *Return to ER [...] wn) date) unknown) (unknown) (no (unknown) (unknown) [id number] (units (unkno wn) date) unknown) (unknown) (no [...] Stat (unknown) (no (unknown) (unknown) Consult to HIM ASSISTANT - (units (unknown) date) Flight Engineer Manager unknown) Stat (unknown) (no (unknown) (unknown) Course (units (unkno wn) date) unknown) (unknown) (no (unknown) (unknown) Creatinine (units (unk nown) date) (0.52-1.04) mg/dL unknown) (unknown) (no (unknown) (unknown) Creatinine 0.28 L (units (unknown) date) (0.52-1.04) mg/dL unknown) (unknown) (no (unknown) (unknown) : 1990 (units (unknown) date) Acct:[id number] unknown) (unknown) (no (unknown) (unknown) Date of [...] (unknown) date) unknown) (unknown) (no (unknown) (unknown) [facility] (units (unknown) date) [address] unknown) [place] [address] (unknown) (no (unknown) (unknown) Karyotype 45, X [...] (unknown) Lymph # (Auto) (units (unknown) date) (9188-3170) /uL unknown) (unknown) (no (unknown) (unknown) Lymph # (Auto) (units (unknown) date) 2200 (6682-4581) unknown) /uL (unknown) (no (unknown) (unknown) Lymph [...] date) Ambulatory unknown) (unknown) (no (unknown) (unknown) Swain # (Auto) (units ( unknown) date) (0-900) /uL unknown) (unknown) (no (unknown) (unknown) Swain # (Auto) 400 (units (unknown) date) (0-900) /uL unknown) (unknown) (no (unknown) (unknown) Swain % (Auto) (units ( unknown) date) (3-14) % unknown) (unknown) (no (unknown) (unknown) Swain % (Auto) 7.4 (units (unknown) date) (3-14) % unknown) (unknown) (no (unknown) (unknown) NECK: Goiter noted (units (unknown) date) unknown) (unknown) (no (unknown) (unknown) NEUROLOGICAL: (units ( unknown) date) Alert and oriented unknown) x4 (unknown) (no (unknown) (unknown) Neut # (Auto) (units ( unknown) date) (6033-3086) /uL unknown) (unknown) (no (unknown) (unknown) Neut # (Auto) 2600 (units (unknown) date) (6414-0693) /uL unknown) (unknown) (no (unknown) (unknown) Neut [...] (units (u nknown) date) rhythm rate 137 GA unknown) interval 130 QRS 70 QTC 4 [...] date) medications as unknown) directed--> sent to [facility] in [place] (unknown) (no (unknown) (unknown) *Follow up with (units (unknown) date) your primary care unknown) provider in 2-3 days or call [phone] (unknown) (no (unknown) (unknown) *Return to ER [...] unknown) date) unknown) (unknown) (no (unknown) (unknown) [id number] (units (unkno wn) date) unknown) (unknown) (no [...] unknown) (unknown) (no (unknown) (unknown) Consult to [facility] - (units (unknown) date) Flight Engineer Manager unknown) Stat (unknown) (no (unknown) (unknown) Course (units (unkno wn) date) unknown) (unknown) (no (unknown) (unknown) Creatinine (units (unk nown) date) (0.52-1.04) mg/dL unknown) (unknown) (no (unknown) (unknown) Creatinine 0.28 L (units (unknown) date) (0.52-1.04) mg/dL unknown) (unknown) (no (unknown) (unknown) : 1990 (units (unknown) date) Acct:[id number] unknown) (unknown) (no (unknown) (unknown) Date of [...] (unknown) date) unknown) (unknown) (no (unknown) (unknown) [facility] (units (unknown) date) [address] unknown) [place] [address] (unknown) (no (unknown) (unknown) Karyotype 45, X [...] (unknown) Lymph # (Auto) (units (unknown) date) (8758-4669) /uL unknown) (unknown) (no (unknown) (unknown) Lymph # (Auto) (units (unknown) date) 2200 (3680-9419) unknown) /uL (unknown) (no (unknown) (unknown) Lymph [...] date) Ambulatory unknown) (unknown) (no (unknown) (unknown) Swain # (Auto) (units ( unknown) date) (0-900) /uL unknown) (unknown) (no (unknown) (unknown) Swain # (Auto) 400 (units (unknown) date) (0-900) /uL unknown) (unknown) (no (unknown) (unknown) Swain % (Auto) (units ( unknown) date) (3-14) % unknown) (unknown) (no (unknown) (unknown) Swain % (Auto) 7.4 (units (unknown) date) (3-14) % unknown) (unknown) (no (unknown) (unknown) NECK: Goiter (units (u nknown) date) noted unknown) (unknown) (no (unknown) (unknown) NEUROLOGICAL: (units ( unknown) date) Alert and oriented unknown) x4 (unknown) (no (unknown) (unknown) Neut # (Auto) (units ( unknown) date) (6407-1364) /uL unknown) (unknown) (no (unknown) (unknown) Neut # (Auto) (units ( unknown) date) 2600 (7184-2112) unknown) /uL (unknown) (no (unknown) (unknown) Neut [...] (units (u nknown) date) rhythm rate 137 GA unknown) interval 130 QRS 70 QTC 4 [...] wn) date) unknown) (unknown) (no (unknown) (unknown) [id number] (units (unkno wn) date) unknown) (unknown) (no (unknown) (unknown) Age/Sex: 31 / F (units (unknown) date) Date of Service: unknown) (unknown) (no (unknown) (unknown) Allergies (units (unkn own) date) unknown) (unknown) (no (unknown) (unknown) [facility] (units ( unknown) date) [address] unknown) (unknown) (no (unknown) (unknown) Attending Dr: (units ( unknown) date) Meng NEGRON unknown) (unknown) (no (unknown) (unknown) : 1990 (units (unknown) date) Acct:[id number] unknown) (unknown) (no (unknown) (unknown) Dept at [...] unknown) effort is made to edit content, airport ramp attendant errors Result panel 191 (unknown) (no (unknown) (unknown) (no value) (units (unk nown) date) unknown) (unknown) (no (unknown) (unknown) *est. with (units (unk nown) date) Nyasia* 31 Y F, unknown) patient here today to f/u on ED visit. (unknown) (no (unknown) (unknown) 08/16/22 (units (unkno wn) date) unknown) (unknown) (no (unknown) (unknown) [id number] (units (unkno wn) date) unknown) (unknown) (no (unknown) (unknown) 10:01 (units (unkno wn) date) unknown) (unknown) (no (unknown) (unknown) Age/Sex: 31 / F (units (unknown) date) Date of Service: unknown) (unknown) (no (unknown) (unknown) Allergies (units (unkn own) date) unknown) (unknown) (no (unknown) (unknown) [facility] (units ( unknown) date) [address] unknown) (unknown) (no (unknown) (unknown) Attending Dr: (units ( unknown) date) Meng NEGRON unknown) (unknown) (no (unknown) (unknown) BMI 19.8 (units (unkno wn) date) unknown) (unknown) (no (unknown) (unknown) BP 120/62 (units (unkn own) date) unknown) (unknown) (no (unknown) (unknown) Blood Pressure (units (unknown) date) Location Lt unknown) brachial (unknown) (no (unknown) (unknown) : 1990 (units (unknown) date) Acct:[id number] unknown) (unknown) (no (unknown) (unknown) Dept at [...] unknown) effort is made to edit content, airport ramp attendant errors Result panel 192 (unknown) (no (unknown) (unknown) (no value) (units (unk nown) date) unknown) (unknown) (no (unknown) (unknown) (1) (units (unkno wn) date) Hyperthyroidism: unknown) (unknown) (no (unknown) (unknown) *est. with (units (unk nown) date) Nyasia* 31 Y F, unknown) patient here today to f/u on ED visit. (unknown) (no (unknown) (unknown) 08/16/22 (units (unkno wn) date) unknown) (unknown) (no (unknown) (unknown) [id number] (units (unkno wn) date) unknown) (unknown) (no (unknown) (unknown) 10:01 (units (unkno wn) date) unknown) (unknown) (no (unknown) (unknown) Age/Sex: 31 / F (units (unknown) date) Date of Service: unknown) (unknown) (no (unknown) (unknown) Allergies (units (unkn own) date) unknown) (unknown) (no (unknown) (unknown) [place], [place] (units ( unknown) date) [address] unknown) (unknown) (no (unknown) (unknown) Assessment + [...] (unknown) (unknown) : 1990 (units (unknown) date) Acct:[id number] unknown) (unknown) (no (unknown) (unknown) Dept at [...] unknown) effort is made to edit content, airport ramp attendant errors (unknown) (no (unknown) (unknown) thyrotoxic crisis [...] wn) date) unknown) (unknown) (no (unknown) (unknown) [id number] (units (unkno wn) date) unknown) (unknown) (no [...] own) date) unknown) (unknown) (no (unknown) (unknown) [place], [place] (units ( unknown) date) [address] unknown) (unknown) (no (unknown) (unknown) Assessment + [...] (unknown) (unknown) : 1990 (units (unknown) date) Acct:[id number] unknown) (unknown) (no (unknown) (unknown) Dept at [...] Preg Lot # (units (unk nown) date) [id number] Last unknown) Edit by Richelle Rodriguez LPN [...] unknown) effort is made to edit content, airport ramp attendant errors (unknown) (no (unknown) (unknown) thyrotoxic crisis [...] wn) date) unknown) (unknown) (no (unknown) (unknown) [id number] (units (unkno wn) date) unknown) (unknown) (no [...] own) date) unknown) (unknown) (no (unknown) (unknown) [place], [place] (units ( unknown) date) [address] unknown) (unknown) (no (unknown) (unknown) Appointment to [...] (unknown) (unknown) : 1990 (units (unknown) date) Acct:[id number] unknown) (unknown) (no (unknown) (unknown) Dept at [...] Preg Lot # (units (unk nown) date) [id number] Last unknown) Edit by Richelle Rodriguez LPN [...] unknown) effort is made to edit content, airport ramp attendant errors (unknown) (no (unknown) (unknown) thyrotoxic crisis [...] wn) date) unknown) (unknown) (no (unknown) (unknown) [id number] (units (unkno wn) date) unknown) (unknown) (no [...] (unknown) [facility] (units ( unknown) date) [address] unknown) (unknown) (no (unknown) (unknown) Appointment to [...] (unknown) (unknown) : 1990 (units (unknown) date) Acct:[id number] unknown) (unknown) (no (unknown) (unknown) Dept at [...] Preg Lot # (units (unk nown) date) [id number] Last unknown) Edit by Richelle Rodriguez LPN [...] unknown) effort is made to edit content, airport ramp attendant errors (unknown) (no (unknown) (unknown) thyrotoxic crisis [...] wn) date) unknown) (unknown) (no (unknown) (unknown) [id number] (units (unkno wn) date) unknown) (unknown) (no [...] own) date) unknown) (unknown) (no (unknown) (unknown) [place], [place] (units ( unknown) date) [address] unknown) (unknown) (no (unknown) (unknown) Appointment to [...] (unknown) (unknown) : 1990 (units (unknown) date) Acct:[id number] unknown) (unknown) (no (unknown) (unknown) Dept at [...] Preg Lot # (units (unk nown) date) [id number] Last unknown) Edit by Richelle Rodriguez LPN [...] effort is unknown) made to edit content, airport ramp attendant errors (unknown) (no (unknown) (unknown) thyrotoxic crisis [...] wn) date) unknown) (unknown) (no (unknown) (unknown) [id number] (units (unkno wn) date) unknown) (unknown) (no [...] own) date) unknown) (unknown) (no (unknown) (unknown) [place], [place] (units ( unknown) date) [address] unknown) (unknown) (no (unknown) (unknown) Appointment to [...] (unknown) (unknown) : 1990 (units (unknown) date) Acct:[id number] unknown) (unknown) (no (unknown) (unknown) Dept at [...] date) Negative Last Edit unknown) by Richelle Rordiguez LPN on 08/16/22 10:21 (unknown) (no (unknown) [...] Preg Lot # (units (unk nown) date) [id number] Last unknown) Edit by Richelle Rodriguez LPN [...] effort is unknown) made to edit content, airport ramp attendant errors (unknown) (no (unknown) (unknown) thyrotoxic crisis [...] wn) date) unknown) (unknown) (no (unknown) (unknown) [id number] (units (unkno wn) date) unknown) (unknown) (no [...] (unknown) [facility] (units ( unknown) date) [address] unknown) (unknown) (no (unknown) (unknown) Appointment to [...] (unknown) (unknown) : 1990 (units (unknown) date) Acct:[id number] unknown) (unknown) (no (unknown) (unknown) Dept at [...] Preg Lot # (units (unk nown) date) [id number] Last unknown) Edit by Richelle Rodriguez LPN [...] effort is unknown) made to edit content, airport ramp attendant errors (unknown) (no (unknown) (unknown) taking the [...] unknown) date) unknown) (unknown) (no (unknown) (unknown) [id number] (units (unkno wn) date) unknown) (unknown) (no [...] own) date) unknown) (unknown) (no (unknown) (unknown) [place], [place] (units ( unknown) date) [address] unknown) (unknown) (no (unknown) (unknown) Appointment to [...] (unknown) (unknown) : 1990 (units (unknown) date) Acct:[id number] unknown) (unknown) (no (unknown) (unknown) Details: (units [...] Preg Lot # (units (unk nown) date) [id number] Last unknown) Edit by Richelle Rodriguez LPN [...] effort is unknown) made to edit content, airport ramp attendant errors ma (unknown) (no (unknown) (unknown) taking [...] wn) date) unknown) (unknown) (no (unknown) (unknown) [id number] (units (unkno wn) date) unknown) (unknown) (no (unknown) (unknown) 31 year old (units (un known) date) female presents to unknown) clinic for establishing care. (unknown) (no (unknown) (unknown) Age/Sex: 31 / F (units (unknown) date) Date of Service: unknown) (unknown) (no (unknown) (unknown) Allergies (-1998) (units (unknown) date) unknown) (unknown) (no (unknown) (unknown) Allergies (units (unkn own) date) unknown) (unknown) (no (unknown) (unknown) [place] (units ( unknown) date) [address] unknown) (unknown) (no (unknown) (unknown) Anesthesia (units [...] (unknown) (unknown) : 1990 (units (unknown) date) Acct:[id number] unknown) (unknown) (no (unknown) (unknown) Depression (units [...] unknown) effort is made to edit content, airport ramp attendant errors Result panel 201 (unknown) (no (unknown) (unknown) (no value) (units (unk nown) date) unknown) (unknown) (no (unknown) (unknown) 09/06/22 (units (unkno wn) date) unknown) (unknown) (no (unknown) (unknown) [id number] (units (unkno wn) date) unknown) (unknown) (no (unknown) (unknown) 31 year old (units (un known) date) female presents to unknown) clinic for establishing care. (unknown) (no (unknown) (unknown) Age/Sex: 31 / F (units (unknown) date) Date of Service: unknown) (unknown) (no (unknown) (unknown) Allergies (-1998) (units (unknown) date) unknown) (unknown) (no (unknown) (unknown) Allergies (units (unkn own) date) unknown) (unknown) (no (unknown) (unknown) [place], [place] (units ( unknown) date) [address] unknown) (unknown) (no (unknown) (unknown) Anesthesia (units [...] (unknown) (unknown) : 1990 (units (unknown) date) Acct:[id number] unknown) (unknown) (no (unknown) (unknown) Depression (units [...] unknown) effort is made to edit content, airport ramp attendant errors (unknown) (no (unknown) (unknown) thyroid has been (units (unknown) date) a concern. unknown) Result panel 202 (unknown) (no (unknown) (unknown) (no value) (units (unk nown) date) unknown) (unknown) (no (unknown) (unknown) 09/06/22 (units (unkno wn) date) unknown) (unknown) (no (unknown) (unknown) [id number] (units (unkno wn) date) unknown) (unknown) (no [...] own) date) unknown) (unknown) (no (unknown) (unknown) [place], [place] (units ( unknown) date) [address] unknown) (unknown) (no (unknown) (unknown) Anesthesia (units [...] (unknown) (unknown) : 1990 (units (unknown) date) Acct:[id number] unknown) (unknown) (no (unknown) (unknown) Depression (units [...] unknown) effort is made to edit content, airport ramp attendant errors (unknown) (no (unknown) (unknown) thyroid has been (units (unknown) date) a concern. unknown) Result panel 203 (unknown) (no (unknown) (unknown) (no value) (units (unk nown) date) unknown) (unknown) (no (unknown) (unknown) 09/06/22 (units (unkno wn) date) unknown) (unknown) (no (unknown) (unknown) [id number] (units (unkno wn) date) unknown) (unknown) (no [...] own) date) unknown) (unknown) (no (unknown) (unknown) [place], [place] (units ( unknown) date) [address] unknown) (unknown) (no (unknown) (unknown) Anesthesia (units [...] (unknown) (unknown) : 1990 (units (unknown) date) Acct:[id number] unknown) (unknown) (no (unknown) (unknown) Depression (units [...] unknown) effort is made to edit content, airport ramp attendant errors (unknown) (no (unknown) (unknown) thyroid has been (units (unknown) date) a concern. unknown) Result panel 204 (unknown) (no (unknown) (unknown) (no value) (units (unk nown) date) unknown) (unknown) (no (unknown) (unknown) 09/06/22 (units (unkno wn) date) unknown) (unknown) (no (unknown) (unknown) [id number] (units (unkno wn) date) unknown) (unknown) (no [...] own) date) unknown) (unknown) (no (unknown) (unknown) [place] (units ( unknown) date) [id number] unknown) (unknown) (no (unknown) (unknown) Anesthesia (units [...] (unknown) (unknown) : 1990 (units (unknown) date) Acct:[id number] unknown) (unknown) (no (unknown) (unknown) Depression (units [...] unknown) effort is made to edit content, airport ramp attendant errors (unknown) (no (unknown) (unknown) thyroid has been (units (unknown) date) a concern. unknown) Result panel 205 (unknown) (no (unknown) (unknown) (no value) (units (unk nown) date) unknown) (unknown) (no (unknown) (unknown) 09/06/22 (units (unkno wn) date) unknown) (unknown) (no (unknown) (unknown) [id number] (units (unkno wn) date) unknown) (unknown) (no [...] own) date) unknown) (unknown) (no (unknown) (unknown) [place] (units ( unknown) date) [id number] unknown) (unknown) (no (unknown) (unknown) Anesthesia (units [...] (unknown) (unknown) : 1990 (units (unknown) date) Acct:[id number] unknown) (unknown) (no (unknown) (unknown) Depression (units [...] unknown) effort is made to edit content, airport ramp attendant errors (unknown) (no (unknown) (unknown) thyroid has [...] wn) date) unknown) (unknown) (no (unknown) (unknown) [id number] (units (unkno wn) date) unknown) (unknown) (no [...] date) Reviewed unknown) (unknown) (no (unknown) (unknown) [place], [place] (units ( unknown) date) [id number] unknown) (unknown) (no (unknown) (unknown) Anesthesia (units [...] (unknown) (unknown) : 1990 (units (unknown) date) Acct:[id number] unknown) (unknown) (no (unknown) (unknown) Depression (units [...] paperwork unknown) today to schedule with the mottle lay up operator to (unknown) (no (unknown) (unknown) read the [...] unknown) effort is made to edit content, airport ramp attendant errors (unknown) (no (unknown) (unknown) states that [...] wn) date) unknown) (unknown) (no (unknown) (unknown) [id number] (units (unkno wn) date) unknown) (unknown) (no [...] date) Reviewed unknown) (unknown) (no (unknown) (unknown) [place], [place] (units ( unknown) date) [id number] unknown) (unknown) (no (unknown) (unknown) Anesthesia (units [...] (unknown) (unknown) : 1990 (units (unknown) date) Acct:[id number] unknown) (unknown) (no (unknown) (unknown) Depression (units [...] paperwork unknown) today to schedule with the mottle lay up operator to (unknown) (no (unknown) (unknown) read the [...] unknown) effort is made to edit content, airport ramp attendant errors (unknown) (no (unknown) (unknown) states that [...] unknown) date) unknown) (unknown) (no (unknown) (unknown) [id number] (units (unkno wn) date) unknown) (unknown) (no [...] date) Reviewed unknown) (unknown) (no (unknown) (unknown) [place], [place] (units ( unknown) date) [id number] unknown) (unknown) (no (unknown) (unknown) Anesthesia (units [...] (unknown) (unknown) : 1990 (units (unknown) date) Acct:[id number] unknown) (unknown) (no (unknown) (unknown) Depression Type: [...] paperwork unknown) today to schedule with the mottle lay up operator to (unknown) (no (unknown) (unknown) read the [...] unknown) effort is made to edit content, airport ramp attendant errors (unknown) (no (unknown) (unknown) states that [...] are unknown) identified. (unknown) (no (unknown) (unknown) [id number] (units (unkno wn) date) unknown) (unknown) (no (unknown) (unknown) 09/14/22 (units (unkno wn) date) unknown) (unknown) (no (unknown) (unknown) [address] [place] [address] (units (unknown) date) unknown) (unknown) (no (unknown) (unknown) Accession Number: (units (unknown) date) [id number] unknown) (unknown) (no (unknown) (unknown) Age/Sex: 31 / F (units (unknown) date) Date of Service: unknown) (unknown) (no (unknown) (unknown) [place], [place] (units ( unknown) date) [id number] unknown) (unknown) (no (unknown) (unknown) Approved by: (units (u nknown) date) sergey Kennedy M.D. on 09/15/2022 at 13:47 (unknown) (no (unknown) (unknown) COMPARISON: None. (units (unknown) date) unknown) (unknown) (no (unknown) (unknown) : 1990 (units (unknown) date) Acct:[id number] unknown) (unknown) (no (unknown) (unknown) Dictated by: [...] date) hyperthyroidism unknown) (unknown) (no (unknown) (unknown) [facility] (units (unknown) date) unknown) (unknown) (no [...] date) the thyroid gland unknown) calculated using administration specialist's software. (unknown) (no (unknown) (unknown) obtained, and [...] wn) date) unknown) (unknown) (no (unknown) (unknown) [id number] (units (unkno wn) date) unknown) (unknown) (no [...] date) Reviewed unknown) (unknown) (no (unknown) (unknown) [place], [place] (units ( unknown) date) [id number] unknown) (unknown) (no (unknown) (unknown) Anesthesia (units [...] (unknown) (unknown) : 1990 (units (unknown) date) Acct:[id number] unknown) (unknown) (no (unknown) (unknown) Depression (units [...] the Medical Records (unknown) (no (unknown) (unknown) [email or web address] (units (unknown) date) [email or web address] unknown) [email or web address]=me thimazol (unknown) (no (unknown) (unknown) hydrocodone [...] unknown) effort is made to edit content, airport ramp attendant errors (unknown) (no (unknown) (unknown) still has [...] facility 2022-07-20 00:00 Smokes tobacco daily (finding) [facility] 2022-08-10 00:00 Smokes tobacco daily (finding) [facility] 2022-08-16 00:00 Smokes tobacco daily (finding) [facility] 2022-09-06 00:00 Smokes tobacco daily (finding) [facility] Vital Signs date measurement value units [...]
[2022-10-13] MEDS: oxyCODONE 5 MG TABLET PO STA (22:23)
[2022-10-13] MEDS: LIDOCAINE PATCH 5% TOP STA (22:23)
--- NOTE | 2022-10-13 23:10 | ED Physician Documentation ---
PD HPI LOWER EXT INJURY - Stated complaint Stated Complaint: FALL/LT KNEE/SHOULDER PX - Chief complaint Chief Complaint: Trauma Ext - History obtained from History obtained from: Patient - Additional information Additional information: Patient is a 31-year-old female presenting for evaluation of left hip and left knee pain after falling earlier today. Patient reports she stumbled near the bottom of her stairs and fell forward hitting her left knee against a step.She reports that as the days progressed the pain in the knee has worsened and now she has developed pain in her hip. She denies head injury or LOC. She does not take a blood thinner. She denies Prior injury to this extremity. 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 : None HEENT: None Psych: None Musculoskeletal: None Derm: None - Past Surgical History Past Surgical History: Yes Ortho: Other HEENT: Tonsil/Adenoidectomy - Present Medications Home Medications: Ambulatory Orders Medication Instructions Recorded Confirmed methIMAzole [Methimazole] 10 mg PO DAILY #30 tablet 07/27/21 10/13/22 Ketorolac Tromethamine 2 drops EACHEYE TID PRN #10 ml 10/13/22 Ketotifen Fumarate [Eye Itch 2 drops EACHEYE QID PRN #5 ml 10/13/22 Relief] Sertraline [Zoloft] 25 mg PO DAILY 10/13/22 10/13/22 Tetracaine 0.5% Ophth Drops 1 drops EACHEYE Q2H PRN 1 Days #4 10/13/22 [Tetracaine] ml atenoloL [Tenormin] 25 mg PO DAILY 10/13/22 10/13/22 - Allergies Allergies/Adverse Reactions: Allergies Allergy/AdvReac Type Severity Reaction Status Date / Time acetaminophen [From Vicodin] Allergy Unknown Unknown Verified 10/13/22 22:03 hydrocodone bitartrate * Allergy Unknown Unknown Verified 10/13/22 22:03 [From Vicodin] paper tape Allergy Rash Uncoded 10/13/22 22:03 - Social History Does the pt smoke?: Yes Smoking Status: Current every day smoker Does the pt drink ETOH?: No Does the pt have substance abuse?: No - Immunizations Immunizations are current?: Yes Immunizations: TDAP >10years/unknown - POLST Patient has POLST: No PD ED PE NORMAL - General General: Alert and oriented X 3, No acute distress, Well developed/nourished - HEENT HEENT: Atraumatic - Neck Neck: Supple, no meningeal sign, No bony TTP, C-Spine cleared by NEXUS criteria - Cardiac Cardiac: RRR, Strong equal pulses - Respiratory Respiratory: No respiratory distress - Back Back: No spinal TTP - Extremities Extremities: No deformity, Other (Tenderness to left knee and left hip on palpation and with range of motion, pedal pulses intact, normal strength and sensation) - Neuro Neuro: No motor deficit, No sensory deficit Results - Vitals Vitals: Vital Signs - 24 hr 10/13/22 22:03 Temperature 36.5 C Heart Rate 110 H Respiratory 16 Rate Blood Pressure 133/70 H O2 Saturation 99 Oxygen O2 Source Room air PD Medical Decision Making - ED course Complexity details: reviewed results, re-evaluated patient ED course: Patient is a 31-year-old female presenting for evaluation after a fall. She rep orts having a left hip and left knee pain. She has been able to ambulate today. On exam she has no deformities and is neurovascularly intact. X-rays were obtained of the left hip and left knee and I do not see signs of a fracture or dislocation. Patient was placed into a knee immobilizer and instructed on use of crutches. She did not have any signs of a head injury. She initially was given an oxycodone for her pain. She was instructed on need for continued supportive care as well as need for follow-up if symptoms or not improving. Departure - Departure Disposition: 01 Home, Self Care Clinical Impression: Left knee injury, Strain of left hip Condition: Stable Instructions: ED Sprain Hip, ED Knee Pain UKO Comments: Your x-rays do not show a broken or out of place bone. You likely have strained the muscles or ligaments to the left leg. I recommend continuing with anti- inflammatories such as ibuprofen or acetaminophen. We have applied a knee immobilizer and given you crutches. I would recommend using these 2 get around if it is hurting to put weight on this leg. Please continue with using ice and elevating the leg. If your symptoms are not improving that I would recommend close follow-up with your primary care doctor. Return to the ER with any new or worsening symptoms. Discharge Date/Time: 10/13/22 23:23
--- NOTE | 2022-10-14 00:11 | XRAY Report ---
PROCEDURE: Hip w/Pelvis 2-3V LT INDICATIONS: fall TECHNIQUE: AP pelvis with lateral view of the left hip. COMPARISON: None. FINDINGS: Bones: No fractures or dislocations. Pelvic ring appears intact. No suspicious bony lesions. Soft tissues: The visualized bowel gas pattern is normal. No suspicious soft tissue calcifications. IMPRESSION: 1. No fracture or dislocation. Reviewed by: Andres Melara MD on 10/14/2022 12:10 AM PDT Approved by: Andres Melara MD on 10/14/2022 12:10 AM PDT Station ID: [id number]
--- NOTE | 2022-10-14 00:12 | XRAY Report ---
PROCEDURE: Knee 3 View LT INDICATIONS: fall/pain TECHNIQUE: 3 views of the left knee were acquired. COMPARISON: None. FINDINGS: Bones: No fractures or dislocations. No suspicious bony lesions. Soft tissues: No joint effusion. No suspicious soft tissue calcifications. IMPRESSION: 1. No fracture or dislocation. Reviewed by: Andres Melara MD on 10/14/2022 12:10 AM PDT Approved by: Andres Melara MD on 10/14/2022 12:10 AM PDT Station ID: [id number]
== END 2022-10-13 23:23 | disposition home or self-care (01) ==
LOC: ED 21:57
DX: S89.92XA Unspecified injury of left lower leg, initial encounter (principal); S79.912A Unspecified injury of left hip, initial encounter; W10.9XXA Fall (on) (from) unspecified stairs and steps, initial encounter; F17.200 Nicotine dependence, unspecified, uncomplicated
CPT/HCPCS: 73502; 73562; 99283; A9270

== ENCOUNTER 2023-08-16 11:33 | Emergency (ER) | payer MEDICAID ==
[2023-08-16 13:00] LABS: BILIRUBIN,URINE NEGATIVE (NEGATIVE); GLUCOSE, URINE (UA) NEGATIVE (NEGATIVE); KETONES,URINE (UA) NEGATIVE (NEGATIVE); LEUKOCYTE ESTERASE, URINE NEGATIVE (NEGATIVE); NITRITE,URINE NEGATIVE (NEGATIVE); OCCULT BLOOD,URINE NEGATIVE (NEGATIVE); PROTEIN,URINE NEGATIVE (NEGATIVE); UROBILINOGEN,URINE 0.2 (NORMAL) E.U./dL (NORMAL)
[2023-08-16 13:03] LABS: CLARITY,URINE CLEAR (CLEAR)
[2023-08-16 13:04] LABS: HCG UR QUAL NEGATIVE
[2023-08-16] MEDS: SODIUM CHLORIDE 0.9% 1,000 ML IV STA (13:34)
[2023-08-16 14:00] LABS: THYROID STIMULATING HORMONE < 0.01 uIU/mL (0.34-5.60)
[2023-08-16] MEDS: KETOROLAC 30 MG/ML VIAL IVP STA (14:01)
[2023-08-16] MEDS: PROPRANOLOL 10 MG TABLET PO STA (14:02)
[2023-08-16] MEDS ORDERED: PROMETHAZINE 25 MG/1 ML VIAL ONE (14:13)
[2023-08-16] MEDS: PROMETHAZINE INJ 25 MG in SODIUM CHLORIDE 0.9% 50 ML IV STA (14:15)
[2023-08-16] MEDS: METOPROLOL 5 MG/5 ML VIAL IVP STA ×2 (14:45→14:57)
[2023-08-16] MEDS: methIMAzole 5 MG TABLET PO STA ×2 (14:54→14:58)
[2023-08-16] MEDS: HYDROmorphone 1 MG/ML CARPUJECT IVP STA (15:22)
--- NOTE | 2023-08-16 15:34 | ED Physician Documentation ---
History of Present Illness - Stated complaint Stated Complaint: MIGRAINE,NAUSEA - Chief complaint Chief Complaint: General - History obtained from History obtained from: Patient - Additonal information Additional information: The patient comes to the emergency department chief complaint of headache. She states it is stretching across her forehead on both sides and feels tight and pounding. She also states she thinks she is in "thyroid storm". The patient denies recent illness. She denies fevers. She has a history of hyperthyroidism of what etiology the patient is not sure. She states that she had a primary care physician in [place] but she did not like him, so she stopped seeing him. She states she tried to get a different provider through her insurance, but whenever she would make an appoint with that provider, it would be in the same office, she would always end up having to see her primary care physician again. The patient states he was prescribing her thyroid meds and that she ended up just stopping her visits with her primary and going off her meds altogether. She states last time she took her methimazole and atenolol was about 6 months ago. The patient states she has had some restless feelings, but denies any hallucinations. No fevers. She states she feels as though her heart races. No other complaints at this time. She denies any neck pain. No head injury recently. No drugs. 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 HEENT: None Psych: None Musculoskeletal: None Derm: None - Past Surgical History Past Surgical History: Yes Ortho: Other HEENT: Tonsil/Adenoidectomy - Present Medications Home Medications: Ambulatory Orders Medication Instructions Recorded Confirmed Propranolol [Inderal] 80 mg PO Q6H #240 tablet 08/16/23 methIMAzole [Methimazole] 20 mg PO Q6H #120 tablet 08/16/23 - Allergies Allergies/Adverse Reactions: Allergies Allergy/AdvReac Type Severity Reaction Status Date / Time acetaminophen [From Vicodin] Allergy Unknown Unknown Verified 10/13/22 22:03 hydrocodone bitartrate * Allergy Unknown Unknown Verified 10/13/22 22:03 [From Vicodin] paper tape Allergy Rash Uncoded 10/13/22 22:03 - Social History Does the pt smoke?: Yes Smoking Status: Current every day smoker Does the pt drink ETOH?: No Does the pt have substance abuse?: No - Immunizations Immunizations are current?: Yes Immunizations: TDAP >10years/unknown - POLST Patient has POLST: No PD ED PE NORMAL - Vitals Vital signs reviewed: Yes - General General: Alert and oriented X 3, No acute distress, Well developed/nourished - HEENT HEENT: Atraumatic, PERRL, EOMI, Moist mucous membranes - Neck Neck: Supple, no meningeal sign (No goiter) - Cardiac Cardiac: No murmur, Other (Tachycardic rate regular rhythm) - Respiratory Respiratory: No respiratory distress, Clear bilaterally - Abdomen Abdomen: Soft, Non tender, Non distended - Derm Derm: Warm and dry - Extremities Extremities: No deformity - Neuro Neuro: Alert and oriented X 3, wire harness assembler 2-12 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 Relevant findings are: Rate: Rate (enter#) (134) Rhythm: Sinus tachycardia, LAE [place]: Normal Intervals: Normal [place] QRS: Normal Ischemia: Normal ST segments Compare to prior EKG: Old EKG unavailable Computer interpretation: Agree with computer - Labs Labs: Laboratory Tests 08/16/23 08/16/23 08/16/23 12:53 12:53 13:24 TSH < 0.01 L Free T4 Direct 5.05 H Free T3 pg/mL 22.87 H Total T3 7.04 H Urine Color YELLOW Urine Clarity CLEAR Urine pH 6.0 Ur Specific [place] <=1.005 Urine Protein NEGATIVE Urine Glucose (UA) NEGATIVE Urine Ketones NEGATIVE Urine Occult Blood NEGATIVE Urine Nitrite NEGATIVE Urine Bilirubin NEGATIVE Urine Urobilinogen 0.2 (NORMAL) Ur Leukocyte Esterase NEGATIVE Ur Microscopic Review NOT INDICATED Urine Culture Comments NOT INDICATED Urine HCG, Qual NEGATIVE PD Medical Decision Making - ED course Complexity details: reviewed results, re-evaluated patient, considered differential, d/w patient ED course: The patient was treated with IV fluids, propranolol, metoprolol, Phenergan and methimazole in the emergency department. Her workup included EKG, which showed sinus tachycardia, and urinalysis with test, both of which were negative. I also obtained thyroid studies which showed an undetectable TSH and elevations of the patient's T3 and T4. The patient's heart rate had come down after the above treatments to the low 100s, and the patient reported feeling better in that respect but still having somewhat of headache. She was given a dose of Dilaudid and was found to be feeling much better. I felt she was stable for discharge home. I have advised the patient that she is not in thyroid storm, as she is tachycardic but otherwise without hyperpyrexia, psychosis, hypertension, or anything else to indicate thyroid storm. The patient is hyperthyroidism has been completely uncontrolled for months, though, and I have emphasized the patient that it is imperative that she get back on her medications and see primary care, even if it is the doctor she does not like for now. This will least enable her to get her medications that she needs. The patient expresses understanding. I have sent prescriptions for her atenolol and methimazole to the pharmacy of her choice. We have discussed the usual indications for return. t Departure - Departure Disposition: 01 Home, Self Care Clinical Impression: Hyperthyroidism Headache Qualifiers: Headache type: unspecified Headache chronicity pattern: acute headache Intractability: not intractable Qualified Code(s): R51.9 - Headache, unspecified Condition: Stable Instructions: ED Cephalgia Unspecified, ED Hyperthyroidism Prescriptions: Propranolol [Inderal] 80 mg PO Q6H #240 tablet methIMAzole [Methimazole] 20 mg PO Q6H #120 tablet Comments: Your thyroid hormones are elevated and your stimulating hormone is undetectable. Is important that you get back on your thyroid medications as you were before. The prescription for propranolol and methimazole has been electronically transmitted to the [facility] pharmacy in [place]. Please pick these up today and start them immediately. You also need to prioritize getting a primary care physician. Even if you have to see your PCP that you do not really like very much, it is better than not been seen at all and not having the medication you need. Please call for the next available appointment. Forms: PCP List Discharge Date/Time: 08/16/23 15:49
[2023-08-16 15:48] VITALS: BP 128/88; O2SAT 99
--- NOTE | 2023-08-16 17:35 | ED Physician Documentation ---
ED Addendum - Addendum Addendum: 08/16/23 17:[address] [facility] pharmacy regarding the patient's prescription for methimazole and propranolol. We do not have any history of doses that she was taking previously. The pharmacist was able to review her medication history and confirmed that she was on methimazole 10 mg p.o. twice daily and atenolol 25 mg p.o. twice daily. Therefore we have changed the patient back to these medications and started them at her usual doses. I discussed the changes with Dr. Araiza as well.
== END 2023-08-16 15:49 | disposition home or self-care (01) ==
LOC: ED 11:33
DX: R51.9 Headache, unspecified (principal); E05.90 Thyrotoxicosis, unspecified without thyrotoxic crisis or storm; R00.0 Tachycardia, unspecified; F17.200 Nicotine dependence, unspecified, uncomplicated
CPT/HCPCS: 36415; 81003; 81025; 84439; 84443; 84480; 84481; 93005; 96365; 96375; 99283; 99285; A9270; J1170; J7040; 81001; 87086

== ENCOUNTER 2023-12-29 08:00 | Outpatient (CLI) | payer MEDICAID ==
[2023-12-29 20:49] LABS: CHLAMYDIA TRACHOMATIS DNA NEGATIVE (NEGATIVE); NEISSERIA GONORRHOEAE DNA NEGATIVE (NEGATIVE)
[2023-12-29 21:58] LABS: BACTERIAL VAGINOSIS DNA NEGATIVE (NEGATIVE); CANDIDA GLABRATA DNA POSITIVE (NEGATIVE); CANDIDA GROUP DNA NEGATIVE (NEGATIVE); CANDIDA KRUSEI DNA NEGATIVE (NEGATIVE); TRICHOMONAS VAGINALIS DNA NEGATIVE (NEGATIVE)
== END 2023-12-29 23:59 | disposition home or self-care (01) ==
LOC: LAB 08:00
PROVIDERS: ATTEND Physician Assistant
DX: R30.0 Dysuria (principal)
CPT/HCPCS: 81514; 87077; 87086; 87181; 87491; 87591; 87661